=== PATIENT | male | born 1940 | race Caucasian/White ===

== ENCOUNTER 2017-07-11 16:11 | Inpatient (IN) | payer MEDICARE, OTHER ==
[2017-07-11] MEDS ORDERED: IPRATROPIUM-ALBUTEROL 3 ML NEB INHALATION STA (16:47)
[2017-07-11] MEDS ORDERED: SODIUM CHLORIDE 0.9% 1,000 ML IV STA (16:47)
[2017-07-11] MEDS ORDERED: methylPREDNISolone SOD SUCCI 125 MG/2 ML VIAL IV STA (16:47)
[2017-07-11] MEDS ORDERED: MAGNESIUM SULFATE-D5W PMX 1 GM in DEXTROSE/WATER 1 100ML.BAG IVPB STA (16:47)
--- NOTE | 2017-07-11 16:55 | ED ---
SOB HPI - General Chief Complaint: Shortness of Breath Stated Complaint: SOB Time Seen by Provider: 07/11/17 16:33 Source: patient, family, RN notes reviewed Mode of arrival: wheelchair Limitations: no limitations - History of Present Illness Initial Comments: This is a 76-year-old male with a history of COPD who is oxygen dependent who has had increasing shortness of breath for the past 2-3 days. No overt fevers chills or sweats until today he was noted have a low-grade temperature of 99 in his doctor's office. He was sent here for further evaluation. No chest pain reported no peripheral edema. No other modifying factors at this time MD Complaint: shortness of breath, cough - Related Data Home Medications Medication Instructions Recorded Confirmed Atorvastatin [Lipitor] 20 mg PO HS 12/22/14 07/11/17 Levothyroxine Sodium [Synthroid] 75 mcg PO DAILY 12/22/14 07/11/17 Potassium Chloride [K-Tab ER] 10 meq PO DAILY 12/22/14 07/11/17 Ranitidine HCl 150 mg PO HS 12/22/14 07/11/17 Ascorbic Acid [Vitamin C] 500 mg PO DAILY 02/06/17 07/11/17 Cholecalciferol [Vitamin D3] 1,000 unit PO DAILY 02/06/17 07/11/17 Clopidogrel [Plavix] 75 mg PO DAILY 02/06/17 07/11/17 Mirtazapine [Remeron] 15 mg PO HS 07/11/17 07/11/17 Rivaroxaban [Xarelto] 20 mg PO DAILY 07/11/17 07/11/17 Triamterene-Hctz 37.5-25Mg 1 cap PO DAILY 07/11/17 07/11/17 [Dyazide 37.5-25 Capsule] metFORMIN HCL [Glucophage] 500 mg PO DAILY 07/11/17 07/11/17 Previous Rx's Medication Instructions Recorded INSULIN LISPRO (HumaLOG) [humaLOG] 0 unit SQ ACHS #1 vial 02/09/17 Ipratropium-Albuterol Nebulize 3 ml INHALATION RT-QID ampul.neb 02/09/17 [Duoneb 0.5 mg-3 mg/3 ml Soln] Allergies Allergy/AdvReac Type Severity Reaction Status Date / Time No Known Allergies Allergy Verified 07/11/17 17:26 Review of Systems ROS Statement: Those systems with pertinent positive or pertinent negative responses have been documented in the HPI. ROS Other: All systems not noted in ROS Statement are negative. 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 Past Anesthesia/Blood Transfusion Reactions: No Reported Reaction, Motion Sickness Past Psychological History: No Psychological Hx Reported Smoking Status: Former smoker - Past Family History Father Family Medical History: CVA/TIA Additional Family Medical History / Comment(s): Father had a CVA at age 63. Pt does not know how old he lived to be. Mother Family Medical History: No Reported History Additional Family Medical History / Comment(s): Pt states his mother just of old age. He does not know how old she was when she . General Exam - General Exam Comments Initial Comments: This is a well-developed asthenic appearing male who is in respiratory distress with audible wheezing Limitations: no limitations General appearance: alert, in no apparent distress Head exam: Present: atraumatic, normocephalic, normal inspection Eye exam: Present: normal appearance, PERRL, EOMI. Absent: scleral icterus, conjunctival injection, periorbital swelling ENT exam: Present: mucous membranes dry Neck exam: Present: normal inspection. Absent: tenderness, meningismus, lymphadenopathy Respiratory exam: Present: wheezes, decreased breath sounds. Absent: respiratory distress, rales, rhonchi, stridor Cardiovascular Exam: Present: tachycardia. Absent: systolic murmur, diastolic murmur, rubs, gallop, clicks GI/Abdominal exam: Present: soft, normal bowel sounds. Absent: distended, tenderness, guarding, rebound, rigid Extremities exam: Present: normal inspection, full ROM, normal capillary refill. Absent: tenderness, pedal edema, joint swelling, calf tenderness Back exam: Present: normal inspection Neurological exam: Present: alert, oriented X3, CN II-XII intact Psychiatric exam: Present: normal affect, normal mood Skin exam: Present: warm, dry, intact, normal color. Absent: rash Course Vital Signs 07/11/17 07/11/17 07/11/17 16:17 16:52 17:03 Temperature 98.2 F Pulse Rate 103 H 109 H 103 H Respiratory 20 18 18 Rate Blood Pressure 122/69 O2 Sat by Pulse 84 L Oximetry 07/11/17 17:52 Temperature Pulse Rate 102 H Respiratory 18 Rate Blood Pressure 131/63 O2 Sat by Pulse 91 L Oximetry - Reevaluation(s) Reevaluation #1: 07/11/17 18 the patient states that he is feeling somewhat better breathing better. He does state that he has been having some intermittent left-sided chest discomfort none at this time Reevaluation #2: 07/11/17 19:01 I did discuss case with the admitting physician he will be admitted with treatment for pneumonia and COPD exacerbation renal insufficiency and elevated troponin Medical Decision Making - Medical Decision Making I did discuss findings with patient and his family. Patient be admitted for an Outpatient treatment of pneumonia COPD exacerbation renal insufficiency elevated troponin. I did a chest pain. EKG shows no acute changes at this time. - Lab Data Result diagrams: 07/11/17 16:57 07/11/17 16:57 Lab Results 07/11/17 07/11/17 07/11/17 Range/Units 16:57 16:57 16:57 WBC 12.0 H (3.8-10.6) k/uL RBC 3.84 L (4.30-5.90) m/uL Hgb 11.6 L (13.0-17.5) gm/dL Hct 35.0 L (39.0-53.0) % MCV 91.3 (80.0-100.0) fL MCH 30.3 (25.0-35.0) pg MCHC 33.1 (31.0-37.0) g/dL RDW 13.3 (11.5-15.5) % Plt Count 226 (150-450) k/uL Neutrophils % 89 % Lymphocytes % 3 % Monocytes % 6 % Eosinophils % 0 % Basophils % 0 % Neutrophils # 10.6 H (1.3-7.7) k/uL Lymphocytes # 0.4 L (1.0-4.8) k/uL Monocytes # 0.7 (0-1.0) k/uL Eosinophils # 0.0 (0-0.7) k/uL Basophils # 0.0 (0-0.2) k/uL PT (9.0-12.0) sec INR (<1.2) APTT (22.0-30.0) sec Sodium 144 (137-145) mmol/L Potassium 4.1 (3.5-5.1) mmol/L Chloride 94 L (98-107) mmol/L Carbon Dioxide 34 H (22-30) mmol/L Anion Gap 16 mmol/L BUN 42 H (9-20) mg/dL Creatinine 1.68 H (0.66-1.25) mg/dL Est GFR (CKD-EPI)AfAm 45 (>60 ml/min/1.73 sqM) Est GFR (CKD-EPI)NonAf 39 (>60 ml/min/1.73 sqM) Glucose 179 H (74-99) mg/dL Plasma Lactic Acid Sarabjit (0.7-2.0) mmol/L Calcium 8.8 (8.4-10.2) mg/dL Magnesium 1.8 (1.6-2.3) mg/dL Total Bilirubin 0.4 (0.2-1.3) mg/dL AST 19 (17-59) U/L ALT 32 (21-72) U/L Alkaline Phosphatase 69 (38-126) U/L Total Creatine Kinase 40 L (55-170) U/L CK-MB (CK-2) 0.7 (0.0-2.4) ng/mL CK-MB (CK-2) Rel Index 1.8 Troponin I 0.066 H* (0.000-0.034) ng/mL NT-Pro-B Natriuret Pep pg/mL Total Protein 6.1 L (6.3-8.2) g/dL Albumin 3.8 (3.5-5.0) g/dL 07/11/17 07/11/17 07/11/17 Range/Units 16:57 16:57 16:57 WBC (3.8-10.6) k/uL RBC (4.30-5.90) m/uL Hgb (13.0-17.5) gm/dL Hct (39.0-53.0) % MCV (80.0-100.0) fL MCH (25.0-35.0) pg MCHC (31.0-37.0) g/dL RDW (11.5-15.5) % Plt Count (150-450) k/uL Neutrophils % % Lymphocytes % % Monocytes % % Eosinophils % % Basophils % % Neutrophils # (1.3-7.7) k/uL Lymphocytes # (1.0-4.8) k/uL Monocytes # (0-1.0) k/uL Eosinophils # (0-0.7) k/uL Basophils # (0-0.2) k/uL PT 9.6 (9.0-12.0) sec INR 1.0 (<1.2) APTT 25.6 (22.0-30.0) sec Sodium (137-145) mmol/L Potassium (3.5-5.1) mmol/L Chloride (98-107) mmol/L Carbon Dioxide (22-30) mmol/L Anion Gap mmol/L BUN (9-20) mg/dL Creatinine (0.66-1.25) mg/dL Est GFR (CKD-EPI)AfAm (>60 ml/min/1.73 sqM) Est GFR (CKD-EPI)NonAf (>60 ml/min/1.73 sqM) Glucose (74-99) mg/dL Plasma Lactic Acid Sarabjit 2.2 H* (0.7-2.0) mmol/L Calcium (8.4-10.2) mg/dL Magnesium (1.6-2.3) mg/dL Total Bilirubin (0.2-1.3) mg/dL AST (17-59) U/L ALT (21-72) U/L Alkaline Phosphatase (38-126) U/L Total Creatine Kinase (55-170) U/L CK-MB (CK-2) (0.0-2.4) ng/mL CK-MB (CK-2) Rel Index Troponin I (0.000-0.034) ng/mL NT-Pro-B Natriuret Pep 1800 pg/mL Total Protein (6.3-8.2) g/dL Albumin (3.5-5.0) g/dL - EKG Data -: EKG Interpreted by Me EKG shows normal: sinus rhythm (Sinus tachycardia rate of 107 IL interval 138 QRS duration 84 QT since QTC at 298/[address]-T wave changes are seen.) - Radiology Data Radiology results: report reviewed (I did review the imaging and report or is evidence of multifocal bronchopneumonia), image reviewed Critical Care Time Critical Care Time: Yes Critical Care Time: 31 minutes of critical care time which includes initial presentation with history physical labs x-rays reevaluation the patient to responsive therapy discuss with patient family regarding the findings discussed with the main physician documentation the above admission orders also review of old charting that was available. Disposition Clinical Impression: Acute exacerbation of chronic obstructive airways disease, Adult respiratory distress syndrome, Pneumonia, Leukocytosis, Renal insufficiency syndrome, Elevated troponin Disposition: ADMITTED IP TO THIS HOSP Condition: Stable Referrals: Bar Antunez MD [Primary Care Provider] - 1-2 days
[2017-07-11 17:10] LABS: Basophils % (A) 0 %; Eosinophils % (A) 0 %; HGB 11.6 gm/dL (13.0-17.5); Lymphocytes # (A) 0.4 k/uL (1.0-4.8); Lymphocytes % (A) 3 %; MCH 30.3 pg (25.0-35.0); MCHC 33.1 g/dL (31.0-37.0); MCV 91.3 fL (80.0-100.0); Mean Platelet Volume 6.8; Monocytes # (A) 0.7 k/uL (0-1.0); Monocytes % (A) 6 %; Neutrophils # (A) 10.6 k/uL (1.3-7.7); Neutrophils % (A) 89 %; Platelet Count 226 k/uL (150-450); RBC 3.84 m/uL (4.30-5.90); RDW 13.3 % (11.5-15.5)
[2017-07-11 17:19] LABS: Partial Thromboplastin Time 25.6 sec (22.0-30.0); Prothrombin Time 9.6 sec (9.0-12.0)
[2017-07-11 17:25] LABS: Albumin 3.8 g/dL (3.5-5.0); Calcium 8.8 mg/dL (8.4-10.2); Magnesium 1.8 mg/dL (1.6-2.3); Potassium 4.1 mmol/L (3.5-5.1); Total Bilirubin 0.4 mg/dL (0.2-1.3); Total Protein 6.1 g/dL (6.3-8.2)
--- NOTE | 2017-07-11 17:28 | XR ---
EXAMINATION: XR chest 2V DATE AND TIME: 07/11/2017 5:22 PM ORDERING PROVIDER: Armando Morillo MD CLINICAL INDICATION: difficulty breathing, weakness TECHNIQUE: PA and lateral COMPARISON: 02/06/2017 DESCRIPTION: The lungs demonstrate scattered ill-defined opacities within the bilateral lungs, greate r on the left. This is a change when compared to prior study. There is redemonstration of the elevated right costophrenic angle and hemidiaphragm; this is unchange d. The pleural spaces are otherwise negative. The cardiac silhouette is not enlarged. The mediastinal and pleural silhouettes are unremarkable. The skeletal structures are intact without focal findings. The soft tissues are unremarkable. IMPRESSION: Radiographic findings suggest multifocal bronchopneumonia; would suggest six-week follow-up PA and la teral chest radiograph to prove resolution of the abnormalities.
[2017-07-11 17:42] LABS: Creatine Kinase MB 0.7 ng/mL (0.0-2.4)
[2017-07-11 17:46] LABS: Troponin I 0.066 ng/mL (0.000-0.034)
[2017-07-11] MEDS ORDERED: cefTRIAXone IN SWFI 1,000 MG/10 ML SYRINGE IVP STA (18:29)
[2017-07-11] MEDS ORDERED: PNEUMONIA PROTOCOL UTILIZED 1 EACH MISC PO PRN (19:04)
[2017-07-11] MEDS ORDERED: AZITHROMYCIN 500 MG in SODIUM CHLORIDE 0.9% 250 ML IVPB STA (19:18)
[2017-07-11] MEDS: IPRATROPIUM-ALBUTEROL 3 ML NEB INHALATION SCH (19:51)
[2017-07-11] MEDS: SODIUM CHLORIDE 0.9% 1,000 ML IV SCH (20:21)
[2017-07-11 20:52] LABS: Glucose,Whole Blood 252 mg/dL (75-99)
[2017-07-11] MEDS ORDERED: INSULIN ASPART 100 UNIT/ML 1 ML 10 ML VIAL SQ SCH (21:00)
[2017-07-11] MEDS: INSULIN ASPART 100 UNIT/ML 1 ML 10 ML VIAL SQ SCH (21:17)
[2017-07-11] MEDS: FAMOTIDINE 20 MG TAB PO SCH (21:17)
[2017-07-11] MEDS: MIRTAZAPINE 15 MG TAB PO SCH (21:17)
[2017-07-11] MEDS: ATORVASTATIN 20 MG TAB PO SCH (21:17)
[2017-07-11] MEDS: methylPREDNISolone SOD SUCCI 125 MG/2 ML VIAL IV SCH (23:37)
[2017-07-12] MEDS: IPRATROPIUM-ALBUTEROL 3 ML NEB INHALATION SCH ×5 (00:10→21:07)
[2017-07-12] MEDS ORDERED: IPRATROPIUM-ALBUTEROL 3 ML NEB INHALATION PRN (00:12)
[2017-07-12 06:30] LABS: HCT 30.8 % (39.0-53.0); Hypochromasia Slight; MCH 30.1 pg (25.0-35.0); MCHC 31.8 g/dL (31.0-37.0); MCV 94.4 fL (80.0-100.0); Mean Platelet Volume 7.5; Platelet Count 193 k/uL (150-450); RBC 3.26 m/uL (4.30-5.90); RDW 13.2 % (11.5-15.5); WBC 9.5 k/uL (3.8-10.6)
[2017-07-12 06:31] LABS: Glucose,Whole Blood 265 mg/dL (75-99)
[2017-07-12] MEDS: LEVOTHYROXINE 75 MCG TAB PO SCH (06:33)
[2017-07-12] MEDS: INSULIN ASPART 100 UNIT/ML 1 ML 10 ML VIAL SQ SCH ×4 (06:34→22:05)
[2017-07-12] MEDS: methylPREDNISolone SOD SUCCI 125 MG/2 ML VIAL IV SCH ×2 (06:34→12:11)
[2017-07-12 06:36] LABS: HGB 9.8 gm/dL (13.0-17.5)
[2017-07-12 07:21] LABS: Calcium 8.1 mg/dL (8.4-10.2); Magnesium 2.2 mg/dL (1.6-2.3)
--- NOTE | 2017-07-12 08:43 | XR ---
EXAMINATION TYPE: XR chest 2V DATE OF EXAM: 07/12/2017 COMPARISON: Prior chest x-ray 07/11/[address] chest 02/07/2017 HISTORY: Pneumonia TECHNIQUE: Frontal and lateral views of the chest are obtained. FINDINGS: Findings are similar to prior exam. Interstitium is increased. There is lateralization of the right hemidiaphragm. No evident pneumothorax. Heart is stable. Prominence of the pulmonary artery could be due to pulmonary artery hypertension, increased lung volumes compatible with emphysema. The re are overlying cardiac leads. Nodular density right upper lobe persists. Evidence of old granulomat ous disease. IMPRESSION: Correlate to exclude pulmonary venous hypertension and interstitial edema, volume overlo ad additional findings above.
[2017-07-12] MEDS: TRIAMTERENE-HCTZ 37.5-25MG 1 EACH CAP PO SCH (10:22)
[2017-07-12] MEDS: POTASSIUM CHLORIDE ER 10 MEQ TAB.ER.PRT PO SCH (10:22)
[2017-07-12] MEDS: CHOLECALCIFEROL 1,000 UNIT TAB PO SCH (10:22)
[2017-07-12] MEDS: metFORMIN 500 MG TAB PO SCH (10:22)
[2017-07-12] MEDS: CLOPIDOGREL 75 MG TAB PO SCH (10:22)
[2017-07-12] MEDS: RIVAROXABAN 20 MG TAB PO SCH (10:22)
[2017-07-12] MEDS: ASCORBIC ACID 500 MG TAB PO SCH (10:22)
[2017-07-12 10:24] VITALS: BMI 18.6
[2017-07-12 11:46] LABS: Glucose,Whole Blood 155 mg/dL (75-99)
[2017-07-12 17:26] LABS: Glucose,Whole Blood 231 mg/dL (75-99)
[2017-07-12] MEDS: cefTRIAXone IN SWFI 1,000 MG/10 ML SYRINGE IVP SCH (17:53)
--- NOTE | 2017-07-12 18:32 | HP ---
HISTORY AND PHYSICAL DATE OF ADMISSION: 07/11/2017 DATE OF SERVICE: 07/12/2017 PRESENTING COMPLAINT: Short of breath. HISTORY OF PRESENTING COMPLAINT: This 76-year-old patient follows with Dr. Antunez. The patient's chronic stable medical conditions include atrial fibrillation, diabetes type 2, GERD, hyperlipidemia, hypertension, osteoarthritis, hypothyroid. The patient is on home oxygen 2L, BPH. The patient presents with worsening short of breath, cough, other hacking, sputum predominantly white. Denies any obvious fevers. Appetite has been okay. The patient smoked until about 15 years ago and does smoke marijuana occasionally. Chest x-ray showed bilateral infiltrates, admitted with pneumonia, too. Feels rather tired and run down, sometimes uses a cane. REVIEW OF SYSTEMS: CONSTITUTIONAL: Tired. HEENT: Decreased hearing. RESPIRATORY: As above. CARDIOVASCULAR: No chest pain. GASTROINTESTINAL: Some heartburn. GENITOURINARY: None. MUSCULOSKELETAL: None. DERMATOLOGIC: None. HEMATOLOGIC: None. LYMPHATIC: None. PSYCHIATRY: None. NEUROLOGICAL: None. PAST MEDICAL HISTORY: Atrial fibrillation, diabetes, GERD, hyperlipidemia, hypertension, osteoarthritis, COPD, home oxygen 2L, in 2003 had a brain bleed requiring neurosurgical intervention, shingles, nephrolithiasis, passed on his own, BPH, some dementia, hyperlipidemia, hypertension, migraines, remote history of DVT, chronic kidney disease. PAST SURGICAL HISTORY: Tonsillectomy, surgery for brain bleed in 2003. SOCIAL HISTORY: The patient sometimes uses a cane. Because of some financial social security, his and he do not live together and she visits him. He does not drive. The patient started smoking at the age of 11-12, stopped in 2002. That is close to about 50 years. 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 FAMILY HISTORY: Father had a stroke at the age of 63. HOME MEDICATIONS: 1. Potassium 10 mEq p.o. daily. 2. Glucophage 500 mg p.o. daily. 3. Zantac 150 mg q.h.s. 4. Dyazide 37.5/25 1 capsule p.o. daily. 5. Xarelto 20 mg p.o. daily. 6. Synthroid 75 mcg a day. 7. DuoNeb q.i.d. 8. Remeron 50 mg q.h.s. 9. Plavix 75 mg p.o. daily. 10.Vitamin D3 1000 units p.o. daily. 11.Lipitor 20 mg q.h.s. 12.Vitamin C 500 mg p.o. daily. ALLERGIES: None. EXAMINATION: VITAL SIGNS: On presentation, temperature 98.2, pulse 103, respirations 20, blood pressure 122/69, pulse ox 84% on 2L. GENERAL APPEARANCE: Thin build, lying in bed, tired-appearing. EYES: Pupils equal. Conjunctivae normal. HEENT: External appearance of nose and ears normal. Oral cavity normal. NECK: JVD not raised. Mass not palpable. Respiratory effort increased. LUNGS: Diminished breath sounds, prolonged expiration. CARDIOVASCULAR: First and second sounds normal. No edema. ABDOMEN: Soft, nontender. Liver and spleen not palpable. LYMPHATIC: No lymph node palpable in neck or axillae. PSYCHIATRY: Alert and oriented x3. Mood and affect normal. NEUROLOGICAL: Pupils equal. Cranial nerve grossly intact. Power and sensation grossly intact. INVESTIGATIONS: White count 12, hemoglobin 11.6. Potassium 4.1, BUN 42, creatinine 1.68. Troponin 0.066, 0.079. Chest x-ray: Hyperinflated, possible infiltrates. EKG: Sinus tachycardia. ASSESSMENT: 1. Acute severe chronic obstructive pulmonary disease exacerbation in an ex-smoker. The patient smoked for close to 50 years. 2. Bilateral pneumonia, suspect gram-negative organism, present on admission. 3. Hypothyroid. 4. Paroxysmal atrial fibrillation, currently in sinus rhythm. The patient is chronically on Xarelto. 5. Gastroesophageal reflux disease. 6. Hyperlipidemia. 7. Essential hypertension. 8. Primary osteoarthritis. 9. Chronic hypoxic respiratory failure on 2L oxygen at home. 10.Acute hypoxic respiratory failure from pneumonia and chronic obstructive pulmonary disease. PLAN: Patient started on IV ceftriaxone and Zithromax. Home medications are resumed. Patient is put on steroids, nebulized bronchodilators. Pulmonary is being consulted. Care was discussed with the patient. Questions were answered. MMODL / IJN: [id number] /
[2017-07-12] MEDS: AZITHROMYCIN 500 MG TAB PO SCH (19:30)
[2017-07-12 21:33] LABS: Glucose,Whole Blood 235 mg/dL (75-99)
[2017-07-12] MEDS: FAMOTIDINE 20 MG TAB PO SCH (22:05)
[2017-07-12] MEDS: MIRTAZAPINE 15 MG TAB PO SCH (22:05)
[2017-07-12] MEDS: ATORVASTATIN 20 MG TAB PO SCH (22:05)
[2017-07-12] MEDS: SODIUM CHLORIDE 0.9% 1,000 ML IV SCH (22:06)
[2017-07-13] MEDS: methylPREDNISolone SOD SUCCI 40 MG/ML 1 ML VIAL IV SCH ×4 (00:30→23:29)
[2017-07-13] MEDS: LEVOTHYROXINE 75 MCG TAB PO SCH (06:13)
[2017-07-13] MEDS: INSULIN ASPART 100 UNIT/ML 1 ML 10 ML VIAL SQ SCH ×4 (06:13→20:48)
[2017-07-13 06:24] LABS: Glucose,Whole Blood 191 mg/dL (75-99)
[2017-07-13] MEDS: IPRATROPIUM-ALBUTEROL 3 ML NEB INHALATION SCH ×4 (07:12→20:09)
[2017-07-13] MEDS: ASCORBIC ACID 500 MG TAB PO SCH (09:44)
[2017-07-13] MEDS: AZITHROMYCIN 500 MG TAB PO SCH (09:44)
[2017-07-13] MEDS: TRIAMTERENE-HCTZ 37.5-25MG 1 EACH CAP PO SCH (09:45)
[2017-07-13] MEDS: RIVAROXABAN 20 MG TAB PO SCH (09:45)
[2017-07-13] MEDS: CLOPIDOGREL 75 MG TAB PO SCH (09:45)
[2017-07-13] MEDS: CHOLECALCIFEROL 1,000 UNIT TAB PO SCH (09:45)
[2017-07-13] MEDS: POTASSIUM CHLORIDE ER 10 MEQ TAB.ER.PRT PO SCH (09:45)
[2017-07-13] MEDS: metFORMIN 500 MG TAB PO SCH (09:45)
--- NOTE | 2017-07-13 10:27 | CONS ---
CONSULTATION CHIEF COMPLAINT: Shortness of breath and elevated troponin. This is a 76-year-old gentleman with history of paroxysmal atrial fibrillation, type 2 diabetes, dyslipidemia, hypertension, hypothyroidism, GERD, COPD on home O2, who presented to hospital with cough, shortness of breath and productive sputum. Cardiology had been consulted because of elevated troponin. He denies chest pain and there is no prior history of coronary artery disease. EKG on this admission shows sinus rhythm with nonspecific ST-T wave changes. Chest x-ray showed evidence of bilateral infiltrate. Patient smokes marijuana intermittently. At the time of my evaluation he appears comfortable at rest and is free of significant symptoms, other than the shortness of breath which is chronic and stable. PAST MEDICAL HISTORY: Significant for COPD, hypothyroidism, paroxysmal atrial fibrillation, hypertension, dyslipidemia, GERD, arthritis. MEDICATIONS: At home include Glucophage, Zantac, Dyazide, Xarelto, Synthroid, DuoNeb, Remeron, Plavix, Lipitor, K-Dur, and vitamin C. ALLERGIES: There are no known drug allergies. PAST SURGICAL HISTORY: Significant for tonsillectomy and neurological surgery. REVIEW OF SYSTEMS: A review of systems has been performed. The pertinent are shortness of breath as described above. PHYSICAL EXAMINATION: Patient appears comfortable at rest. Vital signs are stable. There is no jugular venous distention. Carotid upstroke is diminished. There is no bruit. Chest exam reveals diminished air entry at the bases. Heart exam reveals first and second heart sounds. Systolic murmur at the left lower sternal border. Abdomen is soft. Exam of extremities did not reveal any edema. Peripheral pulses are felt. LABS: Show that BUN is 41, creatinine is 1.6, potassium is 4. Troponins are in the powell zone at 0.06, 0.07. BNP is elevated at 1800. ASSESSMENT: 1. Elevated troponin, probably related to chronic obstructive pulmonary disease exacerbation and underlying renal insufficiency. 2. Hypertension. 3. Chronic obstructive pulmonary disease exacerbation. 4. Paroxysmal atrial fibrillation. PLAN: Patient will continue current medications. Will review the echocardiogram once the results are available. He is on optimal medical therapy including aspirin, Plavix. It unclear as to why he is on Plavix. Patient is on Xarelto for atrial fibrillation, which will be continued. Patient is already on a statin, which we are going to continue and I will review the echocardiogram once the results are available. No further cardiac followup is needed at this time. Thank you for giving us the pleasure to participate with this pleasant gentleman. MMPIPPAL / IJN: [id number] /
--- NOTE | 2017-07-13 11:31 | P.CNPUL ---
History of Present Illness Consult date: 07/13/17 Requesting physician: Dmitry Faith Reason for consult: dyspnea, abnormal CXR/CT Chief complaint: Shortness of breath History of present illness: This is a 76-year-old gentleman who follows with Dr. Antunez as his primary care physician. He has a history of atrial fibrillation anticoagulated with Xarelto , CVA/TIA, diabetes mellitus, gastroesophageal reflux disease, hypertension, lipidemia, hypothyroidism, shingles, BPH, dementia, degenerative arthritis, remote history of DVT, chronic renal failure. He also has chronic and ongoing tobacco dependence along with marijuana use. He has severe chronic obstructive pulmonary disease. He has chronic hypoxic respiratory failure on home oxygen at 2 L/m per nasal cannula. He follows with Dr. Harris in our office for the same. He presented here to the emergency room with a 2-3 day complaint of increasing shortness of breath. Chest x-ray shows evidence of fluid volume overload. ProBNP 1800, troponin 0.066, 0.079. Echocardiogram is pending. Previous echocardiogram from 2014 revealed preserved left ventricular systolic function with ejection fraction 55-60%. He is currently afebrile. Maintaining good O2 saturations in the mid 90s on 2 L/m per nasal cannula. Hemodynamically stable. He is seen today in consultation on the selective care unit. He is awake and alert in no acute distress. White count 9.5. Hemoglobin 9.8. Creatinine 1.65. He has been initiated on bronchodilators, IV Solu-Medrol, antibiotics. Blood cultures are revealing no growth. Sputum culture pending. Review of Systems 14 point review of system was conducted. All negative other than as mentioned in the HPI. 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 Past Anesthesia/Blood Transfusion Reactions: No Reported Reaction Past Psychological History: No Psychological Hx Reported Additional Psychological History / Comment(s): Pt states he lives in an apartment. He is mostly independent with his ADLs. He uses a cane to ambulate. Patient states there is not 24/7 help where he is located and his daughter is his mine shifter. Patient states his comes over sometimes. He wears home O2 at 2L/NC most of the time. He doesn't drive. He has a nebulizer. He is on diabetic medication but does not believe he is a diabetic so he does not own a blood glucose monitor. Pt states he recently lost his food stamps and is having trouble buying food. Smoking Status: Former smoker Past Alcohol Use History: None Reported Additional Past Alcohol Use History / Comment(s): Pt states he quit smoking in 2002. He had started smoking as a 11-12 yr old and was a ppd smoker. Past Drug Use History: Marijuana Additional Drug Use History / Comment(s): Pt states he has a medical marijuana card and smokes it on occasion because it increases his appetite. Patient states he has not smoked in about a month. 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 - Past Family History Father Family Medical History: CVA/TIA Additional Family Medical History / Comment(s): Father had a CVA at age 63. Pt does not know how old he lived to be. Mother Family Medical History: No Reported History Additional Family Medical History / Comment(s): Pt states his mother just of old age. He does not know how old she was when she . Medications and Allergies Home Medications Medication Instructions Recorded Confirmed Type Atorvastatin [Lipitor] 20 mg PO HS 12/22/14 07/11/17 History Levothyroxine Sodium [Synthroid] 75 mcg PO DAILY 12/22/14 07/11/17 History Potassium Chloride [K-Tab ER] 10 meq PO DAILY 12/22/14 07/11/17 History Ranitidine HCl 150 mg PO HS 12/22/14 07/11/17 History Ascorbic Acid [Vitamin C] 500 mg PO DAILY 02/06/17 07/11/17 History Cholecalciferol [Vitamin D3] 1,000 unit PO DAILY 02/06/17 07/11/17 History Clopidogrel [Plavix] 75 mg PO DAILY 02/06/17 07/11/17 History INSULIN LISPRO (HumaLOG) [humaLOG] 0 unit SQ ACHS #1 vial 02/09/17 07/11/17 Rx Ipratropium-Albuterol Nebulize 3 ml INHALATION RT-QID ampul.neb 02/09/17 Rx [Duoneb 0.5 mg-3 mg/3 ml Soln] Mirtazapine [Remeron] 15 mg PO HS 07/11/17 07/11/17 History Rivaroxaban [Xarelto] 20 mg PO DAILY 07/11/17 07/11/17 History Triamterene-Hctz 37.5-25Mg 1 cap PO DAILY 07/11/17 07/11/17 History [Dyazide 37.5-25 Capsule] metFORMIN HCL [Glucophage] 500 mg PO DAILY 07/11/17 07/11/17 History Allergies Allergy/AdvReac Type Severity Reaction Status Date / Time No Known Allergies Allergy Verified 07/11/17 17:26 Physical Exam Vitals: Vital Signs Temp Pulse Pulse Resp BP BP Pulse Ox 07/13/17 11:06 84 07/13/17 10:56 84 07/13/17 08:00 97.6 F 82 18 129/60 97 07/13/17 07:22 80 07/13/17 07:12 76 07/13/17 04:00 97 F L 83 18 158/70 94 L 07/13/17 00:00 98.2 F 85 18 116/57 95 07/12/17 21:21 82 07/12/17 21:08 82 07/12/17 20:00 18 07/12/17 19:46 97 F L 86 18 120/58 95 07/12/17 15:40 72 07/12/17 15:26 72 07/12/17 15:25 98.5 F 87 18 117/59 94 L 07/12/17 12:00 98.2 F 88 18 122/58 94 L 07/12/17 11:35 76 07/12/17 11:21 73 Intake and Output 07/12/17 07/13/17 07/13/17 22:59 06:59 14:59 Intake Total 240 Output Total 150 Balance -150 240 Intake: Oral 240 Output: Urine 150 Other: Voiding Method Urinal # Voids 1 Weight 55.4 kg GENERAL EXAM: Frail, cachectic. Alert, comfortable in no apparent distress. HEAD: Normocephalic. EYES: Normal reaction of pupils, equal size. NOSE: Clear with pink turbinates. THROAT: No erythema or exudates. NECK: No masses, no JVD. CHEST: No chest wall deformity. LUNGS: Equal air entry with crackles in the bilateral posterior bases CVS: S1 and S2 normal with no audible murmur, regular rhythm. ABDOMEN: No hepatosplenomegaly, normal bowel sounds, no guarding or rigidity. SPINE: Kyphoscoliosis SKIN: No rashes CENTRAL NERVOUS SYSTEM: No focal deficits, tone is normal in all 4 extremities. EXTREMITIES: There is no peripheral edema. No clubbing, no cyanosis. Peripheral pulses are intact. Results - Laboratory Findings CBC and BMP: 07/12/17 06:09 07/12/17 06:09 PT/INR, D-dimer PT 9.6 sec (9.0-12.0) 07/11/17 16:57 INR 1.0 (<1.2) 07/11/17 16:57 Abnormal lab findings: Abnormal Labs 07/11/17 07/11/17 07/11/17 16:57 16:57 16:57 WBC 12.0 H RBC 3.84 L Hgb 11.6 L Hct 35.0 L Neutrophils # 10.6 H Lymphocytes # 0.4 L Chloride 94 L Carbon Dioxide 34 H BUN 42 H Creatinine 1.68 H Glucose 179 H POC Glucose (mg/dL) Plasma Lactic Acid Sarabjit Calcium Total Creatine Kinase 40 L Troponin I 0.066 H* Total Protein 6.1 L 07/11/17 07/11/17 07/11/17 16:57 20:31 20:50 WBC RBC Hgb Hct Neutrophils # Lymphocytes # Chloride Carbon Dioxide BUN Creatinine Glucose POC Glucose (mg/dL) 252 H Plasma Lactic Acid Sarabjit 2.2 H* Calcium Total Creatine Kinase Troponin I 0.079 H* Total Protein 07/12/17 07/12/17 07/12/17 06:09 06:09 06:29 WBC RBC 3.26 L Hgb 9.8 L D Hct 30.8 L Neutrophils # Lymphocytes # Chloride Carbon Dioxide 34 H BUN 41 H Creatinine 1.65 H Glucose 278 H POC Glucose (mg/dL) 265 H Plasma Lactic Acid Sarabjit Calcium 8.1 L Total Creatine Kinase Troponin I Total Protein 07/12/17 07/12/17 07/12/17 11:44 17:11 21:28 WBC RBC Hgb Hct Neutrophils # Lymphocytes # Chloride Carbon Dioxide BUN Creatinine Glucose POC Glucose (mg/dL) 155 H 231 H 235 H Plasma Lactic Acid Sarabjit Calcium Total Creatine Kinase Troponin I Total Protein 07/13/17 06:03 WBC RBC Hgb Hct Neutrophils # Lymphocytes # Chloride Carbon Dioxide BUN Creatinine Glucose POC Glucose (mg/dL) 191 H Plasma Lactic Acid Sarabjit Calcium Total Creatine Kinase Troponin I Total Protein - Diagnostic Findings Chest x-ray: image reviewed Assessment and Plan Assessment: Impression: #1 Acute on chronic hypoxic respiratory failure secondary to an acute exacerbation of chronic obstructive pulmonary disease. #2 Elevated troponins suspect secondary to oxygen supply and demand mismatch. Echocardiogram pending. Previous echocardiogram in 2014 revealed preserved left ventricular systolic function. #3 Chronic tobacco dependence including marijuana use. #4 Anorexia/cachexia syndrome. #5 Acute on chronic renal failure. 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 #7 Remote history of DVT. #8 Chronic pain syndrome, utilizing medical marijuana. #9 Diabetes mellitus. #10 Hypertension. #11 Hyperlipidemia. #12 Hypothyroidism. #13 Dementia. #14 Poor overall functional performance based on the above-mentioned multiple comorbidities. Plan: The patient was seen and evaluated by Dr. Harris. Chest x-ray and labs were reviewed. We'll continue with his current pulmonary treatment for now. We'll add Pulmicort and Perforomist inhalations twice a day. Continue diuretics. Echocardiogram is pending. We will increase his activity as tolerated. We'll continue to follow and make further recommendations based on his clinical status. I, the cosigning physician, performed a history & physical examination of the patient. Lungs sounds have end expiratory wheeze. Diminished. Maintaining good O2 saturations in the 90s on 2 L/m per nasal cannula. I discussed the assessment and plan of care with my nurse practitioner, Mattie Vences. I attest to the above note as dictated by her. Time with Patient: Greater than 30
[2017-07-13 11:46] LABS: Glucose,Whole Blood 209 mg/dL (75-99)
--- NOTE | 2017-07-13 12:34 | ECHOF ---
Referral Reason:abn trop MEASUREMENTS -------- HEIGHT: 172.7 cm WEIGHT: 55.3 kg BP: 158/70 RVIDd: 2.9 cm (< 3.3) IVSd: 0.9 cm (0.6 - 1.1) LVIDd: 4.6 cm (3.9 - 5.3) LVPWd: 1.0 cm (0.6 - 1.1) IVSs: 1.2 cm LVIDs: 3.5 cm LVPWs: 1.3 cm LAESV Index (A-L): 21.92 ml/m Ao Diam: 3.1 cm (2.0 - 3.7) AV Cusp: 1.8 cm (1.5 - 2.6) LA Diam: 2.9 cm (2.7 - 3.8) EPSS: 0.5 cm MV E Vikash: 0.86 m/s MV DecT: 175 ms MV A Vikash: 0.79 m/s MV E/A Ratio: 1.08 RAP: 15.00 mmHg RVSP: 45.81 mmHg MV EF SLOPE: 169.13 mm/s (70 - 150) MV EXCURSION: 1.92 cm (> 18.000) FINDINGS -------- Sinus rhythm. This was a technically adequate study. The left ventricular size is normal. Left ventricular wall thickness is normal. Overall left vent ricular systolic function is low-normal with, an EF between 50 - 55 %. The right ventricle is normal in size and function. Normal LA size by volume 22+/-6 ml/m2. The right atrium is normal in size. There is mild aortic valve sclerosis. There is no evidence of aortic regurgitation. There is no e vidence of aortic stenosis. The mitral valve leaflets are mildly thickened. There is trace to mild mitral regurgitation. Mild tricuspid regurgitation present. There is mild pulmonary hypertension. The right ventricular systolic pressure, as measured by Doppler, is 45.81mmHg. The pulmonic valve was not well visualized. The aortic root size is normal. The inferior vena cava is dilated with poor inspiratory collapse which is consistent with estimated r ight atrial pressure of 20 mmHg. There is no pericardial effusion. CONCLUSIONS -------- 1. Sinus rhythm. 2. This was a technically adequate study. 3. The left ventricular size is normal. 4. Left ventricular wall thickness is normal. 5. Overall left ventricular systolic function is low-normal with, an EF between 50 - 55 %. 6. Normal LA size by volume 22+/-6 ml/m2. 7. There is mild aortic valve sclerosis. 8. The mitral valve leaflets are mildly thickened. 9. There is trace to mild mitral regurgitation. 10. Mild tricuspid regurgitation present. 11. There is mild pulmonary hypertension. 12. The right ventricular systolic pressure, as measured by Doppler, is 45.81mmHg. 13. The pulmonic valve was not well visualized. 14. The aortic root size is normal. 15. The inferior vena cava is dilated with poor inspiratory collapse which is consistent with estimat ed right atrial pressure of 20 mmHg. 16. There is no pericardial effusion. QC MANAGER: Jac Chun RDCS
--- NOTE | 2017-07-13 14:54 | CDI ---
Last Revision, January 2017 Documentation Clarification Form Date: 07/13/17 6784 From: Kita Garcia RN, CCDS Admit Date: 07/11/2017 7:04:00 PM Patient Name: Archie Patel Visit Number: [id number] ATTENTION: The Clinical Documentation Specialists (CDI) and [facility] Coding Staff appreciate your assistance in clarifying documentation. Please respond to the clarification below the line at the bottom and electronically sign. The CDI & [facility] Coding staff will review the response and follow-up if needed. Please note: Queries are made part of the Legal Health Record. If you have any questions, please contact the author of this message via ITS. Dr. Dmitry Faith History/Risk Factors: AF, DM,GERD, Hyperlipidemia, HTN, OA, BPH, nephrolithiasis, HTN Clinical Indicators: 07/13 Pulmonary Consult: "chronic renal failure with a baseline creatinine of 1.1 -1.2." Current BUN: 42/41 Creatinine: 1.68/1.65 GFR: 39/40 02/09/17 Patients Baseline: BUN/CR/GFR: 50/1.63/41 Treatment: IVF@ 20 CC/hr In order to capture the severity of condition, please clarify if the condition signifies: CKD Stage 3 (GFR 30-59) CKD Stage 4 (GFR 15-29) CKD Stage 5 (GFR <15) ESRD Other, please specify Unable to determine Please continue to document in your progress notes and discharge summary in order to capture severity of illness and risk of mortality. Include clinical findings that support your diagnosis. see notes MTDD
--- NOTE | 2017-07-13 15:02 | CDI ---
Last Revision, January 2017 Documentation Clarification Form Date: 07/13/17 1500 From: Kita Garcia RN, CCDS Admit Date: 07/11/2017 7:04:00 PM Patient Name: Archie Patel Visit Number: [id number] ATTENTION: The Clinical Documentation Specialists (CDI) and [facility] Coding Staff appreciate your assistance in clarifying documentation. Please respond to the clarification below the line at the bottom and electronically sign. The CDI & [facility] Coding staff will review the response and follow-up if needed. Please note: Queries are made part of the Legal Health Record. If you have any questions, please contact the author of this message via ITS. Dr. Dmitry Faith Patient has been described as underweight and cachexic History/Risk Factors: Atrial fibrillation, diabetes, GERD, hyperlipidemia, hypertension, osteoarthritis, COPD, home oxygen 2L, shingles, nephrolithiasis, passed on his own, BPH, some dementia, hyperlipidemia, hypertension, migraines, remote history of DVT, chronic kidney disease. Clinical Indicators: 07/13 Pulmonary Progress Note: "Anorexia/cachexia syndrome." Patients weight is 55.4 kg Patients height is 68 in Calculated BMI is 18.6 Skin care/assessment: WNL Treatments: Daily weights per unit protocol Nutritional Education per mine expert Dietary Consult completed 07/12/17 Administration of vitamins/supplements: Mariaelena GARCIA Cherry Dipper notes: "underweight" In order to capture the severity of condition associated with patient BMI of ___ ___, a clinical diagnoses needs to be documented by the physician. Please clarify: Protein Caorie Malnutrition, (further specify severity-Mild, moderate, severe) Emaciated Cachexia Underweight Other Unable to determine Please continue to document in your progress notes and discharge summary in order to capture severity of illness and risk of mortality. Include clinical findings that support your diagnosis. underweight MTDD
[2017-07-13 16:39] LABS: Glucose,Whole Blood 170 mg/dL (75-99)
[2017-07-13] MEDS: SODIUM CHLORIDE 0.9% 1,000 ML IV SCH (17:37)
[2017-07-13] MEDS: cefTRIAXone IN SWFI 1,000 MG/10 ML SYRINGE IVP SCH (17:41)
--- NOTE | 2017-07-13 17:54 | PN ---
PROGRESS NOTE DATE OF SERVICE: 07/13/2017. PRESENTING COMPLAINT: Short of breath. INTERVAL HISTORY: Patient admitted with severe COPD exacerbation with bilateral pneumonia. Breathing is slightly better. Still coughing up yellow/dirty brown sputum. The patient did walk a bit in the hallway. Wheezing and cough is present. Did tolerate some diet. REVIEW OF SYSTEMS: Done for constitutional, cardiovascular, GI, pulmonary; relevant findings as above. CURRENT MEDICATIONS: Reviewed, that include DuoNeb, steroids, IV ceftriaxone, Zithromax. PHYSICAL EXAMINATION: Temperature 97.1, pulse 87, respiratory rate 18, blood pressure 127/59, pulse ox 97% on 2 L. GENERAL APPEARANCE: Sitting up, tired-appearing. EYES: Pupils equal. Conjunctivae normal. HEENT: External nose and ears normal. Oral cavity normal. NECK: JVD not raised. Mass not palpable. Respiratory effort increased. LUNGS: Decreased breath sounds. Poor air entry. CARDIOVASCULAR: 1st and 2nd heart sounds normal. No edema. ABDOMEN: Soft, nontender. Liver and spleen not palpable. PSYCHIATRY: Alert and oriented x3. Mood and affect normal. INVESTIGATIONS: Accu-Cheks are noted. Sugar 265, 155. Sputum culture pending. ASSESSMENT: 1. Acute severe chronic obstructive pulmonary disease exacerbation in an ex-smoker, slow to respond. 2. Bilateral pneumonia, suspect gram-negative organism, present on admission. 3. Hypothyroid. 4. Paroxysmal atrial fibrillation, currently in sinus rhythm on Xarelto. 5. Gastroesophageal reflux disease. 6. Hyperlipidemia. 7. Essential hypertension. 8. Primary osteoarthritis multiple joints. 9. Chronic hypoxic respiratory failure on 2 L oxygen at home. 10.Acute hypoxic respiratory failure from pneumonia and COPD, present on admission. 11.Underweight. 12.Chronic kidney disease stage 3, probably from nephrosclerosis, creatinine being around the same since February of this year. PLAN: Continue with antibiotics, steroids, nebulized bronchodilators. Patient encouraged to be out of bed. Care was discussed with the patient. MMODL / IJN: [id number] /
[2017-07-13 20:26] LABS: Glucose,Whole Blood 299 mg/dL (75-99)
[2017-07-13] MEDS: ATORVASTATIN 20 MG TAB PO SCH (20:45)
[2017-07-13] MEDS: MIRTAZAPINE 15 MG TAB PO SCH (20:45)
[2017-07-13] MEDS: FAMOTIDINE 20 MG TAB PO SCH (20:45)
[2017-07-13] MEDS: guaiFENesin 600 MG TABLET.ER PO SCH (21:21)
[2017-07-14] MEDS: LEVOTHYROXINE 75 MCG TAB PO SCH (06:14)
[2017-07-14] MEDS: IPRATROPIUM-ALBUTEROL 3 ML NEB INHALATION SCH ×4 (07:48→19:16)
[2017-07-14 07:55] LABS: Glucose,Whole Blood 267 mg/dL (75-99)
[2017-07-14] MEDS: methylPREDNISolone SOD SUCCI 40 MG/ML 1 ML VIAL IV SCH ×3 (09:19→23:23)
[2017-07-14] MEDS: INSULIN ASPART 100 UNIT/ML 1 ML 10 ML VIAL SQ SCH ×4 (09:19→21:32)
[2017-07-14] MEDS: RIVAROXABAN 15 MG TAB PO SCH (09:20)
[2017-07-14] MEDS: CLOPIDOGREL 75 MG TAB PO SCH (09:20)
[2017-07-14] MEDS: TRIAMTERENE-HCTZ 37.5-25MG 1 EACH CAP PO SCH (09:20)
[2017-07-14] MEDS: metFORMIN 500 MG TAB PO SCH (09:20)
[2017-07-14] MEDS: AZITHROMYCIN 500 MG TAB PO SCH (09:20)
[2017-07-14] MEDS: POTASSIUM CHLORIDE ER 10 MEQ TAB.ER.PRT PO SCH (09:20)
[2017-07-14] MEDS: CHOLECALCIFEROL 1,000 UNIT TAB PO SCH (09:20)
[2017-07-14] MEDS: ASCORBIC ACID 500 MG TAB PO SCH (09:20)
[2017-07-14] MEDS: guaiFENesin 600 MG TABLET.ER PO SCH ×2 (09:20→21:33)
[2017-07-14 12:36] LABS: Glucose,Whole Blood 213 mg/dL (75-99)
--- NOTE | 2017-07-14 13:50 | P.PN ---
Subjective Progress Note Date: 07/14/17 Principal diagnosis: Acute on chronic hypoxic respiratory failure secondary to an acute exacerbation of chronic obstructive pulmonary disease. This is a 76-year-old gentleman who follows with Dr. Antunez as his primary care physician. He has a history of atrial fibrillation anticoagulated with Xarelto , CVA/TIA, diabetes mellitus, gastroesophageal reflux disease, hypertension, lipidemia, hypothyroidism, shingles, BPH, dementia, degenerative arthritis, remote history of DVT, chronic renal failure. He also has chronic and ongoing tobacco dependence along with marijuana use. He has severe chronic obstructive pulmonary disease. He has chronic hypoxic respiratory failure on home oxygen at 2 L/m per nasal cannula. He follows with Dr. Harris in our office for the same. He presented here to the emergency room with a 2-3 day complaint of increasing shortness of breath. Chest x-ray shows evidence of fluid volume overload. ProBNP 1800, troponin 0.066, 0.079. Echocardiogram is pending. Previous echocardiogram from 2014 revealed preserved left ventricular systolic function with ejection fraction 55-60%. He is currently afebrile. Maintaining good O2 saturations in the mid 90s on 2 L/m per nasal cannula. Hemodynamically stable. He is seen today in consultation on the selective care unit. He is awake and alert in no acute distress. White count 9.5. Hemoglobin 9.8. Creatinine 1.65. He has been initiated on bronchodilators, IV Solu-Medrol, antibiotics. Blood cultures are revealing no growth. Sputum culture pending. The patient is seen again today 07/14/2017 in follow-up on the regular medical floor. He is currently resting quite comfortably in bed. No worsening shortness of breath, cough or congestion. He is maintaining good O2 saturations in the 90s on 2 L/m per nasal cannula. He has been afebrile. Hemodynamically stable. Echocardiogram revealed preserved left ventricular systolic function with ejection fraction 50-55%. Blood culture reveals no growth. Sputum culture reveals no growth. Objective - Vital Signs Vital signs: Vital Signs Temp 97.4 F L 07/14/17 06:30 Pulse 84 07/14/17 12:07 Resp 20 07/14/17 06:30 BP 114/55 07/14/17 06:30 Pulse Ox 97 07/14/17 06:30 Intake & Output 06/09/2207/14/17 07/14/17 18:59 06:59 18:59 Intake Total 1920 Output Total 200 Balance 1720 Weight 55 kg Intake: Oral 1920 Output: Urine 200 Other: Voiding Method Urinal Urinal # Voids 2 1 - Exam GENERAL EXAM: Frail, cachectic. Alert, comfortable in no apparent distress. HEAD: Normocephalic. EYES: Normal reaction of pupils, equal size. NOSE: Clear with pink turbinates. THROAT: No erythema or exudates. NECK: No masses, no JVD. CHEST: No chest wall deformity. LUNGS: Equal air entry with crackles in the bilateral posterior bases CVS: S1 and S2 normal with no audible murmur, regular rhythm. ABDOMEN: No hepatosplenomegaly, normal bowel sounds, no guarding or rigidity. SPINE: Kyphoscoliosis SKIN: No rashes CENTRAL NERVOUS SYSTEM: No focal deficits, tone is normal in all 4 extremities. EXTREMITIES: There is no peripheral edema. No clubbing, no cyanosis. Peripheral pulses are intact. - Labs CBC & Chem 7: 07/12/17 06:09 07/12/17 06:09 Labs: Abnormal Lab Results - Last 24 Hours (Table) 07/13/17 07/13/17 07/14/17 Range/Units 16:36 20:25 07:28 POC Glucose (mg/dL) 170 H 299 H 267 H (75-99) mg/dL 07/14/17 Range/Units 12:31 POC Glucose (mg/dL) 213 H (75-99) mg/dL Microbiology - Last 24 Hours (Table) 07/12/17 08:35 Gram Stain - Final Sputum Sputum Culture - Final 07/11/17 16:57 Blood Culture - Preliminary Blood No Growth after 48 hours Assessment and Plan Assessment: Impression: #1 Acute on chronic hypoxic respiratory failure secondary to an acute exacerbation of chronic obstructive pulmonary disease. #2 Elevated troponins suspect secondary to oxygen supply and demand mismatch. Echocardiogram pending. Previous echocardiogram in 2014 revealed preserved left ventricular systolic function. #3 Chronic tobacco dependence including marijuana use. #4 Anorexia/cachexia syndrome. #5 Acute on chronic renal failure. 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 #7 Remote history of DVT. #8 Chronic pain syndrome, utilizing medical marijuana. #9 Diabetes mellitus. #10 Hypertension. #11 Hyperlipidemia. #12 Hypothyroidism. #13 Dementia. #14 Poor overall functional performance based on the above-mentioned multiple comorbidities. Plan: The patient was seen and evaluated by Dr. Harris. We'll continue with his current pulmonary treatment for now. We will increase his activity as tolerated. We'll continue to follow and make further recommendations based on his clinical status. I, the cosigning physician, performed a history & physical examination of the patient. Lungs sounds have end expiratory wheeze. Diminished. Maintaining good O2 saturations in the 90s on 2 L/m per nasal cannula. I discussed the assessment and plan of care with my nurse practitioner, Mattie Vences. I attest to the above note as dictated by her.
--- NOTE | 2017-07-14 15:01 | PN ---
PROGRESS NOTE DATE OF SERVICE: 07/14/2017 PRESENTING COMPLAINT: Short of breath. INTERVAL HISTORY: Patient with severe COPD exacerbation, bilateral pneumonia. Breathing still short of breath, coughing. Sputum is still present. Did tolerate some diet. Has been out of bed, tired and run down. REVIEW OF SYSTEMS: Review of systems done for constitutional, cardiovascular, GI, pulmonary; relevant findings as above. CURRENT MEDICATIONS: Current medications are reviewed that include IV ceftriaxone, Zithromax, DuoNeb, IV Solu-Medrol. PHYSICAL EXAMINATION: On examination, temperature 97.4, pulse 72, respirations 20, blood pressure 114/55, pulse ox 97% on 2 L. GENERAL APPEARANCE: Sitting up, tired appearing. EYES: Pupils equal. Conjunctivae normal. HENT: External appearance of nose and ears normal. Oral cavity normal. NECK: JVD not raised. Mass not palpable. RESPIRATORY: Effort increased. LUNGS: Decreased breath sounds. Poor air entry. CARDIOVASCULAR: First and second sounds normal. No edema. ABDOMEN: Soft, nontender. Liver and spleen not palpable. PSYCHIATRY: Alert and oriented x3. Mood and affect normal. INVESTIGATIONS: Accu-Cheks are noted. ASSESSMENT: 1. Acute severe chronic obstructive pulmonary disease exacerbation in an ex-smoker, slow to respond. 2. Bilateral pneumonia, suspect gram-negative organism, present on admission. 3. Hypothyroid. 4. Paroxysmal atrial fibrillation, currently in sinus rhythm on Xarelto. 5. Gastroesophageal reflux disease. 6. Hyperlipidemia. 7. Essential hypertension. 8. Primary osteoarthritis of multiple joints. 9. Chronic hypoxic respiratory failure on 2 L oxygen at home. 10.Acute hypoxic respiratory failure from pneumonia and chronic obstructive pulmonary disease, present on admission. 11.Underweight. 12.Chronic kidney disease, stage 3, probably from nephrosclerosis. Creatinine was the same in February of this year. PLAN: Continue current medication and treatment plan. Encourage the patient to be out of bed. The patient's appetite is improving. The patient is coming along though slowly. MMODL / IJN: [id number] /
[2017-07-14] MEDS: SODIUM CHLORIDE 0.9% 1,000 ML IV SCH (16:32)
[2017-07-14 17:18] LABS: Glucose,Whole Blood 184 mg/dL (75-99)
[2017-07-14] MEDS: cefTRIAXone IN SWFI 1,000 MG/10 ML SYRINGE IVP SCH (17:38)
[2017-07-14 21:00] LABS: Glucose,Whole Blood 195 mg/dL (75-99)
[2017-07-14] MEDS: FAMOTIDINE 20 MG TAB PO SCH (21:33)
[2017-07-14] MEDS: MIRTAZAPINE 15 MG TAB PO SCH (21:33)
[2017-07-14] MEDS: ATORVASTATIN 20 MG TAB PO SCH (21:33)
[2017-07-15] MEDS: LEVOTHYROXINE 75 MCG TAB PO SCH (05:34)
[2017-07-15] MEDS: IPRATROPIUM-ALBUTEROL 3 ML NEB INHALATION SCH ×4 (07:19→19:51)
[2017-07-15 07:31] LABS: Glucose,Whole Blood 184 mg/dL (75-99)
[2017-07-15] MEDS: INSULIN ASPART 100 UNIT/ML 1 ML 10 ML VIAL SQ SCH ×4 (08:01→22:01)
[2017-07-15] MEDS: CLOPIDOGREL 75 MG TAB PO SCH (08:02)
[2017-07-15] MEDS: RIVAROXABAN 15 MG TAB PO SCH (08:02)
[2017-07-15] MEDS: methylPREDNISolone SOD SUCCI 40 MG/ML 1 ML VIAL IV SCH ×2 (08:02→15:46)
[2017-07-15] MEDS: guaiFENesin 600 MG TABLET.ER PO SCH ×2 (08:02→22:01)
[2017-07-15] MEDS: CHOLECALCIFEROL 1,000 UNIT TAB PO SCH (08:02)
[2017-07-15] MEDS: metFORMIN 500 MG TAB PO SCH (08:02)
[2017-07-15] MEDS: POTASSIUM CHLORIDE ER 10 MEQ TAB.ER.PRT PO SCH (08:02)
[2017-07-15] MEDS: TRIAMTERENE-HCTZ 37.5-25MG 1 EACH CAP PO SCH (08:03)
[2017-07-15] MEDS: ASCORBIC ACID 500 MG TAB PO SCH (08:03)
[2017-07-15] MEDS: AZITHROMYCIN 500 MG TAB PO SCH (08:03)
[2017-07-15 11:53] LABS: Glucose,Whole Blood 207 mg/dL (75-99)
[2017-07-15] MEDS: SODIUM CHLORIDE 0.9% 1,000 ML IV SCH (15:45)
[2017-07-15] MEDS: cefTRIAXone IN SWFI 1,000 MG/10 ML SYRINGE IVP SCH (15:46)
--- NOTE | 2017-07-15 15:50 | P.PN ---
Subjective Progress Note Date: 07/15/17 Principal diagnosis: Acute on chronic hypoxic respiratory failure secondary to COPD exacerbation. This is a 76-year-old gentleman who follows with Dr. Antunez as his primary care physician. He has a history of atrial fibrillation anticoagulated with Xarelto , CVA/TIA, diabetes mellitus, gastroesophageal reflux disease, hypertension, lipidemia, hypothyroidism, shingles, BPH, dementia, degenerative arthritis, remote history of DVT, chronic renal failure. He also has chronic and ongoing tobacco dependence along with marijuana use. He has severe chronic obstructive pulmonary disease. He has chronic hypoxic respiratory failure on home oxygen at 2 L/m per nasal cannula. He follows with Dr. Harris in our office for the same. He presented here to the emergency room with a 2-3 day complaint of increasing shortness of breath. Chest x-ray shows evidence of fluid volume overload. ProBNP 1800, troponin 0.066, 0.079. Echocardiogram is pending. Previous echocardiogram from 2014 revealed preserved left ventricular systolic function with ejection fraction 55-60%. He is currently afebrile. Maintaining good O2 saturations in the mid 90s on 2 L/m per nasal cannula. Hemodynamically stable. He is seen today in consultation on the selective care unit. He is awake and alert in no acute distress. White count 9.5. Hemoglobin 9.8. Creatinine 1.65. He has been initiated on bronchodilators, IV Solu-Medrol, antibiotics. Blood cultures are revealing no growth. Sputum culture pending. The patient is seen again today 07/14/2017 in follow-up on the regular medical floor. He is currently resting quite comfortably in bed. No worsening shortness of breath, cough or congestion. He is maintaining good O2 saturations in the 90s on 2 L/m per nasal cannula. He has been afebrile. Hemodynamically stable. Echocardiogram revealed preserved left ventricular systolic function with ejection fraction 50-55%. Blood culture reveals no growth. Sputum culture reveals no growth. Reevaluated today on 07/15/2017, patient seems to be doing much better, breathing a lot easier, less cough and less wheezing less shortness of breath. Maintaining adequate saturations on 2 L nasal cannula, patient is normally on home O2 at 2 L. Objective - Vital Signs Vital signs: Vital Signs Temp 96.8 F L 07/15/17 15:00 Pulse 82 07/15/17 15:00 Resp 18 07/15/17 15:00 BP 126/60 07/15/17 15:00 Pulse Ox 94 L 07/15/17 15:00 Intake & Output 07/14/17 07/15/17 07/15/17 18:59 06:59 18:59 Weight 55 kg Other: Voiding Method Urinal # Voids 2 2 3 - Exam GENERAL EXAM: Frail, cachectic. Alert, comfortable in no apparent distress. HEAD: Normocephalic. EYES: Normal reaction of pupils, equal size. NOSE: Clear with pink turbinates. THROAT: No erythema or exudates. NECK: No masses, no JVD. CHEST: No chest wall deformity. LUNGS: Equal air entry with crackles in the bilateral posterior bases CVS: S1 and S2 normal with no audible murmur, regular rhythm. ABDOMEN: No hepatosplenomegaly, normal bowel sounds, no guarding or rigidity. SPINE: Kyphoscoliosis SKIN: No rashes CENTRAL NERVOUS SYSTEM: No focal deficits, tone is normal in all 4 extremities. EXTREMITIES: There is no peripheral edema. No clubbing, no cyanosis. Peripheral pulses are intact. - Labs CBC & Chem 7: 07/12/17 06:09 07/12/17 06:09 Labs: Abnormal Lab Results - Last 24 Hours (Table) 07/14/17 07/14/17 07/15/17 Range/Units 17:08 20:58 07:29 POC Glucose (mg/dL) 184 H 195 H 184 H (75-99) mg/dL 07/15/17 Range/Units 11:51 POC Glucose (mg/dL) 207 H (75-99) mg/dL Microbiology - Last 24 Hours (Table) 07/11/17 16:57 Blood Culture - Preliminary Blood No Growth after 72 hours Assessment and Plan Assessment: #1 Acute on chronic hypoxic respiratory failure secondary to an acute exacerbation of chronic obstructive pulmonary disease. #2 Elevated troponins suspect secondary to oxygen supply and demand mismatch. Echocardiogram pending. Previous echocardiogram in 2014 revealed preserved left ventricular systolic function. #3 Chronic tobacco dependence including marijuana use. #4 Anorexia/cachexia syndrome. #5 Acute on chronic renal failure. 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 #7 Remote history of DVT. #8 Chronic pain syndrome, utilizing medical marijuana. #9 Diabetes mellitus. #10 Hypertension. #11 Hyperlipidemia. #12 Hypothyroidism. #13 Dementia. #14 Poor overall functional performance based on the above-mentioned multiple comorbidities. Recommendation: Continue present meds, switch patient to oral prednisone, discharge the patient home tomorrow, and follow up with me on outpatient basis. Time with Patient: Less than 30
[2017-07-15] MEDS: predniSONE 10 MG TAB PO SCH (16:28)
[2017-07-15 16:52] LABS: Glucose,Whole Blood 119 mg/dL (75-99)
--- NOTE | 2017-07-15 18:50 | PN ---
PROGRESS NOTE DATE OF SERVICE: July 15, 2017. PRESENTING COMPLAINT: Short of breath. INTERVAL HISTORY: Patient admitted with severe COPD exacerbation, bilateral pneumonia, getting better. Has been up to the bathroom. Sputum production significantly gone down. Eating better. Feeling better. REVIEW OF SYSTEMS: Done for constitutional, cardiovascular, GI, pulmonary; relevant findings as above. CURRENT MEDICATIONS: Reviewed that include IV ceftriaxone, Zithromax, oral prednisone. PHYSICAL EXAMINATION: Temperature 96.8, pulse 62, respiratory 18, blood pressure 126/60, pulse ox 94% on 2 L. GENERAL APPEARANCE: Sitting at the edge of the bed, looking better. EYES: Pupils are equal. Conjunctivae normal. HEENT external appearance of nose and ears normal. Oral cavity normal. NECK: JVD not raised. Mass not palpable. RESPIRATORY: Effort increased. LUNGS decreased breath sounds. Cardiovascular: 1st and 2nd sounds normal. No edema. ABDOMEN: Soft, nontender. Liver and spleen not palpable. PSYCHIATRY: Alert and oriented x3. Mood and affect normal. INVESTIGATIONS: Accu-Cheks are noted. ASSESSMENT: 1. Acute severe chronic obstructive pulmonary disease exacerbation in an ex-smoker improving. 2. Bilateral pneumonia suspect gram-negative organism, improved. 3. Hypothyroid. 4. Paroxysmal atrial fibrillation, currently in sinus rhythm on Xarelto. 5. Gastroesophageal reflux disease. 6. Hyperlipidemia. 7. Essential hypertension. 8. Primary osteoarthritis of multiple joints. 9. Chronic hypoxic respiratory failure on 2 L oxygen at home. 10.Acute hypoxic respiratory failure from pneumonia and chronic obstructive pulmonary disease exacerbation present on admission. 11.Underweight. 12.Chronic kidney stage 3 probably from nephrosclerosis. PLAN: The patient is switched to oral prednisone. We will switch to oral antibiotics. I talked to the patient. Should be able to be discharged tomorrow. MMODL / IJN: [id number] /
[2017-07-15 21:20] LABS: Glucose,Whole Blood 285 mg/dL (75-99)
[2017-07-15] MEDS: ATORVASTATIN 20 MG TAB PO SCH (22:01)
[2017-07-15] MEDS: MIRTAZAPINE 15 MG TAB PO SCH (22:01)
[2017-07-15] MEDS: FAMOTIDINE 20 MG TAB PO SCH (22:01)
[2017-07-15 23:36] VITALS: RESP 20
[2017-07-16] MEDS: LEVOTHYROXINE 75 MCG TAB PO SCH (05:50)
[2017-07-16 06:34] VITALS: BP 151/73; TEMP 97.5
[2017-07-16 07:12] LABS: Glucose,Whole Blood 133 mg/dL (75-99)
[2017-07-16] MEDS: IPRATROPIUM-ALBUTEROL 3 ML NEB INHALATION SCH ×2 (07:47→11:49)
[2017-07-16] MEDS: guaiFENesin 600 MG TABLET.ER PO SCH (08:01)
[2017-07-16] MEDS: AZITHROMYCIN 500 MG TAB PO SCH (08:01)
[2017-07-16] MEDS: CHOLECALCIFEROL 1,000 UNIT TAB PO SCH (08:01)
[2017-07-16] MEDS: CLOPIDOGREL 75 MG TAB PO SCH (08:02)
[2017-07-16] MEDS: TRIAMTERENE-HCTZ 37.5-25MG 1 EACH CAP PO SCH (08:02)
[2017-07-16] MEDS: ASCORBIC ACID 500 MG TAB PO SCH (08:02)
[2017-07-16] MEDS: metFORMIN 500 MG TAB PO SCH (08:02)
[2017-07-16] MEDS: POTASSIUM CHLORIDE ER 10 MEQ TAB.ER.PRT PO SCH (08:02)
[2017-07-16] MEDS: predniSONE 10 MG TAB PO SCH (08:02)
[2017-07-16] MEDS: RIVAROXABAN 15 MG TAB PO SCH (08:02)
[2017-07-16] MEDS: INSULIN ASPART 100 UNIT/ML 1 ML 10 ML VIAL SQ SCH ×2 (08:03→12:38)
[2017-07-16 11:55] LABS: Glucose,Whole Blood 205 mg/dL (75-99)
[2017-07-16 11:59] VITALS: PULSE 90
--- NOTE | 2017-07-16 13:04 | P.PN ---
Subjective Progress Note Date: 07/16/17 Principal diagnosis: Shortness of breath Progress note dated 07/16/2017 76-year-old male with a history of acute on chronic hypoxemic respiratory failure secondary to COPD. The patient has a history of elevated troponins ultimately related to supply/demand mismatch. In addition, the patient has ongoing chronic tobacco dependence and marijuana use, anorexia/cachexia syndrome , acute on chronic renal failure, history of CVA, remote history of DVT, chronic pain syndrome, diabetes mellitus, hypertension, hyperlipidemia, hypothyroidism, dementia, and general medical debility. The patient's overall condition has improved and he is being considered for discharge in next 24-48 hours. Still with some shortness of breath. Objective - Vital Signs Vital signs: Vital Signs Temp 97.5 F L 07/16/17 06:00 Pulse 90 07/16/17 11:59 Resp 20 07/16/17 06:00 BP 151/73 07/16/17 06:00 Pulse Ox 100 07/16/17 06:00 Intake & Output 07/15/17 07/16/17 07/16/17 18:59 06:59 18:59 Intake Total 100 240 Balance 100 240 Weight 51.1 kg Intake: Oral 100 240 Other: Voiding Method Toilet # Voids 3 3 - Exam No acute distress, oriented 3. HEENT examination is grossly unremarkable. Mucous membranes are moist. No oral lesions. Neck supple. Full range of motion. No adenopathy thyromegaly or neck vein distention. Cardiovascular examination reveals regular rhythm rate. S1-S2 normal. No S3 or S4. No discernible murmur noted. Lungs reveal few scattered rhonchi. His breath sounds are equal bilaterally. No crackles or wheezes. Abdomen soft bowel sounds are heard. No masses or tenderness. Extremities are intact. No cyanosis clubbing or edema. Skin is without rash or lesion. Neurologic examination is brief but nonfocal. - Labs CBC & Chem 7: 07/12/17 06:09 07/12/17 06:09 Labs: Abnormal Lab Results - Last 24 Hours (Table) 07/15/17 07/15/17 07/16/17 Range/Units 16:50 21:09 06:58 POC Glucose (mg/dL) 119 H 285 H 133 H (75-99) mg/dL 07/16/17 Range/Units 11:53 POC Glucose (mg/dL) 205 H (75-99) mg/dL Microbiology - Last 24 Hours (Table) 07/11/17 16:57 Blood Culture - Preliminary Blood No Growth after 96 hours Assessment and Plan Assessment: Assessment Acute on chronic hypoxemic respiratory failure secondary to COPD exacerbation Mildly elevated troponins, thought to relate to supply/demand mismatch Chronic tobacco dependence and nicotine addiction Chronic marijuana use Anorexia/cachexia syndrome Acute on chronic renal failure Previous history of hemorrhagic CVA Remote history of DVT Chronic pain syndrome Diabetes mellitus Hypertension Hyperlipidemia Hypothyroidism Dementia Plan: Plan dated 07/16/2017 The patient is being considered for possible discharge in next 24-48 hours. All medications have been switched to oral medications. The patient's currently on appropriate medication from the pulmonary standpoint. Overall pulmonary status is much improved. Much less shortness of breath. No cough no wheezing. No phlegm production. Time with Patient: Less than 30
--- NOTE | 2017-07-17 21:19 | DS ---
DISCHARGE SUMMARY DATE OF ADMISSION: 07/11/2017 DATE OF DISCHARGE: 07/16/2017 FINAL DIAGNOSES: 1. Acute severe chronic obstructive pulmonary disease exacerbation in an ex-smoker along with bilateral pneumonia suspect gram-negative organism present on admission. 2. Hypothyroid. 3. Paroxysmal atrial fibrillation currently in sinus rhythm on Xarelto. 4. Gastroesophageal reflux disease. 5. Hyperlipidemia. 6. Essential hypertension. 7. Primary osteoarthritis in multiple joints. 8. Chronic hypoxic respiratory failure on 2 L oxygen at home. 9. Acute hypoxic respiratory failure from pneumonia and chronic obstructive pulmonary disease exacerbation present on admission. 10.Underweight. 11.Chronic kidney disease stage 3 probably from nephrosclerosis. CONSULTATION: Dr. Harris from pulmonary and Dr. Guillaume from Cardiology. HOSPITAL COURSE: This patient presented with significant sputum production, short of breath, cough, tired, run down who is on 2 L of oxygen at home. The patient is an ex-smoker, doing much better by the time of discharge. The patient's cultures including blood and sputum were both negative. The patient is tolerating a diet, up and about. EXAM: LUNGS: Decreased breath sounds. CARDIOVASCULAR: First and second sounds normal. A 2D echocardiogram showed the EF preserved at 50% to 55%. DISCHARGE MEDICATIONS: 1. Lipitor 20 mg q.h.s. 2. Synthroid 75 mcg a day. 3. Potassium 10 mEq a day. 4. Zantac 150 mg q.h.s. 5. Vitamin C 500 mg p.o. daily. 6. Vitamin D3 1000 units p.o. daily. 7. Plavix 75 mg p.o. daily. 8. Humalog. 9. DuoNeb q.i.d. 10.Remeron 50 mg q.h.s. 11.Dyazide 37.5/25 1 capsule p.o. daily. 12.Glucophage 500 mg p.o. daily. 13.Ceftin 500 mg p.o. b.i.d. 6 tablets. 14.Xarelto 50 mg p.o. daily. 15.Prednisone taper. 16.Home oxygen to continue. Follow up with Dr. Harris in [address] Antunez on 07/19/2017. Home oxygen to continue. MMODL / IJN: [id number] /
== END 2017-07-16 13:17 | disposition home health service (06) | DRG 177 ==
LOC: EC 16:11 → 6SEL 19:04 → 4MS4W 07-13 19:09
PROVIDERS: ADMIT Hospitalist; ATTEND Hospitalist
DX: J15.6 Pneumonia due to other Gram-negative bacteria (principal); J96.21 Acute and chronic respiratory failure with hypoxia; N17.9 Acute kidney failure, unspecified; R64 Cachexia; J44.0 Chronic obstructive pulmonary disease with (acute) lower respiratory infection; J44.1 Chronic obstructive pulmonary disease with (acute) exacerbation; Z68.1 Body mass index [BMI] 19.9 or less, adult; I48.0 Paroxysmal atrial fibrillation; E87.70 Fluid overload, unspecified; E11.22 Type 2 diabetes mellitus with diabetic chronic kidney disease; G43.909 Migraine, unspecified, not intractable, without status migrainosus; F03.90 Unspecified dementia, unspecified severity, without behavioral disturbance, psychotic disturbance, mood disturbance, and anxiety; I12.9 Hypertensive chronic kidney disease with stage 1 through stage 4 chronic kidney disease, or unspecified chronic kidney disease; R63.6 Underweight; E78.5 Hyperlipidemia, unspecified; E03.9 Hypothyroidism, unspecified; G89.4 Chronic pain syndrome; M19.91 Primary osteoarthritis, unspecified site; N18.3 Chronic kidney disease, stage 3 (moderate); K21.9 Gastro-esophageal reflux disease without esophagitis; R77.9 Abnormality of plasma protein, unspecified; Z87.891 Personal history of nicotine dependence; Z71.6 Tobacco abuse counseling; Z99.81 Dependence on supplemental oxygen; Z71.3 Dietary counseling and surveillance; Z79.01 Long term (current) use of anticoagulants; Z79.02 Long term (current) use of antithrombotics/antiplatelets; Z79.4 Long term (current) use of insulin; Z79.899 Other long term (current) drug therapy; Z86.73 Personal history of transient ischemic attack (TIA), and cerebral infarction without residual deficits; Z86.19 Personal history of other infectious and parasitic diseases; Z87.01 Personal history of pneumonia (recurrent); Z87.442 Personal history of urinary calculi; N40.0 Benign prostatic hyperplasia without lower urinary tract symptoms; Z86.718 Personal history of other venous thrombosis and embolism; Z82.3 Family history of stroke
CPT/HCPCS: 36415; 71046; 80048; 80053; 82550; 82553; 83605; 83735; 83880; 84484; 85025; 85027; 85610; 85730; 87040; 87070; 87205; 93005; 93306; 94640; 94760; 96365; 96375; 99291

== ENCOUNTER → 2017-11-13 | Outpatient (CLI) | payer MEDICARE, OTHER ==
[2017-11-13 14:05] LABS: Basophils % (A) 1 %; Eosinophils # (A) 0.2 k/uL (0-0.7); Eosinophils % (A) 3 %; HGB 11.3 gm/dL (13.0-17.5); Lymphocytes # (A) 1.3 k/uL (1.0-4.8); Lymphocytes % (A) 19 %; MCH 30.9 pg (25.0-35.0); MCHC 32.4 g/dL (31.0-37.0); MCV 95.4 fL (80.0-100.0); Mean Platelet Volume 6.9; Monocytes # (A) 0.4 k/uL (0-1.0); Monocytes % (A) 6 %; Neutrophils # (A) 4.6 k/uL (1.3-7.7); Neutrophils % (A) 68 %; Platelet Count 215 k/uL (150-450); RBC 3.67 m/uL (4.30-5.90); RDW 13.9 % (11.5-15.5); WBC 6.7 k/uL (3.8-10.6)
== END | disposition home or self-care (01) ==
LOC: LABWHC1 12:01
PROVIDERS: ATTEND Internal Medicine Critical Care Medicine
DX: Z12.5 Encounter for screening for malignant neoplasm of prostate (principal); Z79.899 Other long term (current) drug therapy
CPT/HCPCS: 36415; 84153; 85025

== ENCOUNTER 2021-06-21 12:57 | Inpatient (IN) | payer MEDICARE, OTHER ==
[2021-06-21] MEDS ORDERED: SODIUM CHLORIDE 0.9% 1,000 ML IV STA (13:27)
--- NOTE | 2021-06-21 13:31 | ED ---
General Adult HPI - General Chief complaint: Weakness Stated complaint: weakness, confusion Time Seen by Provider: 06/21/21 13:23 Source: patient, RN notes reviewed Mode of arrival: EMS Limitations: altered mental status - History of Present Illness Initial comments: Patient is a pleasant 80-year-old male presenting to the emergency Department with concern for confusion and generalized weakness. This was reported to EMS by family. Patient states he is feeling fine and has no complaints. Patient only able to oriented to self. Patient denies feeling weak or any problems. No pain or dyspnea. Patient denies confusion. - Related Data Home Medications Medication Instructions Recorded Confirmed Atorvastatin [Lipitor] 20 mg PO HS 12/22/14 07/11/17 Levothyroxine Sodium [Synthroid] 75 mcg PO DAILY 12/22/14 07/11/17 Potassium Chloride [K-Tab ER] 10 meq PO DAILY 12/22/14 07/11/17 Ranitidine HCl 150 mg PO HS 12/22/14 07/11/17 Ascorbic Acid [Vitamin C] 500 mg PO DAILY 02/06/17 07/11/17 Cholecalciferol [Vitamin D3 (25 1,000 unit PO DAILY 02/06/17 07/11/17 Mcg = 1000 Iu)] Clopidogrel [Plavix] 75 mg PO DAILY 02/06/17 07/11/17 Mirtazapine [Remeron] 15 mg PO HS 07/11/17 07/11/17 Triamterene-Hctz 37.5-25Mg 1 cap PO DAILY 07/11/17 07/11/17 [Dyazide 37.5-25 Capsule] metFORMIN HCL [Glucophage] 500 mg PO DAILY 07/11/17 07/11/17 Previous Rx's Medication Instructions Recorded INSULIN LISPRO (HumaLOG) [humaLOG] 0 unit SQ ACHS #1 vial 02/09/17 Ipratropium-Albuterol Nebulize 3 ml INHALATION RT-QID ampul.neb 02/09/17 [Duoneb 0.5 mg-3 mg/3 ml Soln] Cefuroxime Axetil [Ceftin] 500 mg PO BID #6 tab 07/16/17 Rivaroxaban [Xarelto] 15 mg PO DAILY #60 tab 07/16/17 predniSONE 10 mg PO DAILY #30 tab 07/16/17 Allergies Allergy/AdvReac Type Severity Reaction Status Date / Time No Known Allergies Allergy Verified 06/21/21 13:23 Review of Systems ROS Statement: Those systems with pertinent positive or pertinent negative responses have been documented in the HPI. ROS Other: All systems not noted in ROS Statement are negative. Constitutional: Denies: fever Eyes: Denies: eye pain ENT: Denies: ear pain Respiratory: Denies: cough Cardiovascular: Denies: chest pain Endocrine: Denies: fatigue Gastrointestinal: Denies: abdominal pain Genitourinary: Denies: dysuria Skin: Denies: rash Neurological: Reports: as per HPI. 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 Past Anesthesia/Blood Transfusion Reactions: No Reported Reaction Past Psychological History: No Psychological Hx Reported Smoking Status: Former smoker Past Alcohol Use History: None Reported Past Drug Use History: Marijuana - Past Family History Father Family Medical History: CVA/TIA Additional Family Medical History / Comment(s): Father had a CVA at age 63. Pt does not know how old he lived to be. Mother Family Medical History: No Reported History Additional Family Medical History / Comment(s): Pt states his mother just of old age. He does not know how old she was when she . General Exam Limitations: no limitations General appearance: alert, in no apparent distress Head exam: Present: atraumatic, normocephalic Eye exam: Present: normal appearance, PERRL, EOMI ENT exam: Present: mucous membranes dry Neck exam: Present: normal inspection. Absent: tenderness, meningismus Respiratory exam: Present: normal lung sounds bilaterally Cardiovascular Exam: Present: regular rate, normal rhythm GI/Abdominal exam: Present: soft. Absent: tenderness Extremities exam: Present: normal inspection Neurological exam: Present: alert Expanded Neurological exam: Present: protecting the airway Patient oriented to: Present: person. Absent: place, time Cranial nerves: EOM's Intact: Normal, Facial Sensation: Normal Sensory exam: Upper Extremity Light Touch: Normal, Lower Extremity Light Touch: Normal Motor strength exam: RUE: 5, LUE: 5, RLE: 5, LLE: 5 Eye Response: (4) open spontaneously Motor Response: (6) obeys commands Verbal Response: (4) confused conversation Psychiatric exam: Present: normal affect, normal mood Skin exam: Present: normal color Course Vital Signs 06/21/21 13:19 Temperature 98.4 F Pulse Rate 63 Respiratory 16 Rate Blood Pressure 142/63 O2 Sat by Pulse 100 Oximetry EKG Findings - EKG Comments: EKG Findings:: Sinus rhythm with rate of 62. WA 175. QRS 92. QT 400. QTc 45. Normal axis. Normal QRS. No acute ST change. Medical Decision Making - Medical Decision Making Patient reevaluated. Patient updated. Case discussed with Dr. Cam, who will admit covering hospital call. BiPAP started. - Lab Data Result diagrams: 06/21/21 13:38 06/21/21 13:38 Lab Results 06/21/21 06/21/21 06/21/21 Range/Units 13:38 13:38 13:38 WBC 5.9 (3.8-10.6) k/uL RBC 3.58 L (4.30-5.90) m/uL Hgb 10.4 L (13.0-17.5) gm/dL Hct 35.0 L (39.0-53.0) % MCV 97.5 (80.0-100.0) fL MCH 29.2 (25.0-35.0) pg MCHC 29.9 L (31.0-37.0) g/dL RDW 14.4 (11.5-15.5) % Plt Count 238 (150-450) k/uL MPV 7.5 Neutrophils % 77 % Lymphocytes % 14 % Monocytes % 6 % Eosinophils % 1 % Basophils % 0 % Neutrophils # 4.6 (1.3-7.7) k/uL Lymphocytes # 0.8 L (1.0-4.8) k/uL Monocytes # 0.4 (0-1.0) k/uL Eosinophils # 0.1 (0-0.7) k/uL Basophils # 0.0 (0-0.2) k/uL Hypochromasia Marked PT 9.9 (9.0-12.0) sec INR 0.9 (<1.2) APTT 21.3 L (22.0-30.0) sec Sample Site ABG pH (7.35-7.45) ABG pCO2 (35-45) mmHg ABG pO2 (83-108) mmHg ABG HCO3 (21-25) mmol/L ABG Total CO2 (19-24) mmol/L ABG O2 Saturation (94-97) % ABG Base Excess mmol/L Billy Test FiO2 % Sodium 138 (137-145) mmol/L Potassium 3.5 (3.5-5.1) mmol/L Chloride 82 L (98-107) mmol/L Carbon Dioxide 55 H* (22-30) mmol/L Anion Gap 1 mmol/L BUN 47 H (9-20) mg/dL Creatinine 1.57 H (0.66-1.25) mg/dL Est GFR (CKD-EPI)AfAm 48 (>60 ml/min/1.73 sqM) Est GFR (CKD-EPI)NonAf 41 (>60 ml/min/1.73 sqM) Glucose 138 H (74-99) mg/dL Calcium 8.2 L (8.4-10.2) mg/dL Total Bilirubin 0.5 (0.2-1.3) mg/dL AST 15 L (17-59) U/L ALT 9 (4-49) U/L Alkaline Phosphatase 90 (38-126) U/L Troponin I (0.000-0.034) ng/mL Total Protein 5.5 L (6.3-8.2) g/dL Albumin 3.2 L (3.5-5.0) g/dL Urine Color Urine Appearance (Clear) Urine pH (5.0-8.0) Ur Specific Rosenberg (1.001-1.035) Urine Protein (Negative) Urine Glucose (UA) (Negative) Urine Ketones (Negative) Urine Blood (Negative) Urine Nitrite (Negative) Urine Bilirubin (Negative) Urine Urobilinogen (<2.0) mg/dL Ur Leukocyte Esterase (Negative) Urine RBC (0-5) /hpf Urine WBC (0-5) /hpf Ur Squamous Epith Cells (0-4) /hpf Hyaline Casts (0-2) /lpf Urine Mucus (None) /hpf Urine Opiates Screen (NotDetected) Ur Oxycodone Screen (NotDetected) Urine Methadone Screen (NotDetected) Ur Propoxyphene Screen (NotDetected) Ur Barbiturates Screen (NotDetected) U Tricyclic Antidepress (NotDetected) Ur Phencyclidine Scrn (NotDetected) Ur Amphetamines Screen (NotDetected) U Methamphetamines Scrn (NotDetected) U Benzodiazepines Scrn (NotDetected) Urine Cocaine Screen (NotDetected) U Marijuana (THC) Screen (NotDetected) 06/21/21 06/21/21 06/21/21 Range/Units 13:38 15:17 15:23 WBC (3.8-10.6) k/uL RBC (4.30-5.90) m/uL Hgb (13.0-17.5) gm/dL Hct (39.0-53.0) % MCV (80.0-100.0) fL MCH (25.0-35.0) pg MCHC (31.0-37.0) g/dL RDW (11.5-15.5) % Plt Count (150-450) k/uL MPV Neutrophils % % Lymphocytes % % Monocytes % % Eosinophils % % Basophils % % Neutrophils # (1.3-7.7) k/uL Lymphocytes # (1.0-4.8) k/uL Monocytes # (0-1.0) k/uL Eosinophils # (0-0.7) k/uL Basophils # (0-0.2) k/uL Hypochromasia PT (9.0-12.0) sec INR (<1.2) APTT (22.0-30.0) sec Sample Site r rad ABG pH 7.31 L (7.35-7.45) ABG pCO2 108 H* (35-45) mmHg ABG pO2 161 H (83-108) mmHg ABG HCO3 54 H* (21-25) mmol/L ABG Total CO2 58 H (19-24) mmol/L ABG O2 Saturation 99.0 H (94-97) % ABG Base Excess 28.2 mmol/L Billy Test Yes FiO2 28 % Sodium (137-145) mmol/L Potassium (3.5-5.1) mmol/L Chloride (98-107) mmol/L Carbon Dioxide (22-30) mmol/L Anion Gap mmol/L BUN (9-20) mg/dL Creatinine (0.66-1.25) mg/dL Est GFR (CKD-EPI)AfAm (>60 ml/min/1.73 sqM) Est GFR (CKD-EPI)NonAf (>60 ml/min/1.73 sqM) Glucose (74-99) mg/dL Calcium (8.4-10.2) mg/dL Total Bilirubin (0.2-1.3) mg/dL AST (17-59) U/L ALT (4-49) U/L Alkaline Phosphatase (38-126) U/L Troponin I 0.018 (0.000-0.034) ng/mL Total Protein (6.3-8.2) g/dL Albumin (3.5-5.0) g/dL Urine Color Yellow Urine Appearance Clear (Clear) Urine pH 6.0 (5.0-8.0) Ur Specific Rosenberg 1.018 (1.001-1.035) Urine Protein 1+ H (Negative) Urine Glucose (UA) Negative (Negative) Urine Ketones 1+ H (Negative) Urine Blood Trace H (Negative) Urine Nitrite Negative (Negative) Urine Bilirubin Negative (Negative) Urine Urobilinogen 2.0 (<2.0) mg/dL Ur Leukocyte Esterase Negative (Negative) Urine RBC 3 (0-5) /hpf Urine WBC 2 (0-5) /hpf Ur Squamous Epith Cells <1 (0-4) /hpf Hyaline Casts 1 (0-2) /lpf Urine Mucus Rare H (None) /hpf Urine Opiates Screen Not Detected (NotDetected) Ur Oxycodone Screen Not Detected (NotDetected) Urine Methadone Screen Not Detected (NotDetected) Ur Propoxyphene Screen Not Detected (NotDetected) Ur Barbiturates Screen Not Detected (NotDetected) U Tricyclic Antidepress Not Detected (NotDetected) Ur Phencyclidine Scrn Not Detected (NotDetected) Ur Amphetamines Screen Not Detected (NotDetected) U Methamphetamines Scrn Not Detected (NotDetected) U Benzodiazepines Scrn Not Detected (NotDetected) Urine Cocaine Screen Not Detected (NotDetected) U Marijuana (THC) Screen Not Detected (NotDetected) - Radiology Data Radiology results: report reviewed (CT brain shows postsurgical changes without acute hemorrhage. Degenerative changes.), image reviewed (Two-view chest x-ray shows COPD. Pulmonary nodule. Bilateral infiltrates/effusion.) Critical Care Time Critical Care Time: Yes Total Critical Care Time: 33 Disposition Clinical Impression: CO2 narcosis Disposition: ADMITTED IP TO THIS [facility] Condition: Serious Is patient prescribed a controlled substance at d/c from ED?: No Referrals: None,Stated [Primary Care Provider] - 1-2 days Time of Disposition: 15:44
[2021-06-21 14:02] LABS: Basophils % (A) 0 %; Eosinophils # (A) 0.1 k/uL (0-0.7); Eosinophils % (A) 1 %; HGB 10.4 gm/dL (13.0-17.5); Hypochromasia Marked; Lymphocytes # (A) 0.8 k/uL (1.0-4.8); Lymphocytes % (A) 14 %; MCH 29.2 pg (25.0-35.0); MCHC 29.9 g/dL (31.0-37.0); MCV 97.5 fL (80.0-100.0); Mean Platelet Volume 7.5; Monocytes # (A) 0.4 k/uL (0-1.0); Monocytes % (A) 6 %; Neutrophils # (A) 4.6 k/uL (1.3-7.7); Neutrophils % (A) 77 %; Platelet Count 238 k/uL (150-450); RBC 3.58 m/uL (4.30-5.90); RDW 14.4 % (11.5-15.5); WBC 5.9 k/uL (3.8-10.6)
--- NOTE | 2021-06-21 14:15 | XR ---
EXAMINATION TYPE: XR chest 2V DATE OF EXAM: 06/21/2021 COMPARISON: 07/12/2017 TECHNIQUE: PA and lateral views submitted. HISTORY: Altered mental status FINDINGS: There is hyperinflation. Degenerative changes spine. Bilateral areas of infiltrate and small effusion . No pneumothorax. Coarsened interstitium suggest pulmonary interstitial fibrosis. Degenerative russell e of the spine. A rounded nodule overlying the heart on the lateral view. IMPRESSION: 1. COPD with bilateral infiltrate and pleural effusion. 2. Lateral view suggest a 1 cm pulmonary nodule overlying the cardiac silhouette consider follow-up C T scan.
[2021-06-21 14:18] LABS: INR 0.9 (<1.2); Partial Thromboplastin Time 21.3 sec (22.0-30.0); Prothrombin Time 9.9 sec (9.0-12.0)
[2021-06-21 14:19] LABS: Albumin 3.2 g/dL (3.5-5.0); Calcium 8.2 mg/dL (8.4-10.2); Potassium 3.5 mmol/L (3.5-5.1); Total Bilirubin 0.5 mg/dL (0.2-1.3); Total Protein 5.5 g/dL (6.3-8.2)
--- NOTE | 2021-06-21 14:19 | CT ---
EXAMINATION TYPE: CT brain wo con DATE OF EXAM: 06/21/2021 COMPARISON: 02/07/2017 HISTORY: Altered mental status. CT DLP: 1154.4 mGycm Automated exposure control for dose reduction was used. FINDINGS: Postsurgical changes noted. There is evidence of encephalomalacia involving the left temporal lobe. L ow-attenuation white matter suggestive of remote ischemia similar to the prior exam. Moderate generalized degenerative change seen with areas of low attenuation involving the right basal ganglia stable and suggestive of remote infarct. Area of low attenuation involving the right parietal lobe stable suggestive of remote infarct. No acute hemorrhage or mass effect or midline shift Craniocervical junction maintained. Sella turcica has a normal appearance. Orbits are symmetric. Mendiola ges of mild chronic sinusitis. IMPRESSION: 1. Postsurgical change and remote ischemic change with no acute hemorrhage or mass effect. 2. Degenerative changes.
[2021-06-21 15:26] LABS: ABG Base Excess 28.2 mmol/L; ABG PH 7.31 (7.35-7.45); ABG PO2 161 mmHg (83-108); ABG TCO2 58 mmol/L (19-24); Allen Test Performed? Yes
[2021-06-21 15:27] LABS: ABG HCO3 54 mmol/L (21-25); ABG PCO2 108 mmHg (35-45)
[2021-06-21 15:30] LABS: Appearance,Urine Clear (Clear); Bilirubin,Urine Negative (Negative); Blood,Urine Trace (Negative); Color,Urine Yellow; Glucose,Urine (UA) Negative (Negative); Hyaline Casts,Urine 1 /lpf (0-2); Ketones,Urine 1+ (Negative); Leukocyte Esterase,Urine Negative (Negative); Mucus,Urine Rare /hpf; Nitrite,Urine Negative (Negative); Protein,Urine 1+ (Negative); RBC,Urine 3 /hpf (0-5); Specific Gravity,Urine 1.018 (1.001-1.035); Squamous Epithelial Cell,Urine <1 /hpf (0-4); WBC,Urine 2 /hpf (0-5)
[2021-06-21 15:37] LABS: Amphetamine Screen,Urine Not Detected (NotDetected); Barbiturate Screen,Urine Not Detected (NotDetected); Benzodiazepines Screen,Urine Not Detected (NotDetected); Cocaine Screen,Urine Not Detected (NotDetected); Methadone Screen, Urine Not Detected (NotDetected); Opiate Screen,Urine Not Detected (NotDetected); Oxycodone Screen, Urine Not Detected (NotDetected); Phencyclidine Screen,Urine Not Detected (NotDetected); Tricyclic Antidepressant,Urine Not Detected (NotDetected); Urn Cannabinoid Scrn Not Detected (NotDetected)
[2021-06-21] MEDS ORDERED: IPRATROPIUM-ALBUTEROL 3 ML NEB INHALATION PRN (15:44)
[2021-06-21] MEDS ORDERED: methylPREDNISolone SOD SUCCI 125 MG/2 ML VIAL IV STA (15:44)
[2021-06-21] MEDS: IPRATROPIUM-ALBUTEROL 3 ML NEB INHALATION SCH ×2 (16:16→19:44)
[2021-06-22] MEDS: methylPREDNISolone SOD SUCCI 125 MG/2 ML VIAL IV SCH ×5 (00:05→23:04)
[2021-06-22] MEDS: IPRATROPIUM-ALBUTEROL 3 ML NEB INHALATION SCH ×3 (07:45→20:03)
[2021-06-22 08:56] LABS: ABG Base Excess 25.7 mmol/L; ABG Oxygen Saturation 92.3 % (94-97); ABG PH 7.37 (7.35-7.45); ABG PO2 64 mmHg (83-108); ABG TCO2 54 mmol/L (19-24); Allen Test Performed? Yes
[2021-06-22 08:58] LABS: ABG HCO3 51 mmol/L (21-25); ABG PCO2 89 mmHg (35-45)
[2021-06-22] MEDS: RIVAROXABAN 20 MG TAB PO SCH (09:27)
[2021-06-22] MEDS: LEVOTHYROXINE 75 MCG TAB PO SCH (09:27)
[2021-06-22] MEDS: CLOPIDOGREL 75 MG TAB PO SCH (09:28)
[2021-06-22] MEDS: POTASSIUM CHLORIDE ER 10 MEQ TAB.ER.PRT PO SCH (09:28)
[2021-06-22 09:48] LABS: Glucose,Whole Blood 362 mg/dL (75-99)
[2021-06-22] MEDS: INSULIN ASPART (NovoLOG) 100 UNIT/ML VIAL SQ SCH ×3 (09:59→20:35)
[2021-06-22 11:35] LABS: Basophils % (A) 0 %; Eosinophils % (A) 0 %; HGB 10.3 gm/dL (13.0-17.5); Hypochromasia Moderate; Lymphocytes # (A) 0.4 k/uL (1.0-4.8); Lymphocytes % (A) 6 %; MCH 29.2 pg (25.0-35.0); MCHC 30.3 g/dL (31.0-37.0); MCV 96.4 fL (80.0-100.0); Mean Platelet Volume 7.7; Monocytes # (A) 0.2 k/uL (0-1.0); Monocytes % (A) 3 %; Neutrophils # (A) 5.4 k/uL (1.3-7.7); Neutrophils % (A) 91 %; Platelet Count 232 k/uL (150-450); RBC 3.53 m/uL (4.30-5.90); RDW 14.2 % (11.5-15.5); WBC 5.9 k/uL (3.8-10.6)
[2021-06-22 11:57] LABS: Glucose,Whole Blood 343 mg/dL (75-99)
[2021-06-22 12:02] LABS: Calcium 7.9 mg/dL (8.4-10.2); Potassium 3.6 mmol/L (3.5-5.1)
[2021-06-22] MEDS ORDERED: OXYMETAZOLINE 0.05% NASL SPRAY 1 SPRAY BOTTLE NASAL STA (12:25)
--- NOTE | 2021-06-22 12:58 | P.CNPUL ---
History of Present Illness Consult date: 06/22/21 Requesting physician: Stephen Cam Reason for consult: hypoxemia Chief complaint: Altered mental status History of present illness: This is an 80-year-old male patient with a known history of atrial fibrillation, diabetes mellitus, CVA/TIA, hyperlipidemia, hypertension, hypothyroidism, jazmine ntia, chronic renal failure. He also has a history of COPD and chronic hypoxic respiratory failure with home oxygen at 2 L. He is a former smoker. He was brought into the emergency room yesterday by EMS with altered mental status. He was found to be hypercapnic with a pCO2 of 108, pH 7.31, P O2 161 on 28% FiO2. He was placed on BiPAP 10/5 and 28% FiO2. He is seen today in the emergency room. He sitting up on a stretcher. He is awake and alert, disoriented to place and time. He is now on 2 L nasal cannula O2 saturations up to 100%. He's been afebrile. Hemodynamically stable. Chest x-ray revealed evidence of COPD with bilateral infiltrates and pleural effusions. Lateral view suggests a 1 cm pulmonary nodule. ET scan of the brain revealed postsurgical changes with remote ischemic change in no acute hemorrhage or mass effect. Degenerative changes. EKG revealed sinus rhythm without acute ST or T wave abnormalities. White count 5.9. Hemoglobin 10.3. Sodium 133. Potassium 3.6. Bicarb 47. BUN 45. Creatinine 1.82. Glucose 328. Urine drug screen negative. He's been in itiated on DuoNeb inhalations, IV Solu-Medrol. Anticoagulated with Xarelto. Follow-up arterial blood gases on 2 L nasal cannula revealed a PaO2 of 64, pCO2 of 89 and a pH of 7.37. 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 Past Anesthesia/Blood Transfusion Reactions: No Reported Reaction Past Psychological History: No Psychological Hx Reported Smoking Status: Former smoker Past Alcohol Use History: None Reported Past Drug Use History: Marijuana - Past Family History Father Family Medical History: CVA/TIA Additional Family Medical History / Comment(s): Father had a CVA at age 63. Pt does not know how old he lived to be. Mother Family Medical History: No Reported History Additional Family Medical History / Comment(s): Pt states his mother just of old age. He does not know how old she was when she . Medications and Allergies Home Medications Medication Instructions Recorded Confirmed Type Atorvastatin [Lipitor] 20 mg PO HS 12/22/14 06/21/21 History Levothyroxine Sodium [Synthroid] 75 mcg PO DAILY 12/22/14 06/21/21 History Potassium Chloride [K-Tab ER] 10 meq PO DAILY 12/22/14 06/21/21 History Clopidogrel [Plavix] 75 mg PO DAILY 02/06/17 06/21/21 History Mirtazapine [Remeron] 15 mg PO HS 07/11/17 06/21/21 History metFORMIN HCL [Glucophage] 500 mg PO DAILY 07/11/17 06/21/21 History Ipratropium-Albuterol Nebulize 3 ml INHALATION RT-Q6H 06/21/21 06/21/21 History [Duoneb 0.5 mg-3 mg/3 ml Soln] Ipratropium/Albuter 20-100Mcg 1 puff INHALATION RT-QID 06/21/21 06/21/21 History [Combivent Respimat 20-100Mcg Inhaler] Rivaroxaban [Xarelto] 20 mg PO DAILY 06/21/21 06/21/21 History Triamterene/Hydrochlorothiazid 1 tab PO DAILY 06/21/21 06/21/21 History [Triamterene-Hctz 37.5-25 mg Tb] Allergies Allergy/AdvReac Type Severity Reaction Status Date / Time No Known Allergies Allergy Verified 06/21/21 13:23 Physical Exam Vitals: Vital Signs Temp Pulse Resp BP Pulse Ox 06/22/21 09:33 72 16 138/60 96 06/22/21 07:46 61 16 127/50 100 06/22/21 07:45 60 18 06/22/21 06:16 61 18 114/55 100 06/22/21 02:49 70 18 186/61 93 L 06/22/21 01:06 78 18 123/54 94 L 06/21/21 23:23 73 18 119/51 94 L 06/21/21 20:39 67 20 142/56 98 06/21/21 19:55 68 06/21/21 19:44 65 06/21/21 18:33 71 18 136/72 99 06/21/21 16:36 94 24 133/59 98 06/21/21 13:19 98.4 F 63 16 142/63 100 GENERAL EXAM: Alert, disheveled 80-year-old male patient on 2 L nasal cannula, comfortable in no apparent distress. HEAD: Normocephalic. EYES: Normal reaction of pupils, equal size. NOSE: Clear with pink turbinates. THROAT: No erythema or exudates. NECK: No masses, no JVD. CHEST: No chest wall deformity. LUNGS: Equal air entry with few scattered rhonchi. CVS: S1 and S2 normal with no audible murmur, regular rhythm. ABDOMEN: No hepatosplenomegaly, normal bowel sounds, no guarding or rigidity. SPINE: No scoliosis or deformity SKIN: No rashes CENTRAL NERVOUS SYSTEM: Oriented times one. No focal deficits, tone is normal in all 4 extremities. EXTREMITIES: There is no peripheral edema. No clubbing, no cyanosis. Peripheral pulses are intact. Results - Laboratory Findings CBC and BMP: 06/22/21 11:06 06/22/21 11:06 ABG ABG pH 7.37 (7.35-7.45) 06/22/21 08:53 ABG pCO2 89 mmHg (35-45) H* 06/22/21 08:53 ABG pO2 64 mmHg (83-108) L 06/22/21 08:53 ABG O2 Saturation 92.3 % (94-97) L 06/22/21 08:53 PT/INR, D-dimer PT 9.9 sec (9.0-12.0) 06/21/21 13:38 INR 0.9 (<1.2) 06/21/21 13:38 Abnormal lab findings: Abnormal Labs 06/21/21 06/21/21 06/21/21 13:38 13:38 13:38 RBC 3.58 L Hgb 10.4 L Hct 35.0 L MCHC 29.9 L Lymphocytes # 0.8 L APTT 21.3 L ABG pH ABG pCO2 ABG pO2 ABG HCO3 ABG Total CO2 ABG O2 Saturation Sodium Chloride 82 L Carbon Dioxide 55 H* BUN 47 H Creatinine 1.57 H Glucose 138 H POC Glucose (mg/dL) Calcium 8.2 L AST 15 L Total Protein 5.5 L Albumin 3.2 L Urine Protein Urine Ketones Urine Blood Urine Mucus 06/21/21 06/21/21 06/22/21 15:17 15:23 08:53 RBC Hgb Hct MCHC Lymphocytes # APTT ABG pH 7.31 L ABG pCO2 108 H* 89 H* ABG pO2 161 H 64 L ABG HCO3 54 H* 51 H* ABG Total CO2 58 H 54 H ABG O2 Saturation 99.0 H 92.3 L Sodium Chloride Carbon Dioxide BUN Creatinine Glucose POC Glucose (mg/dL) Calcium AST Total Protein Albumin Urine Protein 1+ H Urine Ketones 1+ H Urine Blood Trace H Urine Mucus Rare H 06/22/21 06/22/21 06/22/21 09:45 11:06 11:06 RBC 3.53 L Hgb 10.3 L Hct 34.0 L MCHC 30.3 L Lymphocytes # 0.4 L APTT ABG pH ABG pCO2 ABG pO2 ABG HCO3 ABG Total CO2 ABG O2 Saturation Sodium 133 L Chloride 80 L Carbon Dioxide 47 H* BUN 45 H Creatinine 1.82 H Glucose 328 H POC Glucose (mg/dL) 362 H Calcium 7.9 L AST Total Protein Albumin Urine Protein Urine Ketones Urine Blood Urine Mucus 06/22/21 11:55 RBC Hgb Hct MCHC Lymphocytes # APTT ABG pH ABG pCO2 ABG pO2 ABG HCO3 ABG Total CO2 ABG O2 Saturation Sodium Chloride Carbon Dioxide BUN Creatinine Glucose POC Glucose (mg/dL) 343 H Calcium AST Total Protein Albumin Urine Protein Urine Ketones Urine Blood Urine Mucus - Diagnostic Findings Chest x-ray: image reviewed Assessment and Plan Assessment: 1 Acute hypercapnic respiratory failure, most likely chronic in nature, secondary to an acute exacerbation of his COPD 2 Acute metabolic alkalosis secondary to above. Initiated on Diamox 3 Acute on chronic hypoxemic respiratory failure secondary to COPD exacerbation 4 History of paroxysmal atrial fibrillation anticoagulated with Xarelto 5 History of CVA/TIA 6 History of dementia 7 Diabetes mellitus 8 Hypertension 9 Hyperlipidemia 10 Remote history of DVT 11 Chronic tobacco dependence, quit in 2002 12 Hypothyroidism 13 Chronic renal failure. 14 History of brain bleed with surgery in 2003 15 Poor overall functional performance based on the above-mentioned multiple comorbidities Plan: The patient was seen and evaluated CT scan of the brain, chest x-ray, ABGs and labs reviewed Continue DuoNeb inhalations, IV Solu-Medrol Add Symbicort Add Diamox Continue Xarelto Continue oxygen at 2 L/m per nasal cannula Alternating with BiPAP 10/5 and 28% if needed We will continue to follow and make further recommendations based on his clinical status I have personally seen and examined the patient, performed the documentation and the assessment and plan as written. Number of minutes spent on the visit: 20.
--- NOTE | 2021-06-22 13:59 | P.HPIM ---
History of Present Illness H&P Date: 06/22/21 Chief Complaint: Altered mental status Patient is a 80-year-old male with a known history of atrial fibrillation on anticoagulation with Xarelto, history of CVA/TIA, diabetes type 2 [id number], hypertension, hyperlipidemia, GERD, hypothyroidism and chronic hypoxic respiratory failure secondary COPD on 2 L oxygen via nasal cannula, BPH and dementia and other medical problems including previous history of smoking was brought to ER due to confusion and generalized weakness. Patient lives by himself and his daughter is his caregiver. Patient was brought to hospital by EMS. Otherwise patient denies any complaints of chest pain. Denies any cough or sputum production. No fever no chills. No recent illnesses. On admission patient was hypoxic and requiring high percent nonrebreather. Laboratory data showed ABGs pH 7.31 PCO2 108 PO2 161 and her bicarb is 54 Sodium 138 potassium 3.5 bicarb is 55 and chloride 82 BUN 47 creatinine 1.57 albumin 3.2 urinalysis is negative for infection UDS is negative. Chest x-ray showed COPD with bilateral infiltrate and pleural effusion. Lateral view suggest a 1 cm pulmonary nodule overlying the cardiac silhouette con sidering follow-up CT. CT head showed postsurgical changes and remote ischemic change with no acute hemorrhage or mass-effect. Degenerative changes. EKG showed sinus rhythm with out any significant ST-T wave changes. Review of Systems Constitutional: Patient denies any fever or chills . No generalized weakness or weight loss. Abdomen: Patient denied nausea vomiting and diarrhea and abdominal pain. Cardiovascular: Patient denies any chest pain or short of breath no palpitations. Respiratory: patient does have cough without sputum production.. shortness of breath Neurologic: Patient denied any numbness or tingling headache. Musculoskeletal: Patient denies any complaints of joint swelling or deformity. Skin: Negative Psychiatric: Negative Endocrine: No heat or cold intolerance. No recent weight gain. Genitourinary: No dysuria or hematuria. 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 Past Anesthesia/Blood Transfusion Reactions: No Reported Reaction Past Psychological History: No Psychological Hx Reported Smoking Status: Former smoker Past Alcohol Use History: None Reported Past Drug Use History: Marijuana - Past Family History Father Family Medical History: CVA/TIA Additional Family Medical History / Comment(s): Father had a CVA at age 63. Pt does not know how old he lived to be. Mother Family Medical History: No Reported History Additional Family Medical History / Comment(s): Pt states his mother just of old age. He does not know how old she was when she . Medications and Allergies Home Medications Medication Instructions Recorded Confirmed Type Atorvastatin [Lipitor] 20 mg PO HS 12/22/14 06/21/21 History Levothyroxine Sodium [Synthroid] 75 mcg PO DAILY 12/22/14 06/21/21 History Potassium Chloride [K-Tab ER] 10 meq PO DAILY 12/22/14 06/21/21 History Clopidogrel [Plavix] 75 mg PO DAILY 02/06/17 06/21/21 History Mirtazapine [Remeron] 15 mg PO HS 07/11/17 06/21/21 History metFORMIN HCL [Glucophage] 500 mg PO DAILY 07/11/17 06/21/21 History Ipratropium-Albuterol Nebulize 3 ml INHALATION RT-Q6H 06/21/21 06/21/21 History [Duoneb 0.5 mg-3 mg/3 ml Soln] Ipratropium/Albuter 20-100Mcg 1 puff INHALATION RT-QID 06/21/21 06/21/21 History [Combivent Respimat 20-100Mcg Inhaler] Rivaroxaban [Xarelto] 20 mg PO DAILY 06/21/21 06/21/21 History Triamterene/Hydrochlorothiazid 1 tab PO DAILY 06/21/21 06/21/21 History [Triamterene-Hctz 37.5-25 mg Tb] Allergies Allergy/AdvReac Type Severity Reaction Status Date / Time No Known Allergies Allergy Verified 06/21/21 13:23 Physical Exam Vitals: Vital Signs Temp Pulse Resp BP Pulse Ox 06/22/21 09:33 72 16 138/60 96 06/22/21 07:46 61 16 127/50 100 06/22/21 07:45 60 18 06/22/21 06:16 61 18 114/55 100 06/22/21 02:49 70 18 186/61 93 L 06/22/21 01:06 78 18 123/54 94 L 06/21/21 23:23 73 18 119/51 94 L 06/21/21 20:39 67 20 142/56 98 06/21/21 19:55 68 06/21/21 19:44 65 06/21/21 18:33 71 18 136/72 99 06/21/21 16:36 94 24 133/59 98 06/21/21 13:19 98.4 F 63 16 142/63 100 PHYSICAL EXAMINATION: Patient is lying in the bed comfortably, no acute distress, awake alert and oriented.. HEENT: Normocephalic. Neck is supple. Pupils reactive. Nostrils clear. Oral cavity is moist. Neck reveals no JVD, carotid bruits, or thyromegaly. CHEST EXAMINATION: Trachea is central. Symmetrical expansion. Bilateral diminished sounds. No rhonchi or crackles.. CARDIAC: Normal S1, S2 with no gallops. No murmurs ABDOMEN: Soft. Bowel sounds normal. No organomegaly. No abdominal bruits. Extremities: reveal no edema. No clubbing or cyanosis Neurologically awake, alert, oriented x3 with well-coordinated movements. No focal deficits noted Skin: No rash or skin lesions. Psychiatric: Coperative. Nonsuicidal Musculoskeletal: No joint swelling or deformity. Normal range of motion. Results CBC & Chem 7: 06/22/21 11:06 06/22/21 11:06 Labs: Abnormal Lab Results - Last 24 Hours (Table) 06/21/21 06/21/21 06/21/21 Range/Units 13:38 13:38 13:38 RBC 3.58 L (4.30-5.90) m/uL Hgb 10.4 L (13.0-17.5) gm/dL Hct 35.0 L (39.0-53.0) % MCHC 29.9 L (31.0-37.0) g/dL Lymphocytes # 0.8 L (1.0-4.8) k/uL APTT 21.3 L (22.0-30.0) sec ABG pH (7.35-7.45) ABG pCO2 (35-45) mmHg ABG pO2 (83-108) mmHg ABG HCO3 (21-25) mmol/L ABG Total CO2 (19-24) mmol/L ABG O2 Saturation (94-97) % Chloride 82 L (98-107) mmol/L Carbon Dioxide 55 H* (22-30) mmol/L BUN 47 H (9-20) mg/dL Creatinine 1.57 H (0.66-1.25) mg/dL Glucose 138 H (74-99) mg/dL Calcium 8.2 L (8.4-10.2) mg/dL AST 15 L (17-59) U/L Total Protein 5.5 L (6.3-8.2) g/dL Albumin 3.2 L (3.5-5.0) g/dL Urine Protein (Negative) Urine Ketones (Negative) Urine Blood (Negative) Urine Mucus (None) /hpf 06/21/21 06/21/21 06/22/21 Range/Units 15:17 15:23 08:53 RBC (4.30-5.90) m/uL Hgb (13.0-17.5) gm/dL Hct (39.0-53.0) % MCHC (31.0-37.0) g/dL Lymphocytes # (1.0-4.8) k/uL APTT (22.0-30.0) sec ABG pH 7.31 L (7.35-7.45) ABG pCO2 108 H* 89 H* (35-45) mmHg ABG pO2 161 H 64 L (83-108) mmHg ABG HCO3 54 H* 51 H* (21-25) mmol/L ABG Total CO2 58 H 54 H (19-24) mmol/L ABG O2 Saturation 99.0 H 92.3 L (94-97) % Chloride (98-107) mmol/L Carbon Dioxide (22-30) mmol/L BUN (9-20) mg/dL Creatinine (0.66-1.25) mg/dL Glucose (74-99) mg/dL Calcium (8.4-10.2) mg/dL AST (17-59) U/L Total Protein (6.3-8.2) g/dL Albumin (3.5-5.0) g/dL Urine Protein 1+ H (Negative) Urine Ketones 1+ H (Negative) Urine Blood Trace H (Negative) Urine Mucus Rare H (None) /hpf Thrombosis Risk Factor Assmnt - DVT/VTE Prophylaxis DVT/VTE Prophylaxis: Pharmacologic Prophylaxis ordered Assessment and Plan Assessment: Acute hypercapnic respiratory failure due to COPD exacerbation Altered mental status due to metabolic encephalopathy and CO2 narcosis. Improving. Chronic CO2 retainer Acute metabolic alkalosis Chronic hypoxic respiratory failure requiring oxygen at 2 L via nasal cannula at home. Diabetes type 2 [id number] Paroxysmal atrial fibrillation on anticoagulation with Xarelto History of CVA/TIA and history of brain bleed left side requiring neurosurgical intervention Acute on chronic renal disease stage III Hypertension Hyperlipidemia Hypothyroidism Prior history of smoking and marijuana use DVT prophylaxis patient is already on full anticoagulation. Plan: Patient will be continued on oxygen supplementation and titrate down to 2 L. Continue with IV Solu-Medrol and duo nebs. Continue with home medications and pulmonary was consulted. Patient was encouraged with oral intake and follow-up renal function closely. Patient will be continued insulin sliding scale and titrate dose as needed. Continue to follow closely. Prognosis is guarded. Time with Patient: Greater than 30
[2021-06-22] MEDS ORDERED: INSULIN DETEMIR (LEVEMIR) 100 UNIT/ML SYR SQ ONE (14:15)
[2021-06-22 17:19] LABS: Glucose,Whole Blood 75 mg/dL (75-99)
[2021-06-22] MEDS: SYMBICORT 160-4.5 MCG INHALER INHALATION SCH (20:03)
[2021-06-22 20:15] LABS: Glucose,Whole Blood 155 mg/dL (75-99)
[2021-06-22] MEDS: ATORVASTATIN 20 MG TAB PO SCH (20:35)
[2021-06-22] MEDS: acetaZOLAMIDE 250 MG TAB PO SCH (20:35)
[2021-06-22] MEDS: INSULIN DETEMIR (LEVEMIR) 100 UNIT/ML SYR SQ SCH (20:36)
[2021-06-23] MEDS: IPRATROPIUM-ALBUTEROL 3 ML NEB INHALATION SCH ×5 (02:28→19:11)
[2021-06-23 06:10] LABS: Glucose,Whole Blood 263 mg/dL (75-99)
[2021-06-23] MEDS: LEVOTHYROXINE 75 MCG TAB PO SCH (06:16)
[2021-06-23] MEDS: INSULIN ASPART (NovoLOG) 100 UNIT/ML VIAL SQ SCH ×4 (06:16→20:55)
[2021-06-23] MEDS: methylPREDNISolone SOD SUCCI 125 MG/2 ML VIAL IV SCH ×3 (06:16→17:30)
[2021-06-23] MEDS: SYMBICORT 160-4.5 MCG INHALER INHALATION SCH ×2 (08:24→19:12)
[2021-06-23 08:52] LABS: Basophils % (A) 0 %; Eosinophils % (A) 0 %; HGB 10.8 gm/dL (13.0-17.5); Hypochromasia Marked; Lymphocytes # (A) 0.3 k/uL (1.0-4.8); Lymphocytes % (A) 2 %; MCH 29.2 pg (25.0-35.0); MCV 97.3 fL (80.0-100.0); Mean Platelet Volume 7.6; Monocytes # (A) 0.6 k/uL (0-1.0); Monocytes % (A) 4 %; Neutrophils # (A) 12.6 k/uL (1.3-7.7); Neutrophils % (A) 93 %; Platelet Count 298 k/uL (150-450); RDW 14.6 % (11.5-15.5); WBC 13.6 k/uL (3.8-10.6)
[2021-06-23 09:04] LABS: Calcium 8.6 mg/dL (8.4-10.2); Potassium 3.6 mmol/L (3.5-5.1)
[2021-06-23] MEDS: CLOPIDOGREL 75 MG TAB PO SCH (09:36)
[2021-06-23] MEDS: RIVAROXABAN 20 MG TAB PO SCH (09:36)
[2021-06-23] MEDS: acetaZOLAMIDE 250 MG TAB PO SCH ×2 (09:36→20:54)
[2021-06-23] MEDS: POTASSIUM CHLORIDE ER 10 MEQ TAB.ER.PRT PO SCH (09:37)
--- NOTE | 2021-06-23 11:45 | P.PN ---
Subjective Progress Note Date: 06/23/21 This is an 80-year-old male patient with a known history of atrial fibrillation, diabetes mellitus, CVA/TIA, hyperlipidemia, hypertension, hypothyroidism, dementia, chronic renal failure. He also has a history of COPD and chronic hypoxic respiratory failure with home oxygen at 2 L. He is a former smoker. He was brought into the emergency room yesterday by EMS with altered mental status. He was found to be hypercapnic with a pCO2 of 108, pH 7.31, P O2 161 on 28% FiO2. He was placed on BiPAP 10/5 and 28% FiO2. He is seen today in the emergency room. He sitting up on a stretcher. He is awake and alert, disoriented to place and time. He is now on 2 L nasal cannula O2 saturations up to 100%. He's been afebrile. Hemodynamically stable. Chest x-ray revealed evidence of COPD with bilateral infiltrates and pleural effusions. Lateral view suggests a 1 cm pulmonary nodule. ET scan of the brain revealed postsurgical changes with remote ischemic change in no acute hemorrhage or mass effect. Degenerative changes. EKG revealed sinus rhythm without acute ST or T wave abnormalities. White count 5.9. Hemoglobin 10.3. Sodium 133. Potassium 3.6. Bicarb 47. BUN 45. Creatinine 1.82. Glucose 328. Urine drug screen negative. He's been initiated on DuoNeb inhalations, IV Solu-Medrol. Anticoagulated with Xarelto. Follow-up arterial blood gases on 2 L nasal cannula revealed a PaO2 of 64, pCO2 of 89 and a pH of 7.37. The patient is seen today 06/23/2021 in follow-up on the selective care unit. He is currently sitting up at the bedside. Awake and alert. No worsening shortness of breath, cough or congestion. Off the BiPAP. He is maintaining O2 saturations in the mid 90s on 2 L/m per nasal cannula. He is afebrile. Hemodynamically stable. White count 13.6. Hemoglobin 10.8. Sodium 137. Potassium 3.6. Bicarb 42. BUN 37. Creatinine 1.67. Glucose 143. He is on Symbicort, DuoNeb inhalations, IV Solu-Medrol. Anticoagulated with Xarelto. Objective - Vital Signs Vital signs: Vital Signs Temp 98.0 F 06/23/21 08:00 Pulse 89 06/23/21 11:30 Resp 18 06/23/21 08:00 BP 144/61 06/23/21 08:00 Pulse Ox 95 06/23/21 08:00 Intake & Output 06/22/21 06/23/21 06/23/21 18:59 06:59 18:59 Intake Total 240 10 240 Output Total 1200 225 Balance 240 -1190 15 Weight 63.503 kg Intake: IV 10 Invasive Line 1 10 Oral 240 240 Output: Urine 1200 225 Other: Voiding Method Bedside Commode Bedside Commode Urinal Urinal - Exam GENERAL EXAM: Alert, disheveled 80-year-old male patient on 2 L nasal cannula, comfortable in no apparent distress. HEAD: Normocephalic. EYES: Normal reaction of pupils, equal size. NOSE: Clear with pink turbinates. THROAT: No erythema or exudates. NECK: No masses, no JVD. CHEST: No chest wall deformity. LUNGS: Equal air entry with few scattered rhonchi. CVS: S1 and S2 normal with no audible murmur, regular rhythm. ABDOMEN: No hepatosplenomegaly, normal bowel sounds, no guarding or rigidity. SPINE: No scoliosis or deformity SKIN: No rashes CENTRAL NERVOUS SYSTEM: Oriented times one. No focal deficits, tone is normal in all 4 extremities. EXTREMITIES: There is no peripheral edema. No clubbing, no cyanosis. Peripheral pulses are intact. - Labs CBC & Chem 7: 06/23/21 08:30 06/23/21 08:30 Labs: Abnormal Lab Results - Last 24 Hours (Table) 06/21/21 06/22/21 06/22/21 Range/Units 13:38 11:06 11:55 WBC (3.8-10.6) k/uL RBC (4.30-5.90) m/uL Hgb (13.0-17.5) gm/dL Hct (39.0-53.0) % MCHC (31.0-37.0) g/dL Neutrophils # (1.3-7.7) k/uL Lymphocytes # (1.0-4.8) k/uL Sodium 133 L (137-145) mmol/L Chloride 80 L (98-107) mmol/L Carbon Dioxide 47 H* (22-30) mmol/L BUN 45 H (9-20) mg/dL Creatinine 1.82 H (0.66-1.25) mg/dL Glucose 328 H (74-99) mg/dL POC Glucose (mg/dL) 343 H (75-99) mg/dL Calcium 7.9 L (8.4-10.2) mg/dL Procalcitonin 0.11 H (0.02-0.09) ng/mL 06/22/21 06/23/21 06/23/21 Range/Units 20:12 06:08 08:30 WBC 13.6 H (3.8-10.6) k/uL RBC 3.70 L (4.30-5.90) m/uL Hgb 10.8 L (13.0-17.5) gm/dL Hct 36.0 L (39.0-53.0) % MCHC 30.0 L (31.0-37.0) g/dL Neutrophils # 12.6 H (1.3-7.7) k/uL Lymphocytes # 0.3 L (1.0-4.8) k/uL Sodium (137-145) mmol/L Chloride (98-107) mmol/L Carbon Dioxide (22-30) mmol/L BUN (9-20) mg/dL Creatinine (0.66-1.25) mg/dL Glucose (74-99) mg/dL POC Glucose (mg/dL) 155 H 263 H (75-99) mg/dL Calcium (8.4-10.2) mg/dL Procalcitonin (0.02-0.09) ng/mL 06/23/21 Range/Units 08:30 WBC (3.8-10.6) k/uL RBC (4.30-5.90) m/uL Hgb (13.0-17.5) gm/dL Hct (39.0-53.0) % MCHC (31.0-37.0) g/dL Neutrophils # (1.3-7.7) k/uL Lymphocytes # (1.0-4.8) k/uL Sodium (137-145) mmol/L Chloride 85 L (98-107) mmol/L Carbon Dioxide 42 H* (22-30) mmol/L BUN 37 H (9-20) mg/dL Creatinine 1.67 H (0.66-1.25) mg/dL Glucose 143 H (74-99) mg/dL POC Glucose (mg/dL) (75-99) mg/dL Calcium (8.4-10.2) mg/dL Procalcitonin (0.02-0.09) ng/mL Assessment and Plan Assessment: 1 Acute hypercapnic respiratory failure, most likely chronic in nature, secondary to an acute exacerbation of his COPD 2 Acute metabolic alkalosis secondary to above. Initiated on Diamox 3 Acute on chronic hypoxemic respiratory failure secondary to COPD exacerbation 4 History of paroxysmal atrial fibrillation anticoagulated with Xarelto 5 History of CVA/TIA 6 History of dementia 7 Diabetes mellitus 8 Hypertension 9 Hyperlipidemia 10 Remote history of DVT 11 Chronic tobacco dependence, quit in 2002 12 Hypothyroidism 13 Chronic renal failure. 14 History of brain bleed with surgery in 2003 15 Poor overall functional performance based on the above-mentioned multiple comorbidities Plan: The patient was seen and evaluated Medications and labs reviewed Continue DuoNeb inhalations, Senokot, IV Solu-Medrol Continue Diamox Continue Xarelto Continue oxygen at 2 L/m per nasal cannula Alternating with BiPAP 10/5 and 28% if needed The patient may benefit from long-term placement and continued BiPAP therapy in the outpatient setting I have personally seen and examined the patient, performed the documentation and the assessment and plan as written. Number of minutes spent on the visit: 10.
[2021-06-23 11:51] LABS: Glucose,Whole Blood 190 mg/dL (75-99)
[2021-06-23 16:22] LABS: Glucose,Whole Blood 250 mg/dL (75-99)
[2021-06-23 20:31] LABS: Glucose,Whole Blood 237 mg/dL (75-99)
[2021-06-23] MEDS: ATORVASTATIN 20 MG TAB PO SCH (20:54)
[2021-06-23] MEDS: INSULIN DETEMIR (LEVEMIR) 100 UNIT/ML SYR SQ SCH (20:54)
[2021-06-24] MEDS: methylPREDNISolone SOD SUCCI 125 MG/2 ML VIAL IV SCH ×4 (00:44→17:19)
[2021-06-24 06:24] LABS: Glucose,Whole Blood 152 mg/dL (75-99)
[2021-06-24] MEDS: LEVOTHYROXINE 75 MCG TAB PO SCH (06:30)
[2021-06-24] MEDS: INSULIN ASPART (NovoLOG) 100 UNIT/ML VIAL SQ SCH ×4 (06:31→21:05)
[2021-06-24] MEDS: SYMBICORT 160-4.5 MCG INHALER INHALATION SCH ×2 (08:23→20:02)
[2021-06-24] MEDS: IPRATROPIUM-ALBUTEROL 3 ML NEB INHALATION SCH ×4 (08:23→20:02)
[2021-06-24 09:29] LABS: Basophils % (A) 0 %; Eosinophils % (A) 0 %; HCT 36.7 % (39.0-53.0); Hypochromasia Marked; Lymphocytes # (A) 0.5 k/uL (1.0-4.8); Lymphocytes % (A) 3 %; MCH 29.3 pg (25.0-35.0); MCHC 29.8 g/dL (31.0-37.0); MCV 98.3 fL (80.0-100.0); Macrocytosis Slight; Mean Platelet Volume 7.6; Monocytes # (A) 0.7 k/uL (0-1.0); Monocytes % (A) 4 %; Neutrophils # (A) 14.5 k/uL (1.3-7.7); Neutrophils % (A) 92 %; Platelet Count 309 k/uL (150-450); RBC 3.74 m/uL (4.30-5.90); RDW 14.9 % (11.5-15.5); WBC 15.7 k/uL (3.8-10.6)
[2021-06-24 09:40] LABS: Calcium 8.9 mg/dL (8.4-10.2); Potassium 3.7 mmol/L (3.5-5.1)
[2021-06-24] MEDS: acetaZOLAMIDE 250 MG TAB PO SCH ×2 (09:53→21:14)
[2021-06-24] MEDS: CLOPIDOGREL 75 MG TAB PO SCH (09:53)
[2021-06-24] MEDS: POTASSIUM CHLORIDE ER 10 MEQ TAB.ER.PRT PO SCH (09:53)
[2021-06-24] MEDS: RIVAROXABAN 20 MG TAB PO SCH (09:53)
[2021-06-24 10:06] LABS: Glucose,Whole Blood 92 mg/dL (75-99)
--- NOTE | 2021-06-24 10:15 | P.PN ---
Subjective Progress Note Date: 06/23/21 Patient is a 80-year-old male with a known history of atrial fibrillation on anticoagulation with Xarelto, history of CVA/TIA, diabetes type 2 [id number], hypertension, hyperlipidemia, GERD, hypothyroidism and chronic hypoxic respiratory failure secondary COPD on 2 L oxygen via nasal cannula, BPH and dementia and other medical problems including previous history of smoking was brought to ER due to confusion and generalized weakness. Patient lives by himself and his daughter is his caregiver. Patient was brought to hospital by EMS. Otherwise patient denies any complaints of chest pain. Denies any cough or sputum production. No fever no chills. No recent illnesses. On admission patient was hypoxic and requiring high percent nonrebreather. Laboratory data showed ABGs pH 7.31 PCO2 108 PO2 161 and her bicarb is 54 Sodium 138 potassium 3.5 bicarb is 55 and chloride 82 BUN 47 creatinine 1.57 albumin 3.2 urinalysis is negative for infection UDS is negative. Chest x-ray showed COPD with bilateral infiltrate and pleural effusion. Lateral view suggest a 1 cm pulmonary nodule overlying the cardiac silhouette considering follow-up CT. CT head showed postsurgical changes and remote ischemic change with no acute hemorrhage or mass-effect. Degenerative changes. EKG showed sinus rhythm with out any significant ST-T wave changes. 06/23/2021 Patient is currently in the self-care unit. Sitting on the side of the bed. Feels very weak. No commerce of chest pain or worsening short of breath. Breathing status is better. Patient was using BiPAP overnight. Currently off and 2 L Oxygen with Another Cannula. Patient Afebrile. No Cough or Sputum Production. No Fever No Chills. Pulmonary Is on Board. Laboratory Data Showed There Was 13.6 Hemoglobin 10.8 and Platelets 298 Sodium 137 Potassium 3.6 Chloride 85 Bicarb Is 42 BUN 37 and Creatinine 1.67 and Blood Sugar 143 Patient is being continued on DuoNeb's and Solu-Medrol. Also had atrial fibrillation with Xarelto. Patient is being continued on acetazolamide. Current medications reviewed. Objective - Vital Signs Vital signs: Vital Signs Temp 98.2 F 06/23/21 16:00 Pulse 86 06/23/21 16:00 Resp 18 06/23/21 14:00 BP 142/63 06/23/21 16:00 Pulse Ox 95 06/23/21 16:00 Intake & Output 06/22/21 06/23/21 06/23/21 18:59 06:59 18:59 Intake Total 240 10 358 Output Total 1200 875 Balance 240 -1190 -517 Weight 63.503 kg Intake: IV 10 Invasive Line 1 10 Oral 240 358 Output: Urine 1200 875 Other: Voiding Method Bedside Commode Bedside Commode Urinal Urinal # Bowel Movements 1 - Exam PHYSICAL EXAMINATION: Patient is lying in the bed comfortably, no acute distress, awake alert and oriented.. HEENT: Normocephalic. Neck is supple. Pupils reactive. Nostrils clear. Oral cavity is moist. Neck reveals no JVD, carotid bruits, or thyromegaly. CHEST EXAMINATION: Trachea is central. Symmetrical expansion. Bibasilar diminished sounds. No wheezing. Lung lainez clear to auscultation and percussion. CARDIAC: Normal S1, S2 with no gallops. No murmurs ABDOMEN: Soft. Bowel sounds normal. No organomegaly. No abdominal bruits. Extremities: reveal no edema. No clubbing or cyanosis Neurologically awake, alert, oriented x2-3 with well-coordinated movements. No focal deficits noted Skin: No rash or skin lesions. Psychiatric: Coperative. Nonsuicidal Musculoskeletal: No joint swelling or deformity. Normal range of motion. - Labs CBC & Chem 7: 06/24/21 09:04 06/24/21 09:04 Labs: Abnormal Lab Results - Last 24 Hours (Table) 06/21/21 06/22/21 06/23/21 Range/Units 13:38 20:12 06:08 WBC (3.8-10.6) k/uL RBC (4.30-5.90) m/uL Hgb (13.0-17.5) gm/dL Hct (39.0-53.0) % MCHC (31.0-37.0) g/dL Neutrophils # (1.3-7.7) k/uL Lymphocytes # (1.0-4.8) k/uL Chloride (98-107) mmol/L Carbon Dioxide (22-30) mmol/L BUN (9-20) mg/dL Creatinine (0.66-1.25) mg/dL Glucose (74-99) mg/dL POC Glucose (mg/dL) 155 H 263 H (75-99) mg/dL Procalcitonin 0.11 H (0.02-0.09) ng/mL 06/23/21 06/23/21 06/23/21 Range/Units 08:30 08:30 11:49 WBC 13.6 H (3.8-10.6) k/uL RBC 3.70 L (4.30-5.90) m/uL Hgb 10.8 L (13.0-17.5) gm/dL Hct 36.0 L (39.0-53.0) % MCHC 30.0 L (31.0-37.0) g/dL Neutrophils # 12.6 H (1.3-7.7) k/uL Lymphocytes # 0.3 L (1.0-4.8) k/uL Chloride 85 L (98-107) mmol/L Carbon Dioxide 42 H* (22-30) mmol/L BUN 37 H (9-20) mg/dL Creatinine 1.67 H (0.66-1.25) mg/dL Glucose 143 H (74-99) mg/dL POC Glucose (mg/dL) 190 H (75-99) mg/dL Procalcitonin (0.02-0.09) ng/mL Assessment and Plan Assessment: Acute hypercapnic respiratory failure due to COPD exacerbation Altered mental status due to metabolic encephalopathy and CO2 narcosis. Improving. Chronic CO2 retainer Acute metabolic alkalosis Chronic hypoxic respiratory failure requiring oxygen at 2 L via nasal cannula at home. Diabetes type 2 [id number] Paroxysmal atrial fibrillation on anticoagulation with Xarelto History of CVA/TIA and history of brain bleed left side requiring neurosurgical intervention Acute on chronic renal disease stage III Hypertension Hyperlipidemia Hypothyroidism Prior history of smoking and marijuana use DVT prophylaxis patient is already on full anticoagulation. Plan: Patient will be continued on oxygen supplementation and titrate down to 2 L. patient is off BiPAP now. Was using last night. Continue with IV Solu-Medrol and duo nebs. Continue with home medications and pulmonary is following. Patient was encouraged with oral intake and follow-up renal function closely. Patient will benefit from long term placement and continued BiPAP therapy in the outpatient setting. Patient will be continued insulin sliding scale and titrate dose as needed. Continue to follow closely. Prognosis is guarded. Time with Patient: Greater than 30
[2021-06-24 12:12] LABS: Glucose,Whole Blood 165 mg/dL (75-99)
--- NOTE | 2021-06-24 15:04 | P.PN ---
Subjective Progress Note Date: 06/24/21 Principal diagnosis: Shortness of breath This is an 80-year-old male patient with a known history of atrial fibrillation, diabetes mellitus, CVA/TIA, hyperlipidemia, hypertension, hypothyroidism, dementia, chronic renal failure. He also has a history of COPD and chronic hypoxic respiratory failure with home oxygen at 2 L. He is a former smoker. He was brought into the emergency room yesterday by EMS with altered mental status. He was found to be hypercapnic with a pCO2 of 108, pH 7.31, P O2 161 on 28% FiO2. He was placed on BiPAP 10/5 and 28% FiO2. He is seen today in the emergency room. He sitting up on a stretcher. He is awake and alert, disoriented to place and time. He is now on 2 L nasal cannula O2 saturations up to 100%. He's been afebrile. Hemodynamically stable. Chest x-ray revealed evidence of COPD with bilateral infiltrates and pleural effusions. Lateral view suggests a 1 cm pulmonary nodule. ET scan of the brain revealed postsurgical changes with remote ischemic change in no acute hemorrhage or mass effect. Degenerative changes. EKG revealed sinus rhythm without acute ST or T wave abnormalities. White count 5.9. Hemoglobin 10.3. Sodium 133. Potassium 3.6. Bicarb 47. BUN 45. Creatinine 1.82. Glucose 328. Urine drug screen negative. He's been initiated on DuoNeb inhalations, IV Solu-Medrol. Anticoagulated with Xarelto. Follow-up arterial blood gases on 2 L nasal cannula revealed a PaO2 of 64, pCO2 of 89 and a pH of 7.37. The patient is seen today 06/23/2021 in follow-up on the selective care unit. He is currently sitting up at the bedside. Awake and alert. No worsening shortness of breath, cough or congestion. Off the BiPAP. He is maintaining O2 saturations in the mid 90s on 2 L/m per nasal cannula. He is afebrile. Hemodynamically stable. White count 13.6. Hemoglobin 10.8. Sodium 137. Potassium 3.6. Bicarb 42. BUN 37. Creatinine 1.67. Glucose 143. He is on Symbicort, DuoNeb inhalations, IV Solu-Medrol. Anticoagulated with Xarelto. On 06/24/2021 patient seen in follow-up on medical surgical floor. Patient is breathing comfortably, he is ambulating in the room with limited assistance and tolerating it well, on 2 L of oxygen and the pulse ox of 98%. His had no acute events overnight. No fever or chills, a lot of signs have been stable, no worsening dyspnea or cough no complaint of chest discomfort. There is labs have been reviewed showing white blood cell count of 15.7, hemoglobin is 11.0, sodium is 140, potassium 3.7, chloride is 89, CO2 is 44, B1 is 39 creatinine is 1.75. Pro-calcitonin level was negative at 0.11. Chest x-ray on admission shows COPD with bilateral infiltrates and pleural effusion and 1 cm pulmonary nodule overlying the cardiac silhouette with the recommendation of follow-up computed tomography scan of the chest. Patient is being treated for acute exacerbation of COPD, patient remains on IV steroids with Solu-Medrol 60 g every 6 hours, nebulized bronchodilators, Symbicort. Patient is being discharged to [facility] today, and patient will need BiPAP support at bedtime and as needed with settings of 10 and 5 and FiO2 of 28% if needed Objective - Vital Signs Vital signs: Vital Signs Temp 98.3 F 06/24/21 14:03 Pulse 80 06/24/21 14:03 Resp 18 06/24/21 14:03 BP 122/51 06/24/21 14:03 Pulse Ox 97 06/24/21 14:03 Intake & Output 06/23/21 06/24/21 06/24/21 18:59 06:59 18:59 Intake Total 476 Output Total 875 400 Balance -399 -400 Intake: Oral 476 Output: Urine 875 400 Other: Voiding Method Bedside Commode Bedside Commode Urinal Urinal # Voids 2 # Bowel Movements 1 - Exam GENERAL EXAM: Alert, very pleasant, 80-year-old male, on 2 L of oxygen pulse ox of 97% comfortable in no apparent distress. HEAD: Normocephalic/atraumatic. EYES: Normal reaction of pupils, equal size. Conjunctiva pink, sclera white. NOSE: Clear with pink turbinates. THROAT: No erythema or exudates. NECK: No masses, no JVD, no thyroid enlargement, no adenopathy. CHEST: No chest wall deformity. Symmetrical expansion. LUNGS: Equal air entry with no crackles, wheeze, rhonchi or dullness. CVS: Regular rate and rhythm, normal S1 and S2, no gallops, no murmurs, no rubs ABDOMEN: Soft, nontender. No hepatosplenomegaly, normal bowel sounds, no guarding or rigidity. EXTREMITIES: No clubbing, no edema, no cyanosis, 2+ pulses and upper and lower extremities. MUSCULOSKELETAL: Muscle strength and tone normal. SPINE: No scoliosis or deformity SKIN: No rashes CENTRAL NERVOUS SYSTEM: Alert and oriented -3. No focal deficits, tone is normal in all 4 extremities. PSYCHIATRIC: Alert and oriented -3. Appropriate affect. Intact judgment and insight. - Labs CBC & Chem 7: 06/24/21 09:04 06/24/21 09:04 Labs: Abnormal Lab Results - Last 24 Hours (Table) 06/23/21 06/23/21 06/24/21 Range/Units 16:20 20:01 06:13 WBC (3.8-10.6) k/uL RBC (4.30-5.90) m/uL Hgb (13.0-17.5) gm/dL Hct (39.0-53.0) % MCHC (31.0-37.0) g/dL Neutrophils # (1.3-7.7) k/uL Lymphocytes # (1.0-4.8) k/uL Chloride (98-107) mmol/L Carbon Dioxide (22-30) mmol/L BUN (9-20) mg/dL Creatinine (0.66-1.25) mg/dL Glucose (74-99) mg/dL POC Glucose (mg/dL) 250 H 237 H 152 H (75-99) mg/dL 06/24/21 06/24/21 06/24/21 Range/Units 09:04 09:04 12:08 WBC 15.7 H (3.8-10.6) k/uL RBC 3.74 L (4.30-5.90) m/uL Hgb 11.0 L (13.0-17.5) gm/dL Hct 36.7 L (39.0-53.0) % MCHC 29.8 L (31.0-37.0) g/dL Neutrophils # 14.5 H (1.3-7.7) k/uL Lymphocytes # 0.5 L (1.0-4.8) k/uL Chloride 89 L (98-107) mmol/L Carbon Dioxide 44 H* (22-30) mmol/L BUN 39 H (9-20) mg/dL Creatinine 1.75 H (0.66-1.25) mg/dL Glucose 46 L* (74-99) mg/dL POC Glucose (mg/dL) 165 H (75-99) mg/dL Assessment and Plan Plan: Assessment: #1. Acute exacerbation of COPD #2. Acute on chronic hypoxic and hypercapnic respiratory failure related to the above #3. History of paroxysmal A. fib on Xarelto #4. History of CVA/TIA #5. History of dementia #6. Diabetes mellitus #7. Hypertension #8. Hyperlipidemia #9. Remote history of DVT #10. Chronic tobacco dependence in remission since 2002 #11. Hypothyroidism #12. Chronic renal failure #13. History of brain bleed with surgery 2003 Plan: Patient is doing well Improving Vital signs are stable He's tolerating ambulation He stable for discharge home to ECF today Patient has chronic hypercapnic and hypoxic respiratory failure due to history of advanced COPD he will benefit from BiPAP support at the ECF with pressures of 10 of 5 and FiO2 to titrate to O2 sats ration of 88% at Bedtime and as needed for increased shortness of breath and lethargy I have personally seen and examined the patient, performed the documentation and the assessment and plan as written. Number of minutes spent on the visit: [10] Time with Patient: Less than 30
[2021-06-24 16:22] LABS: Glucose,Whole Blood 274 mg/dL (75-99)
[2021-06-24 20:45] LABS: Glucose,Whole Blood 119 mg/dL (75-99)
[2021-06-24] MEDS: INSULIN DETEMIR (LEVEMIR) 100 UNIT/ML SYR SQ SCH (21:05)
[2021-06-24] MEDS: ATORVASTATIN 20 MG TAB PO SCH (21:14)
[2021-06-25] MEDS: methylPREDNISolone SOD SUCCI 125 MG/2 ML VIAL IV SCH ×2 (01:28→06:27)
[2021-06-25] MEDS: INSULIN ASPART (NovoLOG) 100 UNIT/ML VIAL SQ SCH ×4 (06:24→20:08)
[2021-06-25] MEDS: LEVOTHYROXINE 75 MCG TAB PO SCH (06:28)
[2021-06-25 06:48] LABS: Glucose,Whole Blood 111 mg/dL (75-99)
[2021-06-25] MEDS: POTASSIUM CHLORIDE ER 10 MEQ TAB.ER.PRT PO SCH (08:05)
[2021-06-25] MEDS: RIVAROXABAN 20 MG TAB PO SCH (08:05)
[2021-06-25] MEDS: acetaZOLAMIDE 250 MG TAB PO SCH ×2 (08:05→20:08)
[2021-06-25] MEDS: CLOPIDOGREL 75 MG TAB PO SCH (08:05)
[2021-06-25 08:58] LABS: Basophils % (A) 0 %; Eosinophils % (A) 0 %; HCT 36.5 % (39.0-53.0); HGB 10.8 gm/dL (13.0-17.5); Hypochromasia Marked; Lymphocytes # (A) 0.5 k/uL (1.0-4.8); Lymphocytes % (A) 3 %; MCH 29.3 pg (25.0-35.0); MCHC 29.7 g/dL (31.0-37.0); MCV 98.7 fL (80.0-100.0); Macrocytosis Slight; Mean Platelet Volume 7.2; Monocytes # (A) 0.9 k/uL (0-1.0); Monocytes % (A) 6 %; Neutrophils # (A) 13.9 k/uL (1.3-7.7); Neutrophils % (A) 91 %; Platelet Count 299 k/uL (150-450); WBC 15.4 k/uL (3.8-10.6)
[2021-06-25] MEDS: SYMBICORT 160-4.5 MCG INHALER INHALATION SCH ×2 (08:58→20:23)
[2021-06-25] MEDS: IPRATROPIUM-ALBUTEROL 3 ML NEB INHALATION SCH ×4 (08:58→20:23)
[2021-06-25 09:14] LABS: Calcium 8.4 mg/dL (8.4-10.2); Potassium 3.5 mmol/L (3.5-5.1)
--- NOTE | 2021-06-25 11:45 | P.PN ---
Subjective Progress Note Date: 06/25/21 This is an 80-year-old male patient with a known history of atrial fibrillation, diabetes mellitus, CVA/TIA, hyperlipidemia, hypertension, hypothyroidism, dementia, chronic renal failure. He also has a history of COPD and chronic hypoxic respiratory failure with home oxygen at 2 L. He is a former smoker. He was brought into the emergency room yesterday by EMS with altered mental status. He was found to be hypercapnic with a pCO2 of 108, pH 7.31, P O2 161 on 28% FiO2. He was placed on BiPAP 10/5 and 28% FiO2. He is seen today in the emergency room. He sitting up on a stretcher. He is awake and alert, disoriented to place and time. He is now on 2 L nasal cannula O2 saturations up to 100%. He's been afebrile. Hemodynamically stable. Chest x-ray revealed evidence of COPD with bilateral infiltrates and pleural effusions. Lateral view suggests a 1 cm pulmonary nodule. ET scan of the brain revealed postsurgical changes with remote ischemic change in no acute hemorrhage or mass effect. Degenerative changes. EKG revealed sinus rhythm without acute ST or T wave abnormalities. White count 5.9. Hemoglobin 10.3. Sodium 133. Potassium 3.6. Bicarb 47. BUN 45. Creatinine 1.82. Glucose 328. Urine drug screen negative. He's been initiated on DuoNeb inhalations, IV Solu-Medrol. Anticoagulated with Xarelto. Follow-up arterial blood gases on 2 L nasal cannula revealed a PaO2 of 64, pCO2 of 89 and a pH of 7.37. The patient is seen today 06/23/2021 in follow-up on the selective care unit. He is currently sitting up at the bedside. Awake and alert. No worsening shortness of breath, cough or congestion. Off the BiPAP. He is maintaining O2 saturations in the mid 90s on 2 L/m per nasal cannula. He is afebrile. Hemodynamically stable. White count 13.6. Hemoglobin 10.8. Sodium 137. Potassium 3.6. Bicarb 42. BUN 37. Creatinine 1.67. Glucose 143. He is on Symbicort, DuoNeb inhalations, IV Solu-Medrol. Anticoagulated with Xarelto. The patient is seen today 06/25/2021 in follow-up on the regular medical floor. He is currently resting comfortably in bed. Awake and alert in no acute distress. Currently maintaining O2 saturations in the 90s on 2 L/m per nasal cannula. He's been off the BiPAP. White count 15.4. Hemoglobin 10.8. Sodium 136. Potassium 3.5. Chloride 89. Bicarb 40. BUN 48. Creatinine 1.82. Glucose 152. He remains on DuoNeb inhalations, Symbicort, IV Solu-Medrol. Antibiotics in the form of Xarelto. Continued on Diamox. Objective - Vital Signs Vital signs: Vital Signs Temp 97.6 F 06/25/21 08:00 Pulse 89 06/25/21 09:10 Resp 19 06/25/21 04:00 BP 131/65 06/25/21 08:00 Pulse Ox 98 06/25/21 08:04 Intake & Output 06/24/21 06/25/21 06/25/21 18:59 06:59 18:59 Intake Total 250 10 340 Output Total 375 550 Balance -125 -540 340 Intake: IV 10 Invasive Line 1 10 Oral 250 340 Output: Urine 375 550 Other: Voiding Method Bedside Commode Urinal # Voids 2 2 # Bowel Movements 1 1 - Exam GENERAL EXAM: Alert, disheveled 80-year-old male patient on 2 L nasal cannula, comfortable in no apparent distress. HEAD: Normocephalic. EYES: Normal reaction of pupils, equal size. NOSE: Clear with pink turbinates. THROAT: No erythema or exudates. NECK: No masses, no JVD. CHEST: No chest wall deformity. LUNGS: Equal air entry with few scattered rhonchi. CVS: S1 and S2 normal with no audible murmur, regular rhythm. ABDOMEN: No hepatosplenomegaly, normal bowel sounds, no guarding or rigidity. SPINE: No scoliosis or deformity SKIN: No rashes CENTRAL NERVOUS SYSTEM: Oriented times one. No focal deficits, tone is normal in all 4 extremities. EXTREMITIES: There is no peripheral edema. No clubbing, no cyanosis. Peripheral pulses are intact. - Labs CBC & Chem 7: 06/25/21 08:30 06/25/21 08:30 Labs: Abnormal Lab Results - Last 24 Hours (Table) 06/24/21 06/24/21 06/24/21 Range/Units 12:08 16:21 20:21 WBC (3.8-10.6) k/uL RBC (4.30-5.90) m/uL Hgb (13.0-17.5) gm/dL Hct (39.0-53.0) % MCHC (31.0-37.0) g/dL Neutrophils # (1.3-7.7) k/uL Lymphocytes # (1.0-4.8) k/uL Sodium (137-145) mmol/L Chloride (98-107) mmol/L Carbon Dioxide (22-30) mmol/L BUN (9-20) mg/dL Creatinine (0.66-1.25) mg/dL Glucose (74-99) mg/dL POC Glucose (mg/dL) 165 H 274 H 119 H (75-99) mg/dL 06/25/21 06/25/21 06/25/21 Range/Units 06:22 08:30 08:30 WBC 15.4 H (3.8-10.6) k/uL RBC 3.70 L (4.30-5.90) m/uL Hgb 10.8 L (13.0-17.5) gm/dL Hct 36.5 L (39.0-53.0) % MCHC 29.7 L (31.0-37.0) g/dL Neutrophils # 13.9 H (1.3-7.7) k/uL Lymphocytes # 0.5 L (1.0-4.8) k/uL Sodium 136 L (137-145) mmol/L Chloride 89 L (98-107) mmol/L Carbon Dioxide 40 H (22-30) mmol/L BUN 48 H (9-20) mg/dL Creatinine 1.82 H (0.66-1.25) mg/dL Glucose 152 H (74-99) mg/dL POC Glucose (mg/dL) 111 H (75-99) mg/dL Assessment and Plan Assessment: 1 Acute hypercapnic respiratory failure, most likely chronic in nature, secondary to an acute exacerbation of his COPD 2 Acute metabolic alkalosis secondary to above. Initiated on Diamox 3 Acute on chronic hypoxemic respiratory failure secondary to COPD exacerbation 4 History of paroxysmal atrial fibrillation anticoagulated with Xarelto 5 History of CVA/TIA 6 History of dementia 7 Diabetes mellitus 8 Hypertension 9 Hyperlipidemia 10 Remote history of DVT 11 Chronic tobacco dependence, quit in 2002 12 Hypothyroidism 13 Chronic renal failure. 14 History of brain bleed with surgery in 2003 15 Poor overall functional performance based on the above-mentioned multiple comorbidities Plan: The patient was seen and evaluated Medications and labs reviewed Cleared for discharge from the pulmonary standpoint Continue DuoNeb inhalations, Symbicort Complete a prednisone taper starting at 40 mg daily for 4 days Continue Diamox Continue Xarelto Continue oxygen at 2 L/m per nasal cannula Alternating with BiPAP 10/5 and 28% if needed The plan is for correction placement and continued BiPAP therapy in the outpatient setting I have personally seen and examined the patient, performed the documentation and the assessment and plan as written. Number of minutes spent on the visit: 10.
[2021-06-25 11:56] LABS: Glucose,Whole Blood 185 mg/dL (75-99)
[2021-06-25 16:36] LABS: Glucose,Whole Blood 100 mg/dL (75-99)
[2021-06-25 20:08] LABS: Glucose,Whole Blood 110 mg/dL (75-99)
[2021-06-25] MEDS: ATORVASTATIN 20 MG TAB PO SCH (20:08)
[2021-06-25] MEDS: INSULIN DETEMIR (LEVEMIR) 100 UNIT/ML SYR SQ SCH (21:06)
[2021-06-26] MEDS: LEVOTHYROXINE 75 MCG TAB PO SCH (05:27)
[2021-06-26 07:16] LABS: Glucose,Whole Blood 27 mg/dL (75-99)
[2021-06-26 07:16] LABS: Glucose,Whole Blood 28 mg/dL (75-99)
[2021-06-26] MEDS: INSULIN ASPART (NovoLOG) 100 UNIT/ML VIAL SQ SCH ×4 (07:17→19:44)
[2021-06-26 07:44] LABS: Glucose,Whole Blood 92 mg/dL (75-99)
[2021-06-26] MEDS: IPRATROPIUM-ALBUTEROL 3 ML NEB INHALATION SCH ×4 (07:54→21:19)
[2021-06-26] MEDS: SYMBICORT 160-4.5 MCG INHALER INHALATION SCH ×2 (07:54→21:19)
[2021-06-26] MEDS: CLOPIDOGREL 75 MG TAB PO SCH (08:45)
[2021-06-26] MEDS: POTASSIUM CHLORIDE ER 10 MEQ TAB.ER.PRT PO SCH (08:45)
[2021-06-26] MEDS: predniSONE 20 MG TAB PO SCH (08:45)
[2021-06-26] MEDS: RIVAROXABAN 20 MG TAB PO SCH (09:28)
[2021-06-26] MEDS: acetaZOLAMIDE 250 MG TAB PO SCH ×2 (09:28→19:44)
[2021-06-26 09:38] LABS: Basophils # (A) 0.01 X 10*3/uL (0.00-0.10); Basophils % (A) 0.1 %; Eosinophils # (A) 0.02 X 10*3/uL (0.04-0.35); Eosinophils % (A) 0.1 %; HCT 34.1 % (39.6-50.0); HGB 10.3 g/dL (13.0-17.0); Immature Grans, Automated 0.6 %; Lymphocytes % (A) 7.7 %; MCH 29.2 pg (27.0-32.0); MCHC 30.2 g/dL (32.0-37.0); MCV 96.6 fL (80.0-97.0); Mean Platelet Volume 10.1 fL (9.5-12.2); Monocytes % (A) 10.5 %; NRBC Per 100 WBC 0 /100 WBCS (0.0-0.0); Neutrophils # (A) 11.61 X 10*3/uL (1.80-7.70); Platelet Count 269 X 10*3/uL (140-440); RBC 3.53 X 10*6/uL (4.40-5.60); RDW 14.7 % (11.5-14.5); WBC 14.33 X 10*3/uL (4.50-10.00)
[2021-06-26 10:37] LABS: African American GFR (CKD) 50.2 (60.0-200.0); Anion Gap 12.1 mmol/L (10.00-18.00); BUN/Creat Ratio 31.8 Ratio (12.00-20.00); Blood Urea Nitrogen 47.7 mg/dL (9.0-27.0); Calcium 8.4 mg/dL (8.7-10.3); Carbon Dioxide 31.9 mmol/L (20.0-27.5); Non-African American GFR(CKD) 43.3 (60.0-200.0); Potassium 3.3 mmol/L (3.5-5.5)
--- NOTE | 2021-06-26 11:33 | P.PN ---
Subjective Progress Note Date: 06/24/21 Patient is a 80-year-old male with a known history of atrial fibrillation on anticoagulation with Xarelto, history of CVA/TIA, diabetes type 2 [id number], hypertension, hyperlipidemia, GERD, hypothyroidism and chronic hypoxic respiratory failure secondary COPD on 2 L oxygen via nasal cannula, BPH and dementia and other medical problems including previous history of smoking was brought to ER due to confusion and generalized weakness. Patient lives by himself and his daughter is his caregiver. Patient was brought to hospital by EMS. Otherwise patient denies any complaints of chest pain. Denies any cough or sputum production. No fever no chills. No recent illnesses. On admission patient was hypoxic and requiring high percent nonrebreather. Laboratory data showed ABGs pH 7.31 PCO2 108 PO2 161 and her bicarb is 54 Sodium 138 potassium 3.5 bicarb is 55 and chloride 82 BUN 47 creatinine 1.57 albumin 3.2 urinalysis is negative for infection UDS is negative. Chest x-ray showed COPD with bilateral infiltrate and pleural effusion. Lateral view suggest a 1 cm pulmonary nodule overlying the cardiac silhouette considering follow-up CT. CT head showed postsurgical changes and remote ischemic change with no acute hemorrhage or mass-effect. Degenerative changes. EKG showed sinus rhythm with out any significant ST-T wave changes. 06/23/2021 Patient is currently in the self-care unit. Sitting on the side of the bed. Feels very weak. No commerce of chest pain or worsening short of breath. Breathing status is better. Patient was using BiPAP overnight. Currently off and 2 L Oxygen with Another Cannula. Patient Afebrile. No Cough or Sputum Production. No Fever No Chills. Pulmonary Is on Board. Laboratory Data Showed There Was 13.6 Hemoglobin 10.8 and Platelets 298 Sodium 137 Potassium 3.6 Chloride 85 Bicarb Is 42 BUN 37 and Creatinine 1.67 and Blood Sugar 143 Patient is being continued on DuoNeb's and Solu-Medrol. Also had atrial fibrillation with Xarelto. Patient is being continued on acetazolamide. 06/24/2021. Patient is currently resting in the bed comfortably. Awake alert and oriented. No chest pain or shortness of breath. No headache or dizziness or l ightheadedness. Requiring 2 L oxygen via nasal cannula laboratory data showed WBC 15.7 hemoglobin 11.0 and platelets 309 Sodium 140 potassium 3.7 chloride 89 bicarb is 44 BUN 39 and creatinine 1.75 and blood sugar is 46 today. Patient is tolerating oral diet. Insulin dose is on hold. Patient is being continued on methylprednisolone and Symbicort and acetazolamide. Pulmonary is on board. Possible discharge to ECF as the patient need BiPAP support at bedtime and settings of 10 and 5 FiO2 28% as needed. Current medications reviewed. Objective - Vital Signs Vital signs: Vital Signs Temp 98.4 F 06/24/21 17:00 Pulse 85 06/24/21 20:15 Resp 24 06/24/21 17:00 BP 164/65 06/24/21 17:00 Pulse Ox 93 L 06/24/21 20:02 Intake & Output 06/24/21 06/24/21 06/25/21 06:59 18:59 06:59 Intake Total 250 Output Total 400 375 Balance -400 -125 Intake: Oral 250 Output: Urine 400 375 Other: Voiding Method Bedside Commode Urinal # Voids 2 - Exam PHYSICAL EXAMINATION: Patient is lying in the bed comfortably, no acute distress, awake alert and oriented.. HEENT: Normocephalic. Neck is supple. Pupils reactive. Nostrils clear. Oral cavity is moist. Neck reveals no JVD, carotid bruits, or thyromegaly. CHEST EXAMINATION: Trachea is central. Symmetrical expansion. Bibasilar diminished sounds. No wheezing. Lung lainez clear to auscultation and percussion. CARDIAC: Normal S1, S2 with no gallops. No murmurs ABDOMEN: Soft. Bowel sounds normal. No organomegaly. No abdominal bruits. Extremities: reveal no edema. No clubbing or cyanosis Neurologically awake, alert, oriented x2-3 with well-coordinated movements. No focal deficits noted Skin: No rash or skin lesions. Psychiatric: Coperative. Nonsuicidal Musculoskeletal: No joint swelling or deformity. Normal range of motion. - Labs CBC & Chem 7: 06/26/21 07:02 06/26/21 07:02 Labs: Abnormal Lab Results - Last 24 Hours (Table) 06/24/21 06/24/21 06/24/21 Range/Units 06:13 09:04 09:04 WBC 15.7 H (3.8-10.6) k/uL RBC 3.74 L (4.30-5.90) m/uL Hgb 11.0 L (13.0-17.5) gm/dL Hct 36.7 L (39.0-53.0) % MCHC 29.8 L (31.0-37.0) g/dL Neutrophils # 14.5 H (1.3-7.7) k/uL Lymphocytes # 0.5 L (1.0-4.8) k/uL Chloride 89 L (98-107) mmol/L Carbon Dioxide 44 H* (22-30) mmol/L BUN 39 H (9-20) mg/dL Creatinine 1.75 H (0.66-1.25) mg/dL Glucose 46 L* (74-99) mg/dL POC Glucose (mg/dL) 152 H (75-99) mg/dL 06/24/21 06/24/21 06/24/21 Range/Units 12:08 16:21 20:21 WBC (3.8-10.6) k/uL RBC (4.30-5.90) m/uL Hgb (13.0-17.5) gm/dL Hct (39.0-53.0) % MCHC (31.0-37.0) g/dL Neutrophils # (1.3-7.7) k/uL Lymphocytes # (1.0-4.8) k/uL Chloride (98-107) mmol/L Carbon Dioxide (22-30) mmol/L BUN (9-20) mg/dL Creatinine (0.66-1.25) mg/dL Glucose (74-99) mg/dL POC Glucose (mg/dL) 165 H 274 H 119 H (75-99) mg/dL Assessment and Plan Assessment: Acute hypercapnic respiratory failure due to COPD exacerbation Altered mental status due to metabolic encephalopathy and CO2 narcosis. Improving. Chronic CO2 retainer Acute metabolic alkalosis Chronic hypoxic respiratory failure requiring oxygen at 2 L via nasal cannula at home. Diabetes type 2 [id number] Paroxysmal atrial fibrillation on anticoagulation with Xarelto History of CVA/TIA and history of brain bleed left side requiring neurosurgical intervention Acute on chronic renal disease stage III Hypertension Hyperlipidemia Hypothyroidism Prior history of smoking and marijuana use DVT prophylaxis patient is already on full anticoagulation. Plan: Patient will be continued on oxygen supplementation and titrate down to 2 L. BiPAP at night. Continue with IV Solu-Medrol and duo nebs. Continue with home medications and pulmonary is following. Patient was encouraged with oral intake and follow-up renal function closely. Patient will benefit from halfway placement and continued BiPAP therapy in the outpatient setting. Patient will be continued insulin sliding scale and titrate dose as needed. C ontinue to follow closely. Prognosis is guarded. Time with Patient: Greater than 30
--- NOTE | 2021-06-26 11:36 | P.PN ---
Subjective Progress Note Date: 06/25/21 Patient is a 80-year-old male with a known history of atrial fibrillation on anticoagulation with Xarelto, history of CVA/TIA, diabetes type 2 [id number], hypertension, hyperlipidemia, GERD, hypothyroidism and chronic hypoxic respiratory failure secondary COPD on 2 L oxygen via nasal cannula, BPH and dementia and other medical problems including previous history of smoking was brought to ER due to confusion and generalized weakness. Patient lives by himself and his daughter is his caregiver. Patient was brought to hospital by EMS. Otherwise patient denies any complaints of chest pain. Denies any cough or sputum production. No fever no chills. No recent illnesses. On admission patient was hypoxic and requiring high percent nonrebreather. Laboratory data showed ABGs pH 7.31 PCO2 108 PO2 161 and her bicarb is 54 Sodium 138 potassium 3.5 bicarb is 55 and chloride 82 BUN 47 creatinine 1.57 albumin 3.2 urinalysis is negative for infection UDS is negative. Chest x-ray showed COPD with bilateral infiltrate and pleural effusion. Lateral view suggest a 1 cm pulmonary nodule overlying the cardiac silhouette considering follow-up CT. CT head showed postsurgical changes and remote ischemic change with no acute hemorrhage or mass-effect. Degenerative changes. EKG showed sinus rhythm with out any significant ST-T wave changes. 06/23/2021 Patient is currently in the self-care unit. Sitting on the side of the bed. Feels very weak. No commerce of chest pain or worsening short of breath. Breathing status is better. Patient was using BiPAP overnight. Currently off and 2 L Oxygen with Another Cannula. Patient Afebrile. No Cough or Sputum Production. No Fever No Chills. Pulmonary Is on Board. Laboratory Data Showed There Was 13.6 Hemoglobin 10.8 and Platelets 298 Sodium 137 Potassium 3.6 Chloride 85 Bicarb Is 42 BUN 37 and Creatinine 1.67 and Blood Sugar 143 Patient is being continued on DuoNeb's and Solu-Medrol. Also had atrial fibrillation with Xarelto. Patient is being continued on acetazolamide. 06/24/2021. Patient is currently resting in the bed comfortably. Awake alert and oriented. No chest pain or shortness of breath. No headache or dizziness or l ightheadedness. Requiring 2 L oxygen via nasal cannula laboratory data showed WBC 15.7 hemoglobin 11.0 and platelets 309 Sodium 140 potassium 3.7 chloride 89 bicarb is 44 BUN 39 and creatinine 1.75 and blood sugar is 46 today. Patient is tolerating oral diet. Insulin dose is on hold. Patient is being continued on methylprednisolone and Symbicort and acetazolamide. Pulmonary is on board. Possible discharge to ECF as the patient need BiPAP support at bedtime and settings of 10 and 5 FiO2 28% as needed. 06/25/2021. Patient is currently resting in the bed. Awake alert oriented x3. No compla ints of chest pain or worsening shortness breath. Currently requiring 2 L oxygen via nasal cannula. Patient is on BiPAP. Patient is being continued on IV Solu-Medrol and duo nebs and Symbicort. Continued on Diamox. On anticoagulation with Xarelto. Patient is off BiPAP currently. Laboratory data showed WBC at 15.4 hemoglobin 10.8 and platelets 299 sodium 136 potassium 3.5 chloride 10 bicarb is 14 creatinine 1.82. Blood sugar is 152 this morning. Patient is on Lantus 10 units at bedtime and insulin sliding scale. Current medications reviewed. Objective - Vital Signs Vital signs: Vital Signs Temp 97.6 F 06/25/21 08:00 Pulse 88 06/25/21 20:32 Resp 16 06/25/21 16:00 BP 123/59 06/25/21 16:00 Pulse Ox 97 06/25/21 16:00 Intake & Output 06/25/21 06/25/21 06/26/21 06:59 18:59 06:59 Intake Total 10 340 Output Total 550 2550 Balance -540 -2210 Intake: IV 10 Invasive Line 1 10 Oral 340 Output: Urine 550 2550 Other: Voiding Method Bedside Commode Urinal # Voids 2 8 # Bowel Movements 1 1 - Exam PHYSICAL EXAMINATION: Patient is lying in the bed comfortably, no acute distress, awake alert and oriented.. HEENT: Normocephalic. Neck is supple. Pupils reactive. Nostrils clear. Oral cavity is moist. Neck reveals no JVD, carotid bruits, or thyromegaly. CHEST EXAMINATION: Trachea is central. Symmetrical expansion. Bibasilar diminished sounds. No wheezing. Lung lainez clear to auscultation and percussion. CARDIAC: Normal S1, S2 with no gallops. No murmurs ABDOMEN: Soft. Bowel sounds normal. No organomegaly. No abdominal bruits. Extremities: reveal no edema. No clubbing or cyanosis Neurologically awake, alert, oriented x2-3 with well-coordinated movements. No focal deficits noted Skin: No rash or skin lesions. Psychiatric: Coperative. Nonsuicidal Musculoskeletal: No joint swelling or deformity. Normal range of motion. - Labs CBC & Chem 7: 06/26/21 07:02 06/26/21 07:02 Labs: Abnormal Lab Results - Last 24 Hours (Table) 06/25/21 06/25/21 06/25/21 Range/Units 06:22 08:30 08:30 WBC 15.4 H (3.8-10.6) k/uL RBC 3.70 L (4.30-5.90) m/uL Hgb 10.8 L (13.0-17.5) gm/dL Hct 36.5 L (39.0-53.0) % MCHC 29.7 L (31.0-37.0) g/dL Neutrophils # 13.9 H (1.3-7.7) k/uL Lymphocytes # 0.5 L (1.0-4.8) k/uL Sodium 136 L (137-145) mmol/L Chloride 89 L (98-107) mmol/L Carbon Dioxide 40 H (22-30) mmol/L BUN 48 H (9-20) mg/dL Creatinine 1.82 H (0.66-1.25) mg/dL Glucose 152 H (74-99) mg/dL POC Glucose (mg/dL) 111 H (75-99) mg/dL 06/25/21 06/25/21 06/25/21 Range/Units 11:53 16:35 20:06 WBC (3.8-10.6) k/uL RBC (4.30-5.90) m/uL Hgb (13.0-17.5) gm/dL Hct (39.0-53.0) % MCHC (31.0-37.0) g/dL Neutrophils # (1.3-7.7) k/uL Lymphocytes # (1.0-4.8) k/uL Sodium (137-145) mmol/L Chloride (98-107) mmol/L Carbon Dioxide (22-30) mmol/L BUN (9-20) mg/dL Creatinine (0.66-1.25) mg/dL Glucose (74-99) mg/dL POC Glucose (mg/dL) 185 H 100 H 110 H (75-99) mg/dL Assessment and Plan Assessment: Acute hypercapnic respiratory failure due to COPD exacerbation Altered mental status due to metabolic encephalopathy and CO2 narcosis. Improving. Chronic CO2 retainer Acute metabolic alkalosis Chronic hypoxic respiratory failure requiring oxygen at 2 L via nasal cannula at home. 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 Plan: Patient will be continued on oxygen supplementation and titrate down to 2 L. BiPAP off BiPAP. Continue with IV Solu-Medrol and duo nebs. Continue with home medications and pulmonary is following. Patient was encouraged with oral intake and follow-up renal function closely. Patient will benefit from shelter placement and continued BiPAP therapy at night in the outpatient setting. Patient will be continued insulin sliding scale and titrate dose as needed. Continue to follow closely. Prognosis is guarded. Time with Patient: Greater than 30
[2021-06-26 11:40] LABS: Glucose,Whole Blood 109 mg/dL (75-99)
--- NOTE | 2021-06-26 14:05 | P.PN ---
Subjective Progress Note Date: 06/26/21 This is an 80-year-old male patient with a known history of atrial fibrillation, diabetes mellitus, CVA/TIA, hyperlipidemia, hypertension, hypothyroidism, dementia, chronic renal failure. He also has a history of COPD and chronic hypoxic respiratory failure with home oxygen at 2 L. He is a former smoker. He was brought into the emergency room yesterday by EMS with altered mental status. He was found to be hypercapnic with a pCO2 of 108, pH 7.31, P O2 161 on 28% FiO2. He was placed on BiPAP 10/5 and 28% FiO2. He is seen today in the emergency room. He sitting up on a stretcher. He is awake and alert, disoriented to place and time. He is now on 2 L nasal cannula O2 saturations up to 100%. He's been afebrile. Hemodynamically stable. Chest x-ray revealed evidence of COPD with bilateral infiltrates and pleural effusions. Lateral view suggests a 1 cm pulmonary nodule. ET scan of the brain revealed postsurgical changes with remote ischemic change in no acute hemorrhage or mass effect. Degenerative changes. EKG revealed sinus rhythm without acute ST or T wave abnormalities. White count 5.9. Hemoglobin 10.3. Sodium 133. Potassium 3.6. Bicarb 47. BUN 45. Creatinine 1.82. Glucose 328. Urine drug screen negative. He's been initiated on DuoNeb inhalations, IV Solu-Medrol. Anticoagulated with Xarelto. Follow-up arterial blood gases on 2 L nasal cannula revealed a PaO2 of 64, pCO2 of 89 and a pH of 7.37. The patient is seen today 06/23/2021 in follow-up on the selective care unit. He is currently sitting up at the bedside. Awake and alert. No worsening shortness of breath, cough or congestion. Off the BiPAP. He is maintaining O2 saturations in the mid 90s on 2 L/m per nasal cannula. He is afebrile. Hemodynamically stable. White count 13.6. Hemoglobin 10.8. Sodium 137. Potassium 3.6. Bicarb 42. BUN 37. Creatinine 1.67. Glucose 143. He is on Symbicort, DuoNeb inhalations, IV Solu-Medrol. Anticoagulated with Xarelto. The patient is seen today 06/25/2021 in follow-up on the regular medical floor. He is currently resting comfortably in bed. Awake and alert in no acute distress. Currently maintaining O2 saturations in the 90s on 2 L/m per nasal cannula. He's been off the BiPAP. White count 15.4. Hemoglobin 10.8. Sodium 136. Potassium 3.5. Chloride 89. Bicarb 40. BUN 48. Creatinine 1.82. Glucose 152. He remains on DuoNeb inhalations, Symbicort, IV Solu-Medrol. Antibiotics in the form of Xarelto. Continued on Diamox. The patient is seen today 06/26/2021 in follow-up on the regular medical floor. Currently resting comfortably in bed. Awake and alert in no acute distress. He is maintaining O2 saturations in the 90s on 2 L/m per nasal cannula. White count 14.3. Hemoglobin 10.3. Sodium 139. Potassium 3.3. Bicarb 32. BUN 48. Creatinine 1.5. Glucose had dropped to 24 earlier this morning. Currently 109. He is continued on DuoNeb inhalations, Symbicort, prednisone taper. He is also on Diamox. Anticoagulated with Xarelto. Objective - Vital Signs Vital signs: Vital Signs Temp 98.3 F 06/26/21 07:25 Pulse 88 06/26/21 12:00 Resp 17 06/26/21 07:25 BP 165/55 06/26/21 07:25 Pulse Ox 98 06/26/21 07:25 Intake & Output 06/25/21 06/26/21 06/26/21 18:59 06:59 18:59 Intake Total 340 Output Total 2550 600 Balance -2210 -600 Intake: Oral 340 Output: Urine 2550 600 Other: Voiding Method Bedside Commode Urinal # Voids 8 # Bowel Movements 1 - Exam GENERAL EXAM: Alert, disheveled 80-year-old male patient on 2 L nasal cannula, comfortable in no apparent distress. HEAD: Normocephalic. EYES: Normal reaction of pupils, equal size. NOSE: Clear with pink turbinates. THROAT: No erythema or exudates. NECK: No masses, no JVD. CHEST: No chest wall deformity. LUNGS: Equal air entry with few scattered rhonchi. CVS: S1 and S2 normal with no audible murmur, regular rhythm. ABDOMEN: No hepatosplenomegaly, normal bowel sounds, no guarding or rigidity. SPINE: No scoliosis or deformity SKIN: No rashes CENTRAL NERVOUS SYSTEM: Oriented times one. No focal deficits, tone is normal in all 4 extremities. EXTREMITIES: There is no peripheral edema. No clubbing, no cyanosis. Peripheral pulses are intact. - Labs CBC & Chem 7: 06/26/21 07:02 06/26/21 07:02 Labs: Abnormal Lab Results - Last 24 Hours (Table) 06/25/21 06/25/21 06/26/21 Range/Units 16:35 20:06 07:02 WBC 14.33 H (4.50-10.00) X 10*3/uL RBC 3.53 L (4.40-5.60) X 10*6/uL Hgb 10.3 L (13.0-17.0) g/dL Hct 34.1 L (39.6-50.0) % MCHC 30.2 L (32.0-37.0) g/dL RDW 14.7 H (11.5-14.5) % Immature Gran # 0.09 H (0.00-0.04) X 10*3/uL Neutrophils # 11.61 H (1.80-7.70) X 10*3/uL Monocytes # 1.50 H (0.20-1.00) X 10*3/uL Eosinophils # 0.02 L (0.04-0.35) X 10*3/uL Potassium (3.5-5.5) mmol/L Chloride (96-109) mmol/L Carbon Dioxide (20.0-27.5) mmol/L BUN (9.0-27.0) mg/dL Est GFR (CKD-EPI)AfAm (60.0-200.0) Est GFR (CKD-EPI)NonAf (60.0-200.0) BUN/Creatinine Ratio (12.00-20.00) Ratio Glucose (70-110) mg/dL POC Glucose (mg/dL) 100 H 110 H (75-99) mg/dL Calcium (8.7-10.3) mg/dL 06/26/21 06/26/21 06/26/21 Range/Units 07:02 07:09 07:11 WBC (4.50-10.00) X 10*3/uL RBC (4.40-5.60) X 10*6/uL Hgb (13.0-17.0) g/dL Hct (39.6-50.0) % MCHC (32.0-37.0) g/dL RDW (11.5-14.5) % Immature Gran # (0.00-0.04) X 10*3/uL Neutrophils # (1.80-7.70) X 10*3/uL Monocytes # (0.20-1.00) X 10*3/uL Eosinophils # (0.04-0.35) X 10*3/uL Potassium 3.3 L (3.5-5.5) mmol/L Chloride 95 L (96-109) mmol/L Carbon Dioxide 31.9 H (20.0-27.5) mmol/L BUN 47.7 H (9.0-27.0) mg/dL Est GFR (CKD-EPI)AfAm 50.2 L (60.0-200.0) Est GFR (CKD-EPI)NonAf 43.3 L (60.0-200.0) BUN/Creatinine Ratio 31.80 H (12.00-20.00) Ratio Glucose 24 L* (70-110) mg/dL POC Glucose (mg/dL) 28 L 27 L (75-99) mg/dL Calcium 8.4 L (8.7-10.3) mg/dL 06/26/21 Range/Units 11:39 WBC (4.50-10.00) X 10*3/uL RBC (4.40-5.60) X 10*6/uL Hgb (13.0-17.0) g/dL Hct (39.6-50.0) % MCHC (32.0-37.0) g/dL RDW (11.5-14.5) % Immature Gran # (0.00-0.04) X 10*3/uL Neutrophils # (1.80-7.70) X 10*3/uL Monocytes # (0.20-1.00) X 10*3/uL Eosinophils # (0.04-0.35) X 10*3/uL Potassium (3.5-5.5) mmol/L Chloride (96-109) mmol/L Carbon Dioxide (20.0-27.5) mmol/L BUN (9.0-27.0) mg/dL Est GFR (CKD-EPI)AfAm (60.0-200.0) Est GFR (CKD-EPI)NonAf (60.0-200.0) BUN/Creatinine Ratio (12.00-20.00) Ratio Glucose (70-110) mg/dL POC Glucose (mg/dL) 109 H (75-99) mg/dL Calcium (8.7-10.3) mg/dL Assessment and Plan Assessment: 1 Acute hypercapnic respiratory failure, most likely chronic in nature, secondary to an acute exacerbation of his COPD 2 Acute metabolic alkalosis secondary to above. Initiated on Diamox 3 Acute on chronic hypoxemic respiratory failure secondary to COPD exacerbation 4 History of paroxysmal atrial fibrillation anticoagulated with Xarelto 5 History of CVA/TIA 6 History of dementia 7 Diabetes mellitus 8 Hypertension 9 Hyperlipidemia 10 Remote history of DVT 11 Chronic tobacco dependence, quit in 2002 12 Hypothyroidism 13 Chronic renal failure. 14 History of brain bleed with surgery in 2003 15 Poor overall functional performance based on the above-mentioned multiple comorbidities Plan: The patient was seen and evaluated Medications and labs reviewed Continue DuoNeb inhalations, Symbicort Complete a prednisone taper starting at 40 mg daily for 4 days Continue Diamox Continue Xarelto Continue oxygen at 2 L/m per nasal cannula Alternating with BiPAP 10/5 and 28% if needed The plan is for [facility] ECF placement and continued BiPAP therapy in the outpatient setting I have personally seen and examined the patient, performed the documentation and the assessment and plan as written. Number of minutes spent on the visit: 10.
[2021-06-26 16:52] LABS: Glucose,Whole Blood 194 mg/dL (75-99)
[2021-06-26 19:42] LABS: Glucose,Whole Blood 153 mg/dL (75-99)
[2021-06-26] MEDS: ATORVASTATIN 20 MG TAB PO SCH (19:45)
[2021-06-27] MEDS: LEVOTHYROXINE 75 MCG TAB PO SCH (06:10)
[2021-06-27 06:56] LABS: Glucose,Whole Blood 121 mg/dL (75-99)
[2021-06-27] MEDS: INSULIN ASPART (NovoLOG) 100 UNIT/ML VIAL SQ SCH ×4 (06:59→20:02)
[2021-06-27] MEDS: RIVAROXABAN 20 MG TAB PO SCH (07:01)
[2021-06-27] MEDS: predniSONE 20 MG TAB PO SCH (07:01)
[2021-06-27] MEDS: acetaZOLAMIDE 250 MG TAB PO SCH (07:01)
[2021-06-27] MEDS: CLOPIDOGREL 75 MG TAB PO SCH (07:01)
[2021-06-27] MEDS: POTASSIUM CHLORIDE ER 10 MEQ TAB.ER.PRT PO SCH (07:01)
[2021-06-27] MEDS: SYMBICORT 160-4.5 MCG INHALER INHALATION SCH ×2 (08:36→19:38)
[2021-06-27] MEDS: IPRATROPIUM-ALBUTEROL 3 ML NEB INHALATION SCH ×4 (08:36→19:38)
[2021-06-27 11:37] LABS: Glucose,Whole Blood 258 mg/dL (75-99)
--- NOTE | 2021-06-27 11:59 | P.PN ---
Subjective Progress Note Date: 06/27/21 This is an 80-year-old male patient with a known history of atrial fibrillation, diabetes mellitus, CVA/TIA, hyperlipidemia, hypertension, hypothyroidism, dementia, chronic renal failure. He also has a history of COPD and chronic hypoxic respiratory failure with home oxygen at 2 L. He is a former smoker. He was brought into the emergency room yesterday by EMS with altered mental status. He was found to be hypercapnic with a pCO2 of 108, pH 7.31, P O2 161 on 28% FiO2. He was placed on BiPAP 10/5 and 28% FiO2. He is seen today in the emergency room. He sitting up on a stretcher. He is awake and alert, disoriented to place and time. He is now on 2 L nasal cannula O2 saturations up to 100%. He's been afebrile. Hemodynamically stable. Chest x-ray revealed evidence of COPD with bilateral infiltrates and pleural effusions. Lateral view suggests a 1 cm pulmonary nodule. ET scan of the brain revealed postsurgical changes with remote ischemic change in no acute hemorrhage or mass effect. Degenerative changes. EKG revealed sinus rhythm without acute ST or T wave abnormalities. White count 5.9. Hemoglobin 10.3. Sodium 133. Potassium 3.6. Bicarb 47. BUN 45. Creatinine 1.82. Glucose 328. Urine drug screen negative. He's been initiated on DuoNeb inhalations, IV Solu-Medrol. Anticoagulated with Xarelto. Follow-up arterial blood gases on 2 L nasal cannula revealed a PaO2 of 64, pCO2 of 89 and a pH of 7.37. The patient is seen today 06/23/2021 in follow-up on the selective care unit. He is currently sitting up at the bedside. Awake and alert. No worsening shortness of breath, cough or congestion. Off the BiPAP. He is maintaining O2 saturations in the mid 90s on 2 L/m per nasal cannula. He is afebrile. Hemodynamically stable. White count 13.6. Hemoglobin 10.8. Sodium 137. Potassium 3.6. Bicarb 42. BUN 37. Creatinine 1.67. Glucose 143. He is on Symbicort, DuoNeb inhalations, IV Solu-Medrol. Anticoagulated with Xarelto. The patient is seen today 06/25/2021 in follow-up on the regular medical floor. He is currently resting comfortably in bed. Awake and alert in no acute distress. Currently maintaining O2 saturations in the 90s on 2 L/m per nasal cannula. He's been off the BiPAP. White count 15.4. Hemoglobin 10.8. Sodium 136. Potassium 3.5. Chloride 89. Bicarb 40. BUN 48. Creatinine 1.82. Glucose 152. He remains on DuoNeb inhalations, Symbicort, IV Solu-Medrol. Antibiotics in the form of Xarelto. Continued on Diamox. The patient is seen today 06/26/2021 in follow-up on the regular medical floor. Currently resting comfortably in bed. Awake and alert in no acute distress. He is maintaining O2 saturations in the 90s on 2 L/m per nasal cannula. White count 14.3. Hemoglobin 10.3. Sodium 139. Potassium 3.3. Bicarb 32. BUN 48. Creatinine 1.5. Glucose had dropped to 24 earlier this morning. Currently 109. He is continued on DuoNeb inhalations, Symbicort, prednisone taper. He is also on Diamox. Anticoagulated with Xarelto. 2021, the patient remains on O2 at 2 L per minute nasal cannula. He is weak. He is awake and alert. He had a fall risk as the patient is very weak and carries a poor balance. For the most part, his COPD is being optimized. His own on 2 L of oxygen by nasal cannula. Is on Symbicort and is on DuoNeb neb last treatment [id number] and is also on a prednisone burst taper. He did develop some metabolic alkalosis and for that reason the patient was given Diamox. The most recent serum bicarb is at 31 and Diamox has been discontinued. The patient on a prednisone burst taper and the patient is also on long-term medical condition with Xarelto regarding his atrial fibrillation. The plan is to transfer this patient to [facility] for now. Objective - Vital Signs Vital signs: Vital Signs Temp 97.9 F 06/27/21 07:24 Pulse 94 06/27/21 08:50 Resp 18 06/27/21 07:24 BP 136/60 06/27/21 07:24 Pulse Ox 99 06/27/21 07:24 FiO2 28 06/21/21 15:41 Intake & Output 0506/27/21 06/27/21 18:59 06:59 18:59 Output Total 700 300 Balance -700 -300 Output: Urine 700 300 Other: Voiding Method Bedside Commode Bedside Commode Bedside Commode Urinal Urinal Urinal # Voids 3 # Bowel Movements 1 - Exam GENERAL EXAM: Alert, disheveled 80-year-old male patient on 2 L nasal cannula, comfortable in no apparent distress. HEAD: Normocephalic. EYES: Normal reaction of pupils, equal size. NOSE: Clear with pink turbinates. THROAT: No erythema or exudates. NECK: No masses, no JVD. CHEST: No chest wall deformity. LUNGS: Equal air entry with few scattered rhonchi. CVS: S1 and S2 normal with no audible murmur, regular rhythm. ABDOMEN: No hepatosplenomegaly, normal bowel sounds, no guarding or rigidity. SPINE: No scoliosis or deformity SKIN: No rashes CENTRAL NERVOUS SYSTEM: Oriented times one. No focal deficits, tone is normal in all 4 extremities. motor weakness in all 4 extremities EXTREMITIES: There is no peripheral edema. No clubbing, no cyanosis. Peripheral pulses are intact. - Labs CBC & Chem 7: 06/26/21 07:02 06/26/21 07:02 Labs: Abnormal Lab Results - Last 24 Hours (Table) 06/26/21 06/26/21 06/26/21 Range/Units 07:02 11:39 16:47 Potassium 3.3 L (3.5-5.5) mmol/L Chloride 95 L (96-109) mmol/L Carbon Dioxide 31.9 H (20.0-27.5) mmol/L BUN 47.7 H (9.0-27.0) mg/dL Est GFR (CKD-EPI)AfAm 50.2 L (60.0-200.0) Est GFR (CKD-EPI)NonAf 43.3 L (60.0-200.0) BUN/Creatinine Ratio 31.80 H (12.00-20.00) Ratio Glucose 24 L* (70-110) mg/dL POC Glucose (mg/dL) 109 H 194 H (75-99) mg/dL Calcium 8.4 L (8.7-10.3) mg/dL 06/26/21 06/27/21 Range/Units 19:41 06:54 Potassium (3.5-5.5) mmol/L Chloride (96-109) mmol/L Carbon Dioxide (20.0-27.5) mmol/L BUN (9.0-27.0) mg/dL Est GFR (CKD-EPI)AfAm (60.0-200.0) Est GFR (CKD-EPI)NonAf (60.0-200.0) BUN/Creatinine Ratio (12.00-20.00) Ratio Glucose (70-110) mg/dL POC Glucose (mg/dL) 153 H 121 H (75-99) mg/dL Calcium (8.7-10.3) mg/dL Assessment and Plan Plan: 1 Acute hypercapnic respiratory failure, most likely chronic in nature, secondary to an acute exacerbation of his COPD, moving, nevertheless, the patient remains still very weak and debilitated and he needs help with activities of daily today life. He is going to ECF for now. He has chronic hypoxic and hypercapnic respiratory failure. 2 Acute metabolic alkalosis secondary to above. Initiated on Diamox and the serum bicarb dropped down to 31 and the patient will be taken off Diamox for now. No DiamoxDC Diamox 3 Acute on chronic hypoxemic respiratory failure secondary to COPD exacerbation 4 History of paroxysmal atrial fibrillation anticoagulated with Xarelto 5 History of CVA/TIA 6 History of dementia 7 Diabetes mellitus 8 Hypertension 9 Hyperlipidemia 10 Remote history of DVT 11 Chronic tobacco dependence, quit in 2002 12 Hypothyroidism 13 Chronic renal failure. 14 History of brain bleed with surgery in 2003 15 Poor overall functional performance based on the above-mentioned multiple comorbidities Plan: DC diamox Continue DuoNeb inhalations, Symbicort Complete a prednisone taper starting at 40 mg daily for 4 days Continue Xarelto Continue oxygen at 2 L/m per nasal cannula Alternating with BiPAP 10/5 and 28% if needed and this can be used on and off during the day as needed. The plan is for [facility] ECF placement and continued BiPAP therapy in the outpatient setting Prognosis remains poor. High-risk for readmission because of above-mentioned comorbidities. The patient's most recent blood gas shows a compensated hypercapnic respiratory failure.
[2021-06-27 16:26] LABS: Glucose,Whole Blood 200 mg/dL (75-99)
[2021-06-27 19:47] LABS: Glucose,Whole Blood 217 mg/dL (75-99)
[2021-06-27] MEDS: ATORVASTATIN 20 MG TAB PO SCH (20:00)
--- NOTE | 2021-06-27 23:32 | P.PN ---
Subjective Progress Note Date: 06/26/21 Patient is a 80-year-old male with a known history of atrial fibrillation on anticoagulation with Xarelto, history of CVA/TIA, diabetes type 2 [id number], hypertension, hyperlipidemia, GERD, hypothyroidism and chronic hypoxic respiratory failure secondary COPD on 2 L oxygen via nasal cannula, BPH and dementia and other medical problems including previous history of smoking was brought to ER due to confusion and generalized weakness. Patient lives by himself and his daughter is his caregiver. Patient was brought to hospital by EMS. Otherwise patient denies any complaints of chest pain. Denies any cough or sputum production. No fever no chills. No recent illnesses. On admission patient was hypoxic and requiring high percent nonrebreather. Laboratory data showed ABGs pH 7.31 PCO2 108 PO2 161 and her bicarb is 54 Sodium 138 potassium 3.5 bicarb is 55 and chloride 82 BUN 47 creatinine 1.57 albumin 3.2 urinalysis is negative for infection UDS is negative. Chest x-ray showed COPD with bilateral infiltrate and pleural effusion. Lateral view suggest a 1 cm pulmonary nodule overlying the cardiac silhouette considering follow-up CT. CT head showed postsurgical changes and remote ischemic change with no acute hemorrhage or mass-effect. Degenerative changes. EKG showed sinus rhythm with out any significant ST-T wave changes. 06/23/2021 Patient is currently in the self-care unit. Sitting on the side of the bed. Feels very weak. No commerce of chest pain or worsening short of breath. Breathing status is better. Patient was using BiPAP overnight. Currently off and 2 L Oxygen with Another Cannula. Patient Afebrile. No Cough or Sputum Production. No Fever No Chills. Pulmonary Is on Board. Laboratory Data Showed There Was 13.6 Hemoglobin 10.8 and Platelets 298 Sodium 137 Potassium 3.6 Chloride 85 Bicarb Is 42 BUN 37 and Creatinine 1.67 and Blood Sugar 143 Patient is being continued on DuoNeb's and Solu-Medrol. Also had atrial fibrillation with Xarelto. Patient is being continued on acetazolamide. 06/24/2021. Patient is currently resting in the bed comfortably. Awake alert and oriented. No chest pain or shortness of breath. No headache or dizziness or l ightheadedness. Requiring 2 L oxygen via nasal cannula laboratory data showed WBC 15.7 hemoglobin 11.0 and platelets 309 Sodium 140 potassium 3.7 chloride 89 bicarb is 44 BUN 39 and creatinine 1.75 and blood sugar is 46 today. Patient is tolerating oral diet. Insulin dose is on hold. Patient is being continued on methylprednisolone and Symbicort and acetazolamide. Pulmonary is on board. Possible discharge to ECF as the patient need BiPAP support at bedtime and settings of 10 and 5 FiO2 28% as needed. 06/25/2021. Patient is currently resting in the bed. Awake alert oriented x3. No compla ints of chest pain or worsening shortness breath. Currently requiring 2 L oxygen via nasal cannula. Patient is on BiPAP. Patient is being continued on IV Solu-Medrol and duo nebs and Symbicort. Continued on Diamox. On anticoagulation with Xarelto. Patient is off BiPAP currently. Laboratory data showed WBC at 15.4 hemoglobin 10.8 and platelets 299 sodium 136 potassium 3.5 chloride 10 bicarb is 14 creatinine 1.82. Blood sugar is 152 this morning. Patient is on Lantus 10 units at bedtime and insulin sliding scale. 06/26/2021 Patient is currently resting in the bed comfortably. Awake alert no acute distress. On oxygen at 2 L via nasal cannula. Patient is maintained on duo nebs and prednisone tapering course and Symbicort. Also on anticoagulation with Xarelto. Patient remains on Diamox. Laboratory data showed WBC 14.3 hemoglobin 10.3 and platelets 269 Sodium 139 potassium 3.3 chloride 95 bicarb is 31.9 BUN 47.7 creatinine 1.5 and blood sugar was 24 this morning. Lantus has been discontinued and patient will be current on insulin sliding scale. Current medications reviewed. Objective - Vital Signs Vital signs: Vital Signs Temp 98.3 F 06/26/21 07:25 Pulse 82 06/26/21 07:25 Resp 17 06/26/21 07:25 BP 165/55 06/26/21 07:25 Pulse Ox 98 06/26/21 07:25 Intake & Output 06/25/21 06/26/21 06/26/21 18:59 06:59 18:59 Intake Total 340 Output Total 2550 600 Balance -2210 -600 Intake: Oral 340 Output: Urine 2550 600 Other: # Voids 8 # Bowel Movements 1 - Exam PHYSICAL EXAMINATION: Patient is lying in the bed comfortably, no acute distress, awake alert and oriented.. HEENT: Normocephalic. Neck is supple. Pupils reactive. Nostrils clear. Oral cavity is moist. Neck reveals no JVD, carotid bruits, or thyromegaly. CHEST EXAMINATION: Trachea is central. Symmetrical expansion. Bibasilar diminished sounds. No wheezing. Lung lainez clear to auscultation and percussion. CARDIAC: Normal S1, S2 with no gallops. No murmurs ABDOMEN: Soft. Bowel sounds normal. No organomegaly. No abdominal bruits. Extremities: reveal no edema. No clubbing or cyanosis Neurologically awake, alert, oriented x2-3 with well-coordinated movements. No focal deficits noted Skin: No rash or skin lesions. Psychiatric: Coperative. Nonsuicidal Musculoskeletal: No joint swelling or deformity. Normal range of motion. - Labs CBC & Chem 7: 06/26/21 07:02 06/26/21 07:02 Labs: Abnormal Lab Results - Last 24 Hours (Table) 06/25/21 06/25/21 06/25/21 Range/Units 11:53 16:35 20:06 WBC (4.50-10.00) X 10*3/uL RBC (4.40-5.60) X 10*6/uL Hgb (13.0-17.0) g/dL Hct (39.6-50.0) % MCHC (32.0-37.0) g/dL RDW (11.5-14.5) % Immature Gran # (0.00-0.04) X 10*3/uL Neutrophils # (1.80-7.70) X 10*3/uL Monocytes # (0.20-1.00) X 10*3/uL Eosinophils # (0.04-0.35) X 10*3/uL Potassium (3.5-5.5) mmol/L Chloride (96-109) mmol/L Carbon Dioxide (20.0-27.5) mmol/L BUN (9.0-27.0) mg/dL Est GFR (CKD-EPI)AfAm (60.0-200.0) Est GFR (CKD-EPI)NonAf (60.0-200.0) BUN/Creatinine Ratio (12.00-20.00) Ratio Glucose (70-110) mg/dL POC Glucose (mg/dL) 185 H 100 H 110 H (75-99) mg/dL Calcium (8.7-10.3) mg/dL 06/26/21 06/26/21 06/26/21 Range/Units 07:02 07:02 07:09 WBC 14.33 H (4.50-10.00) X 10*3/uL RBC 3.53 L (4.40-5.60) X 10*6/uL Hgb 10.3 L (13.0-17.0) g/dL Hct 34.1 L (39.6-50.0) % MCHC 30.2 L (32.0-37.0) g/dL RDW 14.7 H (11.5-14.5) % Immature Gran # 0.09 H (0.00-0.04) X 10*3/uL Neutrophils # 11.61 H (1.80-7.70) X 10*3/uL Monocytes # 1.50 H (0.20-1.00) X 10*3/uL Eosinophils # 0.02 L (0.04-0.35) X 10*3/uL Potassium 3.3 L (3.5-5.5) mmol/L Chloride 95 L (96-109) mmol/L Carbon Dioxide 31.9 H (20.0-27.5) mmol/L BUN 47.7 H (9.0-27.0) mg/dL Est GFR (CKD-EPI)AfAm 50.2 L (60.0-200.0) Est GFR (CKD-EPI)NonAf 43.3 L (60.0-200.0) BUN/Creatinine Ratio 31.80 H (12.00-20.00) Ratio Glucose 24 L* (70-110) mg/dL POC Glucose (mg/dL) 28 L (75-99) mg/dL Calcium 8.4 L (8.7-10.3) mg/dL 06/26/21 Range/Units 07:11 WBC (4.50-10.00) X 10*3/uL RBC (4.40-5.60) X 10*6/uL Hgb (13.0-17.0) g/dL Hct (39.6-50.0) % MCHC (32.0-37.0) g/dL RDW (11.5-14.5) % Immature Gran # (0.00-0.04) X 10*3/uL Neutrophils # (1.80-7.70) X 10*3/uL Monocytes # (0.20-1.00) X 10*3/uL Eosinophils # (0.04-0.35) X 10*3/uL Potassium (3.5-5.5) mmol/L Chloride (96-109) mmol/L Carbon Dioxide (20.0-27.5) mmol/L BUN (9.0-27.0) mg/dL Est GFR (CKD-EPI)AfAm (60.0-200.0) Est GFR (CKD-EPI)NonAf (60.0-200.0) BUN/Creatinine Ratio (12.00-20.00) Ratio Glucose (70-110) mg/dL POC Glucose (mg/dL) 27 L (75-99) mg/dL Calcium (8.7-10.3) mg/dL Assessment and Plan Assessment: Acute hypercapnic respiratory failure due to COPD exacerbation Altered mental status due to metabolic encephalopathy and CO2 narcosis. Improving. Chronic CO2 retainer Acute metabolic alkalosis Chronic hypoxic respiratory failure requiring oxygen at 2 L via nasal cannula at home. 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 Plan: Patient will be continued on oxygen supplementation and titrate down to 2 L. BiPAP off BiPAP. Continue with IV Solu-Medrol--prednisone and duo nebs. Continue with home medications and pulmonary is following. Patient was encouraged with oral intake and follow-up renal function closely. Patient will benefit from long term placement and continued BiPAP therapy at night in the outpatient setting. Patient will be continued insulin sliding scale and titrate dose as needed. Continue to follow closely. Prognosis is guarded. Time with Patient: Greater than 30
--- NOTE | 2021-06-27 23:33 | P.PN ---
Subjective Progress Note Date: 06/27/21 Patient is a 80-year-old male with a known history of atrial fibrillation on anticoagulation with Xarelto, history of CVA/TIA, diabetes type 2 [id number], hypertension, hyperlipidemia, GERD, hypothyroidism and chronic hypoxic respiratory failure secondary COPD on 2 L oxygen via nasal cannula, BPH and dementia and other medical problems including previous history of smoking was brought to ER due to confusion and generalized weakness. Patient lives by himself and his daughter is his caregiver. Patient was brought to hospital by EMS. Otherwise patient denies any complaints of chest pain. Denies any cough or sputum production. No fever no chills. No recent illnesses. On admission patient was hypoxic and requiring high percent nonrebreather. Laboratory data showed ABGs pH 7.31 PCO2 108 PO2 161 and her bicarb is 54 Sodium 138 potassium 3.5 bicarb is 55 and chloride 82 BUN 47 creatinine 1.57 albumin 3.2 urinalysis is negative for infection UDS is negative. Chest x-ray showed COPD with bilateral infiltrate and pleural effusion. Lateral view suggest a 1 cm pulmonary nodule overlying the cardiac silhouette considering follow-up CT. CT head showed postsurgical changes and remote ischemic change with no acute hemorrhage or mass-effect. Degenerative changes. EKG showed sinus rhythm with out any significant ST-T wave changes. 06/23/2021 Patient is currently in the self-care unit. Sitting on the side of the bed. Feels very weak. No commerce of chest pain or worsening short of breath. Breathing status is better. Patient was using BiPAP overnight. Currently off and 2 L Oxygen with Another Cannula. Patient Afebrile. No Cough or Sputum Production. No Fever No Chills. Pulmonary Is on Board. Laboratory Data Showed There Was 13.6 Hemoglobin 10.8 and Platelets 298 Sodium 137 Potassium 3.6 Chloride 85 Bicarb Is 42 BUN 37 and Creatinine 1.67 and Blood Sugar 143 Patient is being continued on DuoNeb's and Solu-Medrol. Also had atrial fibrillation with Xarelto. Patient is being continued on acetazolamide. 06/24/2021. Patient is currently resting in the bed comfortably. Awake alert and oriented. No chest pain or shortness of breath. No headache or dizziness or l ightheadedness. Requiring 2 L oxygen via nasal cannula laboratory data showed WBC 15.7 hemoglobin 11.0 and platelets 309 Sodium 140 potassium 3.7 chloride 89 bicarb is 44 BUN 39 and creatinine 1.75 and blood sugar is 46 today. Patient is tolerating oral diet. Insulin dose is on hold. Patient is being continued on methylprednisolone and Symbicort and acetazolamide. Pulmonary is on board. Possible discharge to ECF as the patient need BiPAP support at bedtime and settings of 10 and 5 FiO2 28% as needed. 06/25/2021. Patient is currently resting in the bed. Awake alert oriented x3. No compla ints of chest pain or worsening shortness breath. Currently requiring 2 L oxygen via nasal cannula. Patient is on BiPAP. Patient is being continued on IV Solu-Medrol and duo nebs and Symbicort. Continued on Diamox. On anticoagulation with Xarelto. Patient is off BiPAP currently. Laboratory data showed WBC at 15.4 hemoglobin 10.8 and platelets 299 sodium 136 potassium 3.5 chloride 10 bicarb is 14 creatinine 1.82. Blood sugar is 152 this morning. Patient is on Lantus 10 units at bedtime and insulin sliding scale. 06/26/2021 Patient is currently resting in the bed comfortably. Awake alert no acute distress. On oxygen at 2 L via nasal cannula. Patient is maintained on duo nebs and prednisone tapering course and Symbicort. Also on anticoagulation with Xarelto. Patient remains on Diamox. Laboratory data showed WBC 14.3 hemoglobin 10.3 and platelets 269 Sodium 139 potassium 3.3 chloride 95 bicarb is 31.9 BUN 47.7 creatinine 1.5 and blood sugar was 24 this morning. Lantus has been discontinued and patient will be current on insulin sliding scale. 06/27/2021. Patient is resting in the bed. Awake alert and oriented. No complaints of shortness of breath. No chest pain. Patient is being current on prednisone 40 mg daily and duo nebs. Requiring oxygen at 2 L via nasal cannula. Patient did not use BiPAP last night. Also on anticoagulation with Xarelto. Laboratory data reviewed. No episodes of hypoglycemia. Patient is being continued on insulin sliding scale. Aspirate discharged to acute care facility in the next 24 to 48 hours. Pulmonary is on board. Current medications reviewed. Objective - Vital Signs Vital signs: Vital Signs Temp 97.4 F L 06/27/21 19:27 Pulse 95 06/27/21 19:49 Resp 18 05/23/22 19:27 BP 128/65 06/27/21 19:27 Pulse Ox 100 06/27/21 19:27 FiO2 28 06/21/21 15:41 Intake & Output 06/27/21 06/27/21 06/28/21 06:59 18:59 06:59 Intake Total 1080 Output Total 700 950 Balance -700 130 Intake: Oral 1080 Output: Urine 700 950 Other: Voiding Method Bedside Commode Bedside Commode Urinal Urinal - Exam PHYSICAL EXAMINATION: Patient is lying in the bed comfortably, no acute distress, awake alert and oriented.. HEENT: Normocephalic. Neck is supple. Pupils reactive. Nostrils clear. Oral cavity is moist. Neck reveals no JVD, carotid bruits, or thyromegaly. CHEST EXAMINATION: Trachea is central. Symmetrical expansion. Bibasilar diminished sounds. No wheezing. Lung lainez clear to auscultation and percussion. CARDIAC: Normal S1, S2 with no gallops. No murmurs ABDOMEN: Soft. Bowel sounds normal. No organomegaly. No abdominal bruits. Extremities: reveal no edema. No clubbing or cyanosis Neurologically awake, alert, oriented x2-3 with well-coordinated movements. No focal deficits noted Skin: No rash or skin lesions. Psychiatric: Coperative. Nonsuicidal Musculoskeletal: No joint swelling or deformity. Normal range of motion. - Labs CBC & Chem 7: 06/26/21 07:02 06/26/21 07:02 Labs: Abnormal Lab Results - Last 24 Hours (Table) 06/27/21 06/27/21 06/27/21 Range/Units 06:54 11:35 16:25 POC Glucose (mg/dL) 121 H 258 H 200 H (75-99) mg/dL 06/27/21 Range/Units 19:46 POC Glucose (mg/dL) 217 H (75-99) mg/dL Assessment and Plan Assessment: Acute hypercapnic respiratory failure due to COPD exacerbation Altered mental status due to metabolic encephalopathy and CO2 narcosis. Improving. Chronic CO2 retainer Acute metabolic alkalosis Chronic hypoxic respiratory failure requiring oxygen at 2 L via nasal cannula at home. 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 Plan: Patient will be continued on oxygen supplementation and titrate down to 2 L. BiPAP off BiPAP. Continue with IV Solu-Medrol--prednisone and duo nebs. Continue with home medications and pulmonary is following. Patient was encouraged with oral intake and follow-up renal function closely. Patient will benefit from halfway placement and continued BiPAP therapy at night in the outpatient setting. Patient will be continued insulin sliding scale and titrate dose as needed. Continue to follow closely. Prognosis is guarded. Time with Patient: Greater than 30
[2021-06-28] MEDS: LEVOTHYROXINE 75 MCG TAB PO SCH (05:45)
[2021-06-28 07:08] LABS: Glucose,Whole Blood 123 mg/dL (75-99)
[2021-06-28] MEDS: INSULIN ASPART (NovoLOG) 100 UNIT/ML VIAL SQ SCH ×2 (07:13→11:24)
[2021-06-28] MEDS: RIVAROXABAN 20 MG TAB PO SCH (07:23)
[2021-06-28] MEDS: CLOPIDOGREL 75 MG TAB PO SCH (07:23)
[2021-06-28] MEDS: predniSONE 20 MG TAB PO SCH (07:23)
[2021-06-28] MEDS: POTASSIUM CHLORIDE ER 10 MEQ TAB.ER.PRT PO SCH (07:24)
[2021-06-28] MEDS: IPRATROPIUM-ALBUTEROL 3 ML NEB INHALATION SCH ×2 (09:14→11:57)
[2021-06-28] MEDS: SYMBICORT 160-4.5 MCG INHALER INHALATION SCH (09:14)
[2021-06-28 09:15] LABS: Basophils # (A) 0.01 X 10*3/uL (0.00-0.10); Basophils % (A) 0.1 %; Eosinophils # (A) 0.06 X 10*3/uL (0.04-0.35); Eosinophils % (A) 0.5 %; HCT 31.3 % (39.6-50.0); HGB 9.4 g/dL (13.0-17.0); Immature Grans, Automated 0.3 %; Lymphocytes # (A) 1.08 X 10*3/uL (0.90-5.00); Lymphocytes % (A) 9.4 %; MCH 28.8 pg (27.0-32.0); Monocytes # (A) 1.22 X 10*3/uL (0.20-1.00); Monocytes % (A) 10.6 %; NRBC Per 100 WBC 0 /100 WBCS (0.0-0.0); Neutrophils % (A) 79.1 %; Platelet Count 252 X 10*3/uL (140-440); RBC 3.26 X 10*6/uL (4.40-5.60); RDW 14.5 % (11.5-14.5); WBC 11.51 X 10*3/uL (4.50-10.00)
[2021-06-28 09:50] LABS: African American GFR (CKD) 49.4 (60.0-200.0); Anion Gap 11.9 mmol/L (10.00-18.00); BUN/Creat Ratio 27.24 Ratio (12.00-20.00); Blood Urea Nitrogen 41.4 mg/dL (9.0-27.0); Calcium 8.2 mg/dL (8.7-10.3); Carbon Dioxide 32.1 mmol/L (20.0-27.5); Non-African American GFR(CKD) 42.7 (60.0-200.0); Potassium 3.4 mmol/L (3.5-5.5)
[2021-06-28 11:13] LABS: Glucose,Whole Blood 216 mg/dL (75-99)
[2021-06-28 12:11] VITALS: PULSE 80
[2021-06-28] MEDS ORDERED: POTASSIUM CHLORIDE ER 20 MEQ TAB.ER PO STA (12:53)
--- NOTE | 2021-06-28 12:59 | P.DS ---
Providers Date of admission: 06/21/21 15:46 Attending physician: Stephen Cam Consults: 06/21/21 15:44 Consult Physician Routine Consulting Provider: Mickey Harris Consult Reason/Comments: co2 retention Do you want consulting provider notified?: Yes Primary care physician: Stated None Hospital Course: Diagnoses: Acute hypercapnic respiratory failure due to COPD exacerbation Altered mental status due to metabolic encephalopathy and CO2 narcosis. Improving. Chronic CO2 retainer Acute metabolic alkalosis Chronic hypoxic respiratory failure requiring oxygen at 2 L via nasal cannula at home. 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 Patient lives by himself and his daughter is his caregiver. Patient was brought to hospital by EMS. Patient found to have acute COPD exacerbation and his been evaluated by pulmonary team. He is been treated with steroids and continued on a blood thinner and Plavix. He has history of A. fib and unstable, he has history of chronic kidney disease and the stable as well. Urine is 1.5 upon discharge. Vital signs stable and he has mild leukocytosis while on steroids. Patient is back to his mental baseline, his dyspnea improved to baseline as well. He is any other symptoms. No chest pain or abdominal pain. Change in urine or bowel habits. No fever. She was cleared for discharge by pulmonary team Patient is going for ECF for rehab for discharge and he is agreeable. Problems and management plan were discussed with the patient and he verbalized understanding and acceptance Patient was found stable and can be discharged home however he needs follow-up as an outpatient. Patient was instructed to follow up with PCP within one week and patient agrees Patient instructed to follow up with field [facility] specialty [employer] Dr. Dr. Mistry in 1-2 weeks and he agrees Physical exam Gen: patient is a AAOx3, no distress CVS: S1-S2, RRR, no murmur Lungs: B/L CTA, no wheezing Abdomen: soft, no distention, no tenderness, positive bowel sounds Extremity: no leg edema or induration Time spent more than 35 minutes Patient Condition at Discharge: Serious Plan - Discharge Summary Discharge Rx Participant: No New Discharge Prescriptions: Continue Levothyroxine Sodium [Synthroid] 75 mcg PO DAILY Atorvastatin [Lipitor] 20 mg PO HS Potassium Chloride [K-Tab ER] 10 meq PO DAILY Clopidogrel [Plavix] 75 mg PO DAILY metFORMIN HCL [Glucophage] 500 mg PO DAILY Rivaroxaban [Xarelto] 20 mg PO DAILY Discontinued Ipratropium/Albuter 20-100Mcg [Combivent Respimat 20-100Mcg Inhaler] 1 puff INHALATION RT-QID Ipratropium-Albuterol Nebulize [Duoneb 0.5 mg-3 mg/3 ml Soln] 3 ml INHALATION RT-Q6H No Action Mirtazapine [Remeron] 15 mg PO HS Triamterene/Hydrochlorothiazid [Triamterene-Hctz 37.5-25 mg Tb] 1 tab PO DAILY Discharge Medication List Atorvastatin [Lipitor] 20 mg PO HS 12/22/14 [History] Levothyroxine Sodium [Synthroid] 75 mcg PO DAILY 12/22/14 [History] Potassium Chloride [K-Tab ER] 10 meq PO DAILY 12/22/14 [History] Clopidogrel [Plavix] 75 mg PO DAILY 02/06/17 [History] Mirtazapine [Remeron] 15 mg PO HS 07/11/17 [History] metFORMIN HCL [Glucophage] 500 mg PO DAILY 07/11/17 [History] Rivaroxaban [Xarelto] 20 mg PO DAILY 06/21/21 [History] Triamterene/Hydrochlorothiazid [Triamterene-Hctz 37.5-25 mg Tb] 1 tab PO DAILY 06/21/21 [History] Follow up Appointment(s)/Referral(s): Mickey Harris MD [STAFF PHYSICIAN] - 1 Week None,Stated [Primary Care Provider] - 1-2 days Activity/Diet/Wound Care/Special Instructions: Bipap settin/5 and 28% if needed.
--- NOTE | 2021-06-28 13:49 | P.PN ---
Subjective Progress Note Date: 06/28/21 Principal diagnosis: Shortness of breath This is an 80-year-old male patient with a known history of atrial fibrillation, diabetes mellitus, CVA/TIA, hyperlipidemia, hypertension, hypothyroidism, dementia, chronic renal failure. He also has a history of COPD and chronic hypoxic respiratory failure with home oxygen at 2 L. He is a former smoker. He was brought into the emergency room yesterday by EMS with altered mental status. He was found to be hypercapnic with a pCO2 of 108, pH 7.31, P O2 161 on 28% FiO2. He was placed on BiPAP 10/5 and 28% FiO2. He is seen today in the emergency room. He sitting up on a stretcher. He is awake and alert, disoriented to place and time. He is now on 2 L nasal cannula O2 saturations up to 100%. He's been afebrile. Hemodynamically stable. Chest x-ray revealed evidence of COPD with bilateral infiltrates and pleural effusions. Lateral view suggests a 1 cm pulmonary nodule. ET scan of the brain revealed postsurgical changes with remote ischemic change in no acute hemorrhage or mass effect. Degenerative changes. EKG revealed sinus rhythm without acute ST or T wave abnormalities. White count 5.9. Hemoglobin 10.3. Sodium 133. Potassium 3.6. Bicarb 47. BUN 45. Creatinine 1.82. Glucose 328. Urine drug screen negative. He's been initiated on DuoNeb inhalations, IV Solu-Medrol. Anticoagulated with Xarelto. Follow-up arterial blood gases on 2 L nasal cannula revealed a PaO2 of 64, pCO2 of 89 and a pH of 7.37. The patient is seen today 06/23/2021 in follow-up on the selective care unit. He is currently sitting up at the bedside. Awake and alert. No worsening shortness of breath, cough or congestion. Off the BiPAP. He is maintaining O2 saturations in the mid 90s on 2 L/m per nasal cannula. He is afebrile. Hemodynamically stable. White count 13.6. Hemoglobin 10.8. Sodium 137. Potassium 3.6. Bicarb 42. BUN 37. Creatinine 1.67. Glucose 143. He is on Symbicort, DuoNeb inhalations, IV Solu-Medrol. Anticoagulated with Xarelto. On 06/24/2021 patient seen in follow-up on medical surgical floor. Patient is breathing comfortably, he is ambulating in the room with limited assistance and tolerating it well, on 2 L of oxygen and the pulse ox of 98%. His had no acute events overnight. No fever or chills, a lot of signs have been stable, no worsening dyspnea or cough no complaint of chest discomfort. There is labs have been reviewed showing white blood cell count of 15.7, hemoglobin is 11.0, sodium is 140, potassium 3.7, chloride is 89, CO2 is 44, B1 is 39 creatinine is 1.75. Pro-calcitonin level was negative at 0.11. Chest x-ray on admission shows COPD with bilateral infiltrates and pleural effusion and 1 cm pulmonary nodule overlying the cardiac silhouette with the recommendation of follow-up computed tomography scan of the chest. Patient is being treated for acute exacerbation of COPD, patient remains on IV steroids with Solu-Medrol 60 g every 6 hours, nebulized bronchodilators, Symbicort. Patient is being discharged to [facility] today, and patient will need BiPAP support at bedtime and as needed with settings of 10 and 5 and FiO2 of 28% if needed On 06/28/2021 patient seen in follow-up on medical surgical floor. Patient is awake and alert, generally he is weak, but overall he states his breathing is improved, he is on 2 L of oxygen with pulse ox of 94%, breathing comfortably, less wheezing, less coughing, no acute events overnight, lung sounds are diminished, with some end expiratory wheezes. Vital signs have been stable. Patient has been transitioned to oral prednisone, he continues on Symbicort and DuoNeb. His labs have been reviewed his white blood cell count is 11.5, hemoglobin is 9.4, sodium is 141, potassium is 3.4, chloride is 97, BUN is 41, creatinine is 1.5. Currently discharge planning is in progress for possible discharge to ECF today Objective - Vital Signs Vital signs: Vital Signs Temp 97.7 F 06/28/21 07:44 Pulse 80 06/28/21 12:10 Resp 16 06/28/21 12:10 BP 128/61 06/28/21 07:44 Pulse Ox 94 L 06/28/21 09:14 FiO2 28 06/21/21 15:41 Intake & Output 06/27/21 06/28/21 06/28/21 18:59 06:59 18:59 Intake Total 1080 Output Total 950 500 Balance 130 -500 Intake: Oral 1080 Output: Urine 950 500 Other: Voiding Method Bedside Commode Urinal # Voids 10 1 # Bowel Movements 1 - Exam GENERAL EXAM: Alert, very pleasant, 80-year-old male, on 2 L of oxygen pulse ox of 97% comfortable in no apparent distress. HEAD: Normocephalic/atraumatic. EYES: Normal reaction of pupils, equal size. Conjunctiva pink, sclera white. NOSE: Clear with pink turbinates. THROAT: No erythema or exudates. NECK: No masses, no JVD, no thyroid enlargement, no adenopathy. CHEST: No chest wall deformity. Symmetrical expansion. LUNGS: Equal air entry with no crackles, wheeze, rhonchi or dullness. CVS: Regular rate and rhythm, normal S1 and S2, no gallops, no murmurs, no rubs ABDOMEN: Soft, nontender. No hepatosplenomegaly, normal bowel sounds, no guarding or rigidity. EXTREMITIES: No clubbing, no edema, no cyanosis, 2+ pulses and upper and lower extremities. MUSCULOSKELETAL: Muscle strength and tone normal. SPINE: No scoliosis or deformity SKIN: No rashes CENTRAL NERVOUS SYSTEM: Alert and oriented -3. No focal deficits, tone is normal in all 4 extremities. PSYCHIATRIC: Alert and oriented -3. Appropriate affect. Intact judgment and insight. - Labs CBC & Chem 7: 06/28/21 04:35 06/28/21 04:35 Labs: Abnormal Lab Results - Last 24 Hours (Table) 06/27/21 06/27/21 06/28/21 Range/Units 16:25 19:46 04:35 WBC 11.51 H (4.50-10.00) X 10*3/uL RBC 3.26 L (4.40-5.60) X 10*6/uL Hgb 9.4 L (13.0-17.0) g/dL Hct 31.3 L (39.6-50.0) % MCHC 30.0 L (32.0-37.0) g/dL Neutrophils # 9.10 H (1.80-7.70) X 10*3/uL Monocytes # 1.22 H (0.20-1.00) X 10*3/uL Potassium (3.5-5.5) mmol/L Carbon Dioxide (20.0-27.5) mmol/L BUN (9.0-27.0) mg/dL Est GFR (CKD-EPI)AfAm (60.0-200.0) Est GFR (CKD-EPI)NonAf (60.0-200.0) BUN/Creatinine Ratio (12.00-20.00) Ratio Glucose (70-110) mg/dL POC Glucose (mg/dL) 200 H 217 H (75-99) mg/dL Calcium (8.7-10.3) mg/dL 06/28/21 06/28/21 06/28/21 Range/Units 04:35 07:05 11:12 WBC (4.50-10.00) X 10*3/uL RBC (4.40-5.60) X 10*6/uL Hgb (13.0-17.0) g/dL Hct (39.6-50.0) % MCHC (32.0-37.0) g/dL Neutrophils # (1.80-7.70) X 10*3/uL Monocytes # (0.20-1.00) X 10*3/uL Potassium 3.4 L (3.5-5.5) mmol/L Carbon Dioxide 32.1 H (20.0-27.5) mmol/L BUN 41.4 H (9.0-27.0) mg/dL Est GFR (CKD-EPI)AfAm 49.4 L (60.0-200.0) Est GFR (CKD-EPI)NonAf 42.7 L (60.0-200.0) BUN/Creatinine Ratio 27.24 H (12.00-20.00) Ratio Glucose 142 H (70-110) mg/dL POC Glucose (mg/dL) 123 H 216 H (75-99) mg/dL Calcium 8.2 L (8.7-10.3) mg/dL Assessment and Plan Plan: Assessment: #1. Acute exacerbation of COPD #2. Acute on chronic hypoxic and hypercapnic respiratory failure related to the above #3. History of paroxysmal A. fib on Xarelto #4. History of CVA/TIA #5. History of dementia #6. Diabetes mellitus #7. Hypertension #8. Hyperlipidemia #9. Remote history of DVT #10. Chronic tobacco dependence in remission since 2002 #11. Hypothyroidism #12. Chronic renal failure #13. History of brain bleed with surgery 2003 Plan: Patient is doing well He has no acute events overnight He stable for discharge to ECF He will complete outpatient course of prednisone taper, continue Symbicort and DuoNeb Outpatient follow up with Dr. Harris in 7-10 days I have personally seen and examined the patient, performed the documentation and the assessment and plan as written. Number of minutes spent on the visit: [10] I have personally seen and examined the patient and reviewed the documentation. I performed a joint evaluation with the nurse practitioner in this evaluation was done more than 20 minutes. I fully agree with the documentation above and the plan of care. The patient is doing well. No specific complaints. The patient can potentially go to ECF today. Prednisone burst taper. Symbicort. DuoNeb [id number]. Time with Patient: Less than 30
[2021-06-28 14:36] VITALS: BP 129/54; RESP 24; TEMP 97.9
[2021-06-28 16:14] LABS: Glucose,Whole Blood 242 mg/dL (75-99)
== END 2021-06-28 16:30 | DRG 190 ==
LOC: EC 12:57 → 3SCARD 15:46 → 4SSUR 06-25 18:39
PROVIDERS: ADMIT Internal Medicine; ATTEND Internal Medicine
PROC: 5A09357 Assistance with Respiratory Ventilation, Less than 24 Consecutive Hours, Continuous Positive Airway Pressure (ICD-10-PCS; principal; 2021-06-21)
DX: J44.1 Chronic obstructive pulmonary disease with (acute) exacerbation (principal); J96.21 Acute and chronic respiratory failure with hypoxia; G93.41 Metabolic encephalopathy; J96.22 Acute and chronic respiratory failure with hypercapnia; N17.9 Acute kidney failure, unspecified; J90 Pleural effusion, not elsewhere classified; E87.3 Alkalosis; E87.4 Mixed disorder of acid-base balance; E11.22 Type 2 diabetes mellitus with diabetic chronic kidney disease; N18.30 Chronic kidney disease, stage 3 unspecified; I48.0 Paroxysmal atrial fibrillation; F03.90 Unspecified dementia, unspecified severity, without behavioral disturbance, psychotic disturbance, mood disturbance, and anxiety; Z79.4 Long term (current) use of insulin; R91.1 Solitary pulmonary nodule; I12.9 Hypertensive chronic kidney disease with stage 1 through stage 4 chronic kidney disease, or unspecified chronic kidney disease; E78.5 Hyperlipidemia, unspecified; K21.9 Gastro-esophageal reflux disease without esophagitis; N40.0 Benign prostatic hyperplasia without lower urinary tract symptoms; E03.9 Hypothyroidism, unspecified; G43.909 Migraine, unspecified, not intractable, without status migrainosus; M19.90 Unspecified osteoarthritis, unspecified site; D72.829 Elevated white blood cell count, unspecified; Z99.81 Dependence on supplemental oxygen; Z79.899 Other long term (current) drug therapy; Z79.890 Hormone replacement therapy; Z79.02 Long term (current) use of antithrombotics/antiplatelets; Z79.84 Long term (current) use of oral hypoglycemic drugs; Z79.01 Long term (current) use of anticoagulants; Z79.52 Long term (current) use of systemic steroids; Z87.01 Personal history of pneumonia (recurrent); Z86.73 Personal history of transient ischemic attack (TIA), and cerebral infarction without residual deficits; Z87.442 Personal history of urinary calculi; Z87.891 Personal history of nicotine dependence; Z86.718 Personal history of other venous thrombosis and embolism; Z82.3 Family history of stroke; W19.XXXA Unspecified fall, initial encounter; Z91.81 History of falling
CPT/HCPCS: 36415; 36600; 70450; 71046; 80048; 80053; 80306; 81001; 82805; 84145; 84484; 85025; 85610; 85730; 93005; 94640; 94660; 94760; 96361; 96374; 96376; 99291

== ENCOUNTER 2021-07-14 11:54 | Inpatient (IN) | payer MEDICARE, OTHER ==
[2021-07-14] MEDS ORDERED: SODIUM CHLORIDE 0.9% 500 ML 500 ML IV ONE (12:09)
--- NOTE | 2021-07-14 12:13 | ED ---
General Adult HPI - General Stated complaint: Low O2/Altered Mental Status Time Seen by Provider: 07/14/21 12:00 Source: EMS, RN notes reviewed, old records reviewed - History of Present Illness Initial comments: This is a 80-year-old male who presents emergency Department from a detention because over the last few days she's becoming more and more obtunded today he only was responsive to a sternal rub. Patient also was hypoxic and he had a permanent nonrebreather to get his oxygen up to 93%. Patient's oxygen was in the 80s on nasal cannula however he is a mouth breather. No further history is available this time patient is unable to give any history and no family or caregivers with the patient. - Related Data Home Medications Medication Instructions Recorded Confirmed Atorvastatin [Lipitor] 20 mg PO HS@199912/22/14 07/14/21 Levothyroxine Sodium [Synthroid] 75 mcg PO DAILY 12/22/14 07/14/21 Potassium Chloride [K-Tab ER] 10 meq PO DAILY 12/22/14 07/14/21 Clopidogrel [Plavix] 75 mg PO DAILY 02/06/17 07/14/21 Mirtazapine [Remeron] 15 mg PO HS@199907/11/17 07/14/21 metFORMIN HCL [Glucophage] 500 mg PO DAILY 07/11/17 07/14/21 Rivaroxaban [Xarelto] 20 mg PO HS 06/21/21 07/14/21 Sodium Chloride [[place]] 1 spray EA NOSTRIL DAILY PRN 07/14/21 07/14/21 Tamsulosin [Flomax] 0.4 mg PO DAILY@0700 07/14/21 07/14/21 predniSONE See Taper PO DIRECTED 07/14/21 07/14/21 Allergies Allergy/AdvReac Type Severity Reaction Status Date / Time No Known Allergies Allergy Verified 07/14/21 12:13 Review of Systems ROS Statement: Those systems with pertinent positive or pertinent negative responses have been documented in the HPI. ROS Other: All systems not noted in ROS Statement are negative. 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 History of Any Multi-Drug Resistant Organisms: None Reported Past Surgical History: Tonsillectomy Additional Past Surgical History / Comment(s): Brain surgery for bleed 2003. Past Anesthesia/Blood Transfusion Reactions: No Reported Reaction Smoking Status: Former smoker - Past Family History Father Family Medical History: CVA/TIA Additional Family Medical History / Comment(s): Father had a CVA at age 63. Pt does not know how old he lived to be. Mother Family Medical History: No Reported History Additional Family Medical History / Comment(s): Pt states his mother just of old age. He does not know how old she was when she . General Exam - General Exam Comments Initial Comments: GENERAL: Patient is well-developed and well-nourished. Patient is nontoxic and well- hydrated and is in no acute distress. ENT: Neck is soft and supple. No significant lymphadenopathy is noted. Oropharynx is clear. Moist mucous membranes. Neck has full range of motion without eliciting any pain. EYES: The sclera were anicteric and conjunctiva were pink and moist. Extraocular movements were intact and pupils were equal round and reactive to light. Eyelids were unremarkable. PULMONARY: Unlabored respirations. Good breath sounds bilaterally. No audible rales rh onchi or wheezing was noted. CARDIOVASCULAR: There is a regular rate and rhythm without any murmurs gallops or rubs. ABDOMEN: Soft and nontender with normal bowel sounds. No palpable organomegaly was noted. There is no palpable pulsatile mass. SKIN: Skin is clear with no lesions or rashes and otherwise unremarkable. NEUROLOGIC: Patient is patient groans and moans to sternal rub only. MUSCULOSKELETAL: Normal extremities with adequate strength and full range of motion. LYMPHATICS: No significant lymphadenopathy is noted PSYCHIATRIC: Normal psychiatric evaluation. Course Vital Signs 07/14/21 07/14/21 07/14/21 11:59 12:42 13:14 Temperature 98.0 F Pulse Rate 76 75 Respiratory 18 18 Rate Blood Pressure 120/47 114/54 O2 Sat by Pulse 100 100 Oximetry Fraction of 28 Inspired Oxygen (FIO2) 07/14/21 07/14/21 07/14/21 13:41 13:43 14:34 Temperature Pulse Rate 74 73 Respiratory 18 30 H Rate Blood Pressure 106/47 118/51 O2 Sat by Pulse 95 411 H Oximetry Fraction of 70 Inspired Oxygen (FIO2) Medical Decision Making - Medical Decision Making EKG shows sinus rhythm at 70 bpm OK interval 120 QRS is 90 QT interval 349 QTC is 382. Patient's EKG shows no ST segment elevation or depression. Chest x-ray shows infiltrate or atelectasis right base. Patient's pCO2 was greater than 120 . patient on BiPAP. I spoke with Dr. Lockett and he agreed to admit the patient admitted the patient consult to Dr. Harris and I spoke with Dr. Harris. I wrote admitting orders. - Lab Data Result diagrams: 07/14/21 12:28 07/14/21 12:28 Lab Results 07/14/21 07/14/21 07/14/21 Range/Units 12:14 12:28 12:28 WBC 9.9 (3.8-10.6) k/uL RBC 3.25 L (4.30-5.90) m/uL Hgb 9.8 L (13.0-17.5) gm/dL Hct 33.7 L (39.0-53.0) % MCV 103.5 H (80.0-100.0) fL MCH 30.1 (25.0-35.0) pg MCHC 29.0 L (31.0-37.0) g/dL RDW 14.7 (11.5-15.5) % Plt Count 223 (150-450) k/uL MPV 7.4 Neutrophils % 92 % Lymphocytes % 3 % Monocytes % 5 % Eosinophils % 0 % Basophils % 0 % Neutrophils # 9.1 H (1.3-7.7) k/uL Lymphocytes # 0.3 L (1.0-4.8) k/uL Monocytes # 0.5 (0-1.0) k/uL Eosinophils # 0.0 (0-0.7) k/uL Basophils # 0.0 (0-0.2) k/uL Hypochromasia Marked Macrocytosis Slight PT 10.1 (9.0-12.0) sec INR 0.9 (<1.2) APTT 22.1 (22.0-30.0) sec Sample Site ABG pH (7.35-7.45) ABG pCO2 (35-45) mmHg ABG pO2 (83-108) mmHg ABG O2 Saturation (94-97) % Billy Test FiO2 % Sodium (137-145) mmol/L Potassium (3.5-5.1) mmol/L Chloride (98-107) mmol/L Carbon Dioxide (22-30) mmol/L Anion Gap mmol/L BUN (9-20) mg/dL Creatinine (0.66-1.25) mg/dL Est GFR (CKD-EPI)AfAm (>60 ml/min/1.73 sqM) Est GFR (CKD-EPI)NonAf (>60 ml/min/1.73 sqM) Glucose (74-99) mg/dL POC Glucose (mg/dL) 143 H (75-99) mg/dL POC Glu Lead Software Development Engineer ID Elder Renteriata Calcium (8.4-10.2) mg/dL Total Bilirubin (0.2-1.3) mg/dL AST (17-59) U/L ALT (4-49) U/L Alkaline Phosphatase (38-126) U/L Ammonia (<30) umol/L Troponin I (0.000-0.034) ng/mL Total Protein (6.3-8.2) g/dL Albumin (3.5-5.0) g/dL Urine Color Urine Appearance (Clear) Urine pH (5.0-8.0) Ur Specific [place] (1.001-1.035) Urine Protein (Negative) Urine Glucose (UA) (Negative) Urine Ketones (Negative) Urine Blood (Negative) Urine Nitrite (Negative) Urine Bilirubin (Negative) Urine Urobilinogen (<2.0) mg/dL Ur Leukocyte Esterase (Negative) Urine RBC (0-5) /hpf Urine WBC (0-5) /hpf Urine Bacteria (None) /hpf Urine Opiates Screen (NotDetected) Ur Oxycodone Screen (NotDetected) Urine Methadone Screen (NotDetected) Ur Propoxyphene Screen (NotDetected) Ur Barbiturates Screen (NotDetected) U Tricyclic Antidepress (NotDetected) Ur Phencyclidine Scrn (NotDetected) Ur Amphetamines Screen (NotDetected) U Methamphetamines Scrn (NotDetected) U Benzodiazepines Scrn (NotDetected) Urine Cocaine Screen (NotDetected) U Marijuana (THC) Screen (NotDetected) 07/14/21 07/14/21 07/14/21 Range/Units 12:28 12:28 12:28 WBC (3.8-10.6) k/uL RBC (4.30-5.90) m/uL Hgb (13.0-17.5) gm/dL Hct (39.0-53.0) % MCV (80.0-100.0) fL MCH (25.0-35.0) pg MCHC (31.0-37.0) g/dL RDW (11.5-15.5) % Plt Count (150-450) k/uL MPV Neutrophils % % Lymphocytes % % Monocytes % % Eosinophils % % Basophils % % Neutrophils # (1.3-7.7) k/uL Lymphocytes # (1.0-4.8) k/uL Monocytes # (0-1.0) k/uL Eosinophils # (0-0.7) k/uL Basophils # (0-0.2) k/uL Hypochromasia Macrocytosis PT (9.0-12.0) sec INR (<1.2) APTT (22.0-30.0) sec Sample Site ABG pH (7.35-7.45) ABG pCO2 (35-45) mmHg ABG pO2 (83-108) mmHg ABG O2 Saturation (94-97) % Billy Test FiO2 % Sodium 139 (137-145) mmol/L Potassium 5.8 H (3.5-5.1) mmol/L Chloride 84 L (98-107) mmol/L Carbon Dioxide 50 H* (22-30) mmol/L Anion Gap 5 mmol/L BUN 48 H (9-20) mg/dL Creatinine 1.83 H (0.66-1.25) mg/dL Est GFR (CKD-EPI)AfAm 39 (>60 ml/min/1.73 sqM) Est GFR (CKD-EPI)NonAf 34 (>60 ml/min/1.73 sqM) Glucose 142 H (74-99) mg/dL POC Glucose (mg/dL) (75-99) mg/dL POC Glu Lead Software Development Engineer ID Calcium 7.9 L (8.4-10.2) mg/dL Total Bilirubin 0.5 (0.2-1.3) mg/dL AST 17 (17-59) U/L ALT 16 (4-49) U/L Alkaline Phosphatase 78 (38-126) U/L Ammonia (<30) umol/L Troponin I 0.054 H* (0.000-0.034) ng/mL Total Protein 5.5 L (6.3-8.2) g/dL Albumin 3.3 L (3.5-5.0) g/dL Urine Color Yellow Urine Appearance Cloudy (Clear) Urine pH 5.5 (5.0-8.0) Ur Specific [place] 1.016 (1.001-1.035) Urine Protein 1+ H (Negative) Urine Glucose (UA) Negative (Negative) Urine Ketones Trace H (Negative) Urine Blood Small H (Negative) Urine Nitrite Negative (Negative) Urine Bilirubin Negative (Negative) Urine Urobilinogen <2.0 (<2.0) mg/dL Ur Leukocyte Esterase Moderate H (Negative) Urine RBC 5 (0-5) /hpf Urine WBC 21 H (0-5) /hpf Urine Bacteria Rare H (None) /hpf Urine Opiates Screen Not Detected (NotDetected) Ur Oxycodone Screen Not Detected (NotDetected) Urine Methadone Screen Not Detected (NotDetected) Ur Propoxyphene Screen Not Detected (NotDetected) Ur Barbiturates Screen Not Detected (NotDetected) U Tricyclic Antidepress Not Detected (NotDetected) Ur Phencyclidine Scrn Not Detected (NotDetected) Ur Amphetamines Screen Not Detected (NotDetected) U Methamphetamines Scrn Not Detected (NotDetected) U Benzodiazepines Scrn Not Detected (NotDetected) Urine Cocaine Screen Not Detected (NotDetected) U Marijuana (THC) Screen Not Detected (NotDetected) 07/14/21 07/14/21 Range/Units 12:28 13:00 WBC (3.8-10.6) k/uL RBC (4.30-5.90) m/uL Hgb (13.0-17.5) gm/dL Hct (39.0-53.0) % MCV (80.0-100.0) fL MCH (25.0-35.0) pg MCHC (31.0-37.0) g/dL RDW (11.5-15.5) % Plt Count (150-450) k/uL MPV Neutrophils % % Lymphocytes % % Monocytes % % Eosinophils % % Basophils % % Neutrophils # (1.3-7.7) k/uL Lymphocytes # (1.0-4.8) k/uL Monocytes # (0-1.0) k/uL Eosinophils # (0-0.7) k/uL Basophils # (0-0.2) k/uL Hypochromasia Macrocytosis PT (9.0-12.0) sec INR (<1.2) APTT (22.0-30.0) sec Sample Site lrad ABG pH 7.07 L* (7.35-7.45) ABG pCO2 >120 H* (35-45) mmHg ABG pO2 135 H (83-108) mmHg ABG O2 Saturation 98.9 H (94-97) % Billy Test Yes FiO2 28 % Sodium (137-145) mmol/L Potassium (3.5-5.1) mmol/L Chloride (98-107) mmol/L Carbon Dioxide (22-30) mmol/L Anion Gap mmol/L BUN (9-20) mg/dL Creatinine (0.66-1.25) mg/dL Est GFR (CKD-EPI)AfAm (>60 ml/min/1.73 sqM) Est GFR (CKD-EPI)NonAf (>60 ml/min/1.73 sqM) Glucose (74-99) mg/dL POC Glucose (mg/dL) (75-99) mg/dL POC Glu Lead Software Development Engineer ID Calcium (8.4-10.2) mg/dL Total Bilirubin (0.2-1.3) mg/dL AST (17-59) U/L ALT (4-49) U/L Alkaline Phosphatase (38-126) U/L Ammonia 22 (<30) umol/L Troponin I (0.000-0.034) ng/mL Total Protein (6.3-8.2) g/dL Albumin (3.5-5.0) g/dL Urine Color Urine Appearance (Clear) Urine pH (5.0-8.0) Ur Specific [place] (1.001-1.035) Urine Protein (Negative) Urine Glucose (UA) (Negative) Urine Ketones (Negative) Urine Blood (Negative) Urine Nitrite (Negative) Urine Bilirubin (Negative) Urine Urobilinogen (<2.0) mg/dL Ur Leukocyte Esterase (Negative) Urine RBC (0-5) /hpf Urine WBC (0-5) /hpf Urine Bacteria (None) /hpf Urine Opiates Screen (NotDetected) Ur Oxycodone Screen (NotDetected) Urine Methadone Screen (NotDetected) Ur Propoxyphene Screen (NotDetected) Ur Barbiturates Screen (NotDetected) U Tricyclic Antidepress (NotDetected) Ur Phencyclidine Scrn (NotDetected) Ur Amphetamines Screen (NotDetected) U Methamphetamines Scrn (NotDetected) U Benzodiazepines Scrn (NotDetected) Urine Cocaine Screen (NotDetected) U Marijuana (THC) Screen (NotDetected) Critical Care Time Critical Care Time: Yes Total Critical Care Time: 35 Disposition Clinical Impression: Altered mental status, Hypercapnia Disposition: ADMITTED IP TO THIS HOSP Referrals: None,Stated [Primary Care Provider] - 1-2 days Time of Disposition: 15:01
[2021-07-14 12:15] LABS: Glucose,Whole Blood 143 mg/dL (75-99)
[2021-07-14 13:04] LABS: ABG Oxygen Saturation 98.9 % (94-97); ABG PO2 135 mmHg (83-108); Allen Test Performed? Yes
[2021-07-14 13:06] LABS: ABG PCO2 >120 mmHg (35-45); ABG PH 7.07 (7.35-7.45)
[2021-07-14 13:06] LABS: INR 0.9 (<1.2); Partial Thromboplastin Time 22.1 sec (22.0-30.0); Prothrombin Time 10.1 sec (9.0-12.0)
[2021-07-14 13:07] LABS: Basophils % (A) 0 %; Eosinophils % (A) 0 %; HCT 33.7 % (39.0-53.0); HGB 9.8 gm/dL (13.0-17.5); Hypochromasia Marked; Lymphocytes # (A) 0.3 k/uL (1.0-4.8); Lymphocytes % (A) 3 %; MCH 30.1 pg (25.0-35.0); MCV 103.5 fL (80.0-100.0); Macrocytosis Slight; Mean Platelet Volume 7.4; Monocytes # (A) 0.5 k/uL (0-1.0); Monocytes % (A) 5 %; Neutrophils # (A) 9.1 k/uL (1.3-7.7); Neutrophils % (A) 92 %; Platelet Count 223 k/uL (150-450); RBC 3.25 m/uL (4.30-5.90); RDW 14.7 % (11.5-15.5); WBC 9.9 k/uL (3.8-10.6)
[2021-07-14 13:08] LABS: Appearance,Urine Cloudy (Clear); Bacteria,Urine Rare /hpf; Bilirubin,Urine Negative (Negative); Blood,Urine Small (Negative); Color,Urine Yellow; Glucose,Urine (UA) Negative (Negative); Ketones,Urine Trace (Negative); Leukocyte Esterase,Urine Moderate (Negative); Nitrite,Urine Negative (Negative); PH, Urine 5.5 (5.0-8.0); Protein,Urine 1+ (Negative); RBC,Urine 5 /hpf (0-5); Specific Gravity,Urine 1.016 (1.001-1.035); Urobilinogen,Urine <2.0 mg/dL (<2.0); WBC,Urine 21 /hpf (0-5)
[2021-07-14 13:09] LABS: Amphetamine Screen,Urine Not Detected (NotDetected); Barbiturate Screen,Urine Not Detected (NotDetected); Benzodiazepines Screen,Urine Not Detected (NotDetected); Cocaine Screen,Urine Not Detected (NotDetected); Methadone Screen, Urine Not Detected (NotDetected); Opiate Screen,Urine Not Detected (NotDetected); Oxycodone Screen, Urine Not Detected (NotDetected); Phencyclidine Screen,Urine Not Detected (NotDetected); Tricyclic Antidepressant,Urine Not Detected (NotDetected); Urn Cannabinoid Scrn Not Detected (NotDetected)
[2021-07-14 13:12] LABS: Albumin 3.3 g/dL (3.5-5.0); Calcium 7.9 mg/dL (8.4-10.2); Potassium 5.8 mmol/L (3.5-5.1); Total Bilirubin 0.5 mg/dL (0.2-1.3); Total Protein 5.5 g/dL (6.3-8.2)
--- NOTE | 2021-07-14 14:00 | CT ---
EXAMINATION TYPE: CT brain wo con DATE OF EXAM: 07/14/2021 COMPARISON: CT dated 06/21/2021 HISTORY: Altered mental status CT DLP: 1141.4 mGycm Automated exposure control for dose reduction was used. TECHNIQUE: CT scan of the brain is performed without IV contrast administration. FINDINGS: Right frontal and left temporal areas of encephalomalacia, possibly representing sequela of chronic i nfarcts or previous intervention with surrounding gliotic changes, stable. No acute intracranial hemorrhage. No gross acute cortical infarct. No midline shift or herniation. Unremarkable basal cisterns, sella and CP angles. No gross space-occupying lesion. Unremarkable orbits. Clear visualized paranasal sinuses and mastoid air cells. Unchanged visualized b ones. IMPRESSION: No acute intracranial hemorrhage or gross acute cortical infarct. Chronic changes as described above.
--- NOTE | 2021-07-14 14:14 | XR ---
EXAMINATION TYPE: XR chest 1V portable DATE OF EXAM: 07/14/2021 COMPARISON: 06/21/2021 HISTORY: Shortness of breath TECHNIQUE: Single frontal view of the chest is obtained. FINDINGS: Right lower lobe infiltrate and small effusion similar to prior exam. Suggests COPD. Inter stitial coarsening correlate for chronic interstitial lung disease. Suspect the linear lucency along the right upper lobe is most likely related to soft tissue artifact rather than pneumothorax. Repeat frontal view suggest IMPRESSION: 1. Right lower lobe infiltrate and small effusion similar to prior exam with changes of chronic inter stitial lung disease is suspected. 2. Linear lucency along the upper right thorax likely is related to a soft tissue fold rather than pn eumothorax however, recommend repeat frontal view for confirmation.
[2021-07-14] MEDS ORDERED: NALOXONE 0.4 MG/ML 1 ML VIAL IV PRN (15:04)
--- NOTE | 2021-07-14 15:44 | P.CNPUL ---
History of Present Illness Consult date: 07/14/21 Reason for consult: dyspnea, COPD History of present illness: This is a 80-year-old male patient with advanced COPD and based on early spirometry from 2015, the patient has an FEV1 of around 29% of predicted and the patient has been oxygen dependent at 2 L per minute 24 7. He has been maintained on Symbicort on outpatient basis regarding his COPD. He has significant limitation of exercise capacity. He has chronic hypoxic respiratory failure, and his comorbid conditions include history of CVA, history of DVT maintained on Eliquis, diabetes mellitus type 2, hypothyroidism, migraines, hypertension, paroxysmal atrial fibrillation, dementia, chronic pain, hyperlipidemia and history of kidney stones. The patient also has a component of chronic kidney disease. The patient was in the hospital and June 2021 and at that time the patient presented to the hospital because of altered mentation and change in mental status. His chest x-ray was consistent with COPD and small bilateral pleural effusions. At that time, there was suspicion is nodule also in the lungs. His CAT scan of the brain back then showed no acute abnormalities. The patient was admitted and a blood gas was done that showed chronic hypercapnic respiratory failure which was compensated and the patient's pH was at 7.37 with a pCO2 of 18 9. At that time, the patient was hospitalized, treated with a combination of bronchodilators, steroids, Diamox and he was also given BiPAP for respiratory support and ultimately was discharged. The patient came into the emergency department today and he was referred from the [facility] because he was getting more obtunded and he was having difficulties to arousable to sternal rub. He was also found to be hypoxic. He was placed on a nonrebreather facemask to get to bring his saturation above 90%. Apparently, the patient's pulse ox was in the low 80s. No other history is available. By the time the patient arrived to the emergency, he was quite lethargic and immediately was placed on a BiPAP at a pressure of 16/5 cm of water with an FiO2 of 70%. The initial blood gases that was done on this patient showed severe respiratory acidosis with a pH of 7.07 and a pCO2 of more than 120 and pO2 of 135 and this was on FiO2 of 28%. The patient had a white cell count of 9.9 with a hemoglobin of 9.8, sodium was at 139, potassium level was at 5.8 and a serum bicarb was at 50 with a BUN of 48 and a creatinine of 1.8. Glucose was 143. Coagulation profile is within normal limits. Troponin was at 0.054. Urine drug screen was essentially negative. UA showed +1 protein and 21 wbc's. LFTs were within normal limits. Chest x-ray showed right lower lobe pulmonary infiltrate, there was a skin fold in the right upper lobe and this represented a artifact than a pneumothorax. The patient has background COPD. The patient is currently on a BiPAP. He remains quite lethargic and he withdraws only to painful stimulation. A repeat CAT scan of the brain was done that showed no acute abnormalities. The patient is hemodynamically stable. Cardiac rhythm is sinus at this point in time. 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 History of Any Multi-Drug Resistant Organisms: None Reported Past Surgical History: Tonsillectomy Additional Past Surgical History / Comment(s): Brain surgery for bleed 2003. Past Anesthesia/Blood Transfusion Reactions: No Reported Reaction Smoking Status: Former smoker - Past Family History Father Family Medical History: CVA/TIA Additional Family Medical History / Comment(s): Father had a CVA at age 63. Pt does not know how old he lived to be. Mother Family Medical History: No Reported History Additional Family Medical History / Comment(s): Pt states his mother just of old age. He does not know how old she was when she . Medications and Allergies Home Medications Medication Instructions Recorded Confirmed Type Atorvastatin [Lipitor] 20 mg PO HS@199912/22/14 07/14/21 History Levothyroxine Sodium [Synthroid] 75 mcg PO DAILY 12/22/14 07/14/21 History Potassium Chloride [K-Tab ER] 10 meq PO DAILY 12/22/14 07/14/21 History Clopidogrel [Plavix] 75 mg PO DAILY 02/06/17 07/14/21 History Mirtazapine [Remeron] 15 mg PO HS@199907/11/17 07/14/21 History metFORMIN HCL [Glucophage] 500 mg PO DAILY 07/11/17 07/14/21 History Rivaroxaban [Xarelto] 20 mg PO HS 06/21/21 07/14/21 History Sodium Chloride [[place]] 1 spray EA NOSTRIL DAILY PRN 07/14/21 07/14/21 History Tamsulosin [Flomax] 0.4 mg PO DAILY@0700 07/14/21 07/14/21 History predniSONE See Taper PO DIRECTED 07/14/21 07/14/21 History Allergies Allergy/AdvReac Type Severity Reaction Status Date / Time No Known Allergies Allergy Verified 07/14/21 12:13 Physical Exam Vitals: Vital Signs Temp Pulse Resp BP Pulse Ox FiO2 07/14/21 15:13 70 07/14/21 14:34 73 30 H 118/51 411 H 07/14/21 13:43 74 18 106/47 95 07/14/21 13:41 70 07/14/21 13:14 28 07/14/21 12:42 75 18 114/54 100 07/14/21 11:59 98.0 F 76 18 120/47 100 Intake and Output 07/14/21 07/14/21 07/14/21 06:59 14:59 22:59 Other: Weight 67.5 kg GENERAL EXAM: Alert, disheveled 80-year-old male patient on on BiPAP at a pressure of 60 5 cm of water with an fio2 of 70%. is able to generate a tidal volume barely above 250. he is still tachypneic. his lethargic and obtunded and withdraws to painful stimulation. he responds only to sternal rub at this point in time. he is not following any commands. he is however tolerating the bipap on a full face mask. looks quite cachectic and lethargic and emaciated. HEAD: Normocephalic. EYES: Normal reaction of pupils, equal size. NOSE: Clear with pink turbinates. THROAT: No erythema or exudates. NECK: No masses, no JVD. CHEST: No chest wall deformity. LUNGS: marked diminished breath sounds bilaterally and the patient has scattered SCANT EXPIRATORY WHEEZES THROUGHOUT THE LUNG DAO BILATERALLY. CVS: S1 and S2 normal with no audible murmur, regular rhythm.overall, the heart sounds are quite distant ABDOMEN: No hepatosplenomegaly, normal bowel sounds, no guarding or rigidity. SPINE: No scoliosis or deformity SKIN: No rashes CENTRAL NERVOUS SYSTEM: the patient has signs of CO2 narcosis, lethargic and obtunded. He withdraws to deep painful stimulation. Pupils around 3-4 mm in size and reactive to light. No nystagmus. No clonus. No focal neurological deficit and the patient is withdrawing to painful stimulation. Reflexes are equal and symmetrical at this point in time. EXTREMITIES: There is no peripheral edema. No clubbing, no cyanosis. Peripheral pulses are intact. Results - Laboratory Findings CBC and BMP: 07/14/21 12:28 07/14/21 12:28 ABG WBC 9.9 k/uL (3.8-10.6) 07/14/21 12:28 RBC 3.25 m/uL (4.30-5.90) L 07/14/21 12:28 Hgb 9.8 gm/dL (13.0-17.5) L 07/14/21 12:28 Hct 33.7 % (39.0-53.0) L 07/14/21 12:28 MCV 103.5 fL (80.0-100.0) H 07/14/21 12:28 MCH 30.1 pg (25.0-35.0) 07/14/21 12:28 MCHC 29.0 g/dL (31.0-37.0) L 07/14/21 12:28 RDW 14.7 % (11.5-15.5) 07/14/21 12:28 Plt Count 223 k/uL (150-450) 07/14/21 12:28 MPV 7.4 07/14/21 12:28 Neutrophils % 92 % 07/14/21 12:28 Lymphocytes % 3 % 07/14/21 12:28 Monocytes % 5 % 07/14/21 12:28 Eosinophils % 0 % 07/14/21 12:28 Basophils % 0 % 07/14/21 12:28 Neutrophils # 9.1 k/uL (1.3-7.7) H 07/14/21 12:28 Lymphocytes # 0.3 k/uL (1.0-4.8) L 07/14/21 12:28 Monocytes # 0.5 k/uL (0-1.0) 07/14/21 12:28 Eosinophils # 0.0 k/uL (0-0.7) 07/14/21 12:28 Basophils # 0.0 k/uL (0-0.2) 07/14/21 12:28 Hypochromasia Marked 07/14/21 12:28 Macrocytosis Slight 07/14/21 12:28 PT 10.1 sec (9.0-12.0) 07/14/21 12:28 INR 0.9 (<1.2) 07/14/21 12: APTT 22.1 sec (22.0-30.0) 07/14/21 12:28 Sample Site lrad 07/14/21 13:00 ABG pH 7.07 (7.35-7.45) L* 07/14/21 13:00 ABG pCO2 >120 mmHg (35-45) H* 07/14/21 13:00 ABG pO2 135 mmHg (83-108) H 07/14/21 13:00 ABG O2 Saturation 98.9 % (94-97) H 07/14/21 13:00 Billy Test Yes 07/14/21 13:00 FiO2 28 % 07/14/21 13:00 Sodium 139 mmol/L (137-145) 07/14/21 12:28 Potassium 5.8 mmol/L (3.5-5.1) H 07/14/21 12:28 Chloride 84 mmol/L (98-107) L 07/14/21 12:28 Carbon Dioxide 50 mmol/L (22-30) H* 07/14/21 12:28 Anion Gap 5 mmol/L 07/14/21 12:28 BUN 48 mg/dL (9-20) H 07/14/21 12:28 Creatinine 1.83 mg/dL (0.66-1.25) H 07/14/21 12:28 Est GFR (CKD-EPI)AfAm 39 (>60 ml/min/1.73 sqM) 07/14/21 12:28 Est GFR (CKD-EPI)NonAf 34 (>60 ml/min/1.73 sqM) 07/14/21 12:28 Glucose 142 mg/dL (74-99) H 07/14/21 12:28 POC Glucose (mg/dL) 143 mg/dL (75-99) H 07/14/21 12:14 POC Glu [employer] Caleb Inman 07/14/21 12:14 Calcium 7.9 mg/dL (8.4-10.2) L 07/14/21 12:28 Total Bilirubin 0.5 mg/dL (0.2-1.3) 07/14/21 12:28 AST 17 U/L (17-59) 07/14/21 12:28 ALT 16 U/L (4-49) 07/14/21 12:28 Alkaline Phosphatase 78 U/L (38-126) 07/14/21 12:28 Ammonia 22 umol/L (<30) 07/14/21 12:28 Troponin I 0.054 ng/mL (0.000-0.034) H* 07/14/21 12:28 Total Protein 5.5 g/dL (6.3-8.2) L 07/14/21 12:28 Albumin 3.3 g/dL (3.5-5.0) L 07/14/21 12:28 Urine Color Yellow 07/14/21 12:28 Urine Appearance Cloudy (Clear) 07/14/21 12:28 Urine pH 5.5 (5.0-8.0) 07/14/21 12:28 Ur Specific [place] 1.016 (1.001-1.035) 07/14/21 12:28 Urine Protein 1+ (Negative) H 07/14/21 12:28 Urine Glucose (UA) Negative (Negative) 07/14/21 12:28 Urine Ketones Trace (Negative) H 07/14/21 12:28 Urine Blood Small (Negative) H 07/14/21 12:28 Urine Nitrite Negative (Negative) 07/14/21 12:28 Urine Bilirubin Negative (Negative) 07/14/21 12:28 Urine Urobilinogen <2.0 mg/dL (<2.0) 07/14/21 12:28 Ur Leukocyte Esterase Moderate (Negative) H 07/14/21 12:28 Urine RBC 5 /hpf (0-5) 07/14/21 12:28 Urine WBC 21 /hpf (0-5) H 07/14/21 12:28 Urine Bacteria Rare /hpf (None) H 07/14/21 12:28 Urine Opiates Screen Not Detected (NotDetected) 07/14/21 12:28 Ur Oxycodone Screen Not Detected (NotDetected) 07/14/21 12:28 Urine Methadone Screen Not Detected (NotDetected) 07/14/21 12:28 Ur Propoxyphene Screen Not Detected (NotDetected) 07/14/21 12:28 Ur Barbiturates Screen Not Detected (NotDetected) 07/14/21 12:28 U Tricyclic Antidepress Not Detected (NotDetected) 07/14/21 12:28 Ur Phencyclidine Scrn Not Detected (NotDetected) 07/14/21 12:28 Ur Amphetamines Screen Not Detected (NotDetected) 07/14/21 12:28 U Methamphetamines Scrn Not Detected (NotDetected) 07/14/21 12:28 U Benzodiazepines Scrn Not Detected (NotDetected) 07/14/21 12:28 Urine Cocaine Screen Not Detected (NotDetected) 07/14/21 12:28 U Marijuana (THC) Screen Not Detected (NotDetected) 07/14/21 12:28 PT/INR, D-dimer PT 10.1 sec (9.0-12.0) 07/14/21 12:28 INR 0.9 (<1.2) 07/14/21 12:28 Abnormal lab findings: Abnormal Labs 07/14/21 07/14/21 07/14/21 12:14 12:28 12:28 RBC 3.25 L Hgb 9.8 L Hct 33.7 L MCV 103.5 H MCHC 29.0 L Neutrophils # 9.1 H Lymphocytes # 0.3 L ABG pH ABG pCO2 ABG pO2 ABG O2 Saturation Potassium Chloride Carbon Dioxide BUN Creatinine Glucose POC Glucose (mg/dL) 143 H Calcium Troponin I Total Protein Albumin Urine Protein 1+ H Urine Ketones Trace H Urine Blood Small H Ur Leukocyte Esterase Moderate H Urine WBC 21 H Urine Bacteria Rare H 07/14/21 07/14/21 07/14/21 12:28 12:28 13:00 RBC Hgb Hct MCV MCHC Neutrophils # Lymphocytes # ABG pH 7.07 L* ABG pCO2 >120 H* ABG pO2 135 H ABG O2 Saturation 98.9 H Potassium 5.8 H Chloride 84 L Carbon Dioxide 50 H* BUN 48 H Creatinine 1.83 H Glucose 142 H POC Glucose (mg/dL) Calcium 7.9 L Troponin I 0.054 H* Total Protein 5.5 L Albumin 3.3 L Urine Protein Urine Ketones Urine Blood Ur Leukocyte Esterase Urine WBC Urine Bacteria Assessment and Plan Plan: 1 Acute hypoxic/hypercapnic respiratory failure, secondary to an acute exacerbation of his COPD. There is also new infiltration of the right lower lobe raising the concern for underlying right lower lobe pneumonia. The patient is currently on a BiPAP at a pressure of 16/5 cm of water.note that the patient has advanced COPD and FEV1 of 29% predicted at baseline based on a spirometer this was done 2015. The patient has chronic hypoxic respiratory failure and chronic hypercapnic respiratory failure maintained on O2 at 2 L. 2 chronic metabolic alkalosis secondary to above. there has been interval wors ening or further elevation in serum bicarbonate which probably is contributing to his underlying acidosis. The patient rounds of bicarbonate 15 high 30s low 40s. 3 altered mentation with signs of CO2 narcosis with background dementia. CAT scan of the brain is negative 4 History of paroxysmal atrial fibrillation anticoagulated with Xarelto, currently his rhythm is sinus 5 History of CVA/TIA, CAT scan of the head is not showing any acute abnormalities 6 History of dementia 7 Diabetes mellitus 8 Hypertension 9 Hyperlipidemia 10 Remote history of DVT, maintained on long-term medical condition with Xarelto 11 Chronic tobacco dependence, quit in 2002 12 Hypothyroidism 13 Chronic renal failure. 14 History of brain bleed with surgery in 2003 15 Poor overall functional performance based on the above-mentioned multiple comorbidities Plan: admit this patient to the intensive care unit Establish a CODE STATUS continue BiPAP therapy at a pressure of 16/5 with an FiO2 of70% gradually wean down the FiO2 to maintain saturation above 90% Give the patient Diamox 500 mg IV 2 doses Monitor the blood gases to follow-up on the patient's respiratory acidosis Continue DuoNeb nebulized treatment [id number] Put the patient on Pulmicort and Perforomist nebulized treatments twice a day Cover the patient with accommodation IV Zosyn and vancomycin as the patient clearly has a right lower lobe infiltrate which is of a new onset Check COVID 19 by PCR Maintenance IV fluids with normal saline today to 50 mL an hour Unable to take any of his oral medications for now. hold Xarelto forthis patient on Lovenox 1 mg per KG to be given twice a day IV Protonix IV Solu Medrol 60 mg every 6 hours monitor the blood gases and establish an arterial line Change Synthroid to 50 g every 24 hours We'll continue to follow make further recommendations based on his progress. Time with Patient: Greater than 30
[2021-07-14] MEDS ORDERED: VANCOMYCIN IV PER PHARMACY 1 EACH MISC MISCELLANE PRN (15:49)
[2021-07-14] MEDS: PANTOPRAZOLE 40 MG/10 ML VIAL IVP SCH (16:20)
[2021-07-14] MEDS: PIPERACILLIN-TAZOBACTAM 3.375 GM in SODIUM CHLORIDE 0.9% 100 ML IVPB SCH ×2 (16:21→23:36)
[2021-07-14] MEDS: SODIUM CHLORIDE 0.9% 1,000 ML IV SCH (16:21)
[2021-07-14] MEDS ORDERED: VANCOMYCIN 1,250 MG in SODIUM CHLORIDE 0.9% 250 ML IVPB ONE (16:30)
--- NOTE | 2021-07-14 16:32 | P.HPIM ---
History of Present Illness H&P Date: 07/14/21 Chief Complaint: Lethargy, obtundation 80-year-old man who is a custodial resident, with history of COPD on 2 L of nasal cannula at baseline, CAD, hypertension, hyperlipidemia, diabetes, hypothyroidism, history of DVT on Apixiban, paroxysmal atrial fibrillation, history of CVA presented for evaluation of obtundation/lethargy. skilled nursing staff noticed that patient was minimally responsive, obtunded and lethargic. They tried painful stimulus, but patient barely arouse. He was noted to be hypoxic in the low 80s, started on nonrebreather and EMS was called. Patient was brought in by ambulance for further evaluation. Review of systems cannot be completed due to patient clinical condition. In the emergency room, patient was placed on BiPAP 70% FiO2, 16/5, with saturations of 95%. His blood pressure is 106/47, heart rate 74, breathing at a rate of 18-30. CBC was markable for anemia down to 9.8, which is his baseline, MCV of 103.5. Chemistries remarkable for hyperkalemia to 5.8, CO2 of 50, chloride of 84, BUNs/creatinine of 48/1.83, which represents baseline. LFTs show hypoproteinemia, hypoalbuminemia of 5.5/3.3. Initial troponins 0.054. Ammonia was 22. UA shows 1+ protein, trace ketones, small blood, moderate leukocyte esterase, 21 white blood cells, rare bacteria. Urine tox screen was negative. Covid was negative. ABG demonstrated a pH of 7.07, pCO2 of greater than 120, pO2 of 135. Brain CT was negative for acute intracranial hemorrhage or gross acute cortical infarct. Chest x-ray is concerning for right lower lobe infiltrate and small effusion, as well as linear lucency in the upper right thorax. EKG shows normal sinus rhythm. Review of systems could not be completed due to patient's clinical/mental condition Gen: Obtunded, lethargic Eyes: PERRL, no scleral injection or icterus HENT: normocephalic, atraumatic, moist mucous membranes Neck: no tracheal deviation, full range of motion Resp: Impaired air exchange, breathing comfortably with no accessory muscle use, no tactile fremitus, diminished breath sounds in the lower lung lainez, left side worse than the right side CVS: good distal perfusion x 4, bilateral 1+ pitting edema GI: soft, NTTP, ND, no hepatosplenomegaly : no suprapubic tenderness, no CVAT, rainey catheter not present MSK: no clubbing, no cyanosis, no noted contractures of extremities Skin: no noted rashes, petechiae; temperature of skin is appropriate Neuro: moving all extremities without signs of weakness, CN II-XII intact Labs and imaging reviewed as above Assessment/plan: Acute hypercarbic respiratory failure superimposed on chronic hypoxemic respir atory failure COPD exacerbation -Admit to ICU, telemetry -Pulmonary consult -Fortunato's [id number] -Steroids -Antibiotics: Vancomycin, Zosyn -Pro calcitonin pending -Budesonide/formoterol twice a day -Patient started on Diamox CAD Hypertension Hyperlipidemia Diabetes Hypothyroidism History of DVT Paroxysmal atrial fibrillation History of CVA -Levothyroxine changed to IV, 50 g daily -Apixiban on hold, changed to enoxaparin twice a day -Home medications reviewed and reconciled, changes noted above Spoke with the patient's spouse today, patient is DO NOT RESUSCITATE/DO NOT INTUBATE DVT prophylaxis is covered with Lovenox twice a day Past Medical History Past Medical History: Atrial Fibrillation, COPD, CVA/TIA, Dementia, Diabetes Mellitus, GERD/Reflux, Hyperlipidemia, Hypertension, Musculoskeletal Disorder, Osteoarthritis (OA), Pneumonia, Prostate Disorder, Renal Disease, Syncope, Thyroid Disorder Additional Past Medical History / Comment(s): Chronic hypoxic respiratory failure, home O2 at 2L/NC ATC, 2003 CVA with brain bleed L side requiring a neurosurgical intervention, 2011 shingles, migraines, nephrolithiasis-passed stone on his own, BPH, diabetes mellitus, hypothyroidism, paroxysmal atrial fibrillation, degenerative arthritis, migraines, nephrolithiasis, BPH, remote h istory of DVT, chronic renal failure stage III. History of Any Multi-Drug Resistant Organisms: None Reported Past Surgical History: Tonsillectomy Additional Past Surgical History / Comment(s): Brain surgery for bleed 2003. Past Anesthesia/Blood Transfusion Reactions: No Reported Reaction Smoking Status: Former smoker - Past Family History Father Family Medical History: CVA/TIA Additional Family Medical History / Comment(s): Father had a CVA at age 63. Pt does not know how old he lived to be. Mother Family Medical History: No Reported History Additional Family Medical History / Comment(s): Pt states his mother just of old age. He does not know how old she was when she . Medications and Allergies Home Medications Medication Instructions Recorded Confirmed Type Atorvastatin [Lipitor] 20 mg PO HS@199912/22/14 07/14/21 History Levothyroxine Sodium [Synthroid] 75 mcg PO DAILY 12/22/14 07/14/21 History Potassium Chloride [K-Tab ER] 10 meq PO DAILY 12/22/14 07/14/21 History Clopidogrel [Plavix] 75 mg PO DAILY 02/06/17 07/14/21 History Mirtazapine [Remeron] 15 mg PO HS@199907/11/17 07/14/21 History metFORMIN HCL [Glucophage] 500 mg PO DAILY 07/11/17 07/14/21 History Rivaroxaban [Xarelto] 20 mg PO HS 06/21/21 07/14/21 History Sodium Chloride [[place]] 1 spray EA NOSTRIL DAILY PRN 07/14/21 07/14/21 History Tamsulosin [Flomax] 0.4 mg PO DAILY@0700 07/14/21 07/14/21 History predniSONE See Taper PO DIRECTED 07/14/21 07/14/21 History Allergies Allergy/AdvReac Type Severity Reaction Status Date / Time No Known Allergies Allergy Verified 07/14/21 12:13 Physical Exam Osteopathic Statement: *. No significant issues noted on an osteopathic structural exam other than those noted in the History and Physical/Consult. Vitals: Vital Signs Temp Pulse Resp BP Pulse Ox FiO2 07/14/21 16:12 97.6 F 76 31 H 120/63 100 07/14/21 15:30 76 18 124/63 100 07/14/21 15:13 70 07/14/21 14:34 73 30 H 118/51 411 H 07/14/21 13:43 74 18 106/47 95 07/14/21 13:41 70 07/14/21 13:14 28 07/14/21 12:42 75 18 114/54 100 07/14/21 11:59 98.0 F 76 18 120/47 100 Intake and Output 07/14/21 07/14/21 07/14/21 06:59 14:59 22:59 Other: Weight 67.5 kg Results CBC & Chem 7: 07/14/21 12:28 07/14/21 12:28 Labs: Abnormal Lab Results - Last 24 Hours (Table) 07/14/21 07/14/21 07/14/21 Range/Units 12:14 12:28 12:28 RBC 3.25 L (4.30-5.90) m/uL Hgb 9.8 L (13.0-17.5) gm/dL Hct 33.7 L (39.0-53.0) % MCV 103.5 H (80.0-100.0) fL MCHC 29.0 L (31.0-37.0) g/dL Neutrophils # 9.1 H (1.3-7.7) k/uL Lymphocytes # 0.3 L (1.0-4.8) k/uL ABG pH (7.35-7.45) ABG pCO2 (35-45) mmHg ABG pO2 (83-108) mmHg ABG O2 Saturation (94-97) % Potassium (3.5-5.1) mmol/L Chloride (98-107) mmol/L Carbon Dioxide (22-30) mmol/L BUN (9-20) mg/dL Creatinine (0.66-1.25) mg/dL Glucose (74-99) mg/dL POC Glucose (mg/dL) 143 H (75-99) mg/dL Calcium (8.4-10.2) mg/dL Troponin I (0.000-0.034) ng/mL Total Protein (6.3-8.2) g/dL Albumin (3.5-5.0) g/dL Urine Protein 1+ H (Negative) Urine Ketones Trace H (Negative) Urine Blood Small H (Negative) Ur Leukocyte Esterase Moderate H (Negative) Urine WBC 21 H (0-5) /hpf Urine Bacteria Rare H (None) /hpf 07/14/21 07/14/21 07/14/21 Range/Units 12: 12: 13:00 RBC (4.30-5.90) m/uL Hgb (13.0-17.5) gm/dL Hct (39.0-53.0) % MCV (80.0-100.0) fL MCHC (31.0-37.0) g/dL Neutrophils # (1.3-7.7) k/uL Lymphocytes # (1.0-4.8) k/uL ABG pH 7.07 L* (7.35-7.45) ABG pCO2 >120 H* (35-45) mmHg ABG pO2 135 H (83-108) mmHg ABG O2 Saturation 98.9 H (94-97) % Potassium 5.8 H (3.5-5.1) mmol/L Chloride 84 L (98-107) mmol/L Carbon Dioxide 50 H* (22-30) mmol/L BUN 48 H (9-20) mg/dL Creatinine 1.83 H (0.66-1.25) mg/dL Glucose 142 H (74-99) mg/dL POC Glucose (mg/dL) (75-99) mg/dL Calcium 7.9 L (8.4-10.2) mg/dL Troponin I 0.054 H* (0.000-0.034) ng/mL Total Protein 5.5 L (6.3-8.2) g/dL Albumin 3.3 L (3.5-5.0) g/dL Urine Protein (Negative) Urine Ketones (Negative) Urine Blood (Negative) Ur Leukocyte Esterase (Negative) Urine WBC (0-5) /hpf Urine Bacteria (None) /hpf
[2021-07-14 16:40] LABS: Glucose,Whole Blood 141 mg/dL (75-99)
[2021-07-14] MEDS: IPRATROPIUM-ALBUTEROL 3 ML NEB INHALATION SCH ×3 (16:49→23:19)
[2021-07-14] MEDS: methylPREDNISolone SOD SUCCI 125 MG/2 ML VIAL IV SCH ×2 (17:13→23:35)
[2021-07-14] MEDS: LEVOTHYROXINE IVP 100 MCG/5 ML VIAL IV SCH (18:04)
[2021-07-14] MEDS: FORMOTEROL FUMARATE 20 MCG/2 ML NEBU INHALATION SCH (20:15)
[2021-07-14] MEDS: BUDESONIDE 0.5 MG/2 ML NEBU INHALATION SCH (20:15)
[2021-07-14] MEDS: ENOXAPARIN 60 MG/0.6 ML SYRINGE SQ SCH (20:37)
[2021-07-15 00:47] LABS: Glucose,Whole Blood 147 mg/dL (75-99)
[2021-07-15] MEDS: INSULIN ASPART (NovoLOG) 100 UNIT/ML VIAL SQ SCH ×5 (00:52→23:56)
[2021-07-15] MEDS: IPRATROPIUM-ALBUTEROL 3 ML NEB INHALATION SCH ×6 (03:40→23:28)
[2021-07-15 04:06] LABS: Glucose,Whole Blood 109 mg/dL (75-99)
[2021-07-15 06:43] LABS: Glucose,Whole Blood 150 mg/dL (75-99)
[2021-07-15] MEDS: methylPREDNISolone SOD SUCCI 125 MG/2 ML VIAL IV SCH ×4 (07:03→23:59)
[2021-07-15] MEDS: BUDESONIDE 0.5 MG/2 ML NEBU INHALATION SCH ×2 (07:10→19:20)
[2021-07-15] MEDS: FORMOTEROL FUMARATE 20 MCG/2 ML NEBU INHALATION SCH ×2 (07:10→19:20)
[2021-07-15] MEDS: PANTOPRAZOLE 40 MG/10 ML VIAL IVP SCH (08:11)
[2021-07-15] MEDS: LEVOTHYROXINE IVP 100 MCG/5 ML VIAL IV SCH (08:11)
[2021-07-15] MEDS: ENOXAPARIN 60 MG/0.6 ML SYRINGE SQ SCH (08:15)
[2021-07-15] MEDS: PIPERACILLIN-TAZOBACTAM 3.375 GM in SODIUM CHLORIDE 0.9% 100 ML IVPB SCH ×3 (08:15→23:58)
[2021-07-15 08:45] LABS: ABG Oxygen Saturation 99.3 % (94-97); ABG PH 7.41 (7.35-7.45); ABG PO2 106 mmHg (83-108); ABG TCO2 49 mmol/L (19-24); Allen Test Performed? Yes
[2021-07-15 08:47] LABS: ABG HCO3 47 mmol/L (21-25); ABG PCO2 74 mmHg (35-45)
[2021-07-15 08:51] LABS: HCT 25.6 % (39.0-53.0); Hypochromasia Marked; Lymphocytes % (A) 3 %; MCH 29.4 pg (25.0-35.0); MCHC 28.1 g/dL (31.0-37.0); MCV 104.6 fL (80.0-100.0); Macrocytosis Moderate; Mean Platelet Volume 8.8; Monocytes % (A) 3 %; Neutrophils % (A) 93 %; Platelet Count 164 k/uL (150-450); RBC 2.45 m/uL (4.30-5.90); RDW 14.7 % (11.5-15.5); WBC 8.5 k/uL (3.8-10.6)
[2021-07-15 08:52] LABS: Basophils % (A) 0 %; Eosinophils % (A) 0 %; Lymphocytes # (A) 0.3 k/uL (1.0-4.8); Monocytes # (A) 0.3 k/uL (0-1.0); Neutrophils # (A) 7.9 k/uL (1.3-7.7)
[2021-07-15] MEDS ORDERED: HYDROPHILIC CREAM 180 GM TUBE TOPICAL SCH (09:00)
[2021-07-15 09:06] LABS: Calcium 7.3 mg/dL (8.4-10.2); Magnesium 1.9 mg/dL (1.6-2.3); Potassium 4.5 mmol/L (3.5-5.1)
[2021-07-15 09:08] LABS: HGB 7.2 gm/dL (13.0-17.5)
--- NOTE | 2021-07-15 09:12 | CDI ---
Documentation Clarification Form Date: 07/15/2021 08:59:23 AM From: Maday Bautista CCS, CCDS Admit Date: 07/14/2021 03:04:00 PM Patient Name: Archie Patel Visit Number: [id number] Discharge Date: ATTENTION: The Clinical Documentation Specialists (CDI) and [facility] Coding Staff appreciate your assistance in clarifying documentation. Please respond to the clarification below the line at the bottom and electronically sign. The CDI & [facility] Coding staff will review the response and follow-up if needed. Please note: Queries are made part of the Legal Health Record. If you have any questions, please contact the author of this message via ITS. Dr. Trinity Lockett: Anemia without further specificity is documented in the 07/14 History & Physical: CBC was remarkable for anemia down to 9.8, which is his baseline, MCV of 103. Additional specificity regarding the Type & Acuity of Anemia is requested. 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 Former smoker. Clinical indicators: Presented to the ED on 07/14 from a snf via EMS with Altered Mental Status & hypoxia on nrb. Put on BiPAP in ED. Admit with Altered Mental Status, Hypercapnia. 07/14 LABS: Hemoglobin: 9.8 Hematocrit: 33.7 Treatment 07/14: Blood glucose monitoring, Hypoglycemia Protocol, Insulin sliding scale, Blood cultures, Urine culture, O2 2Lnc - BiPAP, IV Na Chl 500 mls @ 999 mls/hr q31M, INH Duoneb q4H, IV Na Chl 1,000 mls @ 50 mls/hr q20H, IV Synthroid 50 mcg Daily, IV Protonix 40 mg Daily, IV Zosyn 100 mls @ 25 mls/hr q8H, IV Vancomycin 250 mls @ 125 mls/hr x1, IV Solumedrol 60 mg q6H, INH Pulmicort 0.5 mg BID, INH Perforomist 20 mcg BID, IV Diamox 500 mg q12H, Lovenox 60 mg sq q12H. Admit to ICU. Please clarify the type and acuity of Anemia: [ ] Chronic blood loss anemia [ ] Hemolytic anemia [ ] Drug induced anemia [ ] Anemia of chronic kidney disease [ ] Anemia of other chronic disease [x] Unable to determine [ ] Other, please specify (Template Last Revised: March 2020) MTDD
--- NOTE | 2021-07-15 10:48 | P.PN ---
Subjective Progress Note Date: 07/15/21 This is a 80-year-old male patient with advanced COPD and based on early spirometry from 2015, the patient has an FEV1 of around 29% of predicted and the patient has been oxygen dependent at 2 L per minute 24 7. He has been maintained on Symbicort on outpatient basis regarding his COPD. He has signific ant limitation of exercise capacity. He has chronic hypoxic respiratory failure, and his comorbid conditions include history of CVA, history of DVT maintained on Eliquis, diabetes mellitus type 2, hypothyroidism, migraines, hypertension, paroxysmal atrial fibrillation, dementia, chronic pain, hyper lipidemia and history of kidney stones. The patient also has a component of chronic kidney disease. The patient was in the hospital and June 2021 and at that time the patient presented to the hospital because of altered mentation and change in mental status. His chest x-ray was consistent with COPD and small bilateral pleural effusions. At that time, there was suspicion is nodule also in the lungs. His CAT scan of the brain back then showed no acute abnormalities. The patient was admitted and a blood gas was done that showed chronic hypercapnic respiratory failure which was compensated and the patient's pH was at 7.37 with a pCO2 of 18 9. At that time, the patient was hospitalized, treated with a combination of bronchodilators, steroids, Diamox and he was also given BiPAP for respiratory support and ultimately was discharged. The patient came into the emergency department today and he was referred from the snf because he was getting more obtunded and he was having diffi culties to arousable to sternal rub. He was also found to be hypoxic. He was placed on a nonrebreather facemask to get to bring his saturation above 90%. Apparently, the patient's pulse ox was in the low 80s. No other history is available. By the time the patient arrived to the emergency, he was quite lethargic and immediately was placed on a BiPAP at a pressure of 16/5 cm of water with an FiO2 of 70%. The initial blood gases that was done on this patient showed severe respiratory acidosis with a pH of 7.07 and a pCO2 of more than 120 and pO2 of 135 and this was on FiO2 of 28%. The patient had a white cell count of 9.9 with a hemoglobin of 9.8, sodium was at 139, potassium level was at 5.8 and a serum bicarb was at 50 with a BUN of 48 and a creatinine of 1.8. Glucose was 143. Coagulation profile is within normal limits. Troponin was at 0.054. Urine drug screen was essentially negative. UA showed +1 protein and 21 wbc's. LFTs were within normal limits. Chest x-ray showed right lower lobe pulmonary infiltrate, there was a skin fold in the right upper lobe and this represented a artifact than a pneumothorax. The patient has background COPD. The patient is currently on a BiPAP. He remains quite lethargic and he withdraws only to painful stimulation. A repeat CAT scan of the brain was done that showed no acute abnormalities. The patient is hemodynamically stable. Cardiac rhythm is sinus at this point in time. 07/15/2021, the patient is currently in the intensive care unit. Overnight, the patient was kept on a BiPAP at a pressure of 16/5 cm of water. His current FiO2 is down to 40%. Oxygenation is improved and the pulse ox is up to 99%. Repeat chest x-ray is still pending from today. Meanwhile, the chest is a x-ray from yesterday for showing a limited right lower lobe pulmonary infiltrate. There was a concern for pneumonia and the patient was covered with a combination of IV Zosyn and vancomycin. Also, the repeat blood gases from today shows improvement in his acid base status. The pH is up to 7.41 and the patient's pCO2 is at 74 with a pO2 of 106 and this was done while him being otherwise. The white cell count is at 8.2 with a hemoglobin of 7.2 and a platelet of 164. His BUN is a 53 with a creatinine of 2.2 and the sodium level is at 140. The creatinine is slightly worse compared to yesterday.. The patient is receiving IV fluids and the patient is currently on normal saline at 50 mL an hour. His cardiac rhythm is sinus for now. Clinically, he still very lethargic and obtunded. He is more arousable compared to yesterday. He will follow simple commands and he would squeeze and use his hands upon demand. He is also moving his lower extremities. His neurologic exam is nonfocal. Nevertheless, if left unstimulated, we will stay sleep, and he has a full face mask BiPAP mask and generating a tidal volume of about 500 and he is not tachypneic at this point in time. No seizure activity. Urine output disorder of 50-75 mL an hour. Objective - Vital Signs Vital signs: Vital Signs Temp 100 F H 07/15/21 08:00 Pulse 80 07/15/21 08:00 Resp 12 07/15/21 08:00 BP 119/58 07/15/21 08:00 Pulse Ox 97 07/15/21 08:00 FiO2 40 07/15/21 08:00 Intake & Output 07/14/21 07/15/21 07/15/21 18:59 06:59 18:59 Intake Total 50 700 100 Output Total 35 610 175 Balance 15 90 -75 Weight 67.5 kg 89.4 kg Intake: IV 650 100 0.9 NcCl- 550 100 Zosyn IVPB 100 Intake, IV Titration 50 50 Amount Sodium Chloride 0.9% 1, 50 50 000 ml @ 50 mls/hr IV . Q20H [facility] Rx#:[id number] Output: Urine 35 610 175 Other: Voiding Method Indwelling Catheter Indwelling Catheter - Exam GENERAL EXAM: Alert, disheveled 80-year-old male patient on on BiPAP at a pressure of 16/ 5 cm of water with an fio2 of 40%. He is lethargic and obtunded and withdraws to painful stimulation. The patient is more awake compared to yesterday. He is, indicating at times in his using all 4 extremities and his neurologic exam is nonfocal at this point in time.. he is however tolerating the bipap on a full face mask. looks quite cachectic and lethargic and emaciated. HEAD: Normocephalic. EYES: Normal reaction of pupils, equal size. NOSE: Clear with pink turbinates. THROAT: No erythema or exudates. NECK: No masses, no JVD. CHEST: No chest wall deformity. LUNGS: marked diminished breath sounds bilaterally and the patient has scattered SCANT EXPIRATORY WHEEZES THROUGHOUT THE LUNG DAO BILATERALLY. CVS: S1 and S2 normal with no audible murmur, regular rhythm.overall, the heart sounds are quite distant ABDOMEN: No hepatosplenomegaly, normal bowel sounds, no guarding or rigidity. SPINE: No scoliosis or deformity SKIN: No rashes CENTRAL NERVOUS SYSTEM: the patient remains confused. At least more awake compared to yesterday. Moving all 4 extremities and with a withdrawing to painful stimulation in all 4 extremities. He was awake reactive to light. No facial asymmetry. No significant agitation at this point in time. EXTREMITIES: There is no peripheral edema. No clubbing, no cyanosis. Peripheral pulses are intact. - Labs CBC & Chem 7: 07/15/21 08:34 07/15/21 08:34 Labs: Abnormal Lab Results - Last 24 Hours (Table) 07/14/21 07/14/21 07/14/21 Range/Units 12:14 12:28 12:28 RBC 3.25 L (4.30-5.90) m/uL Hgb 9.8 L (13.0-17.5) gm/dL Hct 33.7 L (39.0-53.0) % MCV 103.5 H (80.0-100.0) fL MCHC 29.0 L (31.0-37.0) g/dL Neutrophils # 9.1 H (1.3-7.7) k/uL Lymphocytes # 0.3 L (1.0-4.8) k/uL ABG pH (7.35-7.45) ABG pCO2 (35-45) mmHg ABG pO2 (83-108) mmHg ABG HCO3 (21-25) mmol/L ABG Total CO2 (19-24) mmol/L ABG O2 Saturation (94-97) % Potassium (3.5-5.1) mmol/L Chloride (98-107) mmol/L Carbon Dioxide (22-30) mmol/L BUN (9-20) mg/dL Creatinine (0.66-1.25) mg/dL Glucose (74-99) mg/dL POC Glucose (mg/dL) 143 H (75-99) mg/dL Calcium (8.4-10.2) mg/dL Troponin I (0.000-0.034) ng/mL Total Protein (6.3-8.2) g/dL Albumin (3.5-5.0) g/dL Urine Protein 1+ H (Negative) Urine Ketones Trace H (Negative) Urine Blood Small H (Negative) Ur Leukocyte Esterase Moderate H (Negative) Urine WBC 21 H (0-5) /hpf Urine Bacteria Rare H (None) /hpf 07/14/21 07/14/21 07/14/21 Range/Units 12:28 12:28 13:00 RBC (4.30-5.90) m/uL Hgb (13.0-17.5) gm/dL Hct (39.0-53.0) % MCV (80.0-100.0) fL MCHC (31.0-37.0) g/dL Neutrophils # (1.3-7.7) k/uL Lymphocytes # (1.0-4.8) k/uL ABG pH 7.07 L* (7.35-7.45) ABG pCO2 >120 H* (35-45) mmHg ABG pO2 135 H (83-108) mmHg ABG HCO3 (21-25) mmol/L ABG Total CO2 (19-24) mmol/L ABG O2 Saturation 98.9 H (94-97) % Potassium 5.8 H (3.5-5.1) mmol/L Chloride 84 L (98-107) mmol/L Carbon Dioxide 50 H* (22-30) mmol/L BUN 48 H (9-20) mg/dL Creatinine 1.83 H (0.66-1.25) mg/dL Glucose 142 H (74-99) mg/dL POC Glucose (mg/dL) (75-99) mg/dL Calcium 7.9 L (8.4-10.2) mg/dL Troponin I 0.054 H* (0.000-0.034) ng/mL Total Protein 5.5 L (6.3-8.2) g/dL Albumin 3.3 L (3.5-5.0) g/dL Urine Protein (Negative) Urine Ketones (Negative) Urine Blood (Negative) Ur Leukocyte Esterase (Negative) Urine WBC (0-5) /hpf Urine Bacteria (None) /hpf 07/14/21 07/15/21 07/15/21 Range/Units 16:39 00:45 04:04 RBC (4.30-5.90) m/uL Hgb (13.0-17.5) gm/dL Hct (39.0-53.0) % MCV (80.0-100.0) fL MCHC (31.0-37.0) g/dL Neutrophils # (1.3-7.7) k/uL Lymphocytes # (1.0-4.8) k/uL ABG pH (7.35-7.45) ABG pCO2 (35-45) mmHg ABG pO2 (83-108) mmHg ABG HCO3 (21-25) mmol/L ABG Total CO2 (19-24) mmol/L ABG O2 Saturation (94-97) % Potassium (3.5-5.1) mmol/L Chloride (98-107) mmol/L Carbon Dioxide (22-30) mmol/L BUN (9-20) mg/dL Creatinine (0.66-1.25) mg/dL Glucose (74-99) mg/dL POC Glucose (mg/dL) 141 H 147 H 109 H (75-99) mg/dL Calcium (8.4-10.2) mg/dL Troponin I (0.000-0.034) ng/mL Total Protein (6.3-8.2) g/dL Albumin (3.5-5.0) g/dL Urine Protein (Negative) Urine Ketones (Negative) Urine Blood (Negative) Ur Leukocyte Esterase (Negative) Urine WBC (0-5) /hpf Urine Bacteria (None) /hpf 07/15/21 07/15/21 07/15/21 Range/Units 06:41 08:34 08:34 RBC 2.45 L (4.30-5.90) m/uL Hgb 7.2 L D (13.0-17.5) gm/dL Hct 25.6 L (39.0-53.0) % MCV 104.6 H (80.0-100.0) fL MCHC 28.1 L (31.0-37.0) g/dL Neutrophils # 7.9 H (1.3-7.7) k/uL Lymphocytes # 0.3 L (1.0-4.8) k/uL ABG pH (7.35-7.45) ABG pCO2 (35-45) mmHg ABG pO2 (83-108) mmHg ABG HCO3 (21-25) mmol/L ABG Total CO2 (19-24) mmol/L ABG O2 Saturation (94-97) % Potassium (3.5-5.1) mmol/L Chloride 92 L (98-107) mmol/L Carbon Dioxide 45 H* (22-30) mmol/L BUN 53 H (9-20) mg/dL Creatinine 2.21 H (0.66-1.25) mg/dL Glucose (74-99) mg/dL POC Glucose (mg/dL) 150 H (75-99) mg/dL Calcium 7.3 L (8.4-10.2) mg/dL Troponin I (0.000-0.034) ng/mL Total Protein (6.3-8.2) g/dL Albumin (3.5-5.0) g/dL Urine Protein (Negative) Urine Ketones (Negative) Urine Blood (Negative) Ur Leukocyte Esterase (Negative) Urine WBC (0-5) /hpf Urine Bacteria (None) /hpf 07/15/21 Range/Units 08:42 RBC (4.30-5.90) m/uL Hgb (13.0-17.5) gm/dL Hct (39.0-53.0) % MCV (80.0-100.0) fL MCHC (31.0-37.0) g/dL Neutrophils # (1.3-7.7) k/uL Lymphocytes # (1.0-4.8) k/uL ABG pH (7.35-7.45) ABG pCO2 74 H* (35-45) mmHg ABG pO2 (83-108) mmHg ABG HCO3 47 H* (21-25) mmol/L ABG Total CO2 49 H (19-24) mmol/L ABG O2 Saturation 99.3 H (94-97) % Potassium (3.5-5.1) mmol/L Chloride (98-107) mmol/L Carbon Dioxide (22-30) mmol/L BUN (9-20) mg/dL Creatinine (0.66-1.25) mg/dL Glucose (74-99) mg/dL POC Glucose (mg/dL) (75-99) mg/dL Calcium (8.4-10.2) mg/dL Troponin I (0.000-0.034) ng/mL Total Protein (6.3-8.2) g/dL Albumin (3.5-5.0) g/dL Urine Protein (Negative) Urine Ketones (Negative) Urine Blood (Negative) Ur Leukocyte Esterase (Negative) Urine WBC (0-5) /hpf Urine Bacteria (None) /hpf Microbiology - Last 24 Hours (Table) 07/14/21 12:28 Urine Culture - Preliminary Urine,Catheterized Assessment and Plan Plan: 1 Acute hypoxic/hypercapnic respiratory failure, secondary to an acute exacerbation of his COPD. There is also new infiltration of the right lower lobe raising the concern for underlying right lower lobe pneumonia. The patient is currently on a BiPAP at a pressure of 16/5 cm of water.note that the patient has advanced COPD and FEV1 of 29% predicted at baseline based on a spirometer this was done 2016. The patient has chronic hypoxic respiratory failure and chronic hypercapnic respiratory failure maintained on O2 at 2 L. for now, there is a concern for a right lower lobe pneumonia in an underlying COPD exacerbation and patient's current support with a combination of BiPAP, antibiotics and steroids and bronchodilators. A repeat blood gases from today shows improvement in his acid base status. The patient continues to have issues with enc ephalopathy and pCO2 level has improved compared to yesterday based on today's blood gases. 2 chronic metabolic alkalosis secondary to above. 3 altered mentation with signs of CO2 narcosis with background dementia. CAT scan of the brain is negative 4 History of paroxysmal atrial fibrillation anticoagulated with Xarelto, currently his rhythm is sinus 5 History of CVA/TIA, CAT scan of the head is not showing any acute abnormalities 6 History of dementia 7 Diabetes mellitus 8 Hypertension 9 Hyperlipidemia 10 Remote history of DVT, maintained on long-term medical condition with Xarelto 11 Chronic tobacco dependence, quit in 2002 12 Hypothyroidism 13 Chronic renal failure. 14 History of brain bleed with surgery in 2003 15 Poor overall functional performance based on the above-mentioned multiple comorbidities Plan: Keep intensive care unit Establish a CODE STATUS continue BiPAP therapy 16/5 with an FiO2 of 35% gradually wean down the FiO2 to maintain saturation above 90% Increase his IV fluids to 75 mL an hour and awaiting a chest x-ray from today. Monitor the blood gases to follow-up on the patient's respiratory acidosis Continue DuoNeb nebulized treatment [id number] Put the patient on Pulmicort and Perforomist nebulized treatments twice a day Cover the patient with accommodation IV Zosyn and vancomycin as the patient clearly has a right lower lobe infiltrate which is of a new onset Check COVID 19 by PCR wasnegative Still unable to take any of his oral medications for now. Lovenox 1 mg per KG to be given twice a day IV Protonix IV Solu Medrol 60 mg every 6 hours monitor the blood gases and establish an arterial line Change Synthroid to 50 g every 24 hours We'll continue to follow make further recommendations based on his progress. DNR/DNI CODE STATUS. We'll continue monitoring his respiratory status is in mental status associated intensive care unit. Condition is obviously critical. This critically care evaluation was done and more than 30 minutes Time with Patient: Greater than 30
--- NOTE | 2021-07-15 11:14 | XR ---
EXAMINATION TYPE: XR chest 1V portable DATE OF EXAM: 07/15/2021 COMPARISON: 07/24/2021 HISTORY: Shortness of breath TECHNIQUE: Single frontal view of the chest is obtained. FINDINGS: A right-sided consolidation and pleural effusion are stable. Heart size normal. Atheroscle rotic change aorta. No pneumothorax. No overt failure. Calcified lymph node subcarinal region. IMPRESSION: Right lower lobe infiltrate and small effusion.
[2021-07-15] MEDS ORDERED: FUROSEMIDE 10 MG/ML 4 ML VIAL IV STA (11:20)
--- NOTE | 2021-07-15 11:29 | P.PN ---
Subjective Progress Note Date: 07/15/21 Pt is improved today, is following commands. At times is in distress but unclear etiology. Does appear to have rigors/shakes on evaluation. ABG shows improved gases with PCO2 at 74 and pH at 7.41, likely representing his baseline gases. Ongoing IV Abx. Kidney function is worse today, Hgb has decreased to 7.2 from 9.8. Gen: Obtunded, lethargic Eyes: PERRL, no scleral injection or icterus HENT: normocephalic, atraumatic, moist mucous membranes Neck: no tracheal deviation, full range of motion Resp: Impaired air exchange, breathing comfortably with no accessory muscle use, no tactile fremitus, diminished breath sounds in the lower lung lainez, left side worse than the right side CVS: good distal perfusion x 4, bilateral 1+ pitting edema GI: soft, NTTP, ND, no hepatosplenomegaly : no suprapubic tenderness, no CVAT, rainey catheter not present MSK: no clubbing, no cyanosis, no noted contractures of extremities Skin: no noted rashes, petechiae; temperature of skin is appropriate Neuro: moving all extremities without signs of weakness, CN II-XII intact Labs and imaging reviewed as above Assessment/plan: Acute hypercarbic respiratory failure superimposed on chronic hypoxemic respiratory failure COPD exacerbation -Admit to ICU, telemetry -Pulmonary consult -Fortunato'jason [id number] -Steroids -Antibiotics: Vancomycin, Zosyn -Pro calcitonin pending -Budesonide/formoterol twice a day -Patient started on Diamox Acute Kidney Injury superimposed on CKD, stage IIIb -avoid nephrotoxins, renally dose medications -nephrology consult CAD Hypertension Hyperlipidemia Diabetes Hypothyroidism History of DVT Paroxysmal atrial fibrillation History of CVA -Levothyroxine changed to IV, 50 g daily -Apixiban on hold, changed to enoxaparin twice a day -Home medications reviewed and reconciled, changes noted above Spoke with the patient's spouse today, patient is DO NOT RESUSCITATE/DO NOT INTUBATE DVT prophylaxis is covered with Lovenox twice a day Objective - Vital Signs Vital signs: Vital Signs Temp 100 F H 07/15/21 08:00 Pulse 77 07/15/21 10:58 Resp 31 H 07/15/21 10:00 BP 120/53 07/15/21 10:00 Pulse Ox 97 07/15/21 10:00 FiO2 35 07/15/21 10:49 Intake & Output 07/14/21 07/15/21 07/15/21 18:59 06:59 18:59 Intake Total 50 700 275 Output Total 35 610 280 Balance 15 90 -5 Weight 67.5 kg 89.4 kg 65.317 kg Intake: IV 650 275 0.9 NcCl- 550 275 Zosyn IVPB 100 Intake, IV Titration 50 50 Amount Sodium Chloride 0.9% 1, 50 50 000 ml @ 50 mls/hr IV . Q20H [facility] Rx#:[id number] Output: Urine 35 610 280 Other: Voiding Method Indwelling Catheter Indwelling Catheter - Labs CBC & Chem 7: 07/15/21 08:34 07/15/21 08:34 Labs: Abnormal Lab Results - Last 24 Hours (Table) 07/14/21 07/14/21 07/14/21 Range/Units 12:14 12:28 12:28 RBC 3.25 L (4.30-5.90) m/uL Hgb 9.8 L (13.0-17.5) gm/dL Hct 33.7 L (39.0-53.0) % MCV 103.5 H (80.0-100.0) fL MCHC 29.0 L (31.0-37.0) g/dL Neutrophils # 9.1 H (1.3-7.7) k/uL Lymphocytes # 0.3 L (1.0-4.8) k/uL ABG pH (7.35-7.45) ABG pCO2 (35-45) mmHg ABG pO2 (83-108) mmHg ABG HCO3 (21-25) mmol/L ABG Total CO2 (19-24) mmol/L ABG O2 Saturation (94-97) % Potassium (3.5-5.1) mmol/L Chloride (98-107) mmol/L Carbon Dioxide (22-30) mmol/L BUN (9-20) mg/dL Creatinine (0.66-1.25) mg/dL Glucose (74-99) mg/dL POC Glucose (mg/dL) 143 H (75-99) mg/dL Calcium (8.4-10.2) mg/dL Troponin I (0.000-0.034) ng/mL Total Protein (6.3-8.2) g/dL Albumin (3.5-5.0) g/dL Urine Protein 1+ H (Negative) Urine Ketones Trace H (Negative) Urine Blood Small H (Negative) Ur Leukocyte Esterase Moderate H (Negative) Urine WBC 21 H (0-5) /hpf Urine Bacteria Rare H (None) /hpf 07/14/21 07/14/21 07/14/21 Range/Units 12:28 12:28 13:00 RBC (4.30-5.90) m/uL Hgb (13.0-17.5) gm/dL Hct (39.0-53.0) % MCV (80.0-100.0) fL MCHC (31.0-37.0) g/dL Neutrophils # (1.3-7.7) k/uL Lymphocytes # (1.0-4.8) k/uL ABG pH 7.07 L* (7.35-7.45) ABG pCO2 >120 H* (35-45) mmHg ABG pO2 135 H (83-108) mmHg ABG HCO3 (21-25) mmol/L ABG Total CO2 (19-24) mmol/L ABG O2 Saturation 98.9 H (94-97) % Potassium 5.8 H (3.5-5.1) mmol/L Chloride 84 L (98-107) mmol/L Carbon Dioxide 50 H* (22-30) mmol/L BUN 48 H (9-20) mg/dL Creatinine 1.83 H (0.66-1.25) mg/dL Glucose 142 H (74-99) mg/dL POC Glucose (mg/dL) (75-99) mg/dL Calcium 7.9 L (8.4-10.2) mg/dL Troponin I 0.054 H* (0.000-0.034) ng/mL Total Protein 5.5 L (6.3-8.2) g/dL Albumin 3.3 L (3.5-5.0) g/dL Urine Protein (Negative) Urine Ketones (Negative) Urine Blood (Negative) Ur Leukocyte Esterase (Negative) Urine WBC (0-5) /hpf Urine Bacteria (None) /hpf 06/09/22 06/10/22 06/10/22 Range/Units 16:39 00:45 04:04 RBC (4.30-5.90) m/uL Hgb (13.0-17.5) gm/dL Hct (39.0-53.0) % MCV (80.0-100.0) fL MCHC (31.0-37.0) g/dL Neutrophils # (1.3-7.7) k/uL Lymphocytes # (1.0-4.8) k/uL ABG pH (7.35-7.45) ABG pCO2 (35-45) mmHg ABG pO2 (83-108) mmHg ABG HCO3 (21-25) mmol/L ABG Total CO2 (19-24) mmol/L ABG O2 Saturation (94-97) % Potassium (3.5-5.1) mmol/L Chloride (98-107) mmol/L Carbon Dioxide (22-30) mmol/L BUN (9-20) mg/dL Creatinine (0.66-1.25) mg/dL Glucose (74-99) mg/dL POC Glucose (mg/dL) 141 H 147 H 109 H (75-99) mg/dL Calcium (8.4-10.2) mg/dL Troponin I (0.000-0.034) ng/mL Total Protein (6.3-8.2) g/dL Albumin (3.5-5.0) g/dL Urine Protein (Negative) Urine Ketones (Negative) Urine Blood (Negative) Ur Leukocyte Esterase (Negative) Urine WBC (0-5) /hpf Urine Bacteria (None) /hpf 07/15/21 07/15/21 07/15/21 Range/Units 06:41 08:34 08:34 RBC 2.45 L (4.30-5.90) m/uL Hgb 7.2 L D (13.0-17.5) gm/dL Hct 25.6 L (39.0-53.0) % MCV 104.6 H (80.0-100.0) fL MCHC 28.1 L (31.0-37.0) g/dL Neutrophils # 7.9 H (1.3-7.7) k/uL Lymphocytes # 0.3 L (1.0-4.8) k/uL ABG pH (7.35-7.45) ABG pCO2 (35-45) mmHg ABG pO2 (83-108) mmHg ABG HCO3 (21-25) mmol/L ABG Total CO2 (19-24) mmol/L ABG O2 Saturation (94-97) % Potassium (3.5-5.1) mmol/L Chloride 92 L (98-107) mmol/L Carbon Dioxide 45 H* (22-30) mmol/L BUN 53 H (9-20) mg/dL Creatinine 2.21 H (0.66-1.25) mg/dL Glucose (74-99) mg/dL POC Glucose (mg/dL) 150 H (75-99) mg/dL Calcium 7.3 L (8.4-10.2) mg/dL Troponin I (0.000-0.034) ng/mL Total Protein (6.3-8.2) g/dL Albumin (3.5-5.0) g/dL Urine Protein (Negative) Urine Ketones (Negative) Urine Blood (Negative) Ur Leukocyte Esterase (Negative) Urine WBC (0-5) /hpf Urine Bacteria (None) /hpf 07/15/21 Range/Units 08:42 RBC (4.30-5.90) m/uL Hgb (13.0-17.5) gm/dL Hct (39.0-53.0) % MCV (80.0-100.0) fL MCHC (31.0-37.0) g/dL Neutrophils # (1.3-7.7) k/uL Lymphocytes # (1.0-4.8) k/uL ABG pH (7.35-7.45) ABG pCO2 74 H* (35-45) mmHg ABG pO2 (83-108) mmHg ABG HCO3 47 H* (21-25) mmol/L ABG Total CO2 49 H (19-24) mmol/L ABG O2 Saturation 99.3 H (94-97) % Potassium (3.5-5.1) mmol/L Chloride (98-107) mmol/L Carbon Dioxide (22-30) mmol/L BUN (9-20) mg/dL Creatinine (0.66-1.25) mg/dL Glucose (74-99) mg/dL POC Glucose (mg/dL) (75-99) mg/dL Calcium (8.4-10.2) mg/dL Troponin I (0.000-0.034) ng/mL Total Protein (6.3-8.2) g/dL Albumin (3.5-5.0) g/dL Urine Protein (Negative) Urine Ketones (Negative) Urine Blood (Negative) Ur Leukocyte Esterase (Negative) Urine WBC (0-5) /hpf Urine Bacteria (None) /hpf Microbiology - Last 24 Hours (Table) 07/14/21 12:28 Urine Culture - Preliminary Urine,Catheterized
[2021-07-15 11:50] LABS: Glucose,Whole Blood 107 mg/dL (75-99)
[2021-07-15] MEDS ORDERED: VANCOMYCIN 1,250 MG in SODIUM CHLORIDE 0.9% 250 ML IVPB SCH (12:00)
[2021-07-15] MEDS: SODIUM CHLORIDE 0.9% 1,000 ML IV SCH (12:20)
[2021-07-15] MEDS: DEXMEDETOMIDINE/0.9% NACL(PMX) 400 MCG in EMPTY BAG 1 BAG IV SCH ×3 (13:14→22:41)
--- NOTE | 2021-07-15 13:19 | P.NPCON ---
History of Present Illness - Reason for Consult acute renal failure, chronic renal failure - History of Present Illness Reason for consultation: Acute kidney injury on chronic kidney disease History of present illness: The patient is a 80-year-old male seen in renal consultation for acute kidney injury on chronic kidney disease. Patient has chronic kidney disease stage IIIB with baseline creatinine near 1.5 in June 2021. Etiology is diabetic kidney disease and nephrosclerosis. Patient presented from extended care facility due to altered mental status. It appears patient was getting more obtunded and was not responding much except to sternal rub. Patient has chronic COPD and is oxygen dependent 24 hours a day. Patient was noted to be in severe hypercapnic respiratory failure on admission and is currently on BiPAP. He is a DO NOT RESUSCITATE and DO NOT INTUBATE. is present at bedside. He has a Jane catheter and is nonoliguric. He is receiving IV fluids. Creatinine was 1.83 on admission and is 2.2 today. He does have history of diabetes and is maintained on metformin outpatient. He's currently receiving IV steroids as well as IV antibiotics. He also received IV Diamox yesterday for metabolic alkalosis. Bicarb level was 50 and electrolytes yesterday and is 45 today. Oral intake is currently poor. Vital signs are stable. General: Resting in bed. Doesn't respond much to verbal commands. HEENT: On BiPAP. LUNGS: Breath sounds decreased. HEART: Rate and Rhythm are regular. ABDOMEN: Breath sounds decreased. EXTREMITITES: 1+ edema in ankles. 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 History of Any Multi-Drug Resistant Organisms: None Reported Past Surgical History: Tonsillectomy Additional Past Surgical History / Comment(s): Brain surgery for bleed 2003. Past Anesthesia/Blood Transfusion Reactions: No Reported Reaction Smoking Status: Former smoker - Past Family History Father Family Medical History: CVA/TIA Additional Family Medical History / Comment(s): Father had a CVA at age 63. Pt does not know how old he lived to be. Mother Family Medical History: No Reported History Additional Family Medical History / Comment(s): Pt states his mother just of old age. He does not know how old she was when she . Medications and Allergies Home Medications Medication Instructions Recorded Confirmed Type Atorvastatin [Lipitor] 20 mg PO HS@199912/22/14 07/14/21 History Levothyroxine Sodium [Synthroid] 75 mcg PO DAILY 12/22/14 07/14/21 History Potassium Chloride [K-Tab ER] 10 meq PO DAILY 12/22/14 07/14/21 History Clopidogrel [Plavix] 75 mg PO DAILY 02/06/17 07/14/21 History Mirtazapine [Remeron] 15 mg PO HS@199907/11/17 07/14/21 History metFORMIN HCL [Glucophage] 500 mg PO DAILY 07/11/17 07/14/21 History Rivaroxaban [Xarelto] 20 mg PO HS 06/21/21 07/14/21 History Sodium Chloride [Henry] 1 spray EA NOSTRIL DAILY PRN 07/14/21 07/14/21 History Tamsulosin [Flomax] 0.4 mg PO DAILY@0700 07/14/21 07/14/21 History predniSONE See Taper PO DIRECTED 07/14/21 07/14/21 History Allergies Allergy/AdvReac Type Severity Reaction Status Date / Time No Known Allergies Allergy Verified 07/14/21 12:13 Physical Exam Vitals: Vital Signs Temp Pulse Resp BP Pulse Ox FiO2 07/15/21 12:00 98.9 F 77 15 121/52 97 35 07/15/21 11:00 69 16 99 07/15/21 10:58 77 07/15/21 10:49 75 35 07/15/21 10:00 75 31 H 120/53 97 07/15/21 09:00 79 18 115/53 96 07/15/21 08:00 100 F H 80 12 119/58 97 40 07/15/21 07:33 80 07/15/21 07:28 77 07/15/21 07:14 78 40 07/15/21 07:00 77 22 119/49 95 40 07/15/21 06:00 75 16 103/45 95 40 07/15/21 05:00 79 18 113/40 93 L 40 07/15/21 04:09 40 07/15/21 04:00 80 18 111/51 92 L 07/15/21 03:54 76 07/15/21 03:40 79 07/15/21 03:36 30 07/15/21 03:00 77 46 H 120/58 94 L 07/15/21 02:00 85 38 H 123/51 97 07/15/21 01:00 76 42 H 119/53 95 07/15/21 00:00 99.9 F H 85 47 H 116/49 94 L 40 07/14/21 23:39 81 07/14/21 23:22 85 07/14/21 23:20 40 07/14/21 23:00 82 52 H 116/48 95 50 07/14/21 22:00 90 42 H 118/43 93 L 50 07/14/21 21:00 86 36 H 119/77 95 50 07/14/21 20:39 83 07/14/21 20:30 81 07/14/21 20:29 81 07/14/21 20:15 78 50 07/14/21 20:00 98.4 F 76 25 H 119/77 60 07/14/21 19:00 76 21 119/77 96 60 07/14/21 18:00 97.6 F 75 31 H 111/80 95 60 07/14/21 17:00 73 22 109/65 96 07/14/21 16:45 60 07/14/21 16:39 32 H 07/14/21 16:12 97.6 F 76 31 H 120/63 100 07/14/21 15:30 76 18 124/63 100 07/14/21 15:13 70 07/14/21 14:34 73 30 H 118/51 411 H 07/14/21 13:43 74 18 106/47 95 07/14/21 13:41 70 07/14/21 13:14 28 Intake and Output 07/14/21 07/15/21 07/15/21 22:59 06:59 14:59 Intake Total 250 500 350 Output Total 215 430 430 Balance 35 70 -80 Intake: IV 150 500 350 0.9 NcCl- 150 400 350 Zosyn IVPB 100 Intake, IV Titration 100 Amount Sodium Chloride 0.9% 1, 100 000 ml @ 75 mls/hr IV . [id number] [facility] Rx#:[id number] Output: Urine 215 430 430 Other: Voiding Method Indwelling Catheter Indwelling Catheter Indwelling Catheter Weight 67.5 kg 89.4 kg 65.317 kg Results - Lab Results Most recent lab results ABG pH 7.41 (7.35-7.45) 07/15/21 08:42 ABG pCO2 74 mmHg (35-45) H* 07/15/21 08:42 ABG pO2 106 mmHg (83-108) 07/15/21 08:42 ABG HCO3 47 mmol/L (21-25) H* 07/15/21 08:42 ABG O2 Saturation 99.3 % (94-97) H 07/15/21 08:42 Calcium 7.3 mg/dL (8.4-10.2) L 07/15/21 08:34 Magnesium 1.9 mg/dL (1.6-2.3) 07/15/21 08:34 07/15/21 08:34 07/15/21 08:34 Assessment and Plan Plan: Assessment: 1. Acute kidney injury secondary to ATN due to diuresis. Creatinine 1.8 on admission and is 2.2 today. Nonoliguric. 2. Chronic kidney disease stage IIIb. Baseline creatinine near 1.5 secondary to diabetic kidney disease and nephrosclerosis. 3. Acute hypercapnic respiratory failure on BiPAP. 4. COPD exacerbation. 5. Hyperkalemia secondary to acute kidney injury and acidosis. Improved. 6. Metabolic alkalosis. Mostly compensatory for underlying respiratory acidosis. 7. Diabetes mellitus. 8. Anemia. Rule out iron deficiency. Plan: Maintain IV fluids for now. Decrease dose of Diamox to 250 mg IV twice daily. Avoid nephrotoxins. Continue to monitor renal function and urine output. Check iron studies. Case discussed with the present at bedside. Thank you for the consultation. I will continue to follow the patient with you during his hospital stay.
[2021-07-15 17:33] LABS: Glucose,Whole Blood 188 mg/dL (75-99)
[2021-07-15 23:27] LABS: % Iron Saturation 12.05 (15.00-50.00)
[2021-07-15 23:51] LABS: Glucose,Whole Blood 123 mg/dL (75-99)
[2021-07-16] MEDS: IPRATROPIUM-ALBUTEROL 3 ML NEB INHALATION SCH ×6 (03:00→23:34)
[2021-07-16] MEDS: DEXMEDETOMIDINE/0.9% NACL(PMX) 400 MCG in EMPTY BAG 1 BAG IV SCH ×2 (05:14→16:47)
[2021-07-16 06:08] LABS: Glucose,Whole Blood 188 mg/dL (75-99)
[2021-07-16] MEDS: INSULIN ASPART (NovoLOG) 100 UNIT/ML VIAL SQ SCH ×4 (06:42→20:33)
[2021-07-16] MEDS: methylPREDNISolone SOD SUCCI 125 MG/2 ML VIAL IV SCH ×3 (06:42→18:52)
[2021-07-16 06:54] LABS: Basophils % (A) 0 %; Eosinophils % (A) 0 %; HCT 30.1 % (39.0-53.0); HGB 8.6 gm/dL (13.0-17.5); Hypochromasia Marked; Lymphocytes # (A) 0.3 k/uL (1.0-4.8); Lymphocytes % (A) 4 %; MCH 29.1 pg (25.0-35.0); MCHC 28.5 g/dL (31.0-37.0); MCV 102.1 fL (80.0-100.0); Macrocytosis Slight; Mean Platelet Volume 8.2; Monocytes # (A) 0.2 k/uL (0-1.0); Monocytes % (A) 3 %; Neutrophils # (A) 6.9 k/uL (1.3-7.7); Neutrophils % (A) 92 %; Platelet Count 168 k/uL (150-450); RBC 2.95 m/uL (4.30-5.90); RDW 15.3 % (11.5-15.5); WBC 7.5 k/uL (3.8-10.6)
[2021-07-16 07:20] LABS: Calcium 7.6 mg/dL (8.4-10.2); Magnesium 1.9 mg/dL (1.6-2.3); Potassium 4.1 mmol/L (3.5-5.1)
[2021-07-16] MEDS: FORMOTEROL FUMARATE 20 MCG/2 ML NEBU INHALATION SCH ×2 (08:17→19:13)
[2021-07-16] MEDS: BUDESONIDE 0.5 MG/2 ML NEBU INHALATION SCH ×2 (08:17→19:13)
[2021-07-16] MEDS: PIPERACILLIN-TAZOBACTAM 3.375 GM in SODIUM CHLORIDE 0.9% 100 ML IVPB SCH ×2 (08:51→16:24)
[2021-07-16] MEDS ORDERED: ENOXAPARIN 60 MG/0.6 ML SYRINGE SQ SCH (09:00)
--- NOTE | 2021-07-16 09:26 | P.PN ---
Subjective Progress Note Date: 07/16/21 This is a 80-year-old male patient with advanced COPD and based on early spirometry from 2015, the patient has an FEV1 of around 29% of predicted and the patient has been oxygen dependent at 2 L per minute 24 7. He has been maintained on Symbicort on outpatient basis regarding his COPD. He has signific ant limitation of exercise capacity. He has chronic hypoxic respiratory failure, and his comorbid conditions include history of CVA, history of DVT maintained on Eliquis, diabetes mellitus type 2, hypothyroidism, migraines, hypertension, paroxysmal atrial fibrillation, dementia, chronic pain, hyper lipidemia and history of kidney stones. The patient also has a component of chronic kidney disease. The patient was in the hospital and June 2021 and at that time the patient presented to the hospital because of altered mentation and change in mental status. His chest x-ray was consistent with COPD and small bilateral pleural effusions. At that time, there was suspicion is nodule also in the lungs. His CAT scan of the brain back then showed no acute abnormalities. The patient was admitted and a blood gas was done that showed chronic hypercapnic respiratory failure which was compensated and the patient's pH was at 7.37 with a pCO2 of 18 9. At that time, the patient was hospitalized, treated with a combination of bronchodilators, steroids, Diamox and he was also given BiPAP for respiratory support and ultimately was discharged. The patient came into the emergency department today and he was referred from the care home because he was getting more obtunded and he was having diffi culties to arousable to sternal rub. He was also found to be hypoxic. He was placed on a nonrebreather facemask to get to bring his saturation above 90%. Apparently, the patient's pulse ox was in the low 80s. No other history is available. By the time the patient arrived to the emergency, he was quite lethargic and immediately was placed on a BiPAP at a pressure of 16/5 cm of water with an FiO2 of 70%. The initial blood gases that was done on this patient showed severe respiratory acidosis with a pH of 7.07 and a pCO2 of more than 120 and pO2 of 135 and this was on FiO2 of 28%. The patient had a white cell count of 9.9 with a hemoglobin of 9.8, sodium was at 139, potassium level was at 5.8 and a serum bicarb was at 50 with a BUN of 48 and a creatinine of 1.8. Glucose was 143. Coagulation profile is within normal limits. Troponin was at 0.054. Urine drug screen was essentially negative. UA showed +1 protein and 21 wbc's. LFTs were within normal limits. Chest x-ray showed right lower lobe pulmonary infiltrate, there was a skin fold in the right upper lobe and this represented a artifact than a pneumothorax. The patient has background COPD. The patient is currently on a BiPAP. He remains quite lethargic and he withdraws only to painful stimulation. A repeat CAT scan of the brain was done that showed no acute abnormalities. The patient is hemodynamically stable. Cardiac rhythm is sinus at this point in time. 07/15/2021, the patient is currently in the intensive care unit. Overnight, the patient was kept on a BiPAP at a pressure of 16/5 cm of water. His current FiO2 is down to 40%. Oxygenation is improved and the pulse ox is up to 99%. Repeat chest x-ray is still pending from today. Meanwhile, the chest is a x-ray from yesterday for showing a limited right lower lobe pulmonary infiltrate. There was a concern for pneumonia and the patient was covered with a combination of IV Zosyn and vancomycin. Also, the repeat blood gases from today shows improvement in his acid base status. The pH is up to 7.41 and the patient's pCO2 is at 74 with a pO2 of 106 and this was done while him being otherwise. The white cell count is at 8.2 with a hemoglobin of 7.2 and a platelet of 164. His BUN is a 53 with a creatinine of 2.2 and the sodium level is at 140. The creatinine is slightly worse compared to yesterday.. The patient is receiving IV fluids and the patient is currently on normal saline at 50 mL an hour. His cardiac rhythm is sinus for now. Clinically, he still very lethargic and obtunded. He is more arousable compared to yesterday. He will follow simple commands and he would squeeze and use his hands upon demand. He is also moving his lower extremities. His neurologic exam is nonfocal. Nevertheless, if left unstimulated, we will stay sleep, and he has a full face mask BiPAP mask and generating a tidal volume of about 500 and he is not tachypneic at this point in time. No seizure activity. Urine output disorder of 50-75 mL an hour. 07/16/2021, the patient is being seen for a follow-up. Noted the patient's over the past 48 hours was kept on a BiPAP. He was very much bronchospastic and wheezy and he was also in acute hypercapnic and hypoxic respiratory failure on top of his chronic respiratory failure. He was supported with a BiPAP at a pressure of 16/ 5 cm of water with an FiO2 of 35%.. The patient was also pollack spected to have a right lower lobe pneumonia covered with bronchodilators, antibiotics and steroids. Yesterday, because of increased agitation, had to put the patient on Precedex and the dose was titrated up to 1 mg micrograms per kilogram per minute. This morning, he seems to much more quiet and comfortable. He was taken off the BiPAP and the patient is currently on oxygen at 3 L. He is breathing comfortably at this point in time and his pulse ox is around 99%. Precedex is still running at a lower dose of 0.9. He is hemodynamically stable. He has developed some sinus bradycardia could be related to Precedex. He is white cell count is at 7.5 with a hemoglobin 8.6. His blood work is showing a BUN of 56 with a creatinine of 2.1. Serum bicarb is at 35. The patient is requesting to have some water. Repeat chest x-ray from yesterday showed COPD and hyperinflation. At the same time, the patient had elevation of the right hemidiaphragm and possibly development of some right-sided plural effusion. Limited infiltration was also seen in the left lung base. The right lung seems to be much better aerated on yesterday's chest x-ray. The patient is communicating. He is alert. He is awake. Is responsive. Urine culture came back positive for group D enterococcus. He is UA was mildly abnormal. Currently, he is on Zosyn and vancomycin combination. He is also on Lovenox 60 mg subcu on a daily basis. No other significant events Objective - Vital Signs Vital signs: Vital Signs Temp 97.2 F L 07/16/21 04:00 Pulse 48 L 07/16/21 08:49 Resp 12 07/16/21 08:49 BP 136/58 07/16/21 07:00 Pulse Ox 100 07/16/21 08:50 FiO2 35 07/16/21 08:17 Intake & Output 07/15/21 07/16/21 07/16/21 18:59 06:59 18:59 Intake Total 0482.247 9853.124 75 Output Total 890 575 25 Balance 151.623 476.124 50 Weight 65.317 kg 65.317 kg Intake: IV 975 900 75 0.9 NcCl- 875 825 75 Zosyn IVPB 100 75 Intake, IV Titration 66.623 151.124 Amount Dexmedetomidine/0.9% NaCl 66.623 151.124 (Pmx) 400 mcg In Empty Bag 1 bag @ 0.2 MCG/KG/HR 3.266 mls/hr IV .Q24H [facility] Rx#:[id number] Output: Urine 890 575 25 Other: Voiding Method Indwelling Catheter Indwelling Catheter - Exam GENERAL EXAM: Alert, disheveled 80-year-old male patient on 3 L O2 nasal cannula and here patient is communicating. Somewhat confused. For the most part he is very interactive. HEAD: Normocephalic. EYES: Normal reaction of pupils, equal size. NOSE: Clear with pink turbinates. THROAT: No erythema or exudates. NECK: No masses, no JVD. CHEST: No chest wall deformity. LUNGS: marked diminished breath sounds bilaterally and the patient has scattered SCANT EXPIRATORY WHEEZES THROUGHOUT THE LUNG DAO BILATERALLY. CVS: S1 and S2 normal with no audible murmur, regular rhythm.overall, the heart sounds are quite distant ABDOMEN: No hepatosplenomegaly, normal bowel sounds, no guarding or rigidity. SPINE: No scoliosis or deformity SKIN: No rashes CENTRAL NERVOUS SYSTEM: the patient shows improvement in the level of alertness, At least more awake compared to yesterday. Moving all 4 extremities and with a withdrawing to painful stimulation in all 4 extremities. He was awake reactive to light. No facial asymmetry. No significant agitation at this point in time. EXTREMITIES: There is no peripheral edema. No clubbing, no cyanosis. Peripheral pulses are intact. - Labs CBC & Chem 7: 07/16/21 06:08 07/16/21 06:08 Labs: Abnormal Lab Results - Last 24 Hours (Table) 07/15/21 07/15/21 07/15/21 Range/Units 08:34 08:34 11:49 RBC (4.30-5.90) m/uL Hgb (13.0-17.5) gm/dL Hct (39.0-53.0) % MCV (80.0-100.0) fL MCHC (31.0-37.0) g/dL Lymphocytes # (1.0-4.8) k/uL Chloride 92 L (98-107) mmol/L Carbon Dioxide 45 H* (22-30) mmol/L BUN 53 H (9-20) mg/dL Creatinine 2.21 H (0.66-1.25) mg/dL Glucose (74-99) mg/dL POC Glucose (mg/dL) 107 H (75-99) mg/dL Calcium 7.3 L (8.4-10.2) mg/dL Iron 32 L (65-175) ug/dL % Saturation 12.05 L (15.00-50.00) Transferrin 192.0 L (204.0-354.0) mg/dL Ferritin 18.0 L (22.0-322.0) ng/mL 07/15/21 07/15/21 07/16/21 Range/Units 17:32 23:49 06:06 RBC (4.30-5.90) m/uL Hgb (13.0-17.5) gm/dL Hct (39.0-53.0) % MCV (80.0-100.0) fL MCHC (31.0-37.0) g/dL Lymphocytes # (1.0-4.8) k/uL Chloride (98-107) mmol/L Carbon Dioxide (22-30) mmol/L BUN (9-20) mg/dL Creatinine (0.66-1.25) mg/dL Glucose (74-99) mg/dL POC Glucose (mg/dL) 188 H 123 H 188 H (75-99) mg/dL Calcium (8.4-10.2) mg/dL Iron (65-175) ug/dL % Saturation (15.00-50.00) Transferrin (204.0-354.0) mg/dL Ferritin (22.0-322.0) ng/mL 07/16/21 07/16/21 Range/Units 06:08 06:08 RBC 2.95 L (4.30-5.90) m/uL Hgb 8.6 L (13.0-17.5) gm/dL Hct 30.1 L (39.0-53.0) % MCV 102.1 H (80.0-100.0) fL MCHC 28.5 L (31.0-37.0) g/dL Lymphocytes # 0.3 L (1.0-4.8) k/uL Chloride (98-107) mmol/L Carbon Dioxide 35 H (22-30) mmol/L BUN 56 H (9-20) mg/dL Creatinine 2.12 H (0.66-1.25) mg/dL Glucose 172 H (74-99) mg/dL POC Glucose (mg/dL) (75-99) mg/dL Calcium 7.6 L (8.4-10.2) mg/dL Iron (65-175) ug/dL % Saturation (15.00-50.00) Transferrin (204.0-354.0) mg/dL Ferritin (22.0-322.0) ng/mL Microbiology - Last 24 Hours (Table) 07/14/21 12:28 Urine Culture - Preliminary Urine,Catheterized Group D Enterococcus 07/14/21 12:28 Blood Culture - Preliminary Blood No Growth after 24 hours 07/14/21 12:28 Blood Culture - Preliminary Blood No Growth after 24 hours Assessment and Plan Plan: 1 Acute hypoxic/hypercapnic respiratory failure, secondary to an acute exacerbation of his COPD. There is also new infiltration of the right lower lobe raising the concern for underlying right lower lobe pneumonia. There may be also developing small right-sided pleural effusion. The patient was taken off the BiPAP this morning and currently is on 3 L of oxygen by nasal cannula. We'll continue same treatment for now. We'll gradually wean his Precedex. He is currently on 0.9 mcg/kg per minute. The patient continues to be encephalopathic although that has been improvement in his mental status. 2 chronic metabolic alkalosis secondary to above. 3 metabolic encephalopathy, altered mentation with signs of CO2 narcosis with background dementia. CAT scan of the brain is negative 4 History of paroxysmal atrial fibrillation anticoagulated with Xarelto, currently his rhythm is sinus 5 History of CVA/TIA, CAT scan of the head is not showing any acute abnormalities 6 History of dementia 7 Diabetes mellitus 8 Hypertension 9 Hyperlipidemia 10 Remote history of DVT, maintained on long-term medical condition with Xarelto 11 Chronic tobacco dependence, quit in 2002 12 Hypothyroidism 13 Chronic renal failure. 14 History of brain bleed with surgery in 2003 15 Poor overall functional performance based on the above-mentioned multiple comorbidities Plan: Keep intensive care unit Establish a CODE STATUSThis has been reestablished and the patient is currently DO NOT RESUSCITATE. We'll continue using BiPAP on and off during the day and currently is on 3 L Wean off Precedex IV fluids at 75 mL an hour Continue DuoNeb nebulized treatments around the clock Continue Perforomist and Pulmicort Continue IV Zosyn and vancomycin. Repeat chest x-ray in the morning Continue Lovenox at the same doses. The patient may need a swallow evaluation once more awake and once he is able to swallow, we'll switch him back to his oral pills Continue IV Protonix Continue IV Solu-Medrol Long-term prognosis poor based on the above. We'll continue to follow and will make further recommendations based on his progress. He is doing slow but ongoing improvements. DNR/DNI CODE STATUS. We'll continue monitoring his respiratory status is in mental status associated intensive care unit. Condition is obviously critical. This critically care evaluation was done and more than 30 minutes Time with Patient: Greater than 30
[2021-07-16] MEDS: PANTOPRAZOLE 40 MG/10 ML VIAL IVP SCH (09:31)
[2021-07-16] MEDS: LEVOTHYROXINE IVP 100 MCG/5 ML VIAL IV SCH (09:34)
[2021-07-16] MEDS ORDERED: VANCOMYCIN 1,250 MG in SODIUM CHLORIDE 0.9% 250 ML IVPB ONE (10:00)
--- NOTE | 2021-07-16 10:03 | P.PN ---
Subjective Patient is seen in follow-up for acute kidney injury on chronic kidney disease. Renal function slightly better. Currently on 3 L nasal cannula. Urine output 20-30 mL an hour. Oral intake poor. Vital signs are stable. General: Resting in bed. HEENT: Head exam is unremarkable. On nasal cannula. LUNGS: Breath sounds decreased. Wheezing present. HEART: Rate and Rhythm are regular. ABDOMEN: Soft, no distention. EXTREMITITES: Trace edema in ankles. Objective - Vital Signs Vital signs: Vital Signs Temp 97.4 F L 07/16/21 08:00 Pulse 56 L 07/16/21 09:00 Resp 12 07/16/21 09:00 BP 160/61 07/16/21 09:00 Pulse Ox 100 07/16/21 09:00 FiO2 35 07/16/21 08:17 Intake & Output 07/15/21 07/16/21 07/16/21 18:59 06:59 18:59 Intake Total 3663.582 9985.124 333.581 Output Total 890 575 60 Balance 151.623 476.124 273.581 Weight 65.317 kg 65.317 kg Intake: IV 975 900 265 0.9 NcCl- 875 825 225 Zosyn IVPB 100 75 40 Intake, IV Titration 66.623 151.124 68.581 Amount Dexmedetomidine/0.9% NaCl 66.623 151.124 68.581 (Pmx) 400 mcg In Empty Bag 1 bag @ 0.2 MCG/KG/HR 3.266 mls/hr IV .Q24H [facility] Rx#:[id number] Output: Urine 890 575 60 Other: Voiding Method Indwelling Catheter Indwelling Catheter - Labs CBC & Chem 7: 07/16/21 06:08 07/16/21 06:08 Labs: Abnormal Lab Results - Last 24 Hours (Table) 07/15/21 07/15/21 07/15/21 Range/Units 08:34 11:49 17:32 RBC (4.30-5.90) m/uL Hgb (13.0-17.5) gm/dL Hct (39.0-53.0) % MCV (80.0-100.0) fL MCHC (31.0-37.0) g/dL Lymphocytes # (1.0-4.8) k/uL Carbon Dioxide (22-30) mmol/L BUN (9-20) mg/dL Creatinine (0.66-1.25) mg/dL Glucose (74-99) mg/dL POC Glucose (mg/dL) 107 H 188 H (75-99) mg/dL Calcium (8.4-10.2) mg/dL Iron 32 L (65-175) ug/dL % Saturation 12.05 L (15.00-50.00) Transferrin 192.0 L (204.0-354.0) mg/dL Ferritin 18.0 L (22.0-322.0) ng/mL 07/15/21 07/16/21 07/16/21 Range/Units 23:49 06:06 06:08 RBC 2.95 L (4.30-5.90) m/uL Hgb 8.6 L (13.0-17.5) gm/dL Hct 30.1 L (39.0-53.0) % MCV 102.1 H (80.0-100.0) fL MCHC 28.5 L (31.0-37.0) g/dL Lymphocytes # 0.3 L (1.0-4.8) k/uL Carbon Dioxide (22-30) mmol/L BUN (9-20) mg/dL Creatinine (0.66-1.25) mg/dL Glucose (74-99) mg/dL POC Glucose (mg/dL) 123 H 188 H (75-99) mg/dL Calcium (8.4-10.2) mg/dL Iron (65-175) ug/dL % Saturation (15.00-50.00) Transferrin (204.0-354.0) mg/dL Ferritin (22.0-322.0) ng/mL 07/16/21 Range/Units 06:08 RBC (4.30-5.90) m/uL Hgb (13.0-17.5) gm/dL Hct (39.0-53.0) % MCV (80.0-100.0) fL MCHC (31.0-37.0) g/dL Lymphocytes # (1.0-4.8) k/uL Carbon Dioxide 35 H (22-30) mmol/L BUN 56 H (9-20) mg/dL Creatinine 2.12 H (0.66-1.25) mg/dL Glucose 172 H (74-99) mg/dL POC Glucose (mg/dL) (75-99) mg/dL Calcium 7.6 L (8.4-10.2) mg/dL Iron (65-175) ug/dL % Saturation (15.00-50.00) Transferrin (204.0-354.0) mg/dL Ferritin (22.0-322.0) ng/mL Microbiology - Last 24 Hours (Table) 07/14/21 12:28 Urine Culture - Preliminary Urine,Catheterized Group D Enterococcus 07/14/21 12:28 Blood Culture - Preliminary Blood No Growth after 24 hours 07/14/21 12:28 Blood Culture - Preliminary Blood No Growth after 24 hours Assessment and Plan Plan: Assessment: 1. Acute kidney injury secondary to ATN due to diuresis. Creatinine 1.8 on admission and peaked at 2.2 this admission - 2.12 today. 2. Chronic kidney disease stage IIIb. Baseline creatinine near 1.5 secondary to diabetic kidney disease and nephrosclerosis. 3. Acute hypercapnic respiratory failure. 4. COPD exacerbation. 5. Hyperkalemia secondary to acute kidney injury and acidosis. Improved. 6. Metabolic alkalosis. Mostly compensatory for underlying respiratory acidosis. Improved. 7. Diabetes mellitus. 8. Anemia. Iron deficiency noted. Plan: Decrease rate of normal saline to 50 mL an hour. Stop Diamox. Avoid nephrotoxins. Continue to monitor renal function and urine output. Add IV iron. Prognosis guarded.
[2021-07-16] MEDS ORDERED: SODIUM CHLORIDE 0.65% NASAL SPRAY 44 ML BTL INTRANASAL PRN (10:05)
--- NOTE | 2021-07-16 10:07 | P.PN ---
Subjective Progress Note Date: 07/16/21 Pt is improved today, is following commands. He was agitated overnight, started on Precedex. Patient was asking to have his BiPAP mask off, able to communicate well without it, pulling good tidal volumes overall. Patient was started on 3 L of nasal cannula, saturating 97-100% on this setting. Urine culture is growing group D enterococcus, ongoing IV antibiotic therapy for right lower lobe suspected pneumonia as well as urinary tract infection. Gen: Obtunded, lethargic Eyes: PERRL, no scleral injection or icterus HENT: normocephalic, atraumatic, moist mucous membranes Neck: no tracheal deviation, full range of motion Resp: Impaired air exchange, breathing comfortably with no accessory muscle use, no tactile fremitus, diminished breath sounds in the lower lung lainez, left side worse than the right side CVS: good distal perfusion x 4, bilateral 1+ pitting edema GI: soft, NTTP, ND, no hepatosplenomegaly : no suprapubic tenderness, no CVAT, rainey catheter not present MSK: no clubbing, no cyanosis, no noted contractures of extremities Skin: no noted rashes, petechiae; temperature of skin is appropriate Neuro: moving all extremities without signs of weakness, CN II-XII intact Labs and imaging reviewed as above Assessment/plan: Acute hypercarbic respiratory failure superimposed on chronic hypoxemic respiratory failure COPD exacerbation Community-acquired pneumonia Pelvic a urinary tract infection, group D enterococcus -Admit to ICU, telemetry -Pulmonary consult -DuoNeb's [id number] -Steroids -Antibiotics: Vancomycin, Zosyn -Pro calcitonin pending -Budesonide/formoterol twice a day -Patient started on Diamox -Resume nasal cannula, down titrate as able back to home dose of 2 L Acute Kidney Injury superimposed on CKD, stage IIIb -avoid nephrotoxins, renally dose medications -nephrology consult CAD Hypertension Hyperlipidemia Diabetes Hypothyroidism History of DVT Paroxysmal atrial fibrillation History of CVA BPH -Can switch levothyroxine back to by mouth -Can switch enoxaparin back to Apixiban -Home medications reviewed and reconciled, changes noted above -Bedside swallow study, start GI soft diet if patient passes Spoke with the patient's spouse today, patient is DO NOT RESUSCITATE/DO NOT INTUBATE DVT prophylaxis is covered with Xarelto Objective - Vital Signs Vital signs: Vital Signs Temp 97.4 F L 07/16/21 08:00 Pulse 56 L 07/16/21 09:00 Resp 12 07/16/21 09:00 BP 160/61 07/16/21 09:00 Pulse Ox 100 07/16/21 09:00 FiO2 35 07/16/21 08:17 Intake & Output 07/15/21 07/16/21 07/16/21 18:59 06:59 18:59 Intake Total 3686.486 3983.124 333.581 Output Total 890 575 60 Balance 151.623 476.124 273.581 Weight 65.317 kg 65.317 kg Intake: IV 975 900 265 0.9 NcCl- 875 825 225 Zosyn IVPB 100 75 40 Intake, IV Titration 66.623 151.124 68.581 Amount Dexmedetomidine/0.9% NaCl 66.623 151.124 68.581 (Pmx) 400 mcg In Empty Bag 1 bag @ 0.2 MCG/KG/HR 3.266 mls/hr IV .Q24H [facility] Rx#:[id number] Output: Urine 890 575 60 Other: Voiding Method Indwelling Catheter Indwelling Catheter - Labs CBC & Chem 7: 07/16/21 06:08 07/16/21 06:08 Labs: Abnormal Lab Results - Last 24 Hours (Table) 07/15/21 07/15/21 07/15/21 Range/Units 08:34 11:49 17:32 RBC (4.30-5.90) m/uL Hgb (13.0-17.5) gm/dL Hct (39.0-53.0) % MCV (80.0-100.0) fL MCHC (31.0-37.0) g/dL Lymphocytes # (1.0-4.8) k/uL Carbon Dioxide (22-30) mmol/L BUN (9-20) mg/dL Creatinine (0.66-1.25) mg/dL Glucose (74-99) mg/dL POC Glucose (mg/dL) 107 H 188 H (75-99) mg/dL Calcium (8.4-10.2) mg/dL Iron 32 L (65-175) ug/dL % Saturation 12.05 L (15.00-50.00) Transferrin 192.0 L (204.0-354.0) mg/dL Ferritin 18.0 L (22.0-322.0) ng/mL 07/15/21 07/16/21 07/16/21 Range/Units 23:49 06:06 06:08 RBC 2.95 L (4.30-5.90) m/uL Hgb 8.6 L (13.0-17.5) gm/dL Hct 30.1 L (39.0-53.0) % MCV 102.1 H (80.0-100.0) fL MCHC 28.5 L (31.0-37.0) g/dL Lymphocytes # 0.3 L (1.0-4.8) k/uL Carbon Dioxide (22-30) mmol/L BUN (9-20) mg/dL Creatinine (0.66-1.25) mg/dL Glucose (74-99) mg/dL POC Glucose (mg/dL) 123 H 188 H (75-99) mg/dL Calcium (8.4-10.2) mg/dL Iron (65-175) ug/dL % Saturation (15.00-50.00) Transferrin (204.0-354.0) mg/dL Ferritin (22.0-322.0) ng/mL 07/16/21 Range/Units 06:08 RBC (4.30-5.90) m/uL Hgb (13.0-17.5) gm/dL Hct (39.0-53.0) % MCV (80.0-100.0) fL MCHC (31.0-37.0) g/dL Lymphocytes # (1.0-4.8) k/uL Carbon Dioxide 35 H (22-30) mmol/L BUN 56 H (9-20) mg/dL Creatinine 2.12 H (0.66-1.25) mg/dL Glucose 172 H (74-99) mg/dL POC Glucose (mg/dL) (75-99) mg/dL Calcium 7.6 L (8.4-10.2) mg/dL Iron (65-175) ug/dL % Saturation (15.00-50.00) Transferrin (204.0-354.0) mg/dL Ferritin (22.0-322.0) ng/mL Microbiology - Last 24 Hours (Table) 07/14/21 12:28 Urine Culture - Preliminary Urine,Catheterized Group D Enterococcus 07/14/21 12:28 Blood Culture - Preliminary Blood No Growth after 24 hours 07/14/21 12:28 Blood Culture - Preliminary Blood No Growth after 24 hours
[2021-07-16 11:50] LABS: Glucose,Whole Blood 79 mg/dL (75-99)
[2021-07-16] MEDS: SODIUM FERRIC GLUCONAT-SUCROSE 125 MG in SODIUM CHLORIDE 0.9% 100 ML IVPB SCH (12:44)
[2021-07-16 17:52] LABS: Glucose,Whole Blood 234 mg/dL (75-99)
[2021-07-16] MEDS: SODIUM CHLORIDE 0.9% 1,000 ML IV SCH (18:59)
[2021-07-16 20:30] LABS: Glucose,Whole Blood 266 mg/dL (75-99)
[2021-07-16] MEDS: MIRTAZAPINE 15 MG TAB PO SCH (20:33)
[2021-07-16] MEDS: RIVAROXABAN 20 MG TAB PO SCH (20:33)
[2021-07-16] MEDS: ATORVASTATIN 20 MG TAB PO SCH (20:34)
[2021-07-17] MEDS: PIPERACILLIN-TAZOBACTAM 3.375 GM in SODIUM CHLORIDE 0.9% 100 ML IVPB SCH ×3 (01:00→16:35)
[2021-07-17] MEDS: methylPREDNISolone SOD SUCCI 125 MG/2 ML VIAL IV SCH ×4 (01:00→17:04)
[2021-07-17] MEDS: DEXMEDETOMIDINE/0.9% NACL(PMX) 400 MCG in EMPTY BAG 1 BAG IV SCH (02:37)
[2021-07-17] MEDS: IPRATROPIUM-ALBUTEROL 3 ML NEB INHALATION SCH ×5 (04:03→19:51)
[2021-07-17 07:17] LABS: Glucose,Whole Blood 129 mg/dL (75-99)
[2021-07-17 08:00] LABS: Basophils % (A) 0 %; Eosinophils % (A) 0 %; HCT 28.1 % (39.0-53.0); HGB 7.9 gm/dL (13.0-17.5); Hypochromasia Marked; Lymphocytes # (A) 0.3 k/uL (1.0-4.8); Lymphocytes % (A) 3 %; MCH 29.6 pg (25.0-35.0); MCHC 28.2 g/dL (31.0-37.0); MCV 104.7 fL (80.0-100.0); Macrocytosis Moderate; Mean Platelet Volume 8.9; Monocytes # (A) 0.5 k/uL (0-1.0); Monocytes % (A) 6 %; Neutrophils # (A) 8.6 k/uL (1.3-7.7); Neutrophils % (A) 90 %; Platelet Count 158 k/uL (150-450); RBC 2.68 m/uL (4.30-5.90); RDW 14.7 % (11.5-15.5); WBC 9.5 k/uL (3.8-10.6)
[2021-07-17] MEDS: INSULIN ASPART (NovoLOG) 100 UNIT/ML VIAL SQ SCH ×5 (08:00→21:37)
[2021-07-17 08:11] LABS: Calcium 7.2 mg/dL (8.4-10.2); Potassium 3.5 mmol/L (3.5-5.1)
[2021-07-17] MEDS: SODIUM CHLORIDE 0.9% 1,000 ML IV SCH ×2 (08:14→12:44)
[2021-07-17] MEDS: PANTOPRAZOLE 40 MG/10 ML VIAL IVP SCH (08:15)
[2021-07-17] MEDS: CLOPIDOGREL 75 MG TAB PO SCH (08:16)
[2021-07-17] MEDS: TAMSULOSIN 0.4 MG CAP.ER.24H PO SCH (08:16)
[2021-07-17] MEDS: LEVOTHYROXINE 75 MCG TAB PO SCH (08:16)
[2021-07-17] MEDS: FORMOTEROL FUMARATE 20 MCG/2 ML NEBU INHALATION SCH ×2 (08:17→19:51)
[2021-07-17] MEDS: BUDESONIDE 0.5 MG/2 ML NEBU INHALATION SCH ×2 (08:17→19:51)
[2021-07-17 08:27] LABS: Vancomycin,Random 18.5 ug/mL
--- NOTE | 2021-07-17 08:32 | P.PN ---
Subjective Progress Note Date: 07/17/21 Patient is stable on 3 L nasal cannula, saturating 100%. He remains on Precedex at 0.6. Tolerating a diet, tolerating by mouth medications. Still bradycardic in the 50s. Labs today are pending. Ongoing antibiotics with vancomycin, Zosyn. Urine culture is growing Enterococcus faecalis, sensitivities pending. Gen: Obtunded, lethargic Eyes: PERRL, no scleral injection or icterus HENT: normocephalic, atraumatic, moist mucous membranes Neck: no tracheal deviation, full range of motion Resp: Impaired air exchange, breathing comfortably with no accessory muscle use, no tactile fremitus, diminished breath sounds in the lower lung lainez, left side worse than the right side CVS: good distal perfusion x 4, bilateral 1+ pitting edema GI: soft, NTTP, ND, no hepatosplenomegaly : no suprapubic tenderness, no CVAT, rainey catheter not present MSK: no clubbing, no cyanosis, no noted contractures of extremities Skin: no noted rashes, petechiae; temperature of skin is appropriate Neuro: moving all extremities without signs of weakness, CN II-XII intact Labs and imaging reviewed as above Assessment/plan: Acute hypercarbic respiratory failure superimposed on chronic hypoxemic respiratory failure COPD exacerbation Community-acquired pneumonia Complicated urinary tract infection, Enterococcus faecalis -Admit to ICU, telemetry -Pulmonary consult -Fortunato'jason [id number] -Steroids -Antibiotics: Vancomycin, Zosyn -Pro calcitonin pending -Budesonide/formoterol twice a day -Patient started on Diamox -Resume nasal cannula, down titrate as able back to home dose of 2 L Acute Kidney Injury superimposed on CKD, stage IIIb -avoid nephrotoxins, renally dose medications -nephrology consult CAD Hypertension Hyperlipidemia Diabetes Hypothyroidism History of DVT Paroxysmal atrial fibrillation History of CVA BPH -Can switch levothyroxine back to by mouth -Can switch enoxaparin back to Apixiban -Home medications reviewed and reconciled, changes noted above -Bedside swallow study, start GI soft diet if patient passes Spoke with the patient's spouse today, patient is DO NOT RESUSCITATE/DO NOT INTUBATE DVT prophylaxis is covered with Xarelto Objective - Vital Signs Vital signs: Vital Signs Temp 97.4 F L 07/17/21 04:00 Pulse 56 L 07/17/21 08:17 Resp 9 L 07/17/21 07:00 BP 92/42 07/17/21 07:00 Pulse Ox 97 07/17/21 08:17 FiO2 35 07/16/21 08:17 Intake & Output 07/16/21 07/17/21 07/17/21 18:59 06:59 18:59 Intake Total 5834.670 2409.775 106.012 Output Total 310 125 0 Balance 2350.407 5630.775 106.012 Weight 65.317 kg Intake: IV 625 650 50 0.9 NcCl- 475 550 50 Zosyn IVPB 150 100 Intake, IV Titration 453.756 91.775 56.012 Amount Dexmedetomidine/0.9% NaCl 103.756 91.775 56.012 (Pmx) 400 mcg In Empty Bag 1 bag @ 0.2 MCG/KG/HR 3.266 mls/hr IV .Q24H [facility] Rx#:[id number] Sodium Ferric Gluconat- 100 Sucrose 125 mg In Sodium Chloride 0.9% 100 ml @ 100 mls/hr IVPB DAILY [facility] Rx#:[id number] Vancomycin 1,250 mg In 250 Sodium Chloride 0.9% 250 ml @ 125 mls/hr IVPB ONCE ONE Rx#:[id number] Oral 300 400 Output: Urine 310 125 0 Other: Voiding Method Indwelling Catheter Indwelling Catheter # Bowel Movements 1 - Labs CBC & Chem 7: 07/17/21 07:30 07/17/21 07:30 Labs: Abnormal Lab Results - Last 24 Hours (Table) 07/16/21 07/16/21 07/17/21 Range/Units 17:51 20:24 07:15 RBC (4.30-5.90) m/uL Hgb (13.0-17.5) gm/dL Hct (39.0-53.0) % MCV (80.0-100.0) fL MCHC (31.0-37.0) g/dL Neutrophils # (1.3-7.7) k/uL Lymphocytes # (1.0-4.8) k/uL Chloride (98-107) mmol/L Carbon Dioxide (22-30) mmol/L BUN (9-20) mg/dL Creatinine (0.66-1.25) mg/dL Glucose (74-99) mg/dL POC Glucose (mg/dL) 234 H 266 H 129 H (75-99) mg/dL Calcium (8.4-10.2) mg/dL 07/17/21 07/17/21 Range/Units 07:30 07:30 RBC 2.68 L (4.30-5.90) m/uL Hgb 7.9 L (13.0-17.5) gm/dL Hct 28.1 L (39.0-53.0) % MCV 104.7 H (80.0-100.0) fL MCHC 28.2 L (31.0-37.0) g/dL Neutrophils # 8.6 H (1.3-7.7) k/uL Lymphocytes # 0.3 L (1.0-4.8) k/uL Chloride 97 L (98-107) mmol/L Carbon Dioxide 39 H (22-30) mmol/L BUN 59 H (9-20) mg/dL Creatinine 2.15 H (0.66-1.25) mg/dL Glucose 123 H (74-99) mg/dL POC Glucose (mg/dL) (75-99) mg/dL Calcium 7.2 L (8.4-10.2) mg/dL Microbiology - Last 24 Hours (Table) 07/14/21 12:28 Urine Culture - Final Urine,Catheterized Enterococcus faecalis 07/14/21 12:28 Blood Culture - Preliminary Blood No Growth after 48 hours 07/14/21 12:28 Blood Culture - Preliminary Blood No Growth after 48 hours
[2021-07-17] MEDS ORDERED: FUROSEMIDE 10 MG/ML 10 ML VIAL IV STA (08:39)
[2021-07-17] MEDS ORDERED: Potassium Replacement Protocol 1 EACH MISC MISCELLANE PRN (08:39)
[2021-07-17] MEDS ORDERED: POTASSIUM CHLORIDE ER 20 MEQ TAB.ER PO SCH (09:00)
--- NOTE | 2021-07-17 09:18 | P.PN ---
Subjective Patient is seen in follow-up for acute kidney injury on chronic kidney disease. Renal function stable. On nasal cannula. Urine output 10-20 mL an hour. Oral intake poor. Vital signs are stable. General: Resting in bed. HEENT: Head exam is unremarkable. On nasal cannula. LUNGS: Breath sounds decreased. Wheezing present. HEART: Rate and Rhythm are regular. ABDOMEN: Soft, no distention. EXTREMITITES: Trace edema in ankles. Objective - Vital Signs Vital signs: Vital Signs Temp 97.4 F L 07/17/21 04:00 Pulse 57 L 07/17/21 08:38 Resp 9 L 07/17/21 07:00 BP 92/42 07/17/21 07:00 Pulse Ox 97 07/17/21 08:17 FiO2 35 07/16/21 08:17 Intake & Output 07/16/21 07/17/21 07/17/21 18:59 06:59 18:59 Intake Total 4107.210 7542.775 110.367 Output Total 310 125 0 Balance 3923.334 5686.775 110.367 Weight 65.317 kg Intake: IV 625 650 50 0.9 NcCl- 475 550 50 Zosyn IVPB 150 100 Intake, IV Titration 453.756 91.775 60.367 Amount Dexmedetomidine/0.9% NaCl 103.756 91.775 60.367 (Pmx) 400 mcg In Empty Bag 1 bag @ 0.2 MCG/KG/HR 3.266 mls/hr IV .Q24H [facility] Rx#:[id number] Sodium Ferric Gluconat- 100 Sucrose 125 mg In Sodium Chloride 0.9% 100 ml @ 100 mls/hr IVPB DAILY [facility] Rx#:[id number] Vancomycin 1,250 mg In 250 Sodium Chloride 0.9% 250 ml @ 125 mls/hr IVPB ONCE ONE Rx#:[id number] Oral 300 400 Output: Urine 310 125 0 Other: Voiding Method Indwelling Catheter Indwelling Catheter # Bowel Movements 1 - Labs CBC & Chem 7: 07/17/21 07:30 07/17/21 07:30 Labs: Abnormal Lab Results - Last 24 Hours (Table) 07/16/21 07/16/21 07/17/21 Range/Units 17:51 20:24 07:15 RBC (4.30-5.90) m/uL Hgb (13.0-17.5) gm/dL Hct (39.0-53.0) % MCV (80.0-100.0) fL MCHC (31.0-37.0) g/dL Neutrophils # (1.3-7.7) k/uL Lymphocytes # (1.0-4.8) k/uL Chloride (98-107) mmol/L Carbon Dioxide (22-30) mmol/L BUN (9-20) mg/dL Creatinine (0.66-1.25) mg/dL Glucose (74-99) mg/dL POC Glucose (mg/dL) 234 H 266 H 129 H (75-99) mg/dL Calcium (8.4-10.2) mg/dL 07/17/21 07/17/21 Range/Units 07:30 07:30 RBC 2.68 L (4.30-5.90) m/uL Hgb 7.9 L (13.0-17.5) gm/dL Hct 28.1 L (39.0-53.0) % MCV 104.7 H (80.0-100.0) fL MCHC 28.2 L (31.0-37.0) g/dL Neutrophils # 8.6 H (1.3-7.7) k/uL Lymphocytes # 0.3 L (1.0-4.8) k/uL Chloride 97 L (98-107) mmol/L Carbon Dioxide 39 H (22-30) mmol/L BUN 59 H (9-20) mg/dL Creatinine 2.15 H (0.66-1.25) mg/dL Glucose 123 H (74-99) mg/dL POC Glucose (mg/dL) (75-99) mg/dL Calcium 7.2 L (8.4-10.2) mg/dL Microbiology - Last 24 Hours (Table) 07/14/21 12:28 Urine Culture - Final Urine,Catheterized Enterococcus faecalis 07/14/21 12:28 Blood Culture - Preliminary Blood No Growth after 48 hours 07/14/21 12:28 Blood Culture - Preliminary Blood No Growth after 48 hours Assessment and Plan Plan: Assessment: 1. Acute kidney injury secondary to ATN due to diuresis. Creatinine 1.8 on admission and peaked at 2.2 this admission - stable at 2.15 today. 2. Chronic kidney disease stage IIIb. Baseline creatinine near 1.5 secondary to diabetic kidney disease and nephrosclerosis. 3. Acute hypercapnic respiratory failure. 4. COPD exacerbation. 5. Hyperkalemia secondary to acute kidney injury and acidosis. Improved. Now hypokalemic. 6. Metabolic alkalosis. Mostly compensatory for underlying respiratory acidosis. 7. Diabetes mellitus. 8. Anemia. Iron deficiency noted. 9. Lower extremity edema. Plan: Lasix 60 mg IV once today. Replace potassium. Stop Diamox. Avoid nephrotoxins. Continue to monitor renal function and urine output. Maintain IV iron. Prognosis guarded.
[2021-07-17] MEDS: SODIUM FERRIC GLUCONAT-SUCROSE 125 MG in SODIUM CHLORIDE 0.9% 100 ML IVPB SCH (10:17)
--- NOTE | 2021-07-17 10:47 | P.PN ---
Subjective Progress Note Date: 07/17/21 This is a 80-year-old male patient with advanced COPD and based on early spirometry from 2015, the patient has an FEV1 of around 29% of predicted and the patient has been oxygen dependent at 2 L per minute 24 7. He has been maintained on Symbicort on outpatient basis regarding his COPD. He has signific ant limitation of exercise capacity. He has chronic hypoxic respiratory failure, and his comorbid conditions include history of CVA, history of DVT maintained on Eliquis, diabetes mellitus type 2, hypothyroidism, migraines, hypertension, paroxysmal atrial fibrillation, dementia, chronic pain, hyper lipidemia and history of kidney stones. The patient also has a component of chronic kidney disease. The patient was in the hospital and June 2021 and at that time the patient presented to the hospital because of altered mentation and change in mental status. His chest x-ray was consistent with COPD and small bilateral pleural effusions. At that time, there was suspicion is nodule also in the lungs. His CAT scan of the brain back then showed no acute abnormalities. The patient was admitted and a blood gas was done that showed chronic hypercapnic respiratory failure which was compensated and the patient's pH was at 7.37 with a pCO2 of 18 9. At that time, the patient was hospitalized, treated with a combination of bronchodilators, steroids, Diamox and he was also given BiPAP for respiratory support and ultimately was discharged. The patient came into the emergency department today and he was referred from the [facility] because he was getting more obtunded and he was having diffi culties to arousable to sternal rub. He was also found to be hypoxic. He was placed on a nonrebreather facemask to get to bring his saturation above 90%. Apparently, the patient's pulse ox was in the low 80s. No other history is available. By the time the patient arrived to the emergency, he was quite lethargic and immediately was placed on a BiPAP at a pressure of 16/5 cm of water with an FiO2 of 70%. The initial blood gases that was done on this patient showed severe respiratory acidosis with a pH of 7.07 and a pCO2 of more than 120 and pO2 of 135 and this was on FiO2 of 28%. The patient had a white cell count of 9.9 with a hemoglobin of 9.8, sodium was at 139, potassium level was at 5.8 and a serum bicarb was at 50 with a BUN of 48 and a creatinine of 1.8. Glucose was 143. Coagulation profile is within normal limits. Troponin was at 0.054. Urine drug screen was essentially negative. UA showed +1 protein and 21 wbc's. LFTs were within normal limits. Chest x-ray showed right lower lobe pulmonary infiltrate, there was a skin fold in the right upper lobe and this represented a artifact than a pneumothorax. The patient has background COPD. The patient is currently on a BiPAP. He remains quite lethargic and he withdraws only to painful stimulation. A repeat CAT scan of the brain was done that showed no acute abnormalities. The patient is hemodynamically stable. Cardiac rhythm is sinus at this point in time. 07/15/2021, the patient is currently in the intensive care unit. Overnight, the patient was kept on a BiPAP at a pressure of 16/5 cm of water. His current FiO2 is down to 40%. Oxygenation is improved and the pulse ox is up to 99%. Repeat chest x-ray is still pending from today. Meanwhile, the chest is a x-ray from yesterday for showing a limited right lower lobe pulmonary infiltrate. There was a concern for pneumonia and the patient was covered with a combination of IV Zosyn and vancomycin. Also, the repeat blood gases from today shows improvement in his acid base status. The pH is up to 7.41 and the patient's pCO2 is at 74 with a pO2 of 106 and this was done while him being otherwise. The white cell count is at 8.2 with a hemoglobin of 7.2 and a platelet of 164. His BUN is a 53 with a creatinine of 2.2 and the sodium level is at 140. The creatinine is slightly worse compared to yesterday.. The patient is receiving IV fluids and the patient is currently on normal saline at 50 mL an hour. His cardiac rhythm is sinus for now. Clinically, he still very lethargic and obtunded. He is more arousable compared to yesterday. He will follow simple commands and he would squeeze and use his hands upon demand. He is also moving his lower extremities. His neurologic exam is nonfocal. Nevertheless, if left unstimulated, we will stay sleep, and he has a full face mask BiPAP mask and generating a tidal volume of about 500 and he is not tachypneic at this point in time. No seizure activity. Urine output disorder of 50-75 mL an hour. 07/16/2021, the patient is being seen for a follow-up. Noted the patient's over the past 48 hours was kept on a BiPAP. He was very much bronchospastic and wheezy and he was also in acute hypercapnic and hypoxic respiratory failure on top of his chronic respiratory failure. He was supported with a BiPAP at a pressure of 16/ 5 cm of water with an FiO2 of 35%.. The patient was also pollack spected to have a right lower lobe pneumonia covered with bronchodilators, antibiotics and steroids. Yesterday, because of increased agitation, had to put the patient on Precedex and the dose was titrated up to 1 mg micrograms per kilogram per minute. This morning, he seems to much more quiet and comfortable. He was taken off the BiPAP and the patient is currently on oxygen at 3 L. He is breathing comfortably at this point in time and his pulse ox is around 99%. Precedex is still running at a lower dose of 0.9. He is hemodynamically stable. He has developed some sinus bradycardia could be related to Precedex. He is white cell count is at 7.5 with a hemoglobin 8.6. His blood work is showing a BUN of 56 with a creatinine of 2.1. Serum bicarb is at 35. The patient is requesting to have some water. Repeat chest x-ray from yesterday showed COPD and hyperinflation. At the same time, the patient had elevation of the right hemidiaphragm and possibly development of some right-sided plural effusion. Limited infiltration was also seen in the left lung base. The right lung seems to be much better aerated on yesterday's chest x-ray. The patient is communicating. He is alert. He is awake. Is responsive. Urine culture came back positive for group D enterococcus. He is UA was mildly abnormal. Currently, he is on Zosyn and vancomycin combination. He is also on Lovenox 60 mg subcu on a daily basis. No other significant events On today's evaluation of 07/17/2021, the patient is more alert and awake compared to yesterday. He is on Precedex in the dose being titrated down and currently is down to 0.2 mcg/kg per minute. He prefers not to use the BiPAP which is making him more anxious. He is currently on oxygen at 1-1/2 L and his current pulse ox is around 86-88%. His breathing is more comfortable and less labored compared to yesterday. I need to have a follow-up chest x-ray on this patient regarding the right lung pneumonia. The patient is also getting clear liquid diet and this was started this morning. He remains on Zosyn and vancomycin combination. His blood work from today shows a hemoglobin of 7.9, slightly dropped compared to yesterday and the white cell count is at 9.5 BUN of 59 and a creatinine of 2.1 and sodium level is at 139. Vancomycin level is at 18.5. No other significant events since yesterday. Remains on bronchodilators. He remains on systemic steroids with IV Solu Medrol 60 mg every 6 hours. Urine culture was positive for group D enterococcus and the patient remains on the same antibiotic coverage for now. Objective - Vital Signs Vital signs: Vital Signs Temp 97.6 F 07/17/21 08:00 Pulse 70 07/17/21 10:00 Resp 11 L 07/17/21 10:00 BP 91/41 07/17/21 10:00 Pulse Ox 97 07/17/21 08:17 FiO2 35 07/16/21 08:17 Intake & Output 07/16/21 07/17/21 07/17/21 18:59 06:59 18:59 Intake Total 0538.132 2076.775 470.029 Output Total 310 125 285 Balance 7039.498 4902.775 185.029 Weight 65.317 kg Intake: IV 625 650 300 0.9 NcCl- 475 550 200 Zosyn IVPB 150 100 100 Intake, IV Titration 453.756 91.775 170.029 Amount Dexmedetomidine/0.9% NaCl 103.756 91.775 70.029 (Pmx) 400 mcg In Empty Bag 1 bag @ 0.2 MCG/KG/HR 3.266 mls/hr IV .Q24H [facility] Rx#:[id number] Sodium Ferric Gluconat- 100 100 Sucrose 125 mg In Sodium Chloride 0.9% 100 ml @ 100 mls/hr IVPB DAILY [facility] Rx#:[id number] Vancomycin 1,250 mg In 250 Sodium Chloride 0.9% 250 ml @ 125 mls/hr IVPB ONCE ONE Rx#:[id number] Oral 300 400 Output: Urine 310 125 285 Other: Voiding Method Indwelling Catheter Indwelling Catheter # Bowel Movements 1 - Exam GENERAL EXAM: Alert, disheveled 80-year-old male patient on 1.5 L O2 nasal cannula and here patient is communicating. Somewhat confused. For the most part he is very interactive. HEAD: Normocephalic. EYES: Normal reaction of pupils, equal size. NOSE: Clear with pink turbinates. THROAT: No erythema or exudates. NECK: No masses, no JVD. CHEST: No chest wall deformity. LUNGS: marked diminished breath sounds bilaterally and the patient has scattered SCANT EXPIRATORY WHEEZES THROUGHOUT THE LUNG DAO BILATERALLY. CVS: S1 and S2 normal with no audible murmur, regular rhythm.overall, the heart sounds are quite distant ABDOMEN: No hepatosplenomegaly, normal bowel sounds, no guarding or rigidity. SPINE: No scoliosis or deformity SKIN: No rashes CENTRAL NERVOUS SYSTEM: the patient shows improvement in the level of alertness, At least more awake compared to yesterday. Moving all 4 extremities and with a withdrawing to painful stimulation in all 4 extremities. He was awake reactive to light. No facial asymmetry. No significant agitation at this point in time. EXTREMITIES: There is no peripheral edema. No clubbing, no cyanosis. Peripheral pulses are intact. - Labs CBC & Chem 7: 07/17/21 07:30 07/17/21 07:30 Labs: Abnormal Lab Results - Last 24 Hours (Table) 07/16/21 07/16/21 07/17/21 Range/Units 17:51 20:24 07:15 RBC (4.30-5.90) m/uL Hgb (13.0-17.5) gm/dL Hct (39.0-53.0) % MCV (80.0-100.0) fL MCHC (31.0-37.0) g/dL Neutrophils # (1.3-7.7) k/uL Lymphocytes # (1.0-4.8) k/uL Chloride (98-107) mmol/L Carbon Dioxide (22-30) mmol/L BUN (9-20) mg/dL Creatinine (0.66-1.25) mg/dL Glucose (74-99) mg/dL POC Glucose (mg/dL) 234 H 266 H 129 H (75-99) mg/dL Calcium (8.4-10.2) mg/dL 07/17/21 07/17/21 Range/Units 07:30 07:30 RBC 2.68 L (4.30-5.90) m/uL Hgb 7.9 L (13.0-17.5) gm/dL Hct 28.1 L (39.0-53.0) % MCV 104.7 H (80.0-100.0) fL MCHC 28.2 L (31.0-37.0) g/dL Neutrophils # 8.6 H (1.3-7.7) k/uL Lymphocytes # 0.3 L (1.0-4.8) k/uL Chloride 97 L (98-107) mmol/L Carbon Dioxide 39 H (22-30) mmol/L BUN 59 H (9-20) mg/dL Creatinine 2.15 H (0.66-1.25) mg/dL Glucose 123 H (74-99) mg/dL POC Glucose (mg/dL) (75-99) mg/dL Calcium 7.2 L (8.4-10.2) mg/dL Microbiology - Last 24 Hours (Table) 07/14/21 12:28 Urine Culture - Final Urine,Catheterized Enterococcus faecalis 07/14/21 12:28 Blood Culture - Preliminary Blood No Growth after 48 hours 07/14/21 12:28 Blood Culture - Preliminary Blood No Growth after 48 hours Assessment and Plan Plan: 1 Acute hypoxic/hypercapnic respiratory failure, secondary to an acute exacerbation of his COPD. There is also new infiltration of the right lower lobe raising the concern for underlying right lower lobe pneumonia. There may be also developing small right-sided pleural effusion. The patient is improved. The patient was quite encephalopathic at a time of admission and he was placed on Precedex and he was also supported with BiPAP and currently is on oxygen by nasal cannula ranging between 1.5 L at 3 L. He remains on bronchodilators and steroids. A repeat chest x-rays to follow from today. Precedex is being weaned off. 2 chronic metabolic alkalosis secondary to above. 3 metabolic encephalopathy, altered mentation with signs of CO2 narcosis with background dementia. CAT scan of the brain is negative 4 History of paroxysmal atrial fibrillation anticoagulated with Xarelto, cur rently his rhythm is sinus 5 History of CVA/TIA, CAT scan of the head is not showing any acute abno rmalities 6 History of dementia 7 Diabetes mellitus 8 Hypertension 9 Hyperlipidemia 10 Remote history of DVT, maintained on long-term medical condition with Xarelto 11 Chronic tobacco dependence, quit in 2002 12 Hypothyroidism 13 Chronic renal failure. 14 History of brain bleed with surgery in 2003 15 Poor overall functional performance based on the above-mentioned multiple comorbidities Plan: Keep intensive care unit Wean off Precedex Titrate FiO2 to maintain saturation above 90% Soft diet The IV Fluids to 40 ML an Hour Repeat chest x-ray today Continue DuoNeb nebulized treatments around the clock Continue Perforomist and Pulmicort Continue IV Zosyn and vancomycin. Repeat chest x-ray in the morning EC Lovenox and switch this patient back to Xarelto and a milligrams by mouth daily The patient may need a swallow evaluation once more awake and once he is able to swallow, we'll switch him back to his oral pills Continue IV Protonix Continue IV Solu-Medrol Long-term prognosis poor based on the above. We'll continue to follow and will make further recommendations based on his progress. He is doing slow but ongoing improvements. DNR/DNI CODE STATUS. We'll continue monitoring his respiratory status is in mental status associated intensive care unit. Condition is obviously critical. This critically care evaluation was done and more than 30 minutes Time with Patient: Greater than 30
[2021-07-17 11:33] LABS: Glucose,Whole Blood 148 mg/dL (75-99)
--- NOTE | 2021-07-17 11:33 | XR ---
EXAMINATION TYPE: XR chest 1V portable DATE OF EXAM: 07/17/2021 COMPARISON: 07/15/2021 HISTORY: Pneumonia TECHNIQUE: Single frontal view of the chest is obtained. FINDINGS: There is a persistent moderate right pleural effusion. There is been interval development of a retroc ardiac opacity which could represent pneumonic infiltrate or atelectasis. There is a suggestion of mild pulmonary vascular congestion. Heart size is mildly prominent. There is no pneumothorax. The osseous structures are intact IMPRESSION: 1. No change in the small to moderate right pleural effusion. 2. Mild pulmonary vascular congestion. 3. Interval development of a retrocardiac opacity which could represent pneumonic infiltrate and/or a telectasis.
[2021-07-17] MEDS ORDERED: VANCOMYCIN 1,250 MG in SODIUM CHLORIDE 0.9% 250 ML IVPB ONE (14:00)
[2021-07-17 16:44] LABS: Glucose,Whole Blood 293 mg/dL (75-99)
[2021-07-17] MEDS ORDERED: IPRATROPIUM-ALBUTEROL 3 ML NEB INHALATION PRN (20:48)
[2021-07-17 21:17] LABS: Glucose,Whole Blood 179 mg/dL (75-99)
[2021-07-17] MEDS: MIRTAZAPINE 15 MG TAB PO SCH (21:38)
[2021-07-17] MEDS: RIVAROXABAN 20 MG TAB PO SCH (21:38)
[2021-07-17] MEDS: ATORVASTATIN 20 MG TAB PO SCH (21:38)
[2021-07-18] MEDS: methylPREDNISolone SOD SUCCI 125 MG/2 ML VIAL IV SCH ×3 (00:21→12:32)
[2021-07-18] MEDS: PIPERACILLIN-TAZOBACTAM 3.375 GM in SODIUM CHLORIDE 0.9% 100 ML IVPB SCH ×4 (00:22→23:52)
[2021-07-18 06:31] LABS: Glucose,Whole Blood 143 mg/dL (75-99)
[2021-07-18] MEDS: LEVOTHYROXINE 75 MCG TAB PO SCH (06:37)
[2021-07-18] MEDS: INSULIN ASPART (NovoLOG) 100 UNIT/ML VIAL SQ SCH ×7 (06:37→20:20)
[2021-07-18] MEDS: TAMSULOSIN 0.4 MG CAP.ER.24H PO SCH (06:38)
[2021-07-18] MEDS: FORMOTEROL FUMARATE 20 MCG/2 ML NEBU INHALATION SCH ×2 (07:06→20:46)
[2021-07-18] MEDS: IPRATROPIUM-ALBUTEROL 3 ML NEB INHALATION SCH ×4 (07:06→20:46)
[2021-07-18] MEDS: BUDESONIDE 0.5 MG/2 ML NEBU INHALATION SCH ×2 (07:07→20:46)
[2021-07-18 07:53] LABS: Calcium 7.3 mg/dL (8.4-10.2); Potassium 4.1 mmol/L (3.5-5.1)
[2021-07-18] MEDS: SODIUM FERRIC GLUCONAT-SUCROSE 125 MG in SODIUM CHLORIDE 0.9% 100 ML IVPB SCH (09:34)
[2021-07-18] MEDS: PANTOPRAZOLE 40 MG/10 ML VIAL IVP SCH (09:37)
[2021-07-18] MEDS: CLOPIDOGREL 75 MG TAB PO SCH (09:37)
[2021-07-18] MEDS: SODIUM CHLORIDE 0.9% 1,000 ML IV SCH (09:38)
[2021-07-18 09:45] LABS: Glucose,Whole Blood 217 mg/dL (75-99)
--- NOTE | 2021-07-18 09:56 | P.PN ---
Subjective Progress Note Date: 07/18/21 Patient is stable on 1.5 L nasal cannula. Precedex d/c'd. Tolerating a diet, tolerating by mouth medications. No longer bradycardic. Ongoing antibiotics with vancomycin, Zosyn. Urine culture is growing Enterococcus faecalis, pansensitive. Gen: awake alert Eyes: PERRL, no scleral injection or icterus HENT: normocephalic, atraumatic, moist mucous membranes Neck: no tracheal deviation, full range of motion Resp: Impaired air exchange, breathing comfortably with no accessory muscle use, no tactile fremitus, diminished breath sounds in the lower lung lainez, left side worse than the right side CVS: good distal perfusion x 4, bilateral 1+ pitting edema GI: soft, NTTP, ND, no hepatosplenomegaly : no suprapubic tenderness, no CVAT, rainey catheter not present MSK: no clubbing, no cyanosis, no noted contractures of extremities Skin: no noted rashes, petechiae; temperature of skin is appropriate Neuro: moving all extremities without signs of weakness, CN II-XII intact Labs and imaging reviewed as above Assessment/plan: Acute hypercarbic respiratory failure superimposed on chronic hypoxemic respiratory failure COPD exacerbation Community-acquired pneumonia Complicated urinary tract infection, Enterococcus faecalis -Admit to ICU, telemetry -Pulmonary consult -Miki [id number] -Steroids -Antibiotics: Vancomycin, Zosyn -Budesonide/formoterol twice a day -Patient started on Diamox, d/c'd on 07/16 -Resume nasal cannula, down titrate as able back to home dose of 2 L or as low as able to keep O2 between 88-92% Acute Kidney Injury superimposed on CKD, stage IIIb -avoid nephrotoxins, renally dose medications -nephrology consult CAD Hypertension Hyperlipidemia Diabetes Hypothyroidism History of DVT Paroxysmal atrial fibrillation History of CVA BPH -Can switch levothyroxine back to by mouth -Can switch enoxaparin back to Xarelto -Home medications reviewed and reconciled, changes noted above -regular diet Spoke with the patient's spouse today, patient is DO NOT RESUSCITATE/DO NOT INTUBATE DVT prophylaxis is covered with Xarelto Objective - Vital Signs Vital signs: Vital Signs Temp 98 F 07/18/21 04:00 Pulse 76 07/18/21 09:00 Resp 22 07/18/21 09:00 BP 117/47 07/18/21 09:00 Pulse Ox 92 L 07/18/21 09:00 FiO2 35 07/16/21 08:17 Intake & Output 07/17/21 07/18/21 07/18/21 18:59 06:59 18:59 Intake Total 802.276 580 121 Output Total 1025 590 210 Balance -222.724 -10 -89 Weight 67.78 kg 69.3 kg Intake: IV 620 580 121 0.9 NcCl- 520 480 121 Zosyn IVPB 100 100 Intake, IV Titration 182.276 Amount Dexmedetomidine/0.9% NaCl 82.276 (Pmx) 400 mcg In Empty Bag 1 bag @ 0.2 MCG/KG/HR 3.266 mls/hr IV .Q24H [facility] Rx#:[id number] Sodium Ferric Gluconat- 100 Sucrose 125 mg In Sodium Chloride 0.9% 100 ml @ 100 mls/hr IVPB DAILY [facility] Rx#:[id number] Output: Urine 1025 590 210 Other: Voiding Method Indwelling Catheter Indwelling Catheter # Bowel Movements 1 1 - Labs CBC & Chem 7: 07/17/21 07:30 07/18/21 06:30 Labs: Abnormal Lab Results - Last 24 Hours (Table) 07/17/21 07/17/21 07/17/21 Range/Units 11:32 16:42 21:16 Chloride (98-107) mmol/L Carbon Dioxide (22-30) mmol/L BUN (9-20) mg/dL Creatinine (0.66-1.25) mg/dL Glucose (74-99) mg/dL POC Glucose (mg/dL) 148 H 293 H 179 H (75-99) mg/dL Calcium (8.4-10.2) mg/dL 07/18/21 07/18/21 07/18/21 Range/Units 06:19 06:30 09:43 Chloride 96 L (98-107) mmol/L Carbon Dioxide 38 H (22-30) mmol/L BUN 60 H (9-20) mg/dL Creatinine 2.47 H (0.66-1.25) mg/dL Glucose 144 H (74-99) mg/dL POC Glucose (mg/dL) 143 H 217 H (75-99) mg/dL Calcium 7.3 L (8.4-10.2) mg/dL Microbiology - Last 24 Hours (Table) 07/14/21 12:28 Blood Culture - Preliminary Blood No Growth after 72 hours 07/14/21 12:28 Blood Culture - Preliminary Blood No Growth after 72 hours
[2021-07-18 11:24] LABS: Glucose,Whole Blood 282 mg/dL (75-99)
--- NOTE | 2021-07-18 12:10 | P.PN ---
Subjective Progress Note Date: 07/18/21 Principal diagnosis: Shortness of breath, altered mental status, acute exacerbation of COPD On 07/18/2021 patient seen in follow-up in the intensive care unit, patient has been off BiPAP support since 3:00 in the afternoon yesterday on 07/17/2021. He is breathing comfortably, he is awake and alert, he is on 2 L of oxygen pulse ox is 92%, afebrile, hemodynamically has been stable, breathing is nonlabored, no cough, no complaints of chest pain. Yesterday's chest x-ray showed no change in the small to moderate right pleural effusion, mild pulmonary vessel congestion, and an interval development of a retrocardiac opacity that could represent pneumonic infiltrate and/or atelectasis. Patient is covered with Zosyn, also received a dose of IV vancomycin. Patient is not able to produce any sputum for culture, but he was also found to have an acute urinary tract infection and urine culture showed enterococcus faecalis, blood cultures show no growth. He remains on IV steroids and breathing treatments. His last CBC from yesterday showed white blood cell count of 9.5, hemoglobin of 7.9, his BNP is showing sodium of 139, potassium is 4.1, chloride is 96, CO2 was 38, BUN 60, creatinine is 2.47. Patient continues on gentle IV hydration with point, sitting at a rate of 50 ML per hour, patient is also receiving iron replacement per nephrology, oral intake is currently poor. But patient has had no nausea vomiting or diarrhea. Patient did receive a dose of IV Lasix yesterday. He is in -232 mL net fluid balance over the last 24 hours. , Objective - Vital Signs Vital signs: Vital Signs Temp 98 F 07/18/21 04:00 Pulse 87 07/18/21 11:30 Resp 21 07/18/21 11:00 BP 117/46 07/18/21 11:00 Pulse Ox 92 L 07/18/21 11:00 FiO2 35 07/16/21 08:17 Intake & Output 07/17/21 07/18/21 07/18/21 18:59 06:59 18:59 Intake Total 802.276 580 361 Output Total 1025 590 350 Balance -222.724 -10 11 Weight 67.78 kg 69.3 kg Intake: IV 620 580 361 0.9 NcCl- 520 480 161 Sodium Chloride 0.9% 1, 100 000 ml @ 50 mls/hr IV . Q20H [facility] Rx#:[id number] Zosyn IVPB 100 100 100 Intake, IV Titration 182.276 Amount Dexmedetomidine/0.9% NaCl 82.276 (Pmx) 400 mcg In Empty Bag 1 bag @ 0.2 MCG/KG/HR 3.266 mls/hr IV .Q24H [facility] Rx#:[id number] Sodium Ferric Gluconat- 100 Sucrose 125 mg In Sodium Chloride 0.9% 100 ml @ 100 mls/hr IVPB DAILY [facility] Rx#:[id number] Output: Urine 1025 590 350 Other: Voiding Method Indwelling Catheter Indwelling Catheter Indwelling Catheter # Bowel Movements 1 1 - Exam GENERAL EXAM: Drowsy but arousable, 80-year-old white male, 2 L of oxygen pulse ox of 92-93% comfortable in no apparent distress. HEAD: Normocephalic/atraumatic. EYES: Normal reaction of pupils, equal size. Conjunctiva pink, sclera white. NOSE: Clear with pink turbinates. THROAT: No erythema or exudates. NECK: No masses, no JVD, no thyroid enlargement, no adenopathy. CHEST: No chest wall deformity. Symmetrical expansion. LUNGS: Equal air entry with no crackles, wheeze, rhonchi or dullness. CVS: Regular rate and rhythm, normal S1 and S2, no gallops, no murmurs, no rubs ABDOMEN: Soft, nontender. No hepatosplenomegaly, normal bowel sounds, no guarding or rigidity. EXTREMITIES: No clubbing, no edema, no cyanosis, 2+ pulses and upper and lower extremities. MUSCULOSKELETAL: Muscle strength and tone normal. SPINE: No scoliosis or deformity SKIN: No rashes CENTRAL NERVOUS SYSTEM: Alert and oriented -2. No focal deficits, tone is normal in all 4 extremities. PSYCHIATRIC: Alert and oriented -2. Appropriate affect. Intact judgment and insight. - Labs CBC & Chem 7: 07/17/21 07:30 07/18/21 06:30 Labs: Abnormal Lab Results - Last 24 Hours (Table) 07/17/21 07/17/21 07/18/21 Range/Units 16:42 21:16 06:19 Chloride (98-107) mmol/L Carbon Dioxide (22-30) mmol/L BUN (9-20) mg/dL Creatinine (0.66-1.25) mg/dL Glucose (74-99) mg/dL POC Glucose (mg/dL) 293 H 179 H 143 H (75-99) mg/dL Calcium (8.4-10.2) mg/dL 07/18/21 07/18/21 07/18/21 Range/Units 06:30 09:43 11:22 Chloride 96 L (98-107) mmol/L Carbon Dioxide 38 H (22-30) mmol/L BUN 60 H (9-20) mg/dL Creatinine 2.47 H (0.66-1.25) mg/dL Glucose 144 H (74-99) mg/dL POC Glucose (mg/dL) 217 H 282 H (75-99) mg/dL Calcium 7.3 L (8.4-10.2) mg/dL Microbiology - Last 24 Hours (Table) 07/14/21 12:28 Blood Culture - Preliminary Blood No Growth after 72 hours 07/14/21 12:28 Blood Culture - Preliminary Blood No Growth after 72 hours Assessment and Plan Plan: Assessment: #1. Acute hypoxic and hypercapnic respiratory failure related to acute exacerbation of COPD. Yesterday his chest x-ray also showed new right lower lobe infiltrate raising possibility of underlying right lower lobe pneumonia. There is also developing small right-sided pleural effusion. Patient remains on Zosyn for antibiotic coverage, is not requiring BiPAP support currently #2. Altered mental status related to the above, and sepsis, with background of dementia, computed tomography scan of the brain was negative #3. Chronic metabolic alkalosis #4. History of paroxysmal atrial fibrillation on several toe, currently sinus mechanism #5. History of CVA/TIA, computed tomography scan of the head is not showing any acute abnormalities #6. History of dementia #7. Diabetes mellitus type 2 #8. Hypertension #9. Hyperlipidemia #10. Remote history of DVT #11. Chronic tobacco dependence, in remission since 2002 #12. Hypothyroidism #13. Chronic kidney disease, unspecified #14. History of brain bleed with surgery in 2003 #15. Poor overall functional performance Plan: May use BiPAP support at bedtime and as needed for shortness of breath Continue current antibiotics Consult ID service for antibiotic management We'll cut back IV steroids to 40 mg every 8 hours Continue nebulized bronchodilators Diuretics on hold Continue oral anticoagulation Patient can be transferred out of ICU to regular medical surgical floor Overall long-term prognosis is quite guarded CODE STATUS is DO NOT RESUSCITATE DO NOT INTUBATE Continue supportive medical treatment I have personally seen and examined the patient, performed the documentation and the assessment and plan as written. Number of minutes spent on the visit: [10] Time with Patient: Less than 30
[2021-07-18 12:35] LABS: Glucose,Whole Blood 257 mg/dL (75-99)
--- NOTE | 2021-07-18 12:39 | P.PN ---
Subjective Patient is seen for follow-up for acute kidney injury and top of chronic kidney disease. He has had good urine output Currently maintained on IV fluids at 50 mL an hour Mentation is close to baseline. Objective - Vital Signs Vital signs: Vital Signs Temp 98 F 07/18/21 04:00 Pulse 87 07/18/21 11:30 Resp 21 07/18/21 11:00 BP 117/46 07/18/21 11:00 Pulse Ox 92 L 07/18/21 11:00 FiO2 35 07/16/21 08:17 Intake & Output 07/17/21 07/18/21 07/18/21 18:59 06:59 18:59 Intake Total 802.276 580 361 Output Total 1025 590 350 Balance -222.724 -10 11 Weight 67.78 kg 69.3 kg Intake: IV 620 580 361 0.9 NcCl- 520 480 161 Sodium Chloride 0.9% 1, 100 000 ml @ 50 mls/hr IV . Q20H [facility] Rx#:[id number] Zosyn IVPB 100 100 100 Intake, IV Titration 182.276 Amount Dexmedetomidine/0.9% NaCl 82.276 (Pmx) 400 mcg In Empty Bag 1 bag @ 0.2 MCG/KG/HR 3.266 mls/hr IV .Q24H [facility] Rx#:[id number] Sodium Ferric Gluconat- 100 Sucrose 125 mg In Sodium Chloride 0.9% 100 ml @ 100 mls/hr IVPB DAILY [facility] Rx#:[id number] Output: Urine 1025 590 350 Other: Voiding Method Indwelling Catheter Indwelling Catheter Indwelling Catheter # Bowel Movements 1 1 - Exam Awake, comfortable, not in any acute distress Examination of the heart S1 and S2 Exertion lungs bilateral breath sounds are Abdomen is soft nontender Examination of lower extremity shows trace edema bilaterally - Labs CBC & Chem 7: 07/17/21 07:30 07/18/21 06:30 Labs: Abnormal Lab Results - Last 24 Hours (Table) 07/17/21 07/17/21 07/18/21 Range/Units 16:42 21:16 06:19 Chloride (98-107) mmol/L Carbon Dioxide (22-30) mmol/L BUN (9-20) mg/dL Creatinine (0.66-1.25) mg/dL Glucose (74-99) mg/dL POC Glucose (mg/dL) 293 H 179 H 143 H (75-99) mg/dL Calcium (8.4-10.2) mg/dL 07/18/21 07/18/21 07/18/21 Range/Units 06:30 09:43 11:22 Chloride 96 L (98-107) mmol/L Carbon Dioxide 38 H (22-30) mmol/L BUN 60 H (9-20) mg/dL Creatinine 2.47 H (0.66-1.25) mg/dL Glucose 144 H (74-99) mg/dL POC Glucose (mg/dL) 217 H 282 H (75-99) mg/dL Calcium 7.3 L (8.4-10.2) mg/dL 07/18/21 Range/Units 12:33 Chloride (98-107) mmol/L Carbon Dioxide (22-30) mmol/L BUN (9-20) mg/dL Creatinine (0.66-1.25) mg/dL Glucose (74-99) mg/dL POC Glucose (mg/dL) 257 H (75-99) mg/dL Calcium (8.4-10.2) mg/dL Microbiology - Last 24 Hours (Table) 07/14/21 12:28 Blood Culture - Preliminary Blood No Growth after 72 hours 07/14/21 12:28 Blood Culture - Preliminary Blood No Growth after 72 hours Assessment and Plan Assessment: 1. Acute kidney injury secondary to ATN secondary to diuresis. Good urine output. Serum creatinine slightly higher. We'll continue to monitor. Continue with saline at 50 mL an hour. 2. 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 Baseline creatinine around 1.5 3. Acute hypercapnic respiratory failure 4. COPD exacerbation 5. Metabolic alkalosis mostly compensatory mechanism for respiratory acidosis 6. Hyperkalemia associated with acute kidney injury metabolic acidosis cu rrently improved Plan: Continue with saline at 50 mL an hour Repeat labs in a.m. Continue off of Diamox Monitor electrolytes
[2021-07-18] MEDS: INSULIN DETEMIR (LEVEMIR) 100 UNIT/ML SYR SQ SCH (14:00)
[2021-07-18 17:18] LABS: Glucose,Whole Blood 187 mg/dL (75-99)
[2021-07-18] MEDS: methylPREDNISolone SOD SUCCI 40 MG/ML 1 ML VIAL IV SCH ×2 (17:54→23:52)
[2021-07-18 20:07] LABS: Glucose,Whole Blood 153 mg/dL (75-99)
[2021-07-18] MEDS: ATORVASTATIN 20 MG TAB PO SCH (20:21)
[2021-07-18] MEDS: MIRTAZAPINE 15 MG TAB PO SCH (20:21)
[2021-07-18] MEDS: RIVAROXABAN 15 MG TAB PO SCH (20:34)
--- NOTE | 2021-07-18 22:20 | P.CONS ---
History of Present Illness - Reason for Consult Consult date: 07/18/21 - History of Present Illness Patient is a 80-year-old male presented to hospital 4 days ago on 07/14/2021 from a half-way as the patient was noticed to be more obtunded, patient apparently was also hypoxic with O2 sats of 80% patient was subsequently brought into the ER on arrival to the ER the patient was initially afebrile subsequently he did have a low-grade fever of 100 F on 07/15/2021 and no fever had been recorded since then patient is currently on a 2 L nasal cannula patient did have a normal white count with a left shift BUN and creatinine has been elevated though trending down liver enzymes has been normal patient did have a positive UA with moderate leukocyte esterase 21 WBC urine culture has been finalized with Enterococcus faecalis penicillin sensitive, blood culture has been negative patient did have a CT of the brain no acute intracranial hemorrhage chest x-ray right lower lobe infiltrate and small effusion similar to the prior exam chest x-ray completed yesterday no change interval development of the retrocardiac opacity which could represent pneumonic infiltrate or atelectasis infectious was consulted today for management of his antibiotic therapy currently being treated with vancomycin and Zosyn. Most of the information has been obtained from review the chart and talking nursing staff as the patient himself was not a very good historian Past Medical History Past Medical History: Atrial Fibrillation, COPD, CVA/TIA, Dementia, Diabetes Mellitus, GERD/Reflux, Hyperlipidemia, Hypertension, Musculoskeletal Disorder, Osteoarthritis (OA), Pneumonia, Prostate Disorder, Renal Disease, Syncope, Thyroid Disorder Additional Past Medical History / Comment(s): Chronic hypoxic respiratory failure, home O2 at 2L/NC ATC, 2003 CVA with brain bleed L side requiring a neurosurgical intervention, 2011 shingles, migraines, nephrolithiasis-passed stone on his own, BPH, diabetes mellitus, hypothyroidism, paroxysmal atrial fibrillation, degenerative arthritis, migraines, nephrolithiasis, BPH, remote history of DVT, chronic renal failure stage III. History of Any Multi-Drug Resistant Organisms: None Reported Past Surgical History: Tonsillectomy Additional Past Surgical History / Comment(s): Brain surgery for bleed 2003. Past Anesthesia/Blood Transfusion Reactions: No Reported Reaction Smoking Status: Former smoker - Past Family History Father Family Medical History: CVA/TIA Additional Family Medical History / Comment(s): Father had a CVA at age 63. Pt does not know how old he lived to be. Mother Family Medical History: No Reported History Additional Family Medical History / Comment(s): Pt states his mother just of old age. He does not know how old she was when she . Medications and Allergies Home Medications Medication Instructions Recorded Confirmed Type Atorvastatin [Lipitor] 20 mg PO HS@199912/22/14 07/14/21 History Levothyroxine Sodium [Synthroid] 75 mcg PO DAILY 12/22/14 07/14/21 History Potassium Chloride [K-Tab ER] 10 meq PO DAILY 12/22/14 07/14/21 History Clopidogrel [Plavix] 75 mg PO DAILY 02/06/17 07/14/21 History Mirtazapine [Remeron] 15 mg PO HS@199907/11/17 07/14/21 History metFORMIN HCL [Glucophage] 500 mg PO DAILY 07/11/17 07/14/21 History Rivaroxaban [Xarelto] 20 mg PO HS 06/21/21 07/14/21 History Sodium Chloride [Carbon] 1 spray EA NOSTRIL DAILY PRN 07/14/21 07/14/21 History Tamsulosin [Flomax] 0.4 mg PO DAILY@0700 07/14/21 07/14/21 History predniSONE See Taper PO DIRECTED 07/14/21 07/14/21 History Allergies Allergy/AdvReac Type Severity Reaction Status Date / Time No Known Allergies Allergy Verified 07/14/21 12:13 Physical Exam Vitals: Vital Signs Temp Pulse Resp BP Pulse Ox 07/18/21 10:00 90 25 H 125/52 92 L 07/18/21 09:00 76 22 117/47 92 L 07/18/21 08:00 77 29 H 127/51 93 L 07/18/21 07:31 80 07/18/21 07:21 77 07/18/21 07:20 78 07/18/21 07:07 75 07/18/21 07:00 81 36 H 128/54 94 L 07/18/21 06:00 78 21 125/54 96 07/18/21 05:00 77 19 126/53 95 07/18/21 04:00 98 F 86 19 121/46 95 07/18/21 03:00 81 16 117/52 96 07/18/21 02:00 82 20 133/55 95 07/18/21 01:00 81 14 117/53 96 07/18/21 00:00 98 F 79 21 127/53 96 07/17/21 23:00 79 23 120/52 95 07/17/21 22:00 81 12 113/49 95 07/17/21 21:00 78 22 112/47 94 L 07/17/21 20:07 80 07/17/21 20:00 98.2 F 76 14 113/47 93 L 07/17/21 19:59 80 07/17/21 19:58 78 07/17/21 19:53 80 07/17/21 19:00 81 15 116/50 94 L 07/17/21 18:00 77 20 116/50 94 L 07/17/21 17:00 94 40 H 115/49 93 L 07/17/21 16:00 98.0 F 84 27 H 126/53 95 07/17/21 15:00 87 12 127/52 07/17/21 14:00 93 5 L 116/98 07/17/21 13:00 78 15 123/51 07/17/21 12:00 97.6 F 82 16 115/47 07/17/21 11:42 58 L 07/17/21 11:32 65 Intake and Output 07/17/21 07/18/21 07/18/21 22:59 06:59 14:59 Intake Total 323.048 420 321 Output Total 350 385 310 Balance -26.952 35 11 Intake: IV 320 420 321 0.9 NcCl- 320 320 121 Sodium Chloride 0.9% 1, 100 000 ml @ 50 mls/hr IV . Q20H [facility] Rx#:[id number] Zosyn IVPB 100 100 Intake, IV Titration 3.048 Amount Dexmedetomidine/0.9% NaCl 3.048 (Pmx) 400 mcg In Empty Bag 1 bag @ 0.2 MCG/KG/HR 3.266 mls/hr IV .Q24H [facility] Rx#:[id number] Output: Urine 350 385 310 Other: Voiding Method Indwelling Catheter Indwelling Catheter # Bowel Movements 1 Weight 69.3 kg Results CBC & Chem 7: 07/17/21 07:30 07/18/21 06:30 Labs: Abnormal Lab Results - Last 24 Hours (Table) 07/17/21 07/17/21 07/17/21 Range/Units 11:32 16:42 21:16 Chloride (98-107) mmol/L Carbon Dioxide (22-30) mmol/L BUN (9-20) mg/dL Creatinine (0.66-1.25) mg/dL Glucose (74-99) mg/dL POC Glucose (mg/dL) 148 H 293 H 179 H (75-99) mg/dL Calcium (8.4-10.2) mg/dL 07/18/21 07/18/21 07/18/21 Range/Units 06:19 06:30 09:43 Chloride 96 L (98-107) mmol/L Carbon Dioxide 38 H (22-30) mmol/L BUN 60 H (9-20) mg/dL Creatinine 2.47 H (0.66-1.25) mg/dL Glucose 144 H (74-99) mg/dL POC Glucose (mg/dL) 143 H 217 H (75-99) mg/dL Calcium 7.3 L (8.4-10.2) mg/dL Microbiology - Last 24 Hours (Table) 07/14/21 12:28 Blood Culture - Preliminary Blood No Growth after 72 hours 07/14/21 12:28 Blood Culture - Preliminary Blood No Growth after 72 hours Assessment and Plan Plan: 1patient presented to hospital with mental status changes in this patient who did have a right sided infiltrate and concerning for possible pneumonia questionable aspiration in this patient half-way resident and need to cover for the resistant gram-negative, the patient also have a component of UTI with a urine culture finalized with Enterococcus faecalis that is sensitive to penicillin. 2patient to have a elevated creatinine and high risk of nephrotoxicity from vancomycin and Zosyn combination. 3continue the patient on Zosyn to cover for both pneumonia as well as UTI and discontinue vancomycin. We will follow on clinical condition and cultures to further adjust medication if needed Thank you for this consultation will follow this patient along with you Time with Patient: Greater than 30
[2021-07-19] MEDS: SODIUM CHLORIDE 0.9% 1,000 ML IV SCH (04:34)
[2021-07-19] MEDS: TAMSULOSIN 0.4 MG CAP.ER.24H PO SCH (06:09)
[2021-07-19] MEDS: LEVOTHYROXINE 75 MCG TAB PO SCH (06:09)
[2021-07-19 06:40] LABS: Glucose,Whole Blood 107 mg/dL (75-99)
[2021-07-19] MEDS: INSULIN ASPART (NovoLOG) 100 UNIT/ML VIAL SQ SCH ×7 (06:43→20:29)
[2021-07-19] MEDS: INSULIN DETEMIR (LEVEMIR) 100 UNIT/ML SYR SQ SCH (06:51)
[2021-07-19] MEDS: IPRATROPIUM-ALBUTEROL 3 ML NEB INHALATION SCH ×4 (07:20→20:15)
[2021-07-19] MEDS: BUDESONIDE 0.5 MG/2 ML NEBU INHALATION SCH ×2 (07:20→20:15)
[2021-07-19] MEDS: FORMOTEROL FUMARATE 20 MCG/2 ML NEBU INHALATION SCH ×2 (07:20→20:15)
[2021-07-19] MEDS: methylPREDNISolone SOD SUCCI 40 MG/ML 1 ML VIAL IV SCH ×3 (08:02→23:22)
[2021-07-19] MEDS: PANTOPRAZOLE 40 MG/10 ML VIAL IVP SCH (08:02)
[2021-07-19] MEDS: CLOPIDOGREL 75 MG TAB PO SCH (08:03)
[2021-07-19] MEDS: PIPERACILLIN-TAZOBACTAM 3.375 GM in SODIUM CHLORIDE 0.9% 100 ML IVPB SCH ×3 (08:04→23:22)
[2021-07-19 08:17] LABS: Basophils % (A) 0 %; Eosinophils % (A) 0 %; HCT 28.1 % (39.0-53.0); HGB 8.3 gm/dL (13.0-17.5); Hypochromasia Marked; Lymphocytes # (A) 0.3 k/uL (1.0-4.8); Lymphocytes % (A) 3 %; MCH 30.6 pg (25.0-35.0); MCHC 29.5 g/dL (31.0-37.0); MCV 103.7 fL (80.0-100.0); Macrocytosis Moderate; Mean Platelet Volume 8.2; Monocytes # (A) 0.4 k/uL (0-1.0); Monocytes % (A) 4 %; Neutrophils # (A) 9.1 k/uL (1.3-7.7); Neutrophils % (A) 92 %; Platelet Count 143 k/uL (150-450); RBC 2.71 m/uL (4.30-5.90); RDW 15.2 % (11.5-15.5); WBC 9.9 k/uL (3.8-10.6)
[2021-07-19] MEDS: SODIUM FERRIC GLUCONAT-SUCROSE 125 MG in SODIUM CHLORIDE 0.9% 100 ML IVPB SCH (08:19)
--- NOTE | 2021-07-19 08:51 | P.PN ---
Subjective Progress Note Date: 07/19/21 Patient is stable on 1.5 L nasal cannula. Precedex d/c'd. Tolerating a diet, tolerating by mouth medications. No longer bradycardic. Ongoing antibiotics with vancomycin, Zosyn. Urine culture is growing Enterococcus faecalis, pansensitive. Gen: awake alert Eyes: PERRL, no scleral injection or icterus HENT: normocephalic, atraumatic, moist mucous membranes Neck: no tracheal deviation, full range of motion Resp: Impaired air exchange, breathing comfortably with no accessory muscle use, no tactile fremitus, diminished breath sounds in the lower lung lainez, left side worse than the right side CVS: good distal perfusion x 4, bilateral 1+ pitting edema GI: soft, NTTP, ND, no hepatosplenomegaly : no suprapubic tenderness, no CVAT, rainey catheter not present MSK: no clubbing, no cyanosis, no noted contractures of extremities Skin: no noted rashes, petechiae; temperature of skin is appropriate Neuro: moving all extremities without signs of weakness, CN II-XII intact Labs and imaging reviewed as above Assessment/plan: Acute hypercarbic respiratory failure superimposed on chronic hypoxemic respiratory failure COPD exacerbation Community-acquired pneumonia Complicated urinary tract infection, Enterococcus faecalis -Admit to ICU, telemetry -Pulmonary consult -Miki [id number] -Steroids -Antibiotics: Zosyn, vanco d/c'd on 07/18 -Budesonide/formoterol twice a day -Patient started on Diamox, d/c'd on 07/16 -Resume nasal cannula, down titrate as able back to home dose of 2 L or as low as able to keep O2 between 88-92% Acute Kidney Injury superimposed on CKD, stage IIIb -avoid nephrotoxins, renally dose medications -nephrology consult CAD Hypertension Hyperlipidemia Diabetes Hypothyroidism History of DVT Paroxysmal atrial fibrillation History of CVA BPH -Can switch levothyroxine back to by mouth -Can switch enoxaparin back to Xarelto -Home medications reviewed and reconciled, changes noted above -regular diet Spoke with the patient's spouse today, patient is DO NOT RESUSCITATE/DO NOT INTUBATE DVT prophylaxis is covered with Xarelto Objective - Vital Signs Vital signs: Vital Signs Temp 98 F 07/19/21 04:00 Pulse 72 07/19/21 07:42 Resp 16 07/19/21 07:42 BP 115/57 07/19/21 07:00 Pulse Ox 98 07/19/21 07:18 FiO2 35 07/19/21 07:16 Intake & Output 07/18/21 07/19/21 07/19/21 18:59 06:59 18:59 Intake Total 811 450 Output Total 660 1000 Balance 151 -550 Weight 70.5 kg Intake: IV 811 450 0.9 NcCl- 511 Sodium Chloride 0.9% 1, 200 450 000 ml @ 50 mls/hr IV . Q20H [facility] Rx#:[id number] Zosyn IVPB 100 Output: Urine 660 1000 Other: Voiding Method Indwelling Catheter Indwelling Catheter # Bowel Movements 1 - Labs CBC & Chem 7: 07/19/21 07:51 07/18/21 06:30 Labs: Abnormal Lab Results - Last 24 Hours (Table) 07/18/21 07/18/21 07/18/21 Range/Units 09:43 11:22 12:33 RBC (4.30-5.90) m/uL Hgb (13.0-17.5) gm/dL Hct (39.0-53.0) % MCV (80.0-100.0) fL MCHC (31.0-37.0) g/dL Plt Count (150-450) k/uL Neutrophils # (1.3-7.7) k/uL Lymphocytes # (1.0-4.8) k/uL POC Glucose (mg/dL) 217 H 282 H 257 H (75-99) mg/dL 07/18/21 07/18/21 07/19/21 Range/Units 17:16 20:06 06:39 RBC (4.30-5.90) m/uL Hgb (13.0-17.5) gm/dL Hct (39.0-53.0) % MCV (80.0-100.0) fL MCHC (31.0-37.0) g/dL Plt Count (150-450) k/uL Neutrophils # (1.3-7.7) k/uL Lymphocytes # (1.0-4.8) k/uL POC Glucose (mg/dL) 187 H 153 H 107 H (75-99) mg/dL 07/19/21 Range/Units 07:51 RBC 2.71 L (4.30-5.90) m/uL Hgb 8.3 L (13.0-17.5) gm/dL Hct 28.1 L (39.0-53.0) % MCV 103.7 H (80.0-100.0) fL MCHC 29.5 L (31.0-37.0) g/dL Plt Count 143 L (150-450) k/uL Neutrophils # 9.1 H (1.3-7.7) k/uL Lymphocytes # 0.3 L (1.0-4.8) k/uL POC Glucose (mg/dL) (75-99) mg/dL Microbiology - Last 24 Hours (Table) 07/14/21 12:28 Blood Culture - Preliminary Blood No Growth after 96 hours 07/14/21 12:28 Blood Culture - Preliminary Blood No Growth after 96 hours
[2021-07-19 10:25] LABS: Calcium 7.4 mg/dL (8.4-10.2); Potassium 3.9 mmol/L (3.5-5.1)
--- NOTE | 2021-07-19 10:26 | P.PN ---
Subjective Patient is seen for follow-up for acute kidney injury and top of chronic kidney disease. He has had good urine output, 1.6 L over 24 hours Currently maintained on IV fluids at 50 mL an hour Mentation is close to baseline. Objective - Vital Signs Vital signs: Vital Signs Temp 98.0 F 07/19/21 08:00 Pulse 75 07/19/21 08:00 Resp 14 07/19/21 08:00 BP 117/47 07/19/21 08:00 Pulse Ox 98 07/19/21 08:00 FiO2 35 07/19/21 07:16 Intake & Output 07/18/21 07/19/21 07/19/21 18:59 06:59 18:59 Intake Total 811 450 Output Total 660 1000 Balance 151 -550 Weight 70.5 kg Intake: IV 811 450 0.9 NcCl- 511 Sodium Chloride 0.9% 1, 200 450 000 ml @ 50 mls/hr IV . Q20H [facility] Rx#:[id number] Zosyn IVPB 100 Output: Urine 660 1000 Other: Voiding Method Indwelling Catheter Indwelling Catheter Indwelling Catheter # Bowel Movements 1 - Exam Awake, comfortable, not in any acute distress Examination of the heart S1 and S2 Examination of lungs bilateral breath sounds are heard Abdomen is soft nontender Examination of lower extremity shows 1+ edema bilaterally - Labs CBC & Chem 7: 07/19/21 07:51 07/18/21 06:30 Labs: Abnormal Lab Results - Last 24 Hours (Table) 07/18/21 07/18/21 07/18/21 Range/Units 11:22 12:33 17:16 RBC (4.30-5.90) m/uL Hgb (13.0-17.5) gm/dL Hct (39.0-53.0) % MCV (80.0-100.0) fL MCHC (31.0-37.0) g/dL Plt Count (150-450) k/uL Neutrophils # (1.3-7.7) k/uL Lymphocytes # (1.0-4.8) k/uL POC Glucose (mg/dL) 282 H 257 H 187 H (75-99) mg/dL 07/18/21 07/19/21 07/19/21 Range/Units 20:06 06:39 07:51 RBC 2.71 L (4.30-5.90) m/uL Hgb 8.3 L (13.0-17.5) gm/dL Hct 28.1 L (39.0-53.0) % MCV 103.7 H (80.0-100.0) fL MCHC 29.5 L (31.0-37.0) g/dL Plt Count 143 L (150-450) k/uL Neutrophils # 9.1 H (1.3-7.7) k/uL Lymphocytes # 0.3 L (1.0-4.8) k/uL POC Glucose (mg/dL) 153 H 107 H (75-99) mg/dL Microbiology - Last 24 Hours (Table) 07/14/21 12:28 Blood Culture - Preliminary Blood No Growth after 96 hours 07/14/21 12:28 Blood Culture - Preliminary Blood No Growth after 96 hours Assessment and Plan Assessment: 1. Acute kidney injury secondary to ATN secondary to diuresis. Good urine output. Serum creatinine slightly higher. We'll continue to monitor. Continue with saline at 50 mL an hour. 2. 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 Baseline creatinine around 1.5 3. Acute hypercapnic respiratory failure 4. COPD exacerbation 5. Metabolic alkalosis mostly compensatory mechanism for respiratory acidosis 6. Hyperkalemia associated with acute kidney injury metabolic acidosis currently improved Plan: DC saline Continue off of Diamox Check labs
[2021-07-19 11:35] VITALS: BMI 22.9
[2021-07-19 11:51] LABS: Glucose,Whole Blood 115 mg/dL (75-99)
--- NOTE | 2021-07-19 13:34 | P.PN ---
Subjective Progress Note Date: 07/19/21 Principal diagnosis: Acute exacerbation of COPD On 07/18/2021 patient seen in follow-up in the intensive care unit, patient has been off BiPAP support since 3:00 in the afternoon yesterday on 07/17/2021. He is breathing comfortably, he is awake and alert, he is on 2 L of oxygen pulse ox is 92%, afebrile, hemodynamically has been stable, breathing is nonlabored, no cough, no complaints of chest pain. Yesterday's chest x-ray showed no change in the small to moderate right pleural effusion, mild pulmonary vessel congestion, and an interval development of a retrocardiac opacity that could represent pneumonic infiltrate and/or atelectasis. Patient is covered with Zosyn, also received a dose of IV vancomycin. Patient is not able to produce any sputum for culture, but he was also found to have an acute urinary tract infection and urine culture showed enterococcus faecalis, blood cultures show no growth. He remains on IV steroids and breathing treatments. His last CBC from yesterday showed white blood cell count of 9.5, hemoglobin of 7.9, his BNP is showing sodium of 139, potassium is 4.1, chloride is 96, CO2 was 38, BUN 60, creatinine is 2.47. Patient continues on gentle IV hydration with point, sitting at a rate of 50 ML per hour, patient is also receiving iron replacement per nephrology, oral intake is currently poor. But patient has had no nausea vomiting or diarrhea. Patient did receive a dose of IV Lasix yesterday. He is in -232 mL net fluid balance over the last 24 hours. Patient was reevaluated today 07/19/21, remains in the ICU as an overflow. He is on oxygen at 2 L/m. Patient is on IV fluid at 50 mL per hour in the form of 0.9 normal saline. Patient did not require any CPAP or BiPAP overnight. He is hemodynamically stable. Not much of the changes noted in the last 24 hours. I believe the patient should have evaluation by psych social worker and possibly arrange for placement. I will strongly recommend ECF placement. In the meant jalyn the patient remains in the ICU as a MedSurg overflow. CBC is relatively unremarkable WBC count is 9.9 hemoglobin 8.3 left lites are normal however his BUN is 57 creatinine 2.2, obviously the patient has acute on chronic kidney disease, and he is being followed by nephrology. Chest x-ray on this admission showed small to moderate right-sided pleural effusion which is chronic, mild pulmonary vascular congestion, and retrocardiac opacity/atelectasis , Objective - Vital Signs Vital signs: Vital Signs Temp 98.0 F 07/19/21 08:00 Pulse 67 07/19/21 10:45 Resp 22 07/19/21 10:45 BP 117/47 07/19/21 08:00 Pulse Ox 98 07/19/21 08:00 FiO2 35 07/19/21 07:16 Intake & Output 07/18/21 07/19/21 07/19/21 18:59 06:59 18:59 Intake Total 811 450 Output Total 660 1000 Balance 151 -550 Weight 70.5 kg 70.5 kg Intake: IV 811 450 0.9 NcCl- 511 Sodium Chloride 0.9% 1, 200 450 000 ml @ 50 mls/hr IV . Q20H [facility] Rx#:[id number] Zosyn IVPB 100 Output: Urine 660 1000 Other: Voiding Method Indwelling Catheter Indwelling Catheter Indwelling Catheter # Bowel Movements 1 - Exam Physical Exam: Revealed an 80-year-old white male in no distress, very comfortable. On 2 L nasal cannula. O2 sats is 93%. Head: Atraumatic, normocephalic. HEENT:[Neck is supple.] [No neck masses.] [No thyromegaly.] [No JVD.] Chest: [Symmetrical chest expansion, diminished breath sounds at the bases no crackles or rhonchi or wheezes. Cardiac Exam: [Normal S1 and S2, no S3 gallop, no murmur.] Abdomen: [Soft, nontender, no megaly, no rebound, no guarding, normal bowel sounds.] Extremities: [No clubbing, no edema, no cyanosis.] Neurological Exam: [No focal neurologic deficit.] Alert and oriented 3. Psychiatric: Normal mood affect and normal mental status examination. Skin: No rashes. - Labs CBC & Chem 7: 07/19/21 07:51 07/19/21 09:14 Labs: Abnormal Lab Results - Last 24 Hours (Table) 07/18/21 07/18/21 07/19/21 Range/Units 17:16 20:06 06:39 RBC (4.30-5.90) m/uL Hgb (13.0-17.5) gm/dL Hct (39.0-53.0) % MCV (80.0-100.0) fL MCHC (31.0-37.0) g/dL Plt Count (150-450) k/uL Neutrophils # (1.3-7.7) k/uL Lymphocytes # (1.0-4.8) k/uL Carbon Dioxide (22-30) mmol/L BUN (9-20) mg/dL Creatinine (0.66-1.25) mg/dL Glucose (74-99) mg/dL POC Glucose (mg/dL) 187 H 153 H 107 H (75-99) mg/dL Calcium (8.4-10.2) mg/dL Procalcitonin (0.02-0.09) ng/mL 07/19/21 07/19/21 07/19/21 Range/Units 07:51 07:51 09:14 RBC 2.71 L (4.30-5.90) m/uL Hgb 8.3 L (13.0-17.5) gm/dL Hct 28.1 L (39.0-53.0) % MCV 103.7 H (80.0-100.0) fL MCHC 29.5 L (31.0-37.0) g/dL Plt Count 143 L (150-450) k/uL Neutrophils # 9.1 H (1.3-7.7) k/uL Lymphocytes # 0.3 L (1.0-4.8) k/uL Carbon Dioxide 38 H (22-30) mmol/L BUN 57 H (9-20) mg/dL Creatinine 2.20 H (0.66-1.25) mg/dL Glucose 130 H (74-99) mg/dL POC Glucose (mg/dL) (75-99) mg/dL Calcium 7.4 L (8.4-10.2) mg/dL Procalcitonin 0.16 H (0.02-0.09) ng/mL 07/19/21 Range/Units 11:49 RBC (4.30-5.90) m/uL Hgb (13.0-17.5) gm/dL Hct (39.0-53.0) % MCV (80.0-100.0) fL MCHC (31.0-37.0) g/dL Plt Count (150-450) k/uL Neutrophils # (1.3-7.7) k/uL Lymphocytes # (1.0-4.8) k/uL Carbon Dioxide (22-30) mmol/L BUN (9-20) mg/dL Creatinine (0.66-1.25) mg/dL Glucose (74-99) mg/dL POC Glucose (mg/dL) 115 H (75-99) mg/dL Calcium (8.4-10.2) mg/dL Procalcitonin (0.02-0.09) ng/mL Microbiology - Last 24 Hours (Table) 07/14/21 12:28 Blood Culture - Preliminary Blood No Growth after 96 hours 07/14/21 12:28 Blood Culture - Preliminary Blood No Growth after 96 hours Assessment and Plan Assessment: Impression: Acute hypoxic and hypercapnic respiratory failure secondary to acute exacerbation of COPD with chronic right-sided pleural effusion and possible community-acquired pneumonia Acute metabolic encephalopathy with background of dementia, CT of the brain is negative. Paroxysmal atrial fibrillation History of CVA/TIA. Type 2 diabetes. Benign essential hypertension. Dyslipidemia. Remote history of deep vein thrombosis. Tobacco dependence syndrome. In remission. Hypothyroidism. Acute on chronic kidney disease. History of cerebral hemorrhage and required surgery in 2003. Poor overall functional performance. Recommendation: Continue bronchodilators. Continue steroids. Continue antibiotics. Transferred out of the ICU once a regular medical surgical bed is available. Long-term prognosis remains poor and guarded. Consider placement/ECF. CODE STATUS remains DO NOT RESUSCITATE. Time with Patient: Less than 30
[2021-07-19 16:34] LABS: Glucose,Whole Blood 111 mg/dL (75-99)
[2021-07-19 20:19] LABS: Glucose,Whole Blood 276 mg/dL (75-99)
[2021-07-19] MEDS: RIVAROXABAN 15 MG TAB PO SCH (20:29)
[2021-07-19] MEDS: MIRTAZAPINE 15 MG TAB PO SCH (20:29)
[2021-07-19] MEDS: ATORVASTATIN 20 MG TAB PO SCH (20:29)
[2021-07-20] MEDS: INSULIN ASPART (NovoLOG) 100 UNIT/ML VIAL SQ SCH ×6 (06:33→11:52)
[2021-07-20 06:34] LABS: Glucose,Whole Blood 80 mg/dL (75-99)
[2021-07-20] MEDS: LEVOTHYROXINE 75 MCG TAB PO SCH (06:38)
[2021-07-20] MEDS: TAMSULOSIN 0.4 MG CAP.ER.24H PO SCH (06:38)
[2021-07-20] MEDS: FORMOTEROL FUMARATE 20 MCG/2 ML NEBU INHALATION SCH (07:50)
[2021-07-20] MEDS: IPRATROPIUM-ALBUTEROL 3 ML NEB INHALATION SCH ×2 (07:50→10:49)
[2021-07-20] MEDS: BUDESONIDE 0.5 MG/2 ML NEBU INHALATION SCH (07:50)
[2021-07-20] MEDS: PANTOPRAZOLE 40 MG/10 ML VIAL IVP SCH (08:09)
[2021-07-20] MEDS: INSULIN DETEMIR (LEVEMIR) 100 UNIT/ML SYR SQ SCH (08:09)
[2021-07-20] MEDS: PIPERACILLIN-TAZOBACTAM 3.375 GM in SODIUM CHLORIDE 0.9% 100 ML IVPB SCH (08:09)
[2021-07-20] MEDS: CLOPIDOGREL 75 MG TAB PO SCH (08:09)
[2021-07-20] MEDS: methylPREDNISolone SOD SUCCI 40 MG/ML 1 ML VIAL IV SCH (08:09)
[2021-07-20 09:12] VITALS: BP 119/60; RESP 16; TEMP 97.5
--- NOTE | 2021-07-20 09:22 | P.PN ---
Subjective Patient is seen for follow-up for acute kidney injury and top of chronic kidney disease. He has had good urine output, 1.1 L over 24 hours Mentation is close to baseline. Off of IV fluids. Objective - Vital Signs Vital signs: Vital Signs Temp 97.5 F L 07/20/21 08:00 Pulse 67 07/20/21 08:09 Resp 16 07/20/21 08:00 BP 119/60 07/20/21 08:00 Pulse Ox 95 07/20/21 08:00 FiO2 35 07/19/21 07:16 Intake & Output 07/19/21 07/20/21 07/20/21 18:59 06:59 18:59 Intake Total 500 600 Output Total 1100 48 Balance -600 552 Weight 70.5 kg 69.5 kg Intake: IV 500 600 Sodium Chloride 0.9% 1, 500 600 000 ml @ 50 mls/hr IV . Q20H [facility] Rx#:[id number] Output: Urine 1100 48 Other: Voiding Method Indwelling Catheter Indwelling Catheter Indwelling Catheter - Exam Awake, comfortable, not in any acute distress Examination of the heart S1 and S2 Examination of lungs bilateral breath sounds are heard Abdomen is soft nontender Examination of lower extremity shows 2+ edema bilaterally - Labs CBC & Chem 7: 07/19/21 07:51 07/19/21 09:14 Labs: Abnormal Lab Results - Last 24 Hours (Table) 07/19/21 07/19/21 07/19/21 Range/Units 07:51 09:14 11:49 Carbon Dioxide 38 H (22-30) mmol/L BUN 57 H (9-20) mg/dL Creatinine 2.20 H (0.66-1.25) mg/dL Glucose 130 H (74-99) mg/dL POC Glucose (mg/dL) 115 H (75-99) mg/dL Calcium 7.4 L (8.4-10.2) mg/dL Procalcitonin 0.16 H (0.02-0.09) ng/mL 07/19/21 07/19/21 Range/Units 16:33 20:18 Carbon Dioxide (22-30) mmol/L BUN (9-20) mg/dL Creatinine (0.66-1.25) mg/dL Glucose (74-99) mg/dL POC Glucose (mg/dL) 111 H 276 H (75-99) mg/dL Calcium (8.4-10.2) mg/dL Procalcitonin (0.02-0.09) ng/mL Microbiology - Last 24 Hours (Table) 07/14/21 12:28 Blood Culture - Preliminary Blood No Growth after 120 hours 07/14/21 12:28 Blood Culture - Preliminary Blood No Growth after 120 hours Assessment and Plan Assessment: 1. Acute kidney injury secondary to ATN secondary to diuresis. Good urine output. Serum creatinine staying around 2.1-2.2 mg/dL. Slightly improved from yesterday. We'll continue to monitor 2. 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 Baseline creatinine around 1.5 3. Acute hypercapnic respiratory failure 4. COPD exacerbation 5. Metabolic alkalosis mostly compensatory mechanism for respiratory acidosis 6. Hyperkalemia associated with acute kidney injury metabolic acidosis currently improved 7. Lower extremity edema, chronic Plan: Add low-dose loop diuretic Avoid hypotension Add low-dose midodrine with parameters to hold for systolic blood pressure more than 110 mmHg Patient can be discharged and follow-up as outpatient in about 1-2 weeks'
[2021-07-20 10:59] VITALS: PULSE 67
[2021-07-20 11:40] LABS: Glucose,Whole Blood 203 mg/dL (75-99)
--- NOTE | 2021-07-20 12:05 | P.PN ---
Subjective Progress Note Date: 07/20/21 Principal diagnosis: Acute exacerbation of COPD On 07/18/2021 patient seen in follow-up in the intensive care unit, patient has been off BiPAP support since 3:00 in the afternoon yesterday on 07/17/2021. He is breathing comfortably, he is awake and alert, he is on 2 L of oxygen pulse ox is 92%, afebrile, hemodynamically has been stable, breathing is nonlabored, no cough, no complaints of chest pain. Yesterday's chest x-ray showed no change in the small to moderate right pleural effusion, mild pulmonary vessel congestion, and an interval development of a retrocardiac opacity that could represent pneumonic infiltrate and/or atelectasis. Patient is covered with Zosyn, also received a dose of IV vancomycin. Patient is not able to produce any sputum for culture, but he was also found to have an acute urinary tract infection and urine culture showed enterococcus faecalis, blood cultures show no growth. He remains on IV steroids and breathing treatments. His last CBC from yesterday showed white blood cell count of 9.5, hemoglobin of 7.9, his BNP is showing sodium of 139, potassium is 4.1, chloride is 96, CO2 was 38, BUN 60, creatinine is 2.47. Patient continues on gentle IV hydration with point, sitting at a rate of 50 ML per hour, patient is also receiving iron replacement per nephrology, oral intake is currently poor. But patient has had no nausea vomiting or diarrhea. Patient did receive a dose of IV Lasix yesterday. He is in -232 mL net fluid balance over the last 24 hours. Patient was reevaluated today 07/19/21, remains in the ICU as an overflow. He is on oxygen at 2 L/m. Patient is on IV fluid at 50 mL per hour in the form of 0.9 normal saline. Patient did not require any CPAP or BiPAP overnight. He is hemodynamically stable. Not much of the changes noted in the last 24 hours. I believe the patient should have evaluation by high school social science teacher and possibly arrange for placement. I will strongly recommend ECF placement. In the meant jalyn the patient remains in the ICU as a MedSurg overflow. CBC is relatively unremarkable WBC count is 9.9 hemoglobin 8.3 left lites are normal however his BUN is 57 creatinine 2.2, obviously the patient has acute on chronic kidney disease, and he is being followed by nephrology. Chest x-ray on this admission showed small to moderate right-sided pleural effusion which is chronic, mild pulmonary vascular congestion, and retrocardiac opacity/atelectasis reevaluated today on 07/20/21, patient remains in the ICU as an overflow., Patient is on 2 L nasal cannula, he is basically calm, does not seem to be in any distress, all his medications were reviewed, his labs were reviewed. Renal functioning has been improving steadily in the last couple of days. His last creatinine was 2.20 yesterday. Patient is being evaluated by high school social science teacher for possible returning him to medical [place] [facility]. , Objective - Vital Signs Vital signs: Vital Signs Temp 97.5 F L 07/20/21 08:00 Pulse 67 07/20/21 10:58 Resp 16 07/20/21 08:00 BP 119/60 07/20/21 08:00 Pulse Ox 95 07/20/21 08:00 FiO2 35 07/19/21 07:16 Intake & Output 07/19/21 07/20/21 07/20/21 18:59 06:59 18:59 Intake Total 500 600 340 Output Total 1100 48 160 Balance -600 552 180 Weight 70.5 kg 69.5 kg Intake: IV 500 600 100 Sodium Chloride 0.9% 1, 500 600 000 ml @ 50 mls/hr IV . Q20H [facility] Rx#:[id number] Zosyn IVPB 100 Oral 240 Output: Urine 1100 48 160 Other: Voiding Method Indwelling Catheter Indwelling Catheter Indwelling Catheter - Exam Physical Exam: Revealed an 80-year-old white male in no distress, very comfortable. On 2 L nasal cannula. O2 sats is 95%. Head: Atraumatic, normocephalic. HEENT:[Neck is supple.] [No neck masses.] [No thyromegaly.] [No JVD.] Chest: [Symmetrical chest expansion, diminished breath sounds at the bases no crackles or rhonchi or wheezes. Cardiac Exam: [Normal S1 and S2, no S3 gallop, no murmur.] Abdomen: [Soft, nontender, no megaly, no rebound, no guarding, normal bowel sounds.] Extremities: [No clubbing, no edema, no cyanosis.] Neurological Exam: [No focal neurologic deficit.] Alert and oriented 3. Psychiatric: Normal mood affect and normal mental status examination. Skin: No rashes. - Labs CBC & Chem 7: 07/19/21 07:51 07/19/21 09:14 Labs: Abnormal Lab Results - Last 24 Hours (Table) 07/19/21 07/19/21 07/20/21 Range/Units 16:33 20:18 11:38 POC Glucose (mg/dL) 111 H 276 H 203 H (75-99) mg/dL Microbiology - Last 24 Hours (Table) 07/14/21 12:28 Blood Culture - Preliminary Blood No Growth after 120 hours 07/14/21 12:28 Blood Culture - Preliminary Blood No Growth after 120 hours Assessment and Plan Assessment: Impression: Acute hypoxic and hypercapnic respiratory failure secondary to acute exacerbat ion of COPD with chronic right-sided pleural effusion and possible community- acquired pneumonia Acute metabolic encephalopathy with background of dementia, CT of the brain is negative. Paroxysmal atrial fibrillation History of CVA/TIA. Type 2 diabetes. Benign essential hypertension. Dyslipidemia. Remote history of deep vein thrombosis. Tobacco dependence syndrome. In remission. Hypothyroidism. Acute on chronic kidney disease. History of cerebral hemorrhage and required surgery in 2003. Poor overall functional performance. Recommendation: Continue bronchodilators. Continue steroids. Continue antibiotics. Consider placement/ECF. long the prognosis is relatively poor CODE STATUS remains DO NOT RESUSCITATE. Time with Patient: Less than 30
--- NOTE | 2021-07-20 12:10 | P.DS ---
Providers Date of admission: 07/14/21 15:04 Expected date of discharge: 07/20/21 Attending physician: Trinity Lockett MD Consults: 07/14/21 15:04 Consult Physician Stat Consulting Provider: Betty Harris Consult Reason/Comments: Hypercapnia Do you want consulting provider notified?: Yes 07/15/21 11:28 Consult Physician Routine Consulting Provider: Kvng Arreaga Consult Reason/Comments: ZENOBIA on CKD IIIb Do you want consulting provider notified?: Yes 07/18/21 10:20 Consult Physician Routine Consulting Provider: Pinky Crawley Consult Reason/Comments: UTI Do you want consulting provider notified?: Yes Primary care physician: Stated None Hospital Course: Acute hypercarbic respiratory failure superimposed on chronic hypoxemic respiratory failure COPD exacerbation CAD Hypertension Hyperlipidemia Diabetes Hypothyroidism History of DVT Paroxysmal atrial fibrillation History of CVA 80-year-old man who is a [place] resident, with history of COPD on 2 L of nasal cannula at baseline, CAD, hypertension, hyperlipidemia, diabetes, hypothyroidism, history of DVT on Apixiban, paroxysmal atrial fibrillation, history of CVA presented for evaluation of obtundation/lethargy. In the emergency room, patient was placed on BiPAP 70% FiO2, 16/5, with saturations of 95%. His blood pressure is 106/47, heart rate 74, breathing at a rate of 18-30. CBC was markable for anemia down to 9.8, which is his baseline, MCV of 103.5. Chemistries remarkable for hyperkalemia to 5.8, CO2 of 50, chloride of 84, BUNs/creatinine of 48/1.83, which represents baseline. LFTs show hypoproteinemia, hypoalbuminemia of 5.5/3.3. Initial troponins 0.054. Ammonia was 22. UA shows 1+ protein, trace ketones, small blood, moderate leukocyte esterase, 21 white blood cells, rare bacteria. Urine tox screen was negative. Covid was negative. ABG demonstrated a pH of 7.07, pCO2 of greater than 120, pO2 of 135. Brain CT was negative for acute intracranial hemorrhage or gross acute cortical infarct. Chest x-ray is concerning for right lower lobe infiltrate and small effusion, as well as linear lucency in the upper right thorax. EKG shows normal sinus rhythm. Patient was admitted to the ICU with pulmonary consultation. He was treated with BIPAP, nebulizers, and steroids. He was also subsequently started on abx vancomycin and zosyn for presumed pneumonia. He recovered back to nasal cannula in 48 hours, and back to baseline oxygenation requirement in 72 hours. His hospital course was complicated by enterococcus UTI and ZENOBIA. Nephrology and ID facilitated this management. On day of discharge Cr was stable, and patient was transitioned to augmentin from zosyn for ttotal anticipated abx course of 10 days. The UCx demonstrated penicillin susceptible enterococcus faecalis. Pt will f/u with pulmonology, nephrology, and PCP on discharge. I spent 40 minutes coordinating this complex discharge, discharge date is 07/20. Gen: Obtunded, lethargic Eyes: PERRL, no scleral injection or icterus HENT: normocephalic, atraumatic, moist mucous membranes Neck: no tracheal deviation, full range of motion Resp: Impaired air exchange, breathing comfortably with no accessory muscle use, no tactile fremitus, diminished breath sounds in the lower lung lainez, left side worse than the right side CVS: good distal perfusion x 4, bilateral 1+ pitting edema GI: soft, NTTP, ND, no hepatosplenomegaly : no suprapubic tenderness, no CVAT, rainey catheter not present MSK: no clubbing, no cyanosis, no noted contractures of extremities Skin: no noted rashes, petechiae; temperature of skin is appropriate Neuro: moving all extremities without signs of weakness, CN II-XII intact Patient Condition at Discharge: Good Plan - Discharge Summary Discharge Rx Participant: No New Discharge Prescriptions: New Tiotropium 2.5 Mcg/Puff [Spiriva Respimat 2.5 Mcg] 1 puff INHALATION DAILY #1 each Budesonide-Formot 160-4.5 Mcg [Symbicort 160-4.5 Mcg Inhaler] 2 puff INHALATION BID #1 each Amoxic-Pot Clav 875-125Mg [Augmentin 875-125] 1 tab PO BID 1 Days #8 tab predniSONE [Deltasone] See Rx Instructions .ROUTE .COMPLEX #15 tab Albuterol Sulfate [Albuterol Sulfate Hfa] 1 puff PO Q4-6H PRN #8.5 gm PRN Reason: Dyspnea Continue Levothyroxine Sodium [Synthroid] 75 mcg PO DAILY Atorvastatin [Lipitor] 20 mg PO HS@2000 Potassium Chloride [K-Tab ER] 10 meq PO DAILY Clopidogrel [Plavix] 75 mg PO DAILY metFORMIN HCL [Glucophage] 500 mg PO DAILY Mirtazapine [Remeron] 15 mg PO HS@1999 Rivaroxaban [Xarelto] 20 mg PO HS Tamsulosin [Flomax] 0.4 mg PO DAILY@0700 Sodium Chloride [Sawyer] 1 spray EA NOSTRIL DAILY PRN PRN Reason: dry nares Discontinued predniSONE See Taper PO DIRECTED Discharge Medication List Atorvastatin [Lipitor] 20 mg PO HS@199912/22/14 [History] Levothyroxine Sodium [Synthroid] 75 mcg PO DAILY 12/22/14 [History] Potassium Chloride [K-Tab ER] 10 meq PO DAILY 12/22/14 [History] Clopidogrel [Plavix] 75 mg PO DAILY 02/06/17 [History] Mirtazapine [Remeron] 15 mg PO HS@199907/11/17 [History] metFORMIN HCL [Glucophage] 500 mg PO DAILY 07/11/17 [History] Rivaroxaban [Xarelto] 20 mg PO HS 06/21/21 [History] Sodium Chloride [Sawyer] 1 spray EA NOSTRIL DAILY PRN 07/14/21 [History] Tamsulosin [Flomax] 0.4 mg PO DAILY@0700 07/14/21 [History] Albuterol Sulfate [Albuterol Sulfate Hfa] 1 puff PO Q4-6H PRN #8.5 gm 07/20/21 [Rx] Amoxic-Pot Clav 875-125Mg [Augmentin 875-125] 1 tab PO BID 1 Days #8 tab 07/20/21 [Rx] Budesonide-Formot 160-4.5 Mcg [Symbicort 160-4.5 Mcg Inhaler] 2 puff INHALATION BID #1 each 07/20/21 [Rx] Tiotropium 2.5 Mcg/Puff [Spiriva Respimat 2.5 Mcg] 1 puff INHALATION DAILY #1 each 07/20/21 [Rx] predniSONE [Deltasone] See Rx Instructions .ROUTE .COMPLEX #15 tab 07/20/21 [Rx] Follow up Appointment(s)/Referral(s): None,Stated [Primary Care Provider] - 1-2 days Discharge Disposition: [facility]TACT [facility]
[2021-07-20] MEDS ORDERED: FUROSEMIDE 20 MG TAB PO SCH (16:00)
[2021-07-20] MEDS ORDERED: MIDODRINE 5 MG TAB PO SCH (17:30)
== END 2021-07-20 14:29 | disposition still patient (30) | DRG 193 ==
LOC: EC 11:54 → 3SCARD 15:04 → 2SICU 15:13
PROVIDERS: ADMIT Internal Medicine; ATTEND Internal Medicine
PROC: 5A09457 Assistance with Respiratory Ventilation, 24-96 Consecutive Hours, Continuous Positive Airway Pressure (ICD-10-PCS; principal; 2021-07-14)
DX: J18.9 Pneumonia, unspecified organism (principal); J96.21 Acute and chronic respiratory failure with hypoxia; J96.22 Acute and chronic respiratory failure with hypercapnia; N17.0 Acute kidney failure with tubular necrosis; J44.0 Chronic obstructive pulmonary disease with (acute) lower respiratory infection; J44.1 Chronic obstructive pulmonary disease with (acute) exacerbation; J90 Pleural effusion, not elsewhere classified; J98.11 Atelectasis; N39.0 Urinary tract infection, site not specified; E87.4 Mixed disorder of acid-base balance; R64 Cachexia; E88.09 Other disorders of plasma-protein metabolism, not elsewhere classified; I48.0 Paroxysmal atrial fibrillation; N18.32 Chronic kidney disease, stage 3b; E11.22 Type 2 diabetes mellitus with diabetic chronic kidney disease; I12.9 Hypertensive chronic kidney disease with stage 1 through stage 4 chronic kidney disease, or unspecified chronic kidney disease; D63.1 Anemia in chronic kidney disease; F03.90 Unspecified dementia, unspecified severity, without behavioral disturbance, psychotic disturbance, mood disturbance, and anxiety; Z79.84 Long term (current) use of oral hypoglycemic drugs; E03.9 Hypothyroidism, unspecified; E77.8 Other disorders of glycoprotein metabolism; E78.5 Hyperlipidemia, unspecified; Z99.81 Dependence on supplemental oxygen; E87.6 Hypokalemia; F17.201 Nicotine dependence, unspecified, in remission; B95.2 Enterococcus as the cause of diseases classified elsewhere; I25.10 Atherosclerotic heart disease of native coronary artery without angina pectoris; K21.9 Gastro-esophageal reflux disease without esophagitis; E87.5 Hyperkalemia; N40.0 Benign prostatic hyperplasia without lower urinary tract symptoms; D50.9 Iron deficiency anemia, unspecified; T50.2X5A Adverse effect of carbonic-anhydrase inhibitors, benzothiadiazides and other diuretics, initial encounter; Z20.822 Contact with and (suspected) exposure to COVID-19; G43.909 Migraine, unspecified, not intractable, without status migrainosus; R00.1 Bradycardia, unspecified; Z66 Do not resuscitate; Z79.01 Long term (current) use of anticoagulants; Z79.02 Long term (current) use of antithrombotics/antiplatelets; Z79.890 Hormone replacement therapy; Z79.899 Other long term (current) drug therapy; Z82.3 Family history of stroke; Z86.718 Personal history of other venous thrombosis and embolism; Z86.73 Personal history of transient ischemic attack (TIA), and cerebral infarction without residual deficits; Z87.442 Personal history of urinary calculi; Z87.01 Personal history of pneumonia (recurrent); Z68.22 Body mass index [BMI] 22.0-22.9, adult; Z90.89 Acquired absence of other organs; Z86.19 Personal history of other infectious and parasitic diseases; Z79.52 Long term (current) use of systemic steroids
CPT/HCPCS: 36415; 36600; 70450; 71045; 80048; 80053; 80202; 80306; 81001; 82140; 82728; 82805; 83540; 83550; 83735; 84145; 84484; 85025; 85610; 85730; 86140; 87040; 87077; 87086; 87186; 87635; 93005; 94640; 94660; 96360; 99291

== ENCOUNTER 2021-07-21 01:33 | Emergency (ER) | payer MEDICARE, OTHER ==
[2021-07-21 01:40] VITALS: RESP 16; TEMP 97.9
[2021-07-21 03:25] VITALS: BP 136/54; PULSE 67
--- NOTE | 2021-07-21 03:47 | XR ---
EXAM: XR Chest, 2 Views CLINICAL HISTORY: ITS.REASON XR Reason: dyspnea TECHNIQUE: Frontal and lateral views of the chest. COMPARISON: 07/17/21 FINDINGS: Lungs: Mild diffuse interstitial opacities in both lungs, suggest pulmonary edema. Superimposed bibasilar airspace opacities likely represent atelectasis. Pleural space: Persistent bilateral pleural effusions, more on the right. No pneumothorax. Mediastinum: Unchanged. Bones/joints: No acute findings. IMPRESSION: 1. Persistent bilateral pleural effusions, more on the right. 2. Mild diffuse interstitial opacities in both lungs, suggest pulmonary edema. 3. Superimposed bibasilar airspace opacities likely represent atelectasis. Pneumonia or aspiration are difficult to exclude.
--- NOTE | 2021-07-21 04:59 | ED ---
Recheck HPI - General Chief Complaint: Recheck/Abnormal Lab/Rx Stated Complaint: Low O2 Time Seen by Provider: 07/21/21 02:29 Source: EMS Mode of arrival: EMS Limitations: altered mental status - History of Present Illness Initial Comments: Patient is a-year-old man brought to have evaluation for low pulse oximetry readings. The patient had just been discharged from the hospital to return to long-term care facility. When patient arrived there he at some point did take off his nasal cannula oxygen. The patient reportedly is oxygen dependent and th dc noted that his sats had gone into the 80s. They therefore called EMS who transported patient here to have evaluation. When I interview the patient, he is without complaint. The oxygen had been replaced and he does have sats into the mid to upper 90s. Patient is not complaining of chest pain, cough or dyspnea. MD Complaint: other Onset/Timin -: hour(s) Returns Today for: other Symptoms Since Prior Visit: no new symptoms Associated Symptoms: none Treatments Prior to Arrival: other (Oxygen) - Related Data Home Medications Medication Instructions Recorded Confirmed Atorvastatin [Lipitor] 20 mg PO HS@199912/22/14 07/14/21 Levothyroxine Sodium [Synthroid] 75 mcg PO DAILY 12/22/14 07/14/21 Potassium Chloride [K-Tab ER] 10 meq PO DAILY 12/22/14 07/14/21 Clopidogrel [Plavix] 75 mg PO DAILY 02/06/17 07/14/21 Mirtazapine [Remeron] 15 mg PO HS@199907/11/17 07/14/21 metFORMIN HCL [Glucophage] 500 mg PO DAILY 07/11/17 07/14/21 Rivaroxaban [Xarelto] 20 mg PO HS 06/21/21 07/14/21 Sodium Chloride [Aulander] 1 spray EA NOSTRIL DAILY PRN 07/14/21 07/14/21 Tamsulosin [Flomax] 0.4 mg PO DAILY@0707/14/21 07/14/21 Previous Rx's Medication Instructions Recorded Albuterol Sulfate [Albuterol 1 puff PO Q4-6H PRN #8.5 gm 07/20/21 Sulfate Hfa] Amoxic-Pot Clav 875-125Mg 1 tab PO BID 1 Days #8 tab 07/20/21 [Augmentin 875-125] Budesonide-Formot 160-4.5 Mcg 2 puff INHALATION BID #1 each 07/20/21 [Symbicort 160-4.5 Mcg Inhaler] Tiotropium 2.5 Mcg/Puff [Spiriva 1 puff INHALATION DAILY #1 each 07/20/21 Respimat 2.5 Mcg] predniSONE [Deltasone] See Rx Instructions .ROUTE 07/20/21 .COMPLEX #15 tab Allergies Allergy/AdvReac Type Severity Reaction Status Date / Time No Known Allergies Allergy Verified 07/14/21 12:13 Review of Systems ROS Statement: Those systems with pertinent positive or pertinent negative responses have been documented in the HPI. ROS Other: All systems not noted in ROS Statement are negative. 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 History of Any Multi-Drug Resistant Organisms: None Reported Past Surgical History: Tonsillectomy Additional Past Surgical History / Comment(s): Brain surgery for bleed 2003. Past Anesthesia/Blood Transfusion Reactions: No Reported Reaction Past Psychological History: No Psychological Hx Reported Smoking Status: Former smoker - Past Family History Father Family Medical History: CVA/TIA Additional Family Medical History / Comment(s): Father had a CVA at age 63. Pt does not know how old he lived to be. Mother Family Medical History: No Reported History Additional Family Medical History / Comment(s): Pt states his mother just of old age. He does not know how old she was when she . General Exam Limitations: altered mental status General appearance: alert, in no apparent distress Head exam: Present: atraumatic, normocephalic Eye exam: Present: normal appearance. Absent: scleral icterus, conjunctival injection Neck exam: Present: normal inspection Respiratory exam: Present: rhonchi. Absent: respiratory distress, wheezes, rales, stridor, accessory muscle use, decreased breath sounds Cardiovascular Exam: Present: regular rate, normal rhythm, normal heart sounds. Absent: systolic murmur, diastolic murmur, rubs, gallop GI/Abdominal exam: Present: soft. Absent: distended, tenderness, guarding, rebound, rigid, mass Extremities exam: Present: normal inspection, normal capillary refill. Absent: pedal edema, calf tenderness Back exam: Present: normal inspection. Absent: CVA tenderness (R), CVA tenderness (L) Neurological exam: Present: alert Skin exam: Present: warm, dry, intact, normal color. Absent: rash Course Vital Signs 07/21/21 07/21/21 07/21/21 01:38 03:25 03:58 Temperature 97.9 F Pulse Rate 73 67 Respiratory 16 16 Rate Blood Pressure 132/52 136/54 O2 Sat by Pulse 98 100 98 Oximetry Medical Decision Making - Medical Decision Making The patient is a 80-year-old man with history of pulmonary disease and on home oxygen. He had taken off his oxygen and found to have low pulse oximetry numbers. After being transported here and having oxygen replaced patient is in stable condition. We will transport back to long-term care facility, continue his home oxygen and current medical regimen. Disposition Clinical Impression: Pneumonia Disposition: HOME SELF-CARE Condition: Fair Is patient prescribed a controlled substance at d/c from ED?: No Referrals: None,Stated [Primary Care Provider] - 1-2 days
== END 2021-07-21 06:36 | disposition home or self-care (01) ==
LOC: EC 01:33
DX: J18.9 Pneumonia, unspecified organism (principal); J44.9 Chronic obstructive pulmonary disease, unspecified; K21.9 Gastro-esophageal reflux disease without esophagitis; E03.9 Hypothyroidism, unspecified; I48.0 Paroxysmal atrial fibrillation; I12.9 Hypertensive chronic kidney disease with stage 1 through stage 4 chronic kidney disease, or unspecified chronic kidney disease; E11.22 Type 2 diabetes mellitus with diabetic chronic kidney disease; N18.30 Chronic kidney disease, stage 3 unspecified; Z79.899 Other long term (current) drug therapy; Z79.890 Hormone replacement therapy; Z79.84 Long term (current) use of oral hypoglycemic drugs; Z86.73 Personal history of transient ischemic attack (TIA), and cerebral infarction without residual deficits; Z87.891 Personal history of nicotine dependence; Z79.02 Long term (current) use of antithrombotics/antiplatelets
CPT/HCPCS: 71046; 99284